=== PATIENT | male | born 1940 | race Caucasian/White ===

== ENCOUNTER 2018-01-01 14:12 | Emergency (ER) | payer OTHER, SELFPAY ==
[2018-01-01 14:29] VITALS: BP 152/86; PULSE 60; RESP 14; TEMP 36.6; O2SAT 99
--- NOTE | 2018-01-01 14:32 | ED.LOWEXIN ---
HPI - Extremity Injury (Lower) <RICH Reese - Last Filed: 01/01/18 23:34> General Chief Complaint: Extremity Injury, Lower Stated Complaint: fell, bilateral pain above knees Time Seen by Provider: 01/01/18 14:56 Source: patient Mode of arrival: wheelchair History of Present Illness HPI Narrative: Patient presents with bilateral knee pain. He states he had his feet and his knees flexed really hard. After that he was unable to bear weight and had to scoot himself to the car. He denies any numbness or tingling or any other injuries. He does state that his pain is strongest above his knee caps. He states he does have a history of osteoarthritis in his knees and has had steroid injections. He denies any recent antibiotic use or diabetes. Related Data Home Medications Medication Instructions Recorded Confirmed albuterol sulfate [Ventolin HFA] 2 puff INH PRN #0 05/09/17 Previous Rx's Medication Instructions Recorded beclomethasone dipropionate [Qvar] 2 puff INH BID #1 inh 08/24/17 montelukast 10 mg PO QDAY #90 tab 09/09/17 omeprazole 20 mg PO BID #90 cap 09/09/17 benzonatate [Tessalon Perles] 100 mg PO TIDP PRN #45 cap 10/11/17 mesalamine [Lialda] 2 tab PO BID #360 tab 10/12/17 sildenafil (antihypertensive) 3 - 5 tab PO SEE INSTRUCTIONS PRN 10/12/17 #30 tab fluticasone 50 mcg/actuation nasal 2 spray INTRANASAL QDAY #15.8 gram 12/15/17 spray,suspension hydrocodone-acetaminophen 1 tab PO Q4-6H PRN #10 tab 01/01/18 Allergies Allergy/AdvReac Type Severity Reaction Status Date / Time Iodinated Contrast- Oral and Allergy Severe HIVES Verified 01/01/18 16:15 IV Dye [IODINATED CONTRAST- ORAL AND IV DYE] Review of Systems <RICH Reese - Last Filed: 01/01/18 23:34> Review of Systems GENERAL: See HPI HEENT: Denies sinus pain, ear pain, sore throat, difficulty swallowing, dizziness. RESPIRATORY: Denies dyspnea, cough, wheezing, hemoptysis, sputum. CARDIOVASCULAR: Denies chest pain, palpitations, orthopnea, edema, GASTROINTESTINAL: Denies nausea, vomiting, abdominal pain, diarrhea, constipation, melena. : Denies dysuria, frequency, incontinence, hematuria, urinary retention. MUSCULOSKELETAL: See HPI SKIN: Denies rash, skin lesions, or other NEUROLOGIC: Denies weakness, headache, numbness, change in speech, confusion, seizures, incoordination. PSYCHIATRIC: No concerning psychosocial issues. 12 point review of systems is negative except for those stated above Exam <ANTONETTE Reese- - Last Filed: 01/01/18 23:34> Narrative Exam Narrative: GENERAL: This is a well-nourished, well-developed patient, in mild distress. HEAD: Atraumatic. Normocephalic. No temporal or scalp tenderness. EYES: Pupils equal round and reactive. Extraocular motions intact. No scleral icterus. No injection or drainage. ENT: Nose without bleeding, purulent drainage or septal hematoma. Throat without erythema, tonsillar hypertrophy or exudate. Uvula midline. Airway patent. NECK: Trachea midline. No JVD or lymphadenopathy. Supple, nontender, no meningeal signs. CARDIOVASCULAR: Regular rate and rhythm without murmurs, gallops, or rubs. RESPIRATORY: Clear to auscultation. Breath sounds equal bilaterally. No wheezes, rales, or rhonchi. GASTROINTESTINAL: Abdomen soft, non-tender, nondistended. No hepato-splenomegaly, or palpable masses. No guarding. EXTREMITIES: Positive p.m.s bilateral feet. Negative posterior drawer, anterior drawer, varus, or valgus negative Rosalva's test bilateral knees. Patient is unable to support lower leg elevated off of bed. Patient is unable to extend leg from knee bilaterally BACK: Nontender without deformity or crepitance. No flank tenderness. NEURO: AOx3. SKIN: Slight swelling noted superior to bilateral patellas. Skin is intact. Initial Vital Signs Initial Vital Signs: Vital Signs Temperature 97.8 F 01/01/18 14:29 Pulse Rate 60 01/01/18 14:29 Respiratory Rate 14 01/01/18 14:29 Blood Pressure 152/86 H 01/01/18 14:29 Pulse Oximetry 99 01/01/18 14:29 <Tremayne Jovel MD - Last Filed: 02/02/18 06:48> Initial Vital Signs Initial Vital Signs: Vital Signs Temperature 97.8 F 01/01/18 14:29 Pulse Rate 60 01/01/18 14:29 Respiratory Rate 14 01/01/18 14:29 Blood Pressure 152/86 H 01/01/18 14:29 Pulse Oximetry 99 01/01/18 14:29 Procedures <ANTONETTE Reese-BC - Last Filed: 01/01/18 23:34> Orthopedic Splinting/Casting Injury #1: Side: right Lower Extremity Injury Location: knee Lower Extremity Immobilizer: knee immobilizer Other Orthopedic Equipment: walker Additional Comments: Pulse motor sensory intact before and after knee immobilizer application in right foot Injury #2: Side: left Lower Extremity Injury Location: knee Lower Extremity Immobilizer: knee immobilizer Other Orthopedic Equipment: walker Additional Comments: Pulse motor and sensory intact before and after knee immobilizer application of left. Course <ANTONETTE Reese-BC - Last Filed: 01/01/18 23:34> Orders Ordered: Discontinued Medications Hydrocodone Bitart/Acetaminophen ([place] 5/325) 2 tab PO NOW ONE Stop: 01/01/18 15:43 Last Admin: 01/01/18 16:15 Dose: 2 tab Hydrocodone Bitart/Acetaminophen (Vicodin Prepack) 1 bottle MISC SEEINSTR ONE Stop: 01/01/18 18:27 Last Admin: 01/01/18 18:31 Dose: 1 bottle Reevaluation(s) Reevaluation #1: Discussed negative x-ray reads. Offered pain medication, which patient accepted. Vicodin ordered p.o. Time: 15:40 Reevaluation #2: Given exam, ultrasounded bilateral knees. Concerning for bilateral tendon rupture. Time: 17:00 Reevaluation #3: Patient placed on bilateral knee immobilizers as per orthopedics. Patient could walker for ambulation. Patient stable on feet. Discussed at length increased risk of falling with patient and . Offered to call [facility] to try to arrange transfer. Patient and declined calling [facility]. Requested patient go home. Patient given small pain medication prescription and will follow up with Orthopedics. Time: 18:00 Consultations Consultation #1: Spoke with Dr Calixto from [facility] who viewed x-rays. Discussed placement in bilateral knee immobilizers. Discussed MRI as further workup, but MRI is no longer available inhouse. Discussed follow-up with [facility]. Time: 17:30 Vital Signs - 8 hr 01/01/18 16:59 01/01/18 18:23 Pulse Rate 74 74 Respiratory Rate 12 12 Blood Pressure [Left Arm] 125/71 H 118/68 Pulse Oximetry 100 97 <Tremayne Jovel MD - Last Filed: 02/02/18 06:48> Orders Ordered: Discontinued Medications Hydrocodone Bitart/Acetaminophen ([place] 5/325) 2 tab PO NOW ONE Stop: 01/01/18 15:43 Last Admin: 01/01/18 16:15 Dose: 2 tab Hydrocodone Bitart/Acetaminophen (Vicodin Prepack) 1 bottle MISC SEEINSTR ONE Stop: 01/01/18 18:27 Last Admin: 01/01/18 18:31 Dose: 1 bottle Vital Signs - 8 hr 01/01/18 16:59 01/01/18 18:23 Pulse Rate 74 74 Respiratory Rate 12 12 Blood Pressure [Left Arm] 125/71 H 118/68 Pulse Oximetry 100 97 MDM - Extremity Injury (Lower) <RICH Reese - Last Filed: 01/01/18 23:34> Imaging Data right knee xray: Radiologist's impression: [place] [address] XRay Report Signed Patient: Renny Rojo MR#: [id number] : 1940 Acct:[id number] Age/Sex: 77 / M Date of Service: 01/01/18 Loc: ED Accession Number: [id number] Procedure: XR knee RT 3V Ordering Provider: Pauline Britotn PROCEDURE: XR KNEE RT 3V INDICATIONS: glf, anterior knee pain/unable to flex TECHNIQUE: 3 views of the knee were acquired. COMPARISON: None. FINDINGS: Bones: No acute fracture or dislocation. There is a patellar enthesophyte present. Soft tissues: No joint effusion. No suspicious soft tissue calcifications. IMPRESSION: No acute radiographic findings. If pain persists, repeat study in 5-7 days is recommended to exclude occult fracture. Dictated by: Cecilia Vega M.D. on 01/01/2018 at 15:17 Approved by: Cecilia Vega M.D. on 01/01/2018 at 15:17 left knee xray: Radiologist's impression: View Report History Print [facility] [address] [place] [address] XRay Report Signed Patient: Renny Rojo MR#: [id number] : 1940 Acct:[id number] Age/Sex: 77 / M Date of Service: 01/01/18 Loc: ED Accession Number: [id number] Procedure: XR knee LT 3V Ordering Provider: Pauline Britton-AME PROCEDURE: XR KNEE LT 3V INDICATIONS: glf, anterior knee pain/unable to flex TECHNIQUE: 3 bilateral views of the knee were acquired. COMPARISON: [facility], CR, XR KNEE RT 3V, 01/01/2018, 14:23. FINDINGS: Bones: No acute fracture or dislocation. There are bilateral patellar enthesophytes. Soft tissues: No joint effusion. No suspicious soft tissue calcifications. IMPRESSION: No acute radiographic findings. If pain persists, repeat study in 5-7 days is recommended to exclude occult fracture. Dictated by: Cecilia Vega M.D. on 01/01/2018 at 14:54 Approved by: Cecilia Vega M.D. on 01/01/2018 at 14:56 MDM Narrative Medical decision making narrative: Exam and history is indicative of a bilateral quadriceps tendon rupture. Discussed at length with orthopedics further management. Discussed at length with patient and follow-up care. Patient and do not want to be transferred to another facility at this time. They would prefer to go home rather than be admitted. Discussed at length with patient return precautions. They will follow up with Orthopedics tomorrow. Small pain medication prescription given to patient. Discharge Plan Departure Patient Disposition: Home, Self-Care Clinical Impression: Rupture of left quadriceps tendon, Rupture of right quadriceps tendon Discharge Date/Time: 01/01/18 18:36 Interventions: ED Discharge Assessment Last Done: 01/01/18 18:35 Instructions: DI for Knee Pain Activity Restrictions/Additional Instructions: We think that you ruptured both of your quadriceps tendons today. I have given you a prescription for pain medication that you can take as needed. Be aware that there is Tylenol in this prescription. I would like you to follow up with [facility] tomorrow. Please be careful at home, keep your knee immobilizers on if you are up. Rest, use ice, elevation. Prescriptions: New hydrocodone-acetaminophen 5-325 mg tablet 1 tab PO Q4-6H PRN (Reason: pain ) Qty: 10 RF: 0 No Action albuterol sulfate [Ventolin HFA] 90 MCG/PUFF HFA aerosol inhaler 2 puff INH PRNQty: 0 RF: 0 beclomethasone dipropionate [Qvar] 80 MCG/PUFF aerosol 2 puff INH BID Qty: 1 RF: 5 omeprazole 20 MG capsule,delayed release(DR/EC) 20 mg PO BID Qty: 90 RF: 3 montelukast 10 MG tablet 10 mg PO QDAY Qty: 90 RF: 3 benzonatate [Tessalon Perles] 100 MG capsule 100 mg PO TIDP PRNQty: 45 RF: 0 sildenafil (antihypertensive) 20 MG tablet 3 - 5 tab PO SEE INSTRUCTIONS PRNQty: 30 RF: 3 mesalamine [Lialda] 1.2 GM tablet,delayed release (DR/EC) 2 tab PO BID Qty: 360 RF: 0 fluticasone [Flonase Allergy Relief] 50 mcg/actuation spray,suspension 2 spray Intranasal QDAY Qty: 15.8 RF: 2 Referrals: [facility] [Provider Group] Darwin Silver MD [Primary Care Provider] - <Tremayne Jovel MD - Last Filed: 02/02/18 06:48> Cosign ED Attending Cosignature Attestation: The PA/PATIENT ADMITTING REPRESENTATIVE functioned independently for the care of this pt, I was available, but not asked to participate in care. I am unable to determine appropriateness of management without personally examining the pt.
--- NOTE | 2018-01-01 14:38 | PC.NURSE ---
bilat knee pain following slip/fall, reports both knees folded underneath him after slipping down wet grass slope and striking both feet on cement block. there is swelling bilat with sup/ant deformity of the lt knee with tenderness, unable to bear weight, distal cms intact, denies loc/neck pain/head pain/back pain
--- NOTE | 2018-01-01 15:48 | ED_ITS ---
HPI - Extremity Injury (Lower) <RICH Reese - Last Filed: 01/01/18 23:34> General Chief Complaint: Extremity Injury, Lower Stated Complaint: fell, bilateral pain above knees Time Seen by Provider: 01/01/18 14:56 Source: patient Mode of arrival: wheelchair History of Present Illness HPI Narrative: Patient presents with bilateral knee pain. He states he had his feet and his knees flexed really hard. After that he was unable to bear weight and had to scoot himself to the car. He denies any numbness or tingling or any other injuries. He does state that his pain is strongest above his knee caps. He states he does have a history of osteoarthritis in his knees and has had steroid injections. He denies any recent antibiotic use or diabetes. Related Data Home Medications Medication Instructions Recorded Confirmed albuterol sulfate [Ventolin HFA] 2 puff INH PRN #0 05/09/17 Previous Rx's Medication Instructions Recorded beclomethasone dipropionate [Qvar] 2 puff INH BID #1 inh 08/24/17 montelukast 10 mg PO QDAY #90 tab 09/09/17 omeprazole 20 mg PO BID #90 cap 09/09/17 benzonatate [Tessalon Perles] 100 mg PO TIDP PRN #45 cap 10/11/17 mesalamine [Lialda] 2 tab PO BID #360 tab 10/12/17 sildenafil (antihypertensive) 3 - 5 tab PO SEE INSTRUCTIONS PRN 10/12/17 #30 tab fluticasone 50 mcg/actuation nasal 2 spray INTRANASAL QDAY #15.8 gram 12/15/17 spray,suspension hydrocodone-acetaminophen 1 tab PO Q4-6H PRN #10 tab 01/01/18 Allergies Allergy/AdvReac Type Severity Reaction Status Date / Time Iodinated Contrast- Oral and Allergy Severe HIVES Verified 01/01/18 16:15 IV Dye [IODINATED CONTRAST- ORAL AND IV DYE] Review of Systems <RICH Reese - Last Filed: 01/01/18 23:34> Review of Systems GENERAL: See HPI HEENT: Denies sinus pain, ear pain, sore throat, difficulty swallowing, dizziness. RESPIRATORY: Denies dyspnea, cough, wheezing, hemoptysis, sputum. CARDIOVASCULAR: Denies chest pain, palpitations, orthopnea, edema, GASTROINTESTINAL: Denies nausea, vomiting, abdominal pain, diarrhea, constipation, melena. : Denies dysuria, frequency, incontinence, hematuria, urinary retention. MUSCULOSKELETAL: See HPI SKIN: Denies rash, skin lesions, or other NEUROLOGIC: Denies weakness, headache, numbness, change in speech, confusion, seizures, incoordination. PSYCHIATRIC: No concerning psychosocial issues. 12 point review of systems is negative except for those stated above Exam <ANTONETTE Reese- - Last Filed: 01/01/18 23:34> Narrative Exam Narrative: GENERAL: This is a well-nourished, well-developed patient, in mild distress. HEAD: Atraumatic. Normocephalic. No temporal or scalp tenderness. EYES: Pupils equal round and reactive. Extraocular motions intact. No scleral icterus. No injection or drainage. ENT: Nose without bleeding, purulent drainage or septal hematoma. Throat without erythema, tonsillar hypertrophy or exudate. Uvula midline. Airway patent. NECK: Trachea midline. No JVD or lymphadenopathy. Supple, nontender, no meningeal signs. CARDIOVASCULAR: Regular rate and rhythm without murmurs, gallops, or rubs. RESPIRATORY: Clear to auscultation. Breath sounds equal bilaterally. No wheezes , rales, or rhonchi. GASTROINTESTINAL: Abdomen soft, non-tender, nondistended. No hepato-splenomegaly , or palpable masses. No guarding. EXTREMITIES: Positive p.m.s bilateral feet. Negative posterior drawer, anterior drawer, varus, or valgus negative Rosalva's test bilateral knees. Patient is unable to support lower leg elevated off of bed. Patient is unable to extend leg from knee bilaterally BACK: Nontender without deformity or crepitance. No flank tenderness. NEURO: AOx3. SKIN: Slight swelling noted superior to bilateral patellas. Skin is intact. Initial Vital Signs Initial Vital Signs: Vital Signs Temperature 97.8 F 01/01/18 14:29 Pulse Rate 60 01/01/18 14:29 Respiratory Rate 14 01/01/18 14:29 Blood Pressure 152/86 H 01/01/18 14:29 Pulse Oximetry 99 01/01/18 14:29 <Tremayne Jovel MD - Last Filed: 02/02/18 06:48> Initial Vital Signs Initial Vital Signs: Vital Signs Temperature 97.8 F 01/01/18 14:29 Pulse Rate 60 01/01/18 14:29 Respiratory Rate 14 01/01/18 14:29 Blood Pressure 152/86 H 01/01/18 14:29 Pulse Oximetry 99 01/01/18 14:29 Procedures <ANTONETTE Reese-BC - Last Filed: 01/01/18 23:34> Orthopedic Splinting/Casting Injury #1: Side: right Lower Extremity Injury Location: knee Lower Extremity Immobilizer: knee immobilizer Other Orthopedic Equipment: walker Additional Comments: Pulse motor sensory intact before and after knee immobilizer application in right foot Injury #2: Side: left Lower Extremity Injury Location: knee Lower Extremity Immobilizer: knee immobilizer Other Orthopedic Equipment: walker Additional Comments: Pulse motor and sensory intact before and after knee immobilizer application of left. Course <ANTONETTE Reese-BC - Last Filed: 01/01/18 23:34> Orders Ordered: Discontinued Medications Hydrocodone Bitart/Acetaminophen ([place] 5/325) 2 tab PO NOW ONE Stop: 01/01/18 15:43 Last Admin: 01/01/18 16:15 Dose: 2 tab Hydrocodone Bitart/Acetaminophen (Vicodin Prepack) 1 bottle MISC SEEINSTR ONE Stop: 01/01/18 18:27 Last Admin: 01/01/18 18:31 Dose: 1 bottle Reevaluation(s) Reevaluation #1: Discussed negative x-ray reads. Offered pain medication, which patient accepted. Vicodin ordered p.o. Time: 15:40 Reevaluation #2: Given exam, ultrasounded bilateral knees. Concerning for bilateral tendon rupture. Time: 17:00 Reevaluation #3: Patient placed on bilateral knee immobilizers as per orthopedics. Patient could walker for ambulation. Patient stable on feet. Discussed at length increased risk of falling with patient and . Offered to call [facility] to try to arrange transfer. Patient and declined calling [facility]. Requested patient go home. Patient given small pain medication prescription and will follow up with Orthopedics. Time: 18:00 Consultations Consultation #1: Spoke with Dr Calixto from [facility] who viewed x-rays. Discussed placement in bilateral knee immobilizers. Discussed MRI as further workup, but MRI is no longer available inhouse. Discussed follow -up with [facility]. Time: 17:30 Vital Signs - 8 hr 01/01/18 16:59 01/01/18 18:23 Pulse Rate 74 74 Respiratory Rate 12 12 Blood Pressure [Left Arm] 125/71 H 118/68 Pulse Oximetry 100 97 <Tremayne Jovel MD - Last Filed: 02/02/18 06:48> Orders Ordered: Discontinued Medications Hydrocodone Bitart/Acetaminophen ([place] 5/325) 2 tab PO NOW ONE Stop: 01/01/18 15:43 Last Admin: 01/01/18 16:15 Dose: 2 tab Hydrocodone Bitart/Acetaminophen (Vicodin Prepack) 1 bottle MISC SEEINSTR ONE Stop: 01/01/18 18:27 Last Admin: 01/01/18 18:31 Dose: 1 bottle Vital Signs - 8 hr 01/01/18 16:59 01/01/18 18:23 Pulse Rate 74 74 Respiratory Rate 12 12 Blood Pressure [Left Arm] 125/71 H 118/68 Pulse Oximetry 100 97 MDM - Extremity Injury (Lower) <RICH Reese - Last Filed: 01/01/18 23:34> Imaging Data right knee xray: Radiologist's impression: [place] [address] XRay Report Signed Patient: Renny Rojo MR#: [id number] : 1940 Acct:[id number] Age/Sex: 77 / M Date of Service: 01/01/18 Loc: ED Accession Number: [id number] Procedure: XR knee RT 3V Ordering Provider: Pauline Britton PROCEDURE: XR KNEE RT 3V INDICATIONS: glf, anterior knee pain/unable to flex TECHNIQUE: 3 views of the knee were acquired. COMPARISON: None. FINDINGS: Bones: No acute fracture or dislocation. There is a patellar enthesophyte present. Soft tissues: No joint effusion. No suspicious soft tissue calcifications. IMPRESSION: No acute radiographic findings. If pain persists, repeat study in 5-7 days is recommended to exclude occult fracture. Dictated by: Cecilia Vega M.D. on 01/01/2018 at 15:17 Approved by: Cecilia Vega M.D. on 01/01/2018 at 15:17 left knee xray: Radiologist's impression: View Report History Print [facility] [address] [place] [address] XRay Report Signed Patient: Renny Rojo MR#: [id number] : 1940 Acct:[id number] Age/Sex: 77 / M Date of Service: 01/01/18 Loc: ED Accession Number: [id number] Procedure: XR knee LT 3V Ordering Provider: Pauline Britton-AME PROCEDURE: XR KNEE LT 3V INDICATIONS: glf, anterior knee pain/unable to flex TECHNIQUE: 3 bilateral views of the knee were acquired. COMPARISON: [facility], CR, XR KNEE RT 3V, 01/01/2018, 14:23. FINDINGS: Bones: No acute fracture or dislocation. There are bilateral patellar enthesophytes. Soft tissues: No joint effusion. No suspicious soft tissue calcifications. IMPRESSION: No acute radiographic findings. If pain persists, repeat study in 5 -7 days is recommended to exclude occult fracture. Dictated by: Cecilia Vega M.D. on 01/01/2018 at 14:54 Approved by: Cecilia Vega M.D. on 01/01/2018 at 14:56 MDM Narrative Medical decision making narrative: Exam and history is indicative of a bilateral quadriceps tendon rupture. Discussed at length with orthopedics further management. Discussed at length with patient and follow-up care. Patient and do not want to be transferred to another facility at this time. They would prefer to go home rather than be admitted. Discussed at length with patient return precautions. They will follow up with Orthopedics tomorrow. Small pain medication prescription given to patient. Discharge Plan Departure Patient Disposition: Home, Self-Care Clinical Impression: Rupture of left quadriceps tendon, Rupture of right quadriceps tendon Discharge Date/Time: 01/01/18 18:36 Interventions: ED Discharge Assessment Last Done: 01/01/18 18:35 Instructions: DI for Knee Pain Activity Restrictions/Additional Instructions: We think that you ruptured both of your quadriceps tendons today. I have given you a prescription for pain medication that you can take as needed. Be aware that there is Tylenol in this prescription. I would like you to follow up with [facility] tomorrow. Please be careful at home, keep your knee immobilizers on if you are up. Rest, use ice, elevation. Prescriptions: New hydrocodone-acetaminophen 5-325 mg tablet 1 tab PO Q4-6H PRN (Reason: pain ) Qty: 10 RF: 0 No Action albuterol sulfate [Ventolin HFA] 90 MCG/PUFF HFA aerosol inhaler 2 puff INH PRNQty: 0 RF: 0 beclomethasone dipropionate [Qvar] 80 MCG/PUFF aerosol 2 puff INH BID Qty: 1 RF: 5 omeprazole 20 MG capsule,delayed release(DR/EC) 20 mg PO BID Qty: 90 RF: 3 montelukast 10 MG tablet 10 mg PO QDAY Qty: 90 RF: 3 benzonatate [Tessalon Perles] 100 MG capsule 100 mg PO TIDP PRNQty: 45 RF: 0 sildenafil (antihypertensive) 20 MG tablet 3 - 5 tab PO SEE INSTRUCTIONS PRNQty: 30 RF: 3 mesalamine [Lialda] 1.2 GM tablet,delayed release (DR/EC) 2 tab PO BID Qty: 360 RF: 0 fluticasone [Flonase Allergy Relief] 50 mcg/actuation spray,suspension 2 spray Intranasal QDAY Qty: 15.8 RF: 2 Referrals: [facility] [Provider Group] Darwin Silver MD [Primary Care Provider] - <Tremayne Jovel MD - Last Filed: 02/02/18 06:48> Cosign ED Attending Cosignature Attestation: The PA/BOX SPRING UPHOLSTERER functioned independently for the care of this pt, I was available, but not asked to participate in care. I am unable to determine appropriateness of management without personally examining the pt.
[2018-01-01] MEDS: HYDROCODONE/ACET 5/325 TABLET 2 TAB PO (16:15)
[2018-01-01 16:59] VITALS: BP 125/71; PULSE 74; RESP 12; O2SAT 100
--- NOTE | 2018-01-01 18:11 | PC.NURSE ---
PT GIVEN WALKER PER PROVIDER ORDERS, PT AMBULATED WITH PROVIDER IN ROOM. PT TOLERATED WALKER.
[2018-01-01 18:23] VITALS: BP 118/68; PULSE 74; RESP 12; O2SAT 97
[2018-01-01] MEDS: HYDROCODONE/ACET 5/325 PREPACK 1 BOTTLE MISC (18:31)
== END 2018-01-01 18:36 | disposition home or self-care (01) ==
PROVIDERS: Emergency Provider Nurse Practitioner Family; PCP Family Medicine
DX: M79.606 Pain in leg, unspecified (principal)
CPT/HCPCS: 73562; 99283

== ENCOUNTER → 2018-01-02 18:50 | Outpatient (CLI) | payer OTHER, SELFPAY ==
--- NOTE | 2018-01-02 | DI.MRI.S_ITS ---
PROCEDURE: MR KNEE LT WO CON INDICATIONS: Knee injury. TECHNIQUE: Noncontrast sagittal PD fast spin echo and T2 fast spin echo with fat saturation, sagittal 3-D FLASH with fat saturation; coronal T1 spin echo and PD fast spin echo with fat saturation, and axial PD fast spin echo with fat saturation through the knee. COMPARISON: [facility], CR, XR KNEE RT 3V, 01/01/2018, 14:23. FINDINGS: Image quality: Excellent. Menisci: There is no evidence of injury to the medial meniscus. Radial tearing of the free edge of the lateral meniscal body is present. Linear high T2 signal intensity horizontally traverses the lateral meniscal body and demonstrates free extension. Cruciate ligaments: The anterior and posterior cruciate ligaments appear intact. Medial structures: There is blood type tearing of the medial collateral ligament. The posterior oblique ligament, semimembranosus tendon insertions, oblique popliteal ligament, and meniscocapsular junction appear intact. Visualized portions of the pes anserinus tendons appear normal. No abnormal bursal fluid. Lateral structures: Small amount of fluid signal intensity within the lateral collateral ligament is present, indicating split type tearing. The long and short heads of the biceps femoris tendon appear intact. The popliteus tendon appears normal; the popliteofibular ligament appears intact. The posterosuperior and anteroinferior popliteomeniscal fascicles appear intact. The arcuate and fabellofibular ligaments appear intact, on either side of the lateral inferior geniculate artery. Iliotibial band appears normal. Anterior structures: Severe diffuse subcutaneous ill-defined T2 signal elevation is present anteriorly, consistent with soft tissue injury, given the history of recent injury. The quadriceps and patellar tendons appear intact. Patellar alignment is normal. No femoral trochlear dysplasia or ventral trochlear prominence. No edema in the infrapatellar fat pad. Bones and cartilage: No bone marrow contusions or fractures. Moderate diffuse articular cartilage loss overlies the weightbearing aspects of the medial femoral condyle. Mild ventricular cartilage loss overlies the weightbearing aspects of the lateral femoral condyle and lateral tibial plateau. Mild articular cartilage loss overlies the lateral patellar facet. Joint space: There is physiologic knee joint fluid. Trace Scales's cyst. Normal appearing synovial plicae are incidentally noted. IMPRESSION: 1. Severe anterior and subcutaneous soft tissue injury. 2. Lateral meniscal tearing. 3. Partial-thickness tears of the medial and lateral collateral ligaments. 4. Trace Scales's cyst. Dictated by: Love Simeon M.D. on 01/03/2018 at 10:01 Approved by: Love Simeon M.D. on 01/03/2018 at 10:06
--- NOTE | 2018-01-02 | DI.MRI.S_ITS ---
PROCEDURE: MR KNEE RT WO CON INDICATIONS: OSTEOPOROSIS BILAT KNEES TECHNIQUE: Noncontrast sagittal PD fast spin echo and T2 fast spin echo with fat saturation, sagittal 3-D FLASH with fat saturation; coronal T1 spin echo and PD fast spin echo with fat saturation, and axial PD fast spin echo with fat saturation through the knee. COMPARISON: [facility], CR, XR KNEE RT 3V, 01/01/2018, 14:23. FINDINGS: Image quality: Excellent. Menisci: There is linear high signal intensity traversing the posterior horn medial meniscus and medial meniscal body, demonstrating inferior articular surface extension, indicating oblique tearing. There is radial tearing of the free edge of the lateral meniscal body, as well as linear high signal intensity obliquely traversing the anterior horn of the lateral meniscus, with inferior articular surface extension, indicating oblique tearing. Cruciate ligaments: The anterior and posterior cruciate ligaments appear intact. Medial structures: The medial collateral ligament appears intact. The posterior oblique ligament, semimembranosus tendon insertions, oblique popliteal ligament, and meniscocapsular junction appear intact. Visualized portions of the pes anserinus tendons appear normal. No abnormal bursal fluid. Lateral structures: The lateral collateral ligament, long and short heads of the biceps femoris tendon appear intact. The popliteus tendon appears normal; the popliteofibular ligament appears intact. The posterosuperior and anteroinferior popliteomeniscal fascicles appear intact. The arcuate and fabellofibular ligaments appear intact, on either side of the lateral inferior geniculate artery. Iliotibial band appears normal. Anterior structures: Severe anterior subcutaneous fat stranding. There is high-grade tearing of the distal quadriceps tendon at the patellar insertion site. Patellar alignment is normal. No femoral trochlear dysplasia or ventral trochlear prominence. No edema in the infrapatellar fat pad. Bones and cartilage: No bone marrow contusions or fractures. There is mild diffuse articular cartilage loss overlying the weightbearing aspects of the medial and lateral compartments. There is a focal 2 mm diameter region of full-thickness reticular cartilage loss overlying the medial patellar facet. Joint space: There is a small knee joint effusion and a small Scales's cyst. Normal appearing synovial plicae are incidentally noted. IMPRESSION: 1. High-grade tearing of the quadriceps tendon. Anterior subcutaneous soft tissue injury. 2. Medial and lateral meniscal tearing. 3. Tricompartmental articular cartilage loss. 4. Small knee joint effusion and Scales's cyst. Dictated by: Love Simeon M.D. on 01/03/2018 at 15:41 Approved by: Love Simeon M.D. on 01/03/2018 at 15:45
== END ==
PROVIDERS: PCP Family Medicine; Visit Provider Orthopaedic Surgery
DX: S83.282A Other tear of lateral meniscus, current injury, left knee, initial encounter (principal); S83.422A Sprain of lateral collateral ligament of left knee, initial encounter; S83.412A Sprain of medial collateral ligament of left knee, initial encounter; M81.0 Age-related osteoporosis without current pathological fracture; S83.281A Other tear of lateral meniscus, current injury, right knee, initial encounter; S83.241A Other tear of medial meniscus, current injury, right knee, initial encounter
CPT/HCPCS: 73721

== ENCOUNTER 2018-04-06 17:24 | Emergency (ER) | payer OTHER, SELFPAY ==
[2018-04-06 17:27] VITALS: BP 157/88; PULSE 83; RESP 14; TEMP 36.4; O2SAT 100; BMI 23.6
--- NOTE | 2018-04-06 17:54 | ED.EXTPRO ---
HPI - Extremity Problem <ELLY Betts - Last Filed: 04/06/18 21:03> General Chief complaint: Extremity Problem,Nontraumatic Stated complaint: PAIN IN CALF OF RIGHT LEG Time Seen by Provider: 04/06/18 17:54 Source: patient Mode of arrival: ambulatory Limitations: no limitations History of Present Illness HPI Narrative: 77-year-old male with history of GERD, BPH and is a nonsmoker. here for complaint of pain into his right calf area that started earlier today. He does state that he has had a 11 day car trip that he returned on a few days ago. He denies any chest pain or shortness of breath. He denies any trauma to the right calf area. No swelling or erythema of the right lower extremity. He is ambulatory into the emergency room. Reports increased pain with palpation to the right calf. He denies any other concerns or complaints at this time MD Complaint: extremity pain Related Data Home Medications Medication Instructions Recorded Confirmed albuterol sulfate [Ventolin HFA] 2 puff INH PRN #0 05/09/17 04/06/18 Previous Rx's Medication Instructions Recorded beclomethasone dipropionate [Qvar] 2 puff INH BID #1 inh 08/24/17 montelukast 10 mg PO QDAY #90 tab 09/09/17 omeprazole 20 mg PO BID #90 cap 09/09/17 benzonatate [Tessalon Perles] 100 mg PO TIDP PRN #45 cap 10/11/17 mesalamine [Lialda] 2 tab PO BID #360 tab 10/12/17 sildenafil (antihypertensive) 3 - 5 tab PO SEE INSTRUCTIONS PRN 10/12/17 #30 tab fluticasone 50 mcg/actuation nasal 2 spray INTRANASAL QDAY #15.8 gram 12/15/17 spray,suspension hydrocodone-acetaminophen 1 tab PO Q4-6H PRN #10 tab 01/01/18 Allergies Allergy/AdvReac Type Severity Reaction Status Date / Time Iodinated Contrast- Oral and Allergy Severe HIVES Verified 04/06/18 17:35 IV Dye [IODINATED CONTRAST- ORAL AND IV DYE] Review of Systems <ELLY Betts - Last Filed: 04/06/18 21:03> Eyes Denies change in vision, Denies eye discharge, Denies irritation and Denies loss of vision ENT Ears, Nose, Mouth, and Throat: Denies change in voice, Denies neck pain and Denies sore throat Cardiovascular Denies chest pain, Denies irregular heart rhythm, Denies lightheadedness, Denies palpitations, Denies dyspnea, Denies dyspnea on exertion and Denies orthopnea Respiratory Denies cough, Denies dyspnea, Denies dyspnea on exertion and Denies wheezing Gastrointestinal Gastrointestinal: Denies abdominal pain, Denies change in bowel habits, Denies diarrhea, Denies nausea and Denies vomiting Genitourinary Denies hematuria, Denies flank pain, Denies urinary incontinence and Denies urinary urgency Musculoskeletal Denies neck pain Comments: Pain to right calf Integumentary/Breasts Denies pruritus, Denies erythema, Denies rash and Denies wounds Neurologic Denies confusion and Denies loss of vision Psychiatric Denies anxiety, Denies confusion, Denies depression, Denies homicidal ideation and Denies suicidal ideation Endocrine Denies palpitations Hematologic/Lymphatic Denies easy bruising Allergic/Immunologic Denies wheezing Exam <ELLY Betts - Last Filed: 04/06/18 21:03> Initial Vital Signs Initial Vital Signs: Vital Signs Temperature 97.5 F L 04/06/18 17:27 Pulse Rate 83 04/06/18 17:27 Respiratory Rate 14 04/06/18 17:27 Blood Pressure 157/88 H 04/06/18 17:27 Pulse Oximetry 100 04/06/18 17:27 Const General: cooperative and well developed Nutritional Appearance: well nourished Orientation: alert, awake, oriented x3 and not confused [facility] Mouth: oral mucosae normal and moist mucous membranes Eyes Conjunctivae: conjunctivae normal Sclera: sclerae normal Pupils: PERRL EOM: EOM intact bilaterally Resp Effort & Inspection: normal respiratory effort, able to speak in complete sentences, no respiratory distress and no use of accessory muscles Auscultation: clear to auscultation bilaterally, no rales, no rhonchi and no wheezes Cardio Rate: regular rate Rhythm: regular rhythm Heart Sounds: no click, no gallops, no murmurs and no rubs Pulses: normal peripheral pulses GI Inspection: non-distended Palpation: soft, no hepatosplenomegaly, No guarding, No pulsatile mass and No tender Auscultation: normal bowel sounds Skin General: no rashes or lesions noted, No jaundice and No petechiae Neuro General: alert, oriented x3, gait normal and no focal motor deficits Speech: speech normal Extrem Other: Right lower extremity with no signs of trauma. No swelling. No ecchymosis. No erythema. Distal sensation is intact. Distal range of motion is intact. Distal pulses are intact. Negative Homans sign. <Mani Isaacs MD - Last Filed: 04/06/18 21:51> Initial Vital Signs Initial Vital Signs: Vital Signs Temperature 97.5 F L 04/06/18 17:27 Pulse Rate 83 04/06/18 17:27 Respiratory Rate 14 04/06/18 17:27 Blood Pressure 157/88 H 04/06/18 17:27 Pulse Oximetry 100 04/06/18 17:27 Course <ELLY Betts - Last Filed: 04/06/18 21:03> Orders Ordered: ED Orders 04/06/18 18:00 US periph venous low extrem rt Stat 04/06/18 18:18 Complete Blood Count AUTO DIFF Stat Comprehensive Metabolic Panel Stat Prothrombin Time INR Stat Vital Signs - 8 hr 04/06/18 17:27 04/06/18 18:56 Temperature 97.5 F L 97.8 F Pulse Rate 83 56 L Respiratory Rate 14 16 Blood Pressure 157/88 H Blood Pressure [Left Arm] 129/73 Pulse Oximetry 100 96 <Mani Isaacs MD - Last Filed: 04/06/18 21:51> Orders Ordered: ED Orders 04/06/18 18:00 US periph venous low extrem rt Stat 04/06/18 18:18 Complete Blood Count AUTO DIFF Stat Comprehensive Metabolic Panel Stat Prothrombin Time INR Stat Vital Signs - 8 hr 04/06/18 17:27 04/06/18 18:56 Temperature 97.5 F L 97.8 F Pulse Rate 83 56 L Respiratory Rate 14 16 Blood Pressure 157/88 H Blood Pressure [Left Arm] 129/73 Pulse Oximetry 100 96 MDM - Extremity (Nontraumatic) <ELLY Betts - Last Filed: 04/06/18 21:03> Lab Data Result diagrams: 04/06/18 18:18 04/06/18 18:18 Lab Results 04/06/18 04/06/18 04/06/18 Range/Units 18:18 18:18 18:18 WBC 7.4 (4.5-11.0) X10^3/uL RBC 4.92 (4.5-5.9) X10^6/uL Hgb 15.2 (13.5-17.5) g/dL Hct 45.1 (41-53) % MCV 91.6 (80-100) fL MCH 30.8 (26-34) PG MCHC 33.6 (30-36) % RDW 13.5 (11.6-14.8) % Plt Count 200 (150-400) X10^3/uL Neut % (Auto) 66.1 (50-75) % Lymph % (Auto) 20.0 L (25-40) % Warren % (Auto) 11.2 (3-14) % Eos % (Auto) 1.7 L (2-4) % Baso % (Auto) 1.0 (0-2) % Neut # (Auto) 4900 (1795-9077) /uL PT 12.9 H (10.1-12.7) SECONDS INR 1.2 (0.9-1.3) Sodium 142 (137-145) mmol/L Potassium 4.2 (3.4-5.1) mmol/L Chloride 102 (98-107) mmol/L Carbon Dioxide 33 H (22-32) mmol/L BUN 23 H (9-20) mg/dL Creatinine 0.90 (0.66-1.25) mg/dL Estimated GFR > 60.0 (>60) mL/min BUN/Creatinine Ratio 25.6 H (6-22) Glucose 95 (80-110) mg/dL Calcium 9.0 (8.4-10.2) mg/dL Total Bilirubin 0.8 (0.2-1.3) mg/dL AST 29 (17-59) IU/L ALT 28 (21-72) IU/L Alkaline Phosphatase 61 (38-126) U/L Total Protein 7.1 (6.3-8.2) g/dL Albumin 4.1 (3.5-5.0) g/dL Globulin 3.0 (1.7-4.1) g/dL Albumin/Globulin Ratio 1.4 (1.0-2.8) Imaging Data Venous US: Radiologist's impression: [address] [address] Ultrasound Report Signed Patient: Renny Rojo MR#: [id number] : 1940 Acct:[id number] Age/Sex: 77 / M Date of Service: 04/06/18 Loc: ED Accession Number: [id number] Procedure: US periph venous low extrem rt Ordering Provider: Beltran Young PROCEDURE: US PERIPH VENOUS LOW EXTREM RT INDICATIONS: Pain into right calf started earlier today with recent trave TECHNIQUE: Real-time imaging, as well as color and pulse Doppler interrogation, were performed of the lower extremity deep veins from the inguinal ligament to the popliteal fossa. COMPARISON: None. FINDINGS: The deep veins are normally compressible, and free of intraluminal thrombus. Color and pulse Doppler demonstrate normal phasic intraluminal flow. There is normal augmentation response to distal compression maneuver. IMPRESSION: 1. No evidence of deep venous thrombosis in the right lower extremity. Dictated by: Juancarlos Leiva M.D. on 04/06/2018 at 18:25 Approved by: Juancarlos Leiva M.D. on 04/06/2018 at 18:26 [facility] Narrative Medical decision making narrative: Venous ultrasound was obtained of the right lower extremity was negative for any blood clots. CBC and Chem panel were obtained were unremarkable. Signs and symptoms presents as muscle strain. [id number] Tylenol as needed for any discomfort. Follow up with primary care provider next week for re-evaluation. For any worsening symptoms return to the emergency room. <Mani Isaacs MD - Last Filed: 04/06/18 21:51> Lab Data Lab Results 04/06/18 04/06/18 04/06/18 Range/Units 18:18 18:18 18:18 WBC 7.4 (4.5-11.0) X10^3/uL RBC 4.92 (4.5-5.9) X10^6/uL Hgb 15.2 (13.5-17.5) g/dL Hct 45.1 (41-53) % MCV 91.6 (80-100) fL MCH 30.8 (26-34) PG MCHC 33.6 (30-36) % RDW 13.5 (11.6-14.8) % Plt Count 200 (150-400) X10^3/uL Neut % (Auto) 66.1 (50-75) % Lymph % (Auto) 20.0 L (25-40) % Warren % (Auto) 11.2 (3-14) % Eos % (Auto) 1.7 L (2-4) % Baso % (Auto) 1.0 (0-2) % Neut # (Auto) 4900 (2271-7594) /uL PT 12.9 H (10.1-12.7) SECONDS INR 1.2 (0.9-1.3) Sodium 142 (137-145) mmol/L Potassium 4.2 (3.4-5.1) mmol/L Chloride 102 (98-107) mmol/L Carbon Dioxide 33 H (22-32) mmol/L BUN 23 H (9-20) mg/dL Creatinine 0.90 (0.66-1.25) mg/dL Estimated GFR > 60.0 (>60) mL/min BUN/Creatinine Ratio 25.6 H (6-22) Glucose 95 (80-110) mg/dL Calcium 9.0 (8.4-10.2) mg/dL Total Bilirubin 0.8 (0.2-1.3) mg/dL AST 29 (17-59) IU/L ALT 28 (21-72) IU/L Alkaline Phosphatase 61 (38-126) U/L Total Protein 7.1 (6.3-8.2) g/dL Albumin 4.1 (3.5-5.0) g/dL Globulin 3.0 (1.7-4.1) g/dL Albumin/Globulin Ratio 1.4 (1.0-2.8) Discharge Plan Departure Patient Disposition: Home Clinical Impression: Muscle strain of right lower extremity Discharge Date/Time: 04/06/18 19:15 Interventions: ED Discharge Assessment Last Done: 04/06/18 19:15 Instructions: DI for Leg Pain Activity Restrictions/Additional Instructions: enous ultrasound was obtained of the right lower extremity was negative for any blood clots. CBC and Chem panel were obtained were unremarkable. Signs and symptoms presents as muscle strain. [id number] Tylenol as needed for any discomfort. Follow up with primary care provider next week for re-evaluation. For any worsening symptoms return to the emergency room. Prescriptions: No Action albuterol sulfate [Ventolin HFA] 90 MCG/PUFF HFA aerosol inhaler 2 puff INH PRNQty: 0 RF: 0 beclomethasone dipropionate [Qvar] 80 MCG/PUFF aerosol 2 puff INH BID Qty: 1 RF: 5 omeprazole 20 MG capsule,delayed release(DR/EC) 20 mg PO BID Qty: 90 RF: 3 montelukast 10 MG tablet 10 mg PO QDAY Qty: 90 RF: 3 benzonatate [Tessalon Perles] 100 MG capsule 100 mg PO TIDP PRNQty: 45 RF: 0 sildenafil (antihypertensive) 20 MG tablet 3 - 5 tab PO SEE INSTRUCTIONS PRNQty: 30 RF: 3 mesalamine [Lialda] 1.2 GM tablet,delayed release (DR/EC) 2 tab PO BID Qty: 360 RF: 0 fluticasone [Flonase Allergy Relief] 50 mcg/actuation spray,suspension 2 spray Intranasal QDAY Qty: 15.8 RF: 2 hydrocodone-acetaminophen 5-325 mg tablet 1 tab PO Q4-6H PRN (Reason: pain ) Qty: 10 RF: 0 Referrals: Darwin Silver MD [Primary Care Provider] - <Mani Isaacs MD - Last Filed: 04/06/18 21:51> Cosign ED Attending Cosignature Attestation: I was present in the ER at the time of this patient's care. I was available for verbal consultation, or to see the patient directly if needed. I agree with the assessment, and care plan.
--- NOTE | 2018-04-06 18:00 | DI.US.S_ITS ---
PROCEDURE: US PERIPH VENOUS LOW EXTREM RT INDICATIONS: Pain into right calf started earlier today with recent trave TECHNIQUE: Real-time imaging, as well as color and pulse Doppler interrogation, were performed of the lower extremity deep veins from the inguinal ligament to the popliteal fossa. COMPARISON: None. FINDINGS: The deep veins are normally compressible, and free of intraluminal thrombus. Color and pulse Doppler demonstrate normal phasic intraluminal flow. There is normal augmentation response to distal compression maneuver. IMPRESSION: 1. No evidence of deep venous thrombosis in the right lower extremity. Dictated by: Juancarlos Leiva M.D. on 04/06/2018 at 18:25 Approved by: Juancarlos Leiva M.D. on 04/06/2018 at 18:26
[2018-04-06 18:25] LABS: Add Manual Diff / Slide Review NO; Eosinophils Percent Auto 1.7 % (2-4); Hematocrit 45.1 % (41-53); Hemoglobin 15.2 g/dL (13.5-17.5); Mean Corpuscular HGB Conc 33.6 % (30-36); Mean Corpuscular Hemoglobin 30.8 PG (26-34); Mean Corpuscular Volume 91.6 fL (80-100); Monocytes Percent Auto 11.2 % (3-14); Neutrophils Absolute Auto 4900 /uL (3000-5900); Neutrophils Percent Auto 66.1 % (50-75); Platelet Count 200 X10^3/uL (150-400); Red Blood Cell Count 4.92 X10^6/uL (4.5-5.9); Red Cell Distribution Width 13.5 % (11.6-14.8); White Blood Cell Count 7.4 X10^3/uL (4.5-11.0)
[2018-04-06 18:32] LABS: INR 1.2 (0.9-1.3); Prothrombin Time 12.9 SECONDS (10.1-12.7)
[2018-04-06 18:35] LABS: Alanine Aminotransferase 28 IU/L (21-72); Albumin 4.1 g/dL (3.5-5.0); Albumin Globulin Ratio 1.4 (1.0-2.8); Alkaline Phosphatase 61 U/L (38-126); Aspartate Aminotransferase 29 IU/L (17-59); BUN Creatinine Ratio 25.6 (6-22); Bilirubin Total 0.8 mg/dL (0.2-1.3); Blood Urea Nitrogen 23 mg/dL (9-20); Carbon Dioxide 33 mmol/L (22-32); Chloride 102 mmol/L (98-107); Estimated Glomerular Filt Rate > 60.0 mL/min (>60); Glucose 95 mg/dL (80-110); HEMOLYSIS < 15 (0-50); Potassium 4.2 mmol/L (3.4-5.1); Sodium 142 mmol/L (137-145); Total Protein 7.1 g/dL (6.3-8.2)
[2018-04-06 18:56] VITALS: BP 129/73; PULSE 56; RESP 16; TEMP 36.6; O2SAT 96
--- NOTE | 2018-04-06 19:02 | ED_ITS ---
HPI - Extremity Problem <ELLY Betts - Last Filed: 04/06/18 21:03> General Chief complaint: Extremity Problem,Nontraumatic Stated complaint: PAIN IN CALF OF RIGHT LEG Time Seen by Provider: 04/06/18 17:54 Source: patient Mode of arrival: ambulatory Limitations: no limitations History of Present Illness HPI Narrative: 77-year-old male with history of GERD, BPH and is a nonsmoker. here for complaint of pain into his right calf area that started earlier today. He does state that he has had a 11 day car trip that he returned on a few days ago. He denies any chest pain or shortness of breath. He denies any trauma to the right calf area. No swelling or erythema of the right lower extremity. He is ambulatory into the emergency room. Reports increased pain with palpation to the right calf. He denies any other concerns or complaints at this time MD Complaint: extremity pain Related Data Home Medications Medication Instructions Recorded Confirmed albuterol sulfate [Ventolin HFA] 2 puff INH PRN #0 05/09/17 04/06/18 Previous Rx's Medication Instructions Recorded beclomethasone dipropionate [Qvar] 2 puff INH BID #1 inh 08/24/17 montelukast 10 mg PO QDAY #90 tab 09/09/17 omeprazole 20 mg PO BID #90 cap 09/09/17 benzonatate [Tessalon Perles] 100 mg PO TIDP PRN #45 cap 10/11/17 mesalamine [Lialda] 2 tab PO BID #360 tab 10/12/17 sildenafil (antihypertensive) 3 - 5 tab PO SEE INSTRUCTIONS PRN 10/12/17 #30 tab fluticasone 50 mcg/actuation nasal 2 spray INTRANASAL QDAY #15.8 gram 12/15/17 spray,suspension hydrocodone-acetaminophen 1 tab PO Q4-6H PRN #10 tab 01/01/18 Allergies Allergy/AdvReac Type Severity Reaction Status Date / Time Iodinated Contrast- Oral and Allergy Severe HIVES Verified 04/06/18 17:35 IV Dye [IODINATED CONTRAST- ORAL AND IV DYE] Review of Systems <ELLY Betts - Last Filed: 04/06/18 21:03> Eyes Denies change in vision, Denies eye discharge, Denies irritation and Denies loss of vision ENT Ears, Nose, Mouth, and Throat: Denies change in voice, Denies neck pain and Denies sore throat Cardiovascular Denies chest pain, Denies irregular heart rhythm, Denies lightheadedness, Denies palpitations, Denies dyspnea, Denies dyspnea on exertion and Denies orthopnea Respiratory Denies cough, Denies dyspnea, Denies dyspnea on exertion and Denies wheezing Gastrointestinal Gastrointestinal: Denies abdominal pain, Denies change in bowel habits, Denies diarrhea, Denies nausea and Denies vomiting Genitourinary Denies hematuria, Denies flank pain, Denies urinary incontinence and Denies urinary urgency Musculoskeletal Denies neck pain Comments: Pain to right calf Integumentary/Breasts Denies pruritus, Denies erythema, Denies rash and Denies wounds Neurologic Denies confusion and Denies loss of vision Psychiatric Denies anxiety, Denies confusion, Denies depression, Denies homicidal ideation and Denies suicidal ideation Endocrine Denies palpitations Hematologic/Lymphatic Denies easy bruising Allergic/Immunologic Denies wheezing Exam <ELLY Betts - Last Filed: 04/06/18 21:03> Initial Vital Signs Initial Vital Signs: Vital Signs Temperature 97.5 F L 04/06/18 17:27 Pulse Rate 83 04/06/18 17:27 Respiratory Rate 14 04/06/18 17:27 Blood Pressure 157/88 H 04/06/18 17:27 Pulse Oximetry 100 04/06/18 17:27 Const General: cooperative and well developed Nutritional Appearance: well nourished Orientation: alert, awake, oriented x3 and not confused [facility] Mouth: oral mucosae normal and moist mucous membranes Eyes Conjunctivae: conjunctivae normal Sclera: sclerae normal Pupils: PERRL EOM: EOM intact bilaterally Resp Effort & Inspection: normal respiratory effort, able to speak in complete sentences, no respiratory distress and no use of accessory muscles Auscultation: clear to auscultation bilaterally, no rales, no rhonchi and no wheezes Cardio Rate: regular rate Rhythm: regular rhythm Heart Sounds: no click, no gallops, no murmurs and no rubs Pulses: normal peripheral pulses GI Inspection: non-distended Palpation: soft, no hepatosplenomegaly, No guarding, No pulsatile mass and No tender Auscultation: normal bowel sounds Skin General: no rashes or lesions noted, No jaundice and No petechiae Neuro General: alert, oriented x3, gait normal and no focal motor deficits Speech: speech normal Extrem Other: Right lower extremity with no signs of trauma. No swelling. No ecchymosis. No erythema. Distal sensation is intact. Distal range of motion is intact. Distal pulses are intact. Negative Homans sign. <Mani Isaacs MD - Last Filed: 04/06/18 21:51> Initial Vital Signs Initial Vital Signs: Vital Signs Temperature 97.5 F L 04/06/18 17:27 Pulse Rate 83 04/06/18 17:27 Respiratory Rate 14 04/06/18 17:27 Blood Pressure 157/88 H 04/06/18 17:27 Pulse Oximetry 100 04/06/18 17:27 Course <ELLY Betts - Last Filed: 04/06/18 21:03> Orders Ordered: ED Orders 04/06/18 18:00 US periph venous low extrem rt Stat 04/06/18 18:18 Complete Blood Count AUTO DIFF Stat Comprehensive Metabolic Panel Stat Prothrombin Time INR Stat Vital Signs - 8 hr 04/06/18 17:27 04/06/18 18:56 Temperature 97.5 F L 97.8 F Pulse Rate 83 56 L Respiratory Rate 14 16 Blood Pressure 157/88 H Blood Pressure [Left Arm] 129/73 Pulse Oximetry 100 96 <Mani Isaacs MD - Last Filed: 04/06/18 21:51> Orders Ordered: ED Orders 04/06/18 18:00 US periph venous low extrem rt Stat 04/06/18 18:18 Complete Blood Count AUTO DIFF Stat Comprehensive Metabolic Panel Stat Prothrombin Time INR Stat Vital Signs - 8 hr 04/06/18 17:27 04/06/18 18:56 Temperature 97.5 F L 97.8 F Pulse Rate 83 56 L Respiratory Rate 14 16 Blood Pressure 157/88 H Blood Pressure [Left Arm] 129/73 Pulse Oximetry 100 96 MDM - Extremity (Nontraumatic) <ELLY Betts - Last Filed: 04/06/18 21:03> Lab Data Result diagrams: 04/06/18 18:18 04/06/18 18:18 Lab Results 04/06/18 04/06/18 04/06/18 Range/Units 18:18 18:18 18:18 WBC 7.4 (4.5-11.0) X10^3/uL RBC 4.92 (4.5-5.9) X10^6/uL Hgb 15.2 (13.5-17.5) g/dL Hct 45.1 (41-53) % MCV 91.6 (80-100) fL MCH 30.8 (26-34) PG MCHC 33.6 (30-36) % RDW 13.5 (11.6-14.8) % Plt Count 200 (150-400) X10^3/uL Neut % (Auto) 66.1 (50-75) % Lymph % (Auto) 20.0 L (25-40) % [place] % (Auto) 11.2 (3-14) % Eos % (Auto) 1.7 L (2-4) % Baso % (Auto) 1.0 (0-2) % Neut # (Auto) 4900 (8293-4486) /uL PT 12.9 H (10.1-12.7) SECONDS INR 1.2 (0.9-1.3) Sodium 142 (137-145) mmol/L Potassium 4.2 (3.4-5.1) mmol/L Chloride 102 (98-107) mmol/L Carbon Dioxide 33 H (22-32) mmol/L BUN 23 H (9-20) mg/dL Creatinine 0.90 (0.66-1.25) mg/dL Estimated GFR > 60.0 (>60) mL/min BUN/Creatinine Ratio 25.6 H (6-22) Glucose 95 (80-110) mg/dL Calcium 9.0 (8.4-10.2) mg/dL Total Bilirubin 0.8 (0.2-1.3) mg/dL AST 29 (17-59) IU/L ALT 28 (21-72) IU/L Alkaline Phosphatase 61 (38-126) U/L Total Protein 7.1 (6.3-8.2) g/dL Albumin 4.1 (3.5-5.0) g/dL Globulin 3.0 (1.7-4.1) g/dL Albumin/Globulin Ratio 1.4 (1.0-2.8) Imaging Data Venous US: Radiologist's impression: [address] [address] Ultrasound Report Signed Patient: Renny Rojo MR#: [id number] : 1940 Acct:[id number] Age/Sex: 77 / M Date of Service: 04/06/18 Loc: ED Accession Number: [id number] Procedure: US periph venous low extrem rt Ordering Provider: Beltran Young PROCEDURE: US PERIPH VENOUS LOW EXTREM RT INDICATIONS: Pain into right calf started earlier today with recent trave TECHNIQUE: Real-time imaging, as well as color and pulse Doppler interrogation, were performed of the lower extremity deep veins from the inguinal ligament to the popliteal fossa. COMPARISON: None. FINDINGS: The deep veins are normally compressible, and free of intraluminal thrombus. Color and pulse Doppler demonstrate normal phasic intraluminal flow. There is normal augmentation response to distal compression maneuver. IMPRESSION: 1. No evidence of deep venous thrombosis in the right lower extremity. Dictated by: Juancarlos Leiva M.D. on 04/06/2018 at 18:25 Approved by: Juancarlos Leiva M.D. on 04/06/2018 at 18:[address] [facility] Narrative Medical decision making narrative: Venous ultrasound was obtained of the right lower extremity was negative for any blood clots. CBC and Chem panel were obtained were unremarkable. Signs and symptoms presents as muscle strain. Over- the-counter Tylenol as needed for any discomfort. Follow up with primary care provider next week for re-evaluation. For any worsening symptoms return to the emergency room. <Mani Isaacs MD - Last Filed: 04/06/18 21:51> Lab Data Lab Results 04/06/18 04/06/18 04/06/18 Range/Units 18:18 18:18 18:18 WBC 7.4 (4.5-11.0) X10^3/uL RBC 4.92 (4.5-5.9) X10^6/uL Hgb 15.2 (13.5-17.5) g/dL Hct 45.1 (41-53) % MCV 91.6 (80-100) fL MCH 30.8 (26-34) PG MCHC 33.6 (30-36) % RDW 13.5 (11.6-14.8) % Plt Count 200 (150-400) X10^3/uL Neut % (Auto) 66.1 (50-75) % Lymph % (Auto) 20.0 L (25-40) % [place] % (Auto) 11.2 (3-14) % Eos % (Auto) 1.7 L (2-4) % Baso % (Auto) 1.0 (0-2) % Neut # (Auto) 4900 (0239-7530) /uL PT 12.9 H (10.1-12.7) SECONDS INR 1.2 (0.9-1.3) Sodium 142 (137-145) mmol/L Potassium 4.2 (3.4-5.1) mmol/L Chloride 102 (98-107) mmol/L Carbon Dioxide 33 H (22-32) mmol/L BUN 23 H (9-20) mg/dL Creatinine 0.90 (0.66-1.25) mg/dL Estimated GFR > 60.0 (>60) mL/min BUN/Creatinine Ratio 25.6 H (6-22) Glucose 95 (80-110) mg/dL Calcium 9.0 (8.4-10.2) mg/dL Total Bilirubin 0.8 (0.2-1.3) mg/dL AST 29 (17-59) IU/L ALT 28 (21-72) IU/L Alkaline Phosphatase 61 (38-126) U/L Total Protein 7.1 (6.3-8.2) g/dL Albumin 4.1 (3.5-5.0) g/dL Globulin 3.0 (1.7-4.1) g/dL Albumin/Globulin Ratio 1.4 (1.0-2.8) Discharge Plan Departure Patient Disposition: Home Clinical Impression: Muscle strain of right lower extremity Discharge Date/Time: 04/06/18 19:15 Interventions: ED Discharge Assessment Last Done: 04/06/18 19:15 Instructions: DI for Leg Pain Activity Restrictions/Additional Instructions: enous ultrasound was obtained of the right lower extremity was negative for any blood clots. CBC and Chem panel were obtained were unremarkable. Signs and symptoms presents as muscle strain. [id number] Tylenol as needed for any discomfort. Follow up with primary care provider next week for re-evaluation. For any worsening symptoms return to the emergency room. Prescriptions: No Action albuterol sulfate [Ventolin HFA] 90 MCG/PUFF HFA aerosol inhaler 2 puff INH PRNQty: 0 RF: 0 beclomethasone dipropionate [Qvar] 80 MCG/PUFF aerosol 2 puff INH BID Qty: 1 RF: 5 omeprazole 20 MG capsule,delayed release(DR/EC) 20 mg PO BID Qty: 90 RF: 3 montelukast 10 MG tablet 10 mg PO QDAY Qty: 90 RF: 3 benzonatate [Tessalon Perles] 100 MG capsule 100 mg PO TIDP PRNQty: 45 RF: 0 sildenafil (antihypertensive) 20 MG tablet 3 - 5 tab PO SEE INSTRUCTIONS PRNQty: 30 RF: 3 mesalamine [Lialda] 1.2 GM tablet,delayed release (DR/EC) 2 tab PO BID Qty: 360 RF: 0 fluticasone [Flonase Allergy Relief] 50 mcg/actuation spray,suspension 2 spray Intranasal QDAY Qty: 15.8 RF: 2 hydrocodone-acetaminophen 5-325 mg tablet 1 tab PO Q4-6H PRN (Reason: pain ) Qty: 10 RF: 0 Referrals: Darwin Silver MD [Primary Care Provider] - <Mani Isaacs MD - Last Filed: 04/06/18 21:51> Cosign ED Attending Cosignature Attestation: I was present in the ER at the time of this patient's care. I was available for verbal consultation, or to see the patient directly if needed. I agree with the assessment, and care plan.
== END 2018-04-06 19:15 | disposition home or self-care (01) ==
PROVIDERS: Emergency Provider Nurse Practitioner Family; PCP Family Medicine
DX: S86.911A Strain of unspecified muscle(s) and tendon(s) at lower leg level, right leg, initial encounter (principal)
CPT/HCPCS: 36415; 80053; 85025; 85610; 93971; 99282; 99284

== ENCOUNTER 2018-10-04 13:37 | Day surgery (SDC) | payer OTHER, SELFPAY ==
--- NOTE | 2018-10-04 | PATH_ITS ---
[facility] Accession Number: [id number] . 01 Material submitted: . PART A: TERMINAL ILEUM PART B: CECUM PART C: 10CM FROM CECUM PART D: 20CM FROM CECUM PART E: 30CM FROM CECUM PART F: 40CM FROM CECUM PART CM FROM CECUM PART H: 60CM FROM CECUM PART I: 70CM FROM CECUM PART J: 80CM FROM CECUM PART K: 90CM FROM CECUM PART L: 100 CM FROM CECUM PART M: 110CM FROM CECUM PART N: RECTUM BIOPSY . 02 Diagnosis: A. Biopsy, Terminal Ileum: Superficial fragment of normal appearing small bowel mucosa. Negative for granulomas. Negative for significant inflammation, dysplasia and malignancy. . B-N: Colon Biopsies From Cecum And Biopsies At 10 cm, 20 cm, 30 cm, 40 cm, 50 cm, 60 cm, 70 cm, 80 cm, 90 cm, 100 cm, 110 cm, From The Cecum And Also Biopsy From The Rectum: Multiple fragments of normal appearing colon mucosa present in all 13 specimens. Negative for significant architectural distortion. Negative for significant inflammation, dysplasia and malignancy. [facility]/10/05/2018 . 02 Electronically signed: . Dominik Mcdermott MD, Pathologist NPI- [id number] . 01 Gross description: . Received 14 formalin-filled containers, each labeled with the patient's name: . A. In a container labeled terminal ileum, the specimen consists of a 0.4 cm portion of tissue, entirely submitted in cassette A. B. In a container labeled cecum, the specimen consists of three 0.2-0.3 cm portions of tissue, entirely submitted in cassette B. C. In a container labeled 10 cm from cecum, the specimen consists of four less than 0.1 cm to 0.4 cm portions of tissue, entirely submitted in cassette C. D. In a container labeled 20 cm from cecum, the specimen consists of three 0.3-0.4 cm portions of tissue, entirely submitted in cassette D. E. In a container labeled 30 cm from cecum, the specimen consists of two 0.2-0.7 cm portions of tissue, entirely submitted in cassette E. F. In a container labeled 40 cm from cecum, the specimen consists of a 0.4 cm portion of tissue, entirely submitted in cassette F. G. In a container labeled 50 cm from cecum, the specimen consists of two 0.3-0.6 cm portions of tissue, entirely submitted in cassette G. H. In a container labeled 60 cm from cecum, the specimen consists of two 0.2-0.3 cm portions of tissue, entirely submitted in cassette H. I. In a container labeled 70 cm from cecum, the specimen consists of three 0.1-0.3 cm portions of tissue, entirely submitted in cassette I. J. In a container labeled 80 cm from cecum, the specimen consists of four 0.1-0.4 cm portions of tissue, entirely submitted in cassette J. K. In a container labeled 90 cm from cecum, the specimen consists of two 0.3-0.5 cm portions of tissue, entirely submitted in cassette K. L. In a container labeled 100 cm from cecum, the specimen consists of three 0.1-0.3 cm portions of tissue, entirely submitted in cassette L. M. In a container labeled 110 cm from cecum, the specimen consists of three 0.2-0.4 cm portions of tissue, entirely submitted in cassette M. N. In a container labeled rectum, the specimen consists of three 0.2- 0.5 cm portions of tissue, entirely submitted in cassette N. ([id number]) /FRR . 02 Pathologist provided ICD-10: Z85.038 . 02 CPT . 628452, 870041, 821116, 487145, 294332, 140341, 625421, 371601, 115295, 363911, 114121, 529880, 433854, 164670 Performed at: [address] [place] [address], [place], [place] [id number] MD Juancarlos Beavers MD Phone: [phone] Performed at: 02 [facility] [address] [place] [id number] MD Kamilla Soto MD Phone: [phone]
[2018-10-04] MEDS: SODIUM CHLORIDE 0.9% 1,000 ML 70 ML IV (14:06)
[2018-10-04 14:27] VITALS: BP 136/71; PULSE 66; RESP 14; TEMP 36.6; O2SAT 97; BMI 21.9
--- NOTE | 2018-10-04 14:38 | PM.HP.1 ---
History of Present Illness Date Patient Seen: 10/04/18 Chief complaint: [id number] COLONOSCOPY Narrative: The patient is a 77-year-old male with a longstanding history of ulcerative colitis currently maintained on mesalamine who was seen in our office in June 2018 at the time with GI symptoms of abdominal discomfort and changes in stool caliber. Patient has since increased his mesalamine dose and has had improved symptoms. He denies any GI bleeding and states he has 1-2 bowel movements every day Patient History Medical History Asthma (Acute) Clavicle fracture (Acute) Dysphagia (Acute) Hearing loss (Acute) History of esophageal reflux (Acute) History of sigmoidoscopy (Acute) Ruptured, tendon, quadriceps (Acute) Skin cancer (Acute) Surgical History History of colonoscopy (Acute) History of esophagogastroduodenoscopy (EGD) (Acute) S/P TURP (status post transurethral resection of prostate) (Acute) Family History Brother Heart disease Brother Age: 90 Stroke Brother Age: 80 Stroke Child Age: 50 Heart disease Social History household members: spouse Smoking Status: Never smoker Family & Social History Family History Brother Heart disease Brother Age: 90 Stroke Brother Age: 80 Stroke Child Age: 50 Heart disease Tobacco & Substance use: Smoking Status Never smoker alcohol intake frequency 0-2 drinks per day Substance Use Type does not use Meds Home Medications Medication Instructions Recorded Confirmed Type Ventolin HFA 2 puff INH PRN PRN #0 05/09/17 10/04/18 History mesalamine 1.2 gram tablet,delayed 2.4 gram PO BID #360 tab 04/13/18 10/04/18 Rx release fluticasone 50 mcg/actuation nasal 2 spray INTRANASAL QDAY #15.8 gram 05/22/18 10/04/18 Rx spray,suspension acetaminophen 500 mg tablet 500 mg PO Q6H PRN 07/07/18 10/04/18 History calcium carbonate-vitamin D3 600 2 tab PO DAILY 07/07/18 10/04/18 History mg (1,500 mg)-800 unit tablet montelukast 10 mg tablet 10 mg PO QDAY #90 tab 09/25/18 10/04/18 Rx omeprazole 20 mg capsule,delayed 20 mg PO BID #90 cap 09/25/18 10/04/18 Rx release beclomethasone dipropionate 80 See Rx Instructions INHALATION BID 09/28/18 10/04/18 Rx mcg/actuation aerosol inhaler #120 inhalation sildenafil (antihypertensive) 3 - 5 tab PO SEE INSTRUCTIONS PRN 10/04/18 10/04/18 History Allergies Allergy/AdvReac Type Severity Reaction Status Date / Time Iodinated Contrast- Oral and Allergy Severe HIVES Verified 10/04/18 14:23 IV Dye [IODINATED CONTRAST- ORAL AND IV DYE] Exam Narrative Exam Narrative: General: Patient is well developed, not in apparent distress Cardiovascular: Regular rate and rhythm, no murmurs, rubs, or gallops; no evidence of edema; no palpable abdominal aortic aneurysm Gastrointestinal: Normoactive bowel sounds, soft, nontender, nondistended, no rebound tenderness, no hepatosplenomegaly, no evidence of hernia Assessment & Plan Assessment & Plan narrative: 77-year-old male with a longstanding history of ulcerative colitis who is here for surveillance colonoscopy. Regarding the procedure(s), the risks and potential complications, benefits, and alternatives (including not doing the procedure) were discussed with the patient. The risks include but are not limited to bleeding, splenic injury, infection, perforation which may require surgical intervention, missed lesions, and adverse reactions to sedative medicines. After a question and answer period, the patient agreed to proceed with the procedure(s) and gives informed consent.
--- NOTE | 2018-10-04 14:46 | PM.OP.ENDO ---
Operative Date/Time/Diagnoses Date of procedure: 10/04/18 Procedure Notes Procedure in detail: Surgeon: Ryan Quinones MD Procedure: Colonoscopy with biopsy Preoperative diagnosis: Surveillance colonoscopy for dysplasia in the setting of longstanding ulcerative colitis Postoperative diagnosis: Grade 2 internal hemorrhoids, otherwise no evidence of active UC Medications: Conscious sedation using 7 mg IV of Midazolam and 150 mcg IV of Fentanyl Preanesthesia Assessment An H and P was performed/updated and the Px?s ASA class is 2. The procedure was discussed in detail with the patient. The potential risks and complications including infection, bleeding, missed lesions, perforation, need for surgery in case of perforation, prolonged hospital stay, and were explained. A brief question and answer period was allotted and once all questions were answered, informed consent was obtained. The patient was brought back to the procedure room and placed on standard monitoring. The patient?s vital signs were monitored continuously throughout the entire procedure. Prior to starting, a timeout was performed to confirm the patient?s identity, allergies, medications, and procedure. Procedure in detail The patient was placed in left lateral decubitus position and once adequate sedation was obtained a VERONICA was performed. The digital rectal examination did not reveal any palpable lesions. The tip of the colonoscope was placed in the anal canal and advanced without difficulty all the way to the cecum which was identified by the appendiceal orifice and the ileocecal valve. The terminal ileum was intubated to a distance of 10 cm from the ileocecal valve with normal appearing mucosa. A biopsy was taken of the terminal ileum with minimal bleeding. The colonoscope was then brought back into the cecum and careful examination of all bermeo of the colon was performed with irrigation of any residual stool. The colonic mucosa throughout the entire colon appeared normal. Surveillance biopsies (3) for dysplasia were taken every 10 cm from the cecum up to the rectum. Retroflexion was performed in the rectum which revealed grade 2 internal hemorrhoids. The patient tolerated the procedure well and will be brought back to the recovery area to be discharged once criteria are met. The prep was judged to be good/excellent and adequate to identify polyps less than 5 mm. The withdrawal time was 12 min. The total physician intraservice time was 22 min. Complications There were no complications and estimated blood loss was minimal. Recommendations: Resume previous diet Continue outPx medications and your present dose of mesalamine for now Follow up pathology results Repeat colonoscopy in 2 years for surveillance Please call our office to schedule a follow up appointment An emergency contact number was given to the patient for any complications related to the procedure
[2018-10-04] MEDS: MIDAZOLAM 5 MG/5 ML VIAL IV (14:49)
[2018-10-04] MEDS: fentaNYL 250 MCG/5 ML INJ IV (14:49)
[2018-10-04 15:13] VITALS: BP 104/57; PULSE 69; RESP 11; TEMP 36.6; O2SAT 96
[2018-10-04 15:17] VITALS: BP 98/55; PULSE 67; RESP 14; O2SAT 96
--- NOTE | 2018-10-04 15:17 | PM.DS.1 ---
History of Present Illness Chief complaint: [id number] COLONOSCOPY Narrative: The patient is a 77-year-old male with a longstanding history of ulcerative colitis currently maintained on mesalamine who was seen in our office in June 2018 at the time with GI symptoms of abdominal discomfort and changes in stool caliber. Patient has since increased his mesalamine dose and has had improved symptoms. He denies any GI bleeding and states he has 1-2 bowel movements every day Discharge Providers Discharge Date: 10/04/18 Primary care physician: Feliep Lange MD Discharge provider: Ryan Quinones MD Exam Vital Signs (past 8 hours): - 10/04/18 14:27 Temperature 97.8 F Pulse Rate 66 Respiratory Rate 14 Blood Pressure 136/71 Pulse Oximetry 97 Oxygen Delivery Method Room Air Narrative Exam Narrative: General: Patient is well developed, not in apparent distress Cardiovascular: Regular rate and rhythm, no murmurs, rubs, or gallops; no evidence of edema; no palpable abdominal aortic aneurysm Gastrointestinal: Normoactive bowel sounds, soft, nontender, nondistended, no rebound tenderness, no hepatosplenomegaly, no evidence of hernia Discharge Plan Discharge Med Rec/Prescriptions Prescriptions: Continued Ventolin HFA 90 MCG/PUFF HFA aerosol inhaler 2 puff INH PRN PRN (Reason: asthma) Qty: 0 RF: 0 mesalamine [Lialda] 1.2 gram tablet,delayed release (DR/EC) 2.4 gram PO BID Qty: 360 RF: 5 fluticasone [Flonase Allergy Relief] 50 mcg/actuation spray,suspension 2 spray Intranasal QDAY Qty: 15.8 RF: 11 acetaminophen [Tylenol Extra Strength] 500 mg tablet 500 mg PO Q6H PRN (Reason: Pain) RF: 0 calcium carbonate-vitamin D3 [Caltrate with Vitamin D3] 600 mg(1,500mg) -800 unit tablet 2 tab PO DAILY RF: 0 omeprazole 20 mg capsule,delayed release(DR/EC) 20 mg PO BID Qty: 90 RF: 3 montelukast 10 mg tablet 10 mg PO QDAY Qty: 90 RF: 3 Qvar 80 mcg/actuation aerosol See Rx Instructions INHALATION BID Qty: 120 RF: 5 sildenafil (antihypertensive) 20 MG tablet 3 - 5 tab PO SEE INSTRUCTIONS PRN (Reason: Sexual Activity) RF: 0 Follow up/Referrals: Felipe Lange MD [Primary Care Provider] - Discharge Orders: Discharge (Order); Ordered 10/04/18 Ordered By: Ryan Quinones Provider Discharge Instructions Diet: Diet as Tolerated Visit Report/Discharge Packet Stand Alone Forms: Colonoscopy Result: [facility] Discharge Data Primary Care Provider: Felipe Lange Attending Provider: Ryan Quinones
[2018-10-04 15:23] VITALS: BP 102/53; PULSE 6; RESP 14; O2SAT 95
--- NOTE | 2018-10-04 15:29 | SUR.PHASEI ---
1525 Dr. Quinones spoke with patient, told him that his colon looked good and to continue using same dose of medication. Patient arouses to voice, resp unlabored, skin warm and dry.
--- NOTE | 2018-10-04 15:30 | SUR.PHASEI ---
report given to Bee Headley RN
[2018-10-04 15:32] VITALS: BP 108/69; PULSE 74; RESP 16; O2SAT 96
--- NOTE | 2018-10-04 15:34 | SUR.PHASEI ---
Assumed care. Pt denied pain. Abd soft.
[2018-10-04 15:50] VITALS: BP 118/70; PULSE 64; RESP 16; TEMP 36.7; O2SAT 97
== END 2018-10-04 16:15 ==
LOC: ENDO 13:40
PROVIDERS: PCP Student in an Organized Health Care Education/Training Program; Visit Provider Internal Medicine Gastroenterology
PROC: 0DJD8ZZ Inspection of Lower Intestinal Tract, Via Natural or Artificial Opening Endoscopic (ICD-10-PCS; CPT 45378; principal; 2018-10-04 14:30)
DX: Z87.19 Personal history of other diseases of the digestive system (principal); K64.1 Second degree hemorrhoids
CPT/HCPCS: 45380; J2250; J3010

== ENCOUNTER → 2018-11-08 12:05 | Outpatient (CLI) | payer OTHER, SELFPAY ==
[2018-11-08 12:31] LABS: Hematocrit 45.3 % (41-53); Hemoglobin 15.4 g/dL (13.5-17.5); Mean Corpuscular HGB Conc 33.9 % (30-36); Mean Corpuscular Hemoglobin 31.2 PG (26-34); Platelet Count 164 X10^3/uL (150-400); Red Blood Cell Count 4.92 X10^6/uL (4.5-5.9); Red Cell Distribution Width 13.8 % (11.6-14.8); White Blood Cell Count 5.9 X10^3/uL (4.5-11.0)
[2018-11-08 13:01] LABS: Cholesterol 201 mg/dL (140-199); HDL Cholesterol 61 mg/dL (40-60); LDL Cholesterol Calculated 126 mg/dL (<100); Triglycerides 69 mg/dL (35-150)
== END ==
PROVIDERS: PCP Student in an Organized Health Care Education/Training Program; Visit Provider Student in an Organized Health Care Education/Training Program
DX: K51.90 Ulcerative colitis, unspecified, without complications (principal); E55.9 Vitamin D deficiency, unspecified; Z13.220 Encounter for screening for lipoid disorders
CPT/HCPCS: 36415; 80061; 82306; 85027

== ENCOUNTER → 2019-05-15 11:56 | Outpatient (CLI) | payer OTHER, SELFPAY ==
[2019-05-15 13:00] LABS: Erythrocyte Sedimentation Rate 5 MM/HR (0-15)
[2019-05-15 13:46] LABS: C-Reactive Protein Quant 0.6 mg/dL (<1.0)
[2019-05-15 13:48] LABS: Rheumatoid Factor < 8.6 IU/mL (<12.0)
[2019-05-21 10:58] LABS: ANA Screen, IFA POSITIVE (NEGATIVE); ANA Titer 1:40 titer
== END ==
PROVIDERS: PCP Student in an Organized Health Care Education/Training Program; Visit Provider Student in an Organized Health Care Education/Training Program
DX: M13.0 Polyarthritis, unspecified (principal)
CPT/HCPCS: 36415; 85651; 86038; 86140; 86430

== ENCOUNTER → 2019-09-03 14:01 | Outpatient (CLI) | payer OTHER, SELFPAY ==
--- NOTE | 2019-09-03 | DI.MRI.S_ITS ---
PROCEDURE: MR LUMBAR SPINE WO CON INDICATIONS: Radiculopathy, lumbar region TECHNIQUE: Noncontrast sagittal T1 spin echo and T2 fast echo, sagittal STIR, axial T1 and T2 fast spin echo through the lumbar spine. In cases with scoliosis, additional coronal T2 fast spin echo may be performed. COMPARISON: [facility], CR, XR LUMBAR SPINE 2 OR 3 VIEWS, 08/27/2019, 10:31. FINDINGS: Image quality: Excellent. Alignment and Curvature: There is minimal retrolisthesis seen at L1-L2, L2-L3, and L3-L4. Mild levoconvex scoliotic curvature is noted. Bone Marrow: Marrow is of normal overall signal. No acute vertebral body compression fractures. Spinal Cord: Conus medullaris terminates at the L1 level. Visualized cord demonstrates normal signal and size. Paraspinous Soft Tissues: No paravertebral masses. T12-L1: Normal appearance. L1-L2: Mild to moderate loss of disc height and disc signal are seen. Bridging endplate osteophytes are seen. Mild to moderate disc bulge is seen. Mild bilateral neural foraminal narrowing is seen. Mild central canal narrowing is seen. L2-L3: Mild loss of disc height is seen. Loss of disc signal is seen. Bridging endplate osteophytes are seen. Mild to moderate disc bulge is seen, which is eccentric to the right. There is moderate left-sided and mild right-sided neural foraminal narrowing seen. [id number]-[id number] central canal narrowing is. There is a focal annular fissure seen posteriorly. L3-L4: The disc height is well-preserved. Loss of disc signal is seen at this level. There is a focal annular fissure seen posteriorly. Moderate generalized disc bulge is seen. There is moderate left-sided and mild right-sided neural foraminal narrowing seen. Mild central canal narrowing is seen. L4-L5: The disc height is well-preserved. Loss of disc signal is seen at this level. Moderate disc bulge is seen, which is eccentric to the right side. Jnae-he-vbhjgjug facet hypertrophy is seen. There is at least moderate bilateral neural foraminal narrowing seen, left worse than right. There is a minimal degree of compression seen upon the exiting nerve roots. Mild to moderate central canal narrowing is seen. L5-S1: The disc height is relatively well-preserved. There is mild loss of disc signal seen. Mild generalized disc bulge is seen. Mild facet joint hypertrophy is seen. No significant neural foraminal or central canal narrowing can be seen. IMPRESSION: Multiple levels of lumbar spine degenerative change are seen, which are overall most prominent at the L2-L3 level and L4-L5 level. Levoconvex curvature can be seen. Dictated by: Brian Alvarado M.D. on 09/03/2019 at 15:05 Approved by: Brian Alvraado M.D. on 09/03/2019 at 15:09
== END ==
PROVIDERS: PCP Student in an Organized Health Care Education/Training Program; Referring Provider Orthopaedic Surgery; Visit Provider Orthopaedic Surgery
DX: M47.26 Other spondylosis with radiculopathy, lumbar region (principal); M41.86 Other forms of scoliosis, lumbar region
CPT/HCPCS: 72148

== ENCOUNTER → 2019-10-09 14:24 | Outpatient (CLI) | payer OTHER, SELFPAY ==
[2019-10-09 15:46] LABS: Alanine Aminotransferase 18 IU/L (<50); Albumin 4.1 g/dL (3.5-5.0); Albumin Globulin Ratio 1.3 (1.0-2.8); Alkaline Phosphatase 53 U/L (38-126); Aspartate Aminotransferase 29 IU/L (17-59); BUN Creatinine Ratio 24.4 (6-22); Bilirubin Total 0.6 mg/dL (0.2-1.3); Blood Urea Nitrogen 20 mg/dL (9-20); Calcium 9.3 mg/dL (8.4-10.2); Carbon Dioxide 26 mmol/L (22-32); Chloride 105 mmol/L (98-107); Cholesterol 186 mg/dL (140-199); Estimated Glomerular Filt Rate > 60.0 mL/min (>60); Globulin 3.1 g/dL (1.7-4.1); Glucose 88 mg/dL (80-110); HDL Cholesterol 50 mg/dL (40-60); HEMOLYSIS < 15 (0-50); LDL Cholesterol Calculated 112 mg/dL (<100); Potassium 4.3 mmol/L (3.4-5.1); Sodium 139 mmol/L (137-145); Total Protein 7.2 g/dL (6.3-8.2); Triglycerides 122 mg/dL (35-150)
[2019-10-09 16:36] LABS: TSH w/ Reflex to FT4 2.04 uIU/mL (0.47-4.68)
[2019-10-15 10:08] LABS: Testosterone Free 9.04 ng/dL (5.00-21.00); Testosterone Total 426.5 ng/dL (264.0-916.0)
== END ==
PROVIDERS: PCP Student in an Organized Health Care Education/Training Program; Referring Provider Student in an Organized Health Care Education/Training Program; Visit Provider Student in an Organized Health Care Education/Training Program
DX: N62 Hypertrophy of breast (principal); E78.2 Mixed hyperlipidemia
CPT/HCPCS: 36415; 80053; 80061; 84402; 84403; 84443

== ENCOUNTER → 2019-10-16 11:29 | Outpatient (CLI) | payer OTHER, SELFPAY ==
[2019-10-16 12:39] LABS: Hemoglobin 15.2 g/dL (13.5-17.5); Mean Corpuscular Hemoglobin 30.9 PG (26-34); Mean Corpuscular Volume 93.4 fL (80-100); Platelet Count 173 X10^3/uL (150-400); Red Blood Cell Count 4.93 X10^6/uL (4.5-5.9); Red Cell Distribution Width 13.7 % (11.6-14.8); White Blood Cell Count 6.2 X10^3/uL (4.5-11.0)
[2019-10-16 13:44] LABS: HCG Quantitative /Beta subunit < 2.4 mIU/mL (-2.40)
[2019-10-16 16:06] LABS: Follicle Stimulating Hormone 3.26 mIU/mL; Luteinizing Hormone 2.28 mIU/mL
[2019-10-16 16:22] LABS: Estradiol, Total 26.7 pg/mL
== END ==
PROVIDERS: PCP Student in an Organized Health Care Education/Training Program; Referring Provider Student in an Organized Health Care Education/Training Program; Visit Provider Student in an Organized Health Care Education/Training Program
DX: N62 Hypertrophy of breast (principal); K51.90 Ulcerative colitis, unspecified, without complications
CPT/HCPCS: 36415; 82670; 83001; 83002; 84702; 85027

== ENCOUNTER → 2019-11-21 11:08 | Outpatient (CLI) | payer OTHER, SELFPAY ==
--- NOTE | 2019-11-21 11:10 | DI.MG.S_ITS ---
MALE BILATERAL DIGITAL DIAGNOSTIC MAMMOGRAM 3D/2D: 11/21/2019 CLINICAL: Baseline exam. Painful breast lump, Unilateral gynecomastia. No prior exams were available for comparison. There is gynecomastia in both breasts that correlates with clinical concern, left breast marker, and palpable abnormality in the left breast. Findings are more pronounced on the left. No significant masses, calcifications, or other findings are seen in either breast. IMPRESSION: There is no mammographic evidence of malignancy. Bilateral left greater than right gynecomastia. Clinical followup is recommended for persistent or worsening symptoms or development of any clinically suspicious findings. Findings and recommendations were discussed with the patient during today's visit. This exam was interpreted at Station ID: [id number]. NOTE: For mammograms, a report in lay terms will be sent to the patient. Approximately 15% of breast malignancies will not be visualized mammographically. In the management of a palpable breast mass, a negative mammogram must not discourage biopsy of a clinically suspicious lesion. Electronically Signed By: David Neal M.D. aty/:11/21/2019 12:18:03 ACR BI-RADS Category 2: Benign Finding(s) 3342F
== END ==
PROVIDERS: PCP Student in an Organized Health Care Education/Training Program; Referring Provider Student in an Organized Health Care Education/Training Program; Visit Provider Student in an Organized Health Care Education/Training Program
DX: N62 Hypertrophy of breast (principal)
CPT/HCPCS: 77066; G0279

== ENCOUNTER → 2020-04-12 14:25 | Outpatient (CLI) | payer OTHER, SELFPAY ==
[2020-04-14 10:16] LABS: COVID19 Sendout Not Detected (Not Detect)
== END ==
PROVIDERS: PCP Student in an Organized Health Care Education/Training Program; Visit Provider Nurse Practitioner
DX: Z11.59 Encounter for screening for other viral diseases (principal)
CPT/HCPCS: 87635

== ENCOUNTER → 2020-07-08 09:11 | Outpatient (CLI) | payer OTHER, SELFPAY ==
--- NOTE | 2020-07-08 | DI.MRI.S_ITS ---
PROCEDURE: MR LUMBAR SPINE WO CON INDICATIONS: RADICULOPATHY, LUMBAR REGION TECHNIQUE: Noncontrast sagittal T1 spin echo and T2 fast echo, coronal T2, sagittal STIR, axial T1 and T2 fast spin echo through the lumbar spine. COMPARISON: [facility], CR, XR LUMBAR SPINE 2 OR 3 VIEWS, 08/27/2019, 10:31. [facility], MR, MR LUMBAR SPINE WO CON, 09/03/2019, 14:15. FINDINGS: Image quality: Excellent. Alignment and Curvature: 5 lumbar type vertebral bodies are present by plain film. Mild diffuse leftward curvature of the upper lumbar spine. Loss of normal lumbar lordosis. Mild grade 1 retrolisthesis L1 on L2, L2 on L3, L3 on L4, and L4 on L5. Bone Marrow: Marrow is of normal overall signal. No acute vertebral body compression fractures. Mild reactive signal within the endplates adjacent to the L1-L2, L2-L3, and L4-L5 intervertebral discs. Spinal Cord: Conus medullaris terminates at the mid L2 level. Visualized cord demonstrates normal signal and size. Paraspinous Soft Tissues: No paravertebral masses. L1-L2: Moderate disc height loss and desiccation. Mild diffuse disc bulge. Mild facet and ligamentum flavum hypertrophy. Mild canal stenosis. Mild bilateral foraminal stenosis. No change. L2-L3: Moderate disc height loss and desiccation. Mild diffuse disc bulge. Mild facet and ligamentum flavum hypertrophy. Mild epidural lipomatosis. Mild canal stenosis. Mild bilateral foraminal stenosis. No change. L3-L4: Moderate disc desiccation. Mild diffuse disc bulge. Mild facet and ligamentum flavum hypertrophy. Mild epidural lipomatosis. Mild canal stenosis. Mild bilateral foraminal stenosis. No change. L4-L5: Moderate disc desiccation. Mild disc height loss. Mild diffuse disc bulge with superimposed broad-based right far lateral protrusion. Mild facet and ligamentum flavum hypertrophy. Mild epidural lipomatosis. Mild canal stenosis. Moderate right and mild left foraminal stenosis. No change. L5-S1: Mild disc desiccation. Mild diffuse disc bulge. Mild bilateral facet hypertrophy. Mild canal stenosis. Mild bilateral foraminal stenosis. No change. IMPRESSION: 1. Multilevel degenerative disc and facet disease, as well as ligamentum flavum hypertrophy and epidural lipomatosis. 2. Mild multilevel canal stenosis. 3. Multilevel foraminal stenoses, worst on the right at L4-L5 where there is moderate foraminal stenosis. Dictated by: Love Simeon M.D. on 07/08/2020 at 10:07 Approved by: Love Simeon M.D. on 07/08/2020 at 10:11
== END ==
PROVIDERS: PCP Student in an Organized Health Care Education/Training Program; Referring Provider Physical Medicine & Rehabilitation; Visit Provider Physical Medicine & Rehabilitation
DX: M51.16 Intervertebral disc disorders with radiculopathy, lumbar region (principal); M51.17 Intervertebral disc disorders with radiculopathy, lumbosacral region; M48.061 Spinal stenosis, lumbar region without neurogenic claudication; M48.07 Spinal stenosis, lumbosacral region; E88.2 Lipomatosis, not elsewhere classified
CPT/HCPCS: 72148

== ENCOUNTER → 2020-08-23 10:21 | Outpatient (CLI) | payer OTHER, SELFPAY ==
[2020-08-23 11:18] LABS: Cholesterol 152 mg/dL (140-199); HDL Cholesterol 58 mg/dL (40-60); LDL Cholesterol Calculated 72 mg/dL (<100); Triglycerides 111 mg/dL (35-150)
== END ==
PROVIDERS: PCP Student in an Organized Health Care Education/Training Program; Referring Provider Student in an Organized Health Care Education/Training Program; Visit Provider Student in an Organized Health Care Education/Training Program
DX: E78.00 Pure hypercholesterolemia, unspecified (principal)
CPT/HCPCS: 36415; 80061

== ENCOUNTER → 2020-09-04 14:37 | Outpatient (CLI) | payer OTHER, SELFPAY ==
[2020-09-04 17:27] LABS: Prostate Specific Antigen 4.06 ng/mL (0.10-4.00)
== END ==
PROVIDERS: PCP Student in an Organized Health Care Education/Training Program; Referring Provider Specialist; Visit Provider Specialist
DX: R97.20 Elevated prostate specific antigen [PSA] (principal); N40.1 Benign prostatic hyperplasia with lower urinary tract symptoms; N13.8 Other obstructive and reflux uropathy; N52.9 Male erectile dysfunction, unspecified; Z80.42 Family history of malignant neoplasm of prostate
CPT/HCPCS: 36415; 81002; 84153; 99215

== ENCOUNTER → 2021-01-05 12:00 | Outpatient (CLI) | payer OTHER, SELFPAY ==
[2021-01-05 13:43] LABS: Prostate Specific Antigen 4.57 ng/mL (0.10-4.00)
== END ==
PROVIDERS: PCP Student in an Organized Health Care Education/Training Program; Referring Provider Specialist; Visit Provider Specialist
DX: N13.8 Other obstructive and reflux uropathy (principal); N40.1 Benign prostatic hyperplasia with lower urinary tract symptoms
CPT/HCPCS: 36415; 84153

== ENCOUNTER → 2021-03-09 09:52 | Outpatient (CLI) | payer OTHER, SELFPAY ==
[2021-03-09 11:46] LABS: COVID19 -Nasal RAPID Negative (Negative)
== END ==
PROVIDERS: PCP Student in an Organized Health Care Education/Training Program; Visit Provider Nurse Practitioner
DX: Z20.822 Contact with and (suspected) exposure to COVID-19 (principal); Z01.812 Encounter for preprocedural laboratory examination
CPT/HCPCS: 87635

== ENCOUNTER 2021-03-10 07:56 | Day surgery (SDC) | payer OTHER, SELFPAY ==
--- NOTE | 2021-03-10 | PATH_ITS ---
[facility] Accession Number: [id number] . 01 Material submitted: . PART A: colon - 60CM COLON PART B: colon - ASCENDING COLON PART C: colon - 50 CM COLON PART D: colon - 40 CM COLON PART E: colon - 30 CM COLON POLYP PART F: colon - 30 CM COLON PART G: colon - 20 CM COLON PART H: colon - 10 CM COLON . 02 Diagnosis: A, C-D, F-H: Colon, 60 cm, 50 cm, 40 cm, 30 cm, 20 cm, 10 cm, Biopsies: Colonic mucosa with no diagnostic abnormality. Negative for active, chronic, and microscopic colitis. Negative for dysplasia and malignancy. . B. Ascending Colon, Biopsy: Tubular adenoma. . E. Colon Polyp, 30 cm, Biopsy: Serrated lesion, favor sessile serrated adenoma. [facility] 03/12/2021 1005 Local . 02 Electronically signed: . Kamilla Soto MD, Pathologist NPI- [id number] . 01 Gross description: . Part A: 60CM COLON: Received in formalin are multiple fragment(s) of cain, soft tissue measuring 1.7 x 0.3 x 0.1 cm in aggregate submitted entirely in 1 cassette(s) Part B: ASCENDING COLON: Received in formalin is 1 fragment(s) of cain, soft tissue measuring 0.3 x 0.2 x 0.1 cm submitted entirely in 1 cassette(s) Part C: 50 CM COLON: Received in formalin are 3 fragment(s) of cain, soft tissue measuring 0.5 x 0.2 x 0.1 cm to 0.2 x 0.1 x 0.1 cm submitted entirely in 1 cassette(s) Part D: 40 CM COLON: Received in formalin are 4 fragment(s) of cain, soft tissue measuring 0.3 x 0.2 x 0.2 cm to 0.1 x 0.1 x 0.1 cm submitted entirely in 1 cassette(s) Part E: 30 CM COLON POLYP: Received in formalin is 1 fragment(s) of cain, soft tissue measuring 0.7 x 0.1 x 0.1 cm submitted entirely in 1 cassette(s) Part F: 30 CM COLON: Received in formalin are 4 fragment(s) of cain, soft tissue measuring 0.3 x 0.1 x 0.1 cm to 0.1 x 0.1 x 0.1 cm submitted entirely in 1 cassette(s) Part CM COLON: Received in formalin are 4 fragment(s) of cain, soft tissue measuring 0.2 x 0.2 x 0.2 cm to 0.2 x 0.1 x 0.1 cm submitted entirely in 1 cassette(s) Part H: 10 CM COLON: Received in formalin are 4 fragment(s) of cain, soft tissue measuring 0.2 x 0.2 x 0.2 cm to 0.2 x 0.1 x 0.1 cm submitted entirely in 1 cassette(s) /ALEJANDRA 03/11/2021 0439 Local . 02 Pathologist provided ICD-10: D12.2, D12.6 . 02 CPT . 862577, 249581, 342896, 840635, 418750, 468741, [id number], [id number] Performed at: 01 [facility] [address] [id number] MD Juancarlos Beavers MD Phone: [phone] Performed at: 02 [facility] [address] [place], [place] [id number] MD Kamilla Soto MD Phone: [phone]
[2021-03-10] MEDS: SODIUM CHLORIDE 0.9% 1,000 ML 84 ML IV (08:11)
[2021-03-10 08:20] VITALS: BP 149/78; PULSE 68; RESP 16; TEMP 36.4; O2SAT 99; BMI 23.6
--- NOTE | 2021-03-10 08:50 | PM.HP.1 ---
History of Present Illness History of Present Illness Date Patient Seen: 03/10/21 Time Patient Seen: 08:50 Chief complaint: DX COLONOSCOPY W/POSS BX Narrative: Longstanding ulcerative colitis in remission. Patient History Medical History Actinic keratosis (~1999) Arthritis Asthma (~2004) Basal cell carcinoma BPH (benign prostatic hyperplasia) (~1989) BPH w urinary obs/LUTS Chicken pox Colon polyps (~2016) Dysphagia Elevated PSA Family history of prostate cancer Fractures GERD (gastroesophageal reflux disease) Hearing loss Hemorrhoid History of esophageal reflux (~1997) History of sigmoidoscopy History of urinary frequency (~2004) Measles Osteoarthritis (~1999) Osteopenia (~2009) Ruptured, tendon, quadriceps Scoliosis (~1961) Seasonal allergies (~1959) Shoulder pain (~2016) Skin cancer (~1994) Tinea pedis (~1957) Ulcerative colitis (~1997) Vision disorder Vocal cord paralysis (~1989) Surgical History Anesthesia Cataracts, bilateral (~1998) Clavicle fracture History of circumcision History of colonoscopy (~2016) History of esophagogastroduodenoscopy (EGD) History of transurethral resection of prostate S/P TURP (status post transurethral resection of prostate) (~2015) Family & Social History Family History Brother Heart disease Hyperlipidemia Cancer Brother Age: 92 Stroke Cancer Brother Age: 82 Stroke Cancer Child Age: 52 Heart disease Father Cancer Mother Parkinson's disease Grandfather Cancer Grandmother Heart disease Social History: household members spouse Tobacco & Substance use: Smoking Status Never smoker alcohol intake current alcohol intake frequency 0-2 drinks per day Substance Use Type does not use Meds Home Medications and Allergies Home Medications Medication Instructions Recorded Confirmed Type albuterol sulfate 90 mcg/actuation 2 puff INH PRN PRN #0 05/09/17 03/10/21 History aerosol inhaler (Ventolin HFA) acetaminophen 500 mg tablet 500 mg PO Q6H PRN 07/07/18 03/10/21 History (Tylenol Extra Strength) calcium carbonate-vitamin D3 600 2 tab PO DAILY 07/07/18 03/10/21 History mg (1,500 mg)-800 unit tablet (Caltrate with Vitamin D3) ciclesonide 160 mcg/actuation 1 puff INHALATION BID #6.1 gram 05/13/20 03/10/21 Rx aerosol inhaler (Alvesco) mesalamine 1.2 gram tablet,delayed 2.4 gram PO BID #360 tab 06/11/20 03/10/21 Rx release (Lialda) valacyclovir 1 gram tablet 2,000 mg PO Q12H #4 tab 10/20/20 03/10/21 Rx fluticasone propionate 50 2 spray INTRANASAL QDAY #15.8 gram 12/22/20 03/10/21 Rx mcg/actuation nasal spray,suspension (Flonase Allergy Relief) omeprazole 20 mg capsule,delayed 20 mg PO BID #90 cap 12/22/20 03/10/21 Rx release lovastatin 20 mg tablet 20 mg PO QPM #90 tab 01/28/21 03/10/21 Rx montelukast 10 mg tablet 10 mg PO QDAY #90 tab 01/28/21 03/10/21 Rx tadalafil 5 mg tablet 5 mg PO DAILY #90 tab 02/16/21 03/10/21 Rx Allergies Allergy/AdvReac Type Severity Reaction Status Date / Time Iodinated Contrast Media Allergy Severe HIVES Verified 03/10/21 08:28 [IODINATED CONTRAST- ORAL AND IV DYE] Review of Systems Review of Systems ROS: Yes All systems reviewed with the patient and are negative except as otherwise documented Musculoskeletal Comments: arthritis at times Exam Vital Signs (past 8 hours): - 03/10/21 08:20 Temperature 97.5 F L Pulse Rate 68 Respiratory Rate 16 Blood Pressure 149/78 H Pulse Oximetry 99 Oxygen Delivery Method Room Air Const General: cooperative and comfortable Orientation: alert [facility] Head: normocephalic Ears: external ears normal Nose: external nose normal Face and sinus: normal facial exam Mouth: oral mucosae normal Eyes General: appearance normal, both eyes and all related structures Neck Neck: normal visual inspection Chest Chest: normal inspection of the chest Resp Effort & Inspection: normal respiratory effort Auscultation: clear to auscultation bilaterally Cardio Rate: regular rate Rhythm: regular rhythm Heart Sounds: no murmurs GI Inspection: normal to inspection Palpation: soft and No tender Auscultation: normal bowel sounds Skin General: no rashes or lesions noted and No jaundice Neuro General: patient alert and moves all extremities Cognition: normal cognition Speech: speech normal Extrem General: no pedal edema Psych Appearance: grossly normal Assessment & Plan Assessment & Plan narrative: Longstanding ulcerative colitis. He is in remission. Last colonoscopy was reviewed from 2019 normal histology. Surveillance colonoscopy is planned for today.
--- NOTE | 2021-03-10 08:52 | PM.PREOP ---
Pre-operative Note COVID-19 COVID-19 status: Negative Result date/Date tested (Pos, Neg/Pending): 03/09/21 Interval Note History & Physical reviewed/Exam performed by Physician: Yes Changes to H&P: No ASA Class (for procedural sedation): II
[2021-03-10] MEDS: MIDAZOLAM 5 MG/5 ML VIAL IV (09:27)
[2021-03-10] MEDS: fentaNYL 250 MCG/5 ML INJ IV (09:27)
--- NOTE | 2021-03-10 09:53 | P.OP.ENDO_ITS ---
Operative Date/Time/Diagnoses Date of procedure: 03/10/21 Time of procedure: 09:53 Pre-op diagnosis: Longstanding ulcerative colitis Post-op diagnosis: same Procedure & Clinicians Study performed: Colonoscopy with random biopsies and hot snare polypectomy Same procedure as scheduled: Yes Indications: Longstanding ulcerative colitis Surgeon: Dominik Barrientos Procedure Notes SCOAP/Timeout: Done Procedure in detail: After the risks and benefits were explained, written and verbal informed consent was obtained. The patient was brought into the procedure room and placed into the left lateral decubitus position. Conscious s edation medication was applied as per nursing documentation. Digital rectal examination was accomplished. The scope was introduced into the patient and advanced under direct visualization to the cecum as identified by the appendiceal orifice and ileocecal valve. The scope was slowly withdrawn to carefully examine the mucosa for any defects or lesions. Comprehensive imaging was accomplished throughout the rectum including the dentate line. The colon was decompressed, the scope was then removed from the patient who tolerated the procedure well. 5 mg Versed 125 mcg fentanyl Bowel prep adequate Adult colonoscope Scope withdrawal time: 22 minutes Sedation minutes: 36 Complications: none Impression: There was no evidence of any active colitis throughout. No evidence of proctitis. Random 4 quadrant colon biopsies were taken every 10 cm starting in the ascending colon at 60, 50, 40, 30, 20, and finally 10 cm from the anal verge. There was a small diminutive polyp in the ascending colon around 60 cm removed with cold forceps. There was an additional sessile polyp perhaps 6 mm in maximum dimension at around 40 cm removed with hot snare. Endoscopic diagnosis Visually normal colonoscopy Post-procedure Recommendations: Will call with biopsy results Plan for aftercare: 1. Await histopathology 2. Consider surveillance colonoscopy in 2 years time. It may be appropriate to consider chromoendoscopy at that time in light of the absence of any active disease on the last 2 procedures. Disposition: PACU
[2021-03-10 09:56] VITALS: BP 119/65; PULSE 50; RESP 16; TEMP 36.2; O2SAT 96
[2021-03-10 10:01] VITALS: BP 105/61; PULSE 50; RESP 14; O2SAT 98
[2021-03-10 10:06] VITALS: BP 110/62; PULSE 57; RESP 16; O2SAT 98
[2021-03-10 10:38] VITALS: BP 125/72; PULSE 51; RESP 16; TEMP 36.7; O2SAT 95
--- NOTE | 2021-03-10 10:40 | SUR.PHASEII ---
pt wanting to go home, ride called, left unit in stable condition.
== END 2021-03-10 10:40 | disposition home or self-care (01) ==
PROVIDERS: PCP Student in an Organized Health Care Education/Training Program; Referring Provider Internal Medicine Gastroenterology; Visit Provider Internal Medicine Gastroenterology
PROC: 0DJD8ZZ Inspection of Lower Intestinal Tract, Via Natural or Artificial Opening Endoscopic (ICD-10-PCS; CPT 45378; principal; 2021-03-10 09:00)
DX: Z09 Encounter for follow-up examination after completed treatment for conditions other than malignant neoplasm (principal); Z87.19 Personal history of other diseases of the digestive system; D12.2 Benign neoplasm of ascending colon; D12.6 Benign neoplasm of colon, unspecified
CPT/HCPCS: 45385; 45380; J2250; J3010

== ENCOUNTER → 2021-06-24 11:20 | Outpatient (CLI) | payer OTHER, SELFPAY ==
[2021-06-24 14:12] LABS: BUN Creatinine Ratio 23.1 (6-22); Blood Urea Nitrogen 21 mg/dL (9-20); Calcium 9.5 mg/dL (8.4-10.2); Carbon Dioxide 30 mmol/L (22-32); Chloride 102 mmol/L (98-107); Estimated Glomerular Filt Rate > 60.0 mL/min (>60); Glucose 87 mg/dL (80-110); HEMOLYSIS < 15 (0-50); Potassium 4.2 mmol/L (3.4-5.1); Sodium 140 mmol/L (137-145)
[2021-06-24 14:49] LABS: Prostate Specific Antigen 4.61 ng/mL (0.10-4.00)
== END ==
PROVIDERS: PCP Student in an Organized Health Care Education/Training Program; Referring Provider Specialist; Visit Provider Specialist
DX: N40.1 Benign prostatic hyperplasia with lower urinary tract symptoms (principal); J45.30 Mild persistent asthma, uncomplicated; M85.80 Other specified disorders of bone density and structure, unspecified site; R35.0 Frequency of micturition; R97.20 Elevated prostate specific antigen [PSA]
CPT/HCPCS: 36415; 80048; 84153

== ENCOUNTER → 2021-10-20 09:58 | Outpatient (CLI) | payer OTHER, SELFPAY ==
[2021-10-20 12:12] LABS: Prostate Specific Antigen 5.03 ng/mL (0.10-4.00)
== END ==
PROVIDERS: PCP Student in an Organized Health Care Education/Training Program; Referring Provider Specialist; Visit Provider Specialist
DX: R97.20 Elevated prostate specific antigen [PSA] (principal)
CPT/HCPCS: 36415; 84153

== ENCOUNTER → 2021-11-27 12:15 | Outpatient (CLI) | payer OTHER, SELFPAY ==
--- NOTE | 2021-11-27 12:18 | DI.RAD.S_ITS ---
PROCEDURE: XR FINGER RT MIN 2V INDICATIONS: R middle finger acute on chronic worsened pain TECHNIQUE: AP hand, 2 views of the right 3rd finger(s) acquired. COMPARISON: None. FINDINGS: Bones: Severe proximal interphalangeal joint space narrowing, osteophytosis, and bony deformity is present from the 2nd through the 5th digit. Severe degenerative changes are also present at the 5th distal interphalangeal joint space. There is a questionable volar plate fracture of the right 3rd middle phalanx visualized on the lateral view. No other acute fractures visualized. Soft tissues: No suspicious soft tissue calcifications. IMPRESSION: Severe osteoarthritis with questionable superimposed fracture of the right 3rd middle phalanx. Dictated by: Cecilia Vega M.D. on 11/27/2021 at 12:32 Approved by: Cecilia Vega M.D. on 11/27/2021 at 12:34
== END ==
PROVIDERS: PCP Student in an Organized Health Care Education/Training Program; Referring Provider Student in an Organized Health Care Education/Training Program; Visit Provider Student in an Organized Health Care Education/Training Program
DX: M79.644 Pain in right finger(s) (principal); M19.041 Primary osteoarthritis, right hand
CPT/HCPCS: 73140

== ENCOUNTER → 2022-02-15 14:34 | Outpatient (CLI) | payer OTHER, SELFPAY ==
[2022-02-15 16:06] LABS: BUN Creatinine Ratio 33.3 (6-22); Blood Urea Nitrogen 27 mg/dL (9-20); Carbon Dioxide 29 mmol/L (22-32); Chloride 106 mmol/L (98-107); Estimated Glomerular Filt Rate > 60 mL/min (>60); Glucose 109 mg/dL (80-110); HEMOLYSIS < 15 (0-50); Potassium 4.1 mmol/L (3.4-5.1); Sodium 138 mmol/L (137-145)
[2022-02-15 16:39] LABS: Prostate Specific Antigen 5.19 ng/mL (0.10-4.00)
== END ==
PROVIDERS: PCP Student in an Organized Health Care Education/Training Program; Referring Provider Specialist; Visit Provider Specialist
DX: R97.20 Elevated prostate specific antigen [PSA] (principal); N40.0 Benign prostatic hyperplasia without lower urinary tract symptoms
CPT/HCPCS: 36415; 80048; 84153

== ENCOUNTER → 2022-03-08 13:17 | Outpatient (CLI) | payer OTHER, SELFPAY ==
--- NOTE | 2022-03-08 13:41 | DI.MRI.S_ITS ---
PROCEDURE: MR PELIS WO/W CON INDICATIONS: elevated psa TECHNIQUE: Coronal HASTE, axial T1 FSE with fat saturation, 3-plane nonbreath-hold T2 FSE. After the administration of contrast, dynamic axial, delayed axial and coronal VIBE or 2-D FLASH with fat saturation through the pelvis. Optional diffusion weighted imaging and ADC may be performed. COMPARISON: None. FINDINGS: Image quality: Diffusion weighted and dynamic contrast enhanced images are diagnostic. Surgical changes of probably TURP. There is a unilocular teardrop shaped cyst in the posterior midline measuring 1.1 cm consistent with a prostatic utricle. Prostate: Gland size is 3.8 x 4.7 by 3.6 cm; ellipsoid gland volume is 33.5 mL. Lesion size(s): Lesion 1: 0.8 cm in maximal diameter Lesion 2: About 2.9 cm in transverse diameter Lesion location(s) (sector): Lesion 1: Left posteromedial peripheral zone mid gland to apex. Lesion 2: Left posterior peripheral zone, midline peripheral zone, and trace amount right posteromedial peripheral zone at the mid gland to base. Lesion description: Lesion 1: Wedge-shaped lesion with indistinct margins Lesion 2: Curvilinear, band like lesion with indistinct and irregular, possibly spiculated margins T2 weighted imaging (T2WI) morphology score: Lesion 1: Four Lesion 2: Three Diffusion weighted imaging (DWI) morphology score: Lesion 1: Three Lesion 2: Three Dynamic contrast enhancement (DCE): Lesion 1: Absent Lesion 2: Present Lesion PI-RADS score: Lesion 1: PI-RADS three Lesion 2: PI-RADS four Genitourinary system: Partially decompressed bladder with a moderately thickened bladder wall, potentially due to chronic over distension. There are changes of TURP. The seminal vesicles appear normal. Bowel and peritoneum: No pathologic free pelvic fluid. Inferior colon and small bowel loops are normal in caliber. Nodes and vessels: No pelvic or inguinal adenopathy by size criteria. Iliac vessels are normal in caliber. Soft tissues: No inguinal hernias. Bones: Marrow demonstrates normal overall signal, without lesions to suggest metastases. IMPRESSION: 1. PI-RADS three and PI-RADS four lesions involving primarily the left peripheral zone as described. 2. No adenopathy. Dictated by: Nely Chavez M.D. on 03/08/2022 at 15:32 Approved by: Nely Chavez M.D. on 03/08/2022 at 16:02
== END ==
PROVIDERS: PCP Student in an Organized Health Care Education/Training Program; Referring Provider Specialist; Visit Provider Specialist
DX: N42.9 Disorder of prostate, unspecified (principal); R97.20 Elevated prostate specific antigen [PSA]
CPT/HCPCS: 72197; A9579

== ENCOUNTER → 2022-09-08 14:53 | Outpatient (CLI) | payer OTHER, SELFPAY ==
[2022-09-08 16:30] LABS: Prostate Specific Antigen 5.91 ng/mL (0.10-4.00)
== END ==
PROVIDERS: PCP Student in an Organized Health Care Education/Training Program; Referring Provider Specialist; Visit Provider Specialist
DX: C61 Malignant neoplasm of prostate (principal)
CPT/HCPCS: 36415; 84153

== ENCOUNTER 2022-11-15 08:22 | Inpatient (IN) | payer OTHER, SELFPAY ==
[2022-11-15] VITALS (12 sets, daily range): BP systolic 91–157; BP diastolic 54–78; PULSE 59–91; RESP 12–18; TEMP 35.8–36.7; O2SAT 86–98; BMI 24.3
--- NOTE | 2022-11-15 | PATH_ITS ---
[facility] Accession Number: [id number] No. of containers..03 Tissue . 01 Material submitted: . PART A: lymph node - RIGHT PELVIC LYMPH NODES PART B: lymph node - LEFT PELVIC LYMPH NODES PART C: prostate - PROSTATE . 01 Diagnosis: A. Right Pelvic Lymph Nodes, Dissection: Four lymph nodes, negative for malignancy (0/4). . B. Left Pelvic Lymph Nodes, Dissection: Two lymph nodes, negative for malignancy (0/2). . C. Prostate, Radical Prostatectomy: Invasive prostatic adenocarcinoma, conventional/acinar type, total Thea score 7 (primary pattern 3, secondary pattern 4), involving 5% prostatic volume, with no extraprostatic extension, with perineural invasion, and negative margins. See case summary and comment below. . CASE SUMMARY: Procedure: Radical Prostatectomy. Prostate Weight: 49 grams. TUMOR Histologic Type: Acinar adenocarcinoma. Histologic Grade: Grade Group: 2 (3+4=7), Percentage of pattern 4: 10% Intraductal Ccarcinoma Of The Prostate: Not identified. Cribriform Gland: Not identified. Tumor Quantitation: 5% of prostate volume is involved by tumor. Greatest Dimension Of Dominant Nodule: 11 x 7 mm. Extraprostatic Extension: Not identified. Urinary Bladder Neck Invasion: Not identified. Seminal Vesicle Invasion: Not identified. Lymphovascular Invasion: Not identified. Perineural Invasion: Present. Margins: Negative/uninvolved. Regional Lymph Nodes (see parts A and B): 6 lymph nodes, negative for malignancy (0/6). Pathologic Stage: pT2 pN0. . COMMENT: The carcinoma is present in at least 4 out of 8 total slices. It involves all 4 quadrants, to various extent. COT 11/23/2022 1549 Local . 01 Electronically signed: . Ann N Toukatly, MD, Pathologist NPI- [id number] . 01 Gross description: . A. Received in formalin labeled with the patient's name, and right pelvic lymph nodes, and consists of a fragment of yellow lobulated adipose tissue measuring 3.4 x 2.4 x 1.0 cm. Palpation reveals four lymph node candidates ranging from 0.3 to 1.6 cm in greatest dimension. The lymph node candidates are submitted as follows: A1: Single bisected lymph node candidate. A2: Single intact lymph node candidate. A3: Single intact lymph node candidate. A4: Single intact lymph node candidate. B. Received in formalin labeled with the patient's name, and left pelvic lymph node, and consists of a fragment of yellow lobulated adipose measuring 4.2 x 3.6 x 1.0 cm. Palpation reveals two cain lymph node candidates ranging from 0.4 to 2.9 cm in greatest dimension. The lymph node candidates are submitted entirely as follows: B1: Single intact lymph node candidate. B2: Single intact lymph node candidate. C. Received in formalin labeled with the patient's name, and prostate, and consists of an intact prostate with attached vasa deferentia and seminal vesicles weighing 49 grams and measuring 5.6 cm SI, 4.2 cm AP, and 4.7 cm ML. The right vas deferens and seminal vesicle measure 2.7 cm in length by 1.5 cm in diameter. The left vas deferens and seminal vesicle measure 2.2 cm in length by 1.3 cm in diameter. The external surface is diffusely roughened and the urethra is probe patent. The specimen is inked as follows: Right anterior blue, left anterior green, posterior black. The specimen is serially sectioned from apex to base into eight slices to reveal a cain, diffusely nodular cut surface with an ill-defined firm area located in the left posterolateral section in slices 3-5 measuring 1.1 x 0.7 x 0.6 cm. No additional lesions are grossly identified. Splunk Consultant sections are submitted as follows: C1: Right apex margin perpendicular. C2: Left apex margin perpendicular. C3: Right base margin perpendicular. C4: Left base margin perpendicular. C5: Right seminal vesicle and vas deferens. C6: Left seminal vesicle and vas deferens. C7: Intact slice 2. C8-C9: Entire composite slice 3. C10-C13: Entire composite slice 4. C14-C17: Entire composite slice 5. C18-C21: Entire composite slice 6. ([id number]) /MRV 11/16/2022 1830 Local . 01 Pathologist provided ICD-10: C61 . 01 CPT . 120991, [id number], [id number] Specimen Comment: A courtesy copy of this report has been sent to [phone] Performed at: 01 [facility] [address] [place] [address], [place], [place] [id number] MD Juancarlos Beavers MD Phone: [phone]
[2022-11-15] MEDS: GENTAMICIN 160 MG in SODIUM CHLORIDE 0.9% 100 ML 104 MG IV (08:57)
[2022-11-15 09:02] LABS: COVID19 -Nasal RAPID Negative (Negative)
[2022-11-15 09:06] LABS: Hematocrit 44.2 % (41-53); Hemoglobin 14.9 g/dL (13.5-17.5)
--- NOTE | 2022-11-15 10:14 | PM.PREOP ---
Pre-operative Note COVID-19 Criteria for continued procedure: Expected advancement of disease process, Possibility delay results in more complex future surgery or treatment, Deterioration of the patient's condition or overall health, Delay expected to result in less-positive ultimate med/surg outcome and Non-surgical alternatives not available or appropriate per current SOC Interval Note History & Physical reviewed/Exam performed by Physician: Yes Changes to H&P: No
[2022-11-15] MEDS: VANCOMYCIN 1,000 MG/200 ML PIGGYBACK 200 MG IV (10:39)
[2022-11-15] MEDS: ACETAMINOPHEN IV 1,000 MG/100 ML VIAL 400 MG IV (10:49)
--- NOTE | 2022-11-15 10:51 | SUR.PREOP ---
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 tylenol 500mg IV prior to surgery. ok'd per anesthesia
--- NOTE | 2022-11-15 11:36 | SUR.OPER ---
Supine on padded OR bed, head on pillow, arms secured on padded arm boards at <90 degrees abduction, legs uncrossed pillow under knees, safety belt at thigh, tape over blanket over lower legs.
[2022-11-15] MEDS: TRANEXAMIC ACID 1,000 MG in SODIUM CHLORIDE 0.9% 100 ML 200 MG IV (11:46)
[2022-11-15] MEDS: LACTATED RINGERS 1,000 ML 21 ML IV ×2 (11:52→12:34)
[2022-11-15] MEDS: BUPIVACAINE LIPOSOME 266 MG/20 ML VIAL INJ (11:54)
--- NOTE | 2022-11-15 13:19 | P.OP_ITS ---
Operative Date/Time/Diagnoses Date of procedure: 11/15/22 Time of procedure: 13:19 Pre-op diagnosis: 1. Adenocarcinoma the prostate. 2. Strong family history of adenocarcinoma the prostate. Post-op diagnosis: same Procedure & Clinicians Procedure: 1. Radical retropubic prostatectomy/bilateral pelvic lymphadenectomy (nerve- sparing). Same procedure as scheduled: Yes Indications: 1. Adenocarcinoma the prostate. 2. Strong family history of adenocarcinoma the prostate. Surgeon: [facility] Case Manager: Olga Cardoso Click Yes if Unassisted: No Anesthesia Type: General, Spinal (Duramorph) and Local (Diluted 1.33% Exparel.) Operative Notes Findings: 1. Normal midline lower abdominal and retro pubic extraperitoneal pelvic tissue planes. Bilateral pelvic lymph nodes were grossly unremarkable. 2. Prostate margins and contour were grossly unremarkable. Closure Type: primary Specimen(s): none sent (1. Bilateral pelvic lymph nodes. 2. Prostate with attached seminal vesicles.) Applied: catheter (20 Zambian silicone catheter gravity drainage.) and drain(s) (Ten Zambian fenestrated Doug drain.) Estimated Blood Loss (mL): 500 Blood products transfused: none Procedure in detail: The patient was positioned in supine following successful placement of Duramorph spinal anesthetic. General anesthesia was provided. The abdomen, genitalia, and groin were then prepped in sterile fashion. A midline infraumbilical incision was then made through the skin and the subcutaneous fat was divided bluntly. Rectus fascia was divided in the midline using sharp technique. The rectus muscle bundles were then divided in their midline and retracted laterally. The anterior lateral pelvic sidewalls were then exposed using blunt technique. A surgical services assistant was required to assist in retraction, visual ization, hemostasis, and suturing for this case. Next, using the same steps and maneuvers, bilateral pelvic lymph node dissection was conducted: The thin adventitia overlying the external iliac vein was then carefully divided along its length. Using blunt technique the suzan packet was then swept away from the lateral pelvic sidewall. The obturator nerve and vasculature was identified and preserved in both cases. The LigaSure impact device was used to divide the suzan chain proximally and distally in usual fashion. The specimen was then handed off to be submitted to pathology for routine gross and microscopic examination and site of procurement. The endopelvic fascia was then divided on either side of the prostate. The puboprostatic ligaments were then divided using sharp technique bilaterally. The dorsal venous complex was then divided using the impact LigaSure device. There was 1, 3 mm brisk bleeder located to the right of the urethra and beneath the pubic arch. Hemostasis was eventually attain using the ligature cautery rather than suture ligature. The urethra was then carefully identified isolated and elevated off the rectal wall. It was then divided just beyond the prostatic apex using sharp technique. The bifurcation of the Escobar catheter was then divided after applying a clamp internally and then the catheter was transferred into the wound to facilitate manipulation and visualization of the prostate during dissection. The prostatic fascia was divided from the apex to base at the end tear serial lateral aspect and this fascia was rolled posteriorly toward s the anterior rectal wall. Posterior lateral vascular pedicles were then isolated and divided with application of large locking Hemaloc clips successively on each side. Now with the prostate reflected anteriorly superior the Denonvilliers fascia was divided horizontally to allow access to the seminal vesicle fossa bilaterally as well as the ampulla the vas. Medium plastic heme lock clips were applied where indicated for hemostasis in lymphostasis to mobilize each seminal vesicle. The ampulla of the vas was then isolated using blunt technique. Large locking plastic clips were applied proximally distally in ampulla vas were divided sharply. Now the bladder neck was from the prostate base using meticulous blunt, and cautery technique. A neck of mucosa was eventually isolated and was then divided circumferentially near the prostate base. 4-0 Monocryl was then used to create a neobladder neck with an imbricating method circumferentially. Next, the Hung sound was passed into the penile urethra and advanced proximally to the region of the membranous urethra. Flanges were then engaged optimizing visualization of the membranous urethral. The vesicourethral anastomosis was then created by placing 2-0 Monocryl from outside in, and inside out circumferentially at the 2, 4, 6, 8, and 10 positions. A 20 Zambian silicone catheter was then advanced the urethra and adv anced proximally into the operative wound it was then guided into the bladder via the neobladder neck under direct visualization. The balloon was then inflated to 15 cc. The anastomotic sutures were then tied down successively thus completing the vesicourethral anastomosis. The catheter was hand irrigated and was clear without blood or clot. Next, a 10 [place]ambian fenestrated Doug drain was positioned in the space of Retzius and passed through a separate stab incision to the right of midline incision. It was secured in place using a 2-0 silk with Ramu sandal technique in usual fashion. The midline fascia was closed with running 0 PDS starting at each the superior, and the inferior apex and then running each to a point near the mid point of the incision and then time the 2-1 another. The subcutaneous layer/Doroteo's fascia was reapproximated using running 2-0 Vicryl. The skin was reapproximated using a running subcuticular method of 4-0 Monocryl. The skin surfaces were cleaned and dried. Telfa dressing was tailored appropriately to cover the incision in the drain site. Over this a transparent Telfa dressing was applied. The patient was then awakened, transferred to [facility], transported to recovery awake and in stable condition. Complications: none Post-operative Condition: stable Disposition: PACU Plan for aftercare: Admit to acute care.
[2022-11-15] MEDS: LACTATED RINGERS 1,000 ML 125 ML IV ×2 (14:45→20:42)
[2022-11-15] MEDS: ONDANSETRON 4 MG/2 ML INJ IV (21:12)
[2022-11-15] MEDS: MONTELUKAST 10 MG TABLET PO (21:12)
[2022-11-15] MEDS: ATORVASTATIN 20 MG TABLET 10 MG PO (21:12)
[2022-11-15] MEDS: MESALAMINE 400 MG CAP.DRTAB. 1200 MG PO (21:13)
[2022-11-16] VITALS: BP 114/58; PULSE 67; RESP 16; TEMP 36.7; O2SAT 93
[2022-11-16 04:00] VITALS: BP 124/59; PULSE 81; RESP 16; TEMP 37.2; O2SAT 93
[2022-11-16] MEDS: LACTATED RINGERS 1,000 ML 125 ML IV (04:00)
--- NOTE | 2022-11-16 07:44 | PM.PN.1 ---
Subjective Subjective Date Patient Seen: 11/16/22 Time Patient Seen: 07:05 Interval history: The patient is an 82 year male personal history adenocarcinoma prostate and a strong family history cancer admitted yesterday for schedule radical retropubic prostatectomy and pelvic lymphadenectomy. He reports an uneventful night with the exception having had a wave of nausea with subsequent vomiting following his dinner. Since then he is tolerated p.o. without nausea. Exam Vital Signs (past 8 hours): - 11/16/22 00:00 11/16/22 04:00 Temperature 98.0 F 98.9 F Pulse Rate 67 81 Respiratory Rate 16 16 Blood Pressure 114/58 L 124/59 L Pulse Oximetry 93 93 Oxygen Delivery Method Room Air Oxygen Flow Rate 0 Narrative Exam Narrative: Sitting upright in in no distress. Awake and alert. Chest-equal and unlabored expansion bilaterally. Heart-normal dressing and DIAMOND drain intact. Escobar-very light tiffany output without clot. Objective Labs 11/15/22 08:52 Labs: Laboratory Results - last 24 hr 11/15/22 11/15/22 11/15/22 08:30 08:52 08:52 Hgb 14.9 Hct 44.2 SARS-CoV-2 (PCR) Negative Blood Type A Positive Antibody Screen Negative [facility] Medical History Actinic keratosis (~1999) Arthritis Asthma (~2004) Basal cell carcinoma BPH (benign prostatic hyperplasia) (~1989) BPH w urinary obs/LUTS Chicken pox Colon polyps (~2016) Dysphagia Elevated PSA Family history of prostate cancer Fractures GERD (gastroesophageal reflux disease) Hearing loss Hemorrhoid History of basal cell carcinoma (BCC) (05/09/17) History of esophageal reflux (~1997) History of sigmoidoscopy History of urinary frequency (~2004) Measles Osteoarthritis (~1999) Osteopenia (~2009) Prostate cancer Ruptured, tendon, quadriceps Scoliosis (~1961) Seasonal allergies (~1959) Shoulder pain (~2016) Skin cancer (~1994) Tinea pedis (~1957) Ulcerative colitis (~1997) Vision disorder Vocal cord paralysis (~1989) Surgical History Anesthesia Cataracts, bilateral (~1998) Clavicle fracture History of circumcision History of colonoscopy (~2016) History of esophagogastroduodenoscopy (EGD) History of transurethral resection of prostate S/P TURP (status post transurethral resection of prostate) (~2016) Family History Brother Heart disease Hyperlipidemia Cancer Brother Age: 94 Stroke Cancer Brother Age: 84 Stroke Cancer Child Age: 54 Heart disease Father Cancer Mother Parkinson's disease Grandfather Cancer Grandmother Heart disease Social History marital status: number of children: 3 household members: spouse occupational status: previously employed Smoking Status: Never smoker alcohol intake: current caffeine: No Assessment & Plan Assessment & Plan narrative: Assessment: 1. Stable postop day 1 status post radical retropubic prostatectomy. 2. Indwelling Escobar catheter. 3. Pathology pending. Plan: 1. Increase diet and activity today. 2. Instruct him catheter care and use and preparation for discharge. 3. Follow-up surgical pathology final as outpatient. Quality VTE Deep Vein Thrombosis/Pulmonary Embolism Present on Admission: No
[2022-11-16 07:48] VITALS: TEMP 37.4
[2022-11-16] MEDS: ACETAMINOPHEN 325 MG TABLET PO ×2 (07:48→14:57)
[2022-11-16] MEDS: ONDANSETRON 4 MG/2 ML INJ IV (07:49)
[2022-11-16] MEDS: SODIUM CHLORIDE 0.9% FLUSH 10 ML IV (07:50)
[2022-11-16 08:00] VITALS: BP 138/66; PULSE 70; RESP 17; TEMP 37.4; O2SAT 95
--- NOTE | 2022-11-16 08:43 | PC.NURSE ---
Addendum entered by Mandy Aguila R.N. 11/16/22 10:59: 1030: tolerated ambulating hallway >400 ft w/ steady gait. denies dizziness/nausea. instructions on home care of leg bag. anticipate d/c this afternoon at 1600. Original Note: 0800: tolerated OOB to chair for breakfast. no further hypotension or c/o nausea. boland patent, draining clear yellow urine to gravity. drops of pink sero-sang drainage noted on the floor when patient stood up; coming from catheter insertion site, area cleansed w/ wipes. incision is clean, scant drainage noted on gauze, no new drainage noted. DIAMOND is patent, draining light marshall colored fluid. PRN apap given w/ breakfast. VS are stable, patient is motivated to perform self care & learn about boland and lovenox gtt for anticipated d/c home later today. frequent safety/room checks. call light w/in reach.
[2022-11-16] MEDS: CALCIUM CARBONATE 500 MG TAB 1000 MG PO (09:01)
[2022-11-16] MEDS: BISACODYL 10 MG SUPP PR (09:02)
[2022-11-16] MEDS: CHOLECALCIFEROL (VITAMIN D3) 1,000 UNIT TABLET 2000 UNIT PO (09:02)
[2022-11-16] MEDS: ENOXAPARIN 40 MG/0.4 ML SYRINGE SUBCUT (09:02)
[2022-11-16] MEDS: PANTOPRAZOLE DR 20 MG TABLET PO (09:02)
[2022-11-16 11:25] VITALS: BP 124/57; PULSE 71; RESP 18; TEMP 37.6; O2SAT 95
--- NOTE | 2022-11-16 14:00 | CM.DANOTE ---
Discharge Planning/Care Management CM Discharge Assessment Start: 11/16/22 13:57 Freq: Status: Active Protocol: Document 11/16/22 13:57 STEPHANIE (Rec: 11/16/22 14:00 STEPHANIE [id number]) Discharge Planning Assessment Assigned Freight Rate Analyst ANNELIESE Anderson DPOA/Assigned Designee Name Martha Rjoo, spouse Contact Information [phone] Advance Directives? Yes Advance Directives on File No History Provided By Patient,Significant Other, Medical Record Prior Living Arrangements House Household Members spouse Type of transporation used prior to Drives own vehicle admit Independent with ADL's Yes Is patient alert and oriented? Yes Barriers to Discharge No Comment Patient is an 82 yo male, resident of [facility] from radical retropubic prostatectomy and pelvic lymphadenectomy by Dr [facility] Patient indp at base and ambulating hallway w/his boland bag this morning. Patient eager to return home w/spouse, no barriers identified at this time to this plan, DC likely this afternoon Plan: Home w/spouse and close outpatient follow up STEPHANIE Discharge Plan Home Transportation Arrangement Spouse Referrals Initiated None needed
[2022-11-16 15:00] VITALS: TEMP 37.1
--- NOTE | 2022-11-16 16:48 | PM.DS.1 ---
History of Present Illness History of Present Illness Date Patient Seen: 11/16/22 Time Patient Seen: 16:48 Chief complaint: Radical Prostatectomy Narrative: Patient is an 82-year-old gentleman with a underlying diagnosis of presumed localized carcinoma the prostate and a strong family history of prostate cancer. The patient was admitted on the morning of 11/15/2022 and underwent uncomplicated radical retropubic prostatectomy and bilateral pelvic lymphadenectomy under general and Duramorph spinal anesthesia. Discharge Providers Provider Date of admission: 11/15/22 08:22 Discharge Date: 11/16/22 Primary care physician: Felipe Lange MD Discharge provider: Zoë [facility] MD Summary Hospital Course Discharge Diagnosis: 1. Adenocarcinoma the prostate. 2. Strong family history of prostate cancer. Hospital Course: Patient was admitted to the holding of 11/15/2022 and underwent uncomplicated radical retropubic prostatectomy and bilateral pelvic lymphadenectomy under general and Duramorph spinal anesthesia. He did have emesis on 1 occasion in the evening following surgery after consuming evening meal. Otherwise in unremarkable postop course he tolerated general diet, was able to transfer and ambulate without assistance, and postoperative discomfort nearly is easily managed with oral analgesics. In the afternoon of 11/16/2022 he was stable for discharge. Pathology was pending at discharge and will be discussed when available and final in outpatient setting. The patient was provided routine catheter care and use instruction. Arrangements will be made for supervised voiding trial in the Urology Clinic in approximately 2 weeks. Prescriptions were provided for ciprofloxacin, Lovenox, oxycodone with explanation of common side effects, precautions, and intake or administration instructions. Exam Vital Signs (past 8 hours): - 11/16/22 11:25 11/16/22 15:00 Temperature 99.6 F 98.8 F Pulse Rate 71 Respiratory Rate 18 Blood Pressure 124/57 L Pulse Oximetry 95 Oxygen Flow Rate 0 Oxygen Delivery Method Room Air Oxygen Flow Rate 0 Narrative Exam Narrative: The patient is sitting upright in bedside chair and in no distress. He is actively reading and working with electronic devices. Chest-equal and unlabored expansion bilaterally. Heart-normal sinus rhythm. Abdomen-scaphoid soft. Dressing Uro drains intact. Objective Labs 11/15/22 08:52 [facility] Medical History Actinic keratosis (~1999) Arthritis Asthma (~2004) Basal cell carcinoma BPH (benign prostatic hyperplasia) (~1989) BPH w urinary obs/LUTS Chicken pox Colon polyps (~2016) Dysphagia Elevated PSA Family history of prostate cancer Fractures GERD (gastroesophageal reflux disease) Hearing loss Hemorrhoid History of basal cell carcinoma (BCC) (05/09/17) History of esophageal reflux (~1997) History of sigmoidoscopy History of urinary frequency (~2004) Measles Osteoarthritis (~1999) Osteopenia (~2009) Prostate cancer Ruptured, tendon, quadriceps Scoliosis (~1961) Seasonal allergies (~1959) Shoulder pain (~2016) Skin cancer (~1994) Tinea pedis (~1957) Ulcerative colitis (~1997) Vision disorder Vocal cord paralysis (~1989) Surgical History Anesthesia Cataracts, bilateral (~1998) Clavicle fracture History of circumcision History of colonoscopy (~2016) History of esophagogastroduodenoscopy (EGD) History of transurethral resection of prostate S/P TURP (status post transurethral resection of prostate) (~2015) Family History Brother Heart disease Hyperlipidemia Cancer Brother Age: 94 Stroke Cancer Brother Age: 84 Stroke Cancer Child Age: 54 Heart disease Father Cancer Mother Parkinson's disease Grandfather Cancer Grandmother Heart disease Social History marital status: number of children: 3 household members: spouse occupational status: previously employed Smoking Status: Never smoker alcohol intake: current caffeine: No Discharge Assessment & Plan Assessment and Plan Assessment: 1. Stable postop day 1 status post radical retropubic prostatectomy bilateral pelvic lymphadenectomy. 2. Indwelling Escobar. 3. Pathology pending at discharge. Plan of Treatment: 1. Discharge home today. 2. Catheter care and use instruction provided. Outpatient supervised voiding trial will be scheduled in the Urology Clinic. 3. Surgical pathology report be reviewed when available and fine. Discharge Plan Discharge Plan Patient Disposition: Home Provider Discharge Comment: Please contact the urology clinic to schedule follow-up appointments. Discharge orders & Medications Prescriptions: New oxycodone 5 mg Tablet 5 mg PO Q4H PRN (Reason: Pain, Moderate (4-6)) Qty: 20 0RF enoxaparin [Lovenox] 40 mg/0.4 mL Syringe 40 mg SUBCUT DAILY Qty: 12 0RF ciprofloxacin HCl 250 mg tablet 250 mg PO Q12H Qty: 6 0RF Rx Instructions: Take 1st tablet in the morning, the day before scheduled catheter removal. Continued albuterol sulfate [Ventolin HFA] 90 MCG/PUFF HFA aerosol inhaler 2 puff INH PRN PRN (Reason: asthma) Qty: 0 Patient Comments: Uses 'very rarely' for 'exercise induced asthma' acetaminophen [Tylenol Extra Strength] 500 mg tablet 500 mg PO Q6H PRN (Reason: Pain) calcium carbonate-vitamin D3 [Caltrate with Vitamin D3] 600 mg(1,500mg) -800 unit tablet 2 tab PO DAILY tadalafil 5 mg tablet 5 mg PO DAILY Qty: 90 3RF Alvesco 160 mcg/actuation HFA aerosol inhaler 1 puff INHALATION BID Qty: 6.1 2RF Rx Instructions: Inhale one puff by mouth twice a day. fluticasone propionate [Flonase Allergy Relief] 50 mcg/actuation spray,suspension 2 spray Intranasal QDAY Qty: 48 0RF valacyclovir 1 gram tablet 2,000 mg PO Q12H Qty: 12 0RF Rx Instructions: 2 tabs twice daily for one day lovastatin 20 mg tablet 20 mg PO BEDTIME Qty: 90 0RF montelukast 10 mg tablet 10 mg PO QDAY Qty: 90 0RF mesalamine [Lialda] 1.2 gram tablet,delayed release (DR/EC) 1.2 g PO BID Qty: 180 3RF omeprazole 20 mg capsule,delayed release(DR/EC) 20 mg PO DAILY Qty: 90 3RF Follow up/Referrals: Felipe Lange MD [Primary Care Provider] - Diet/Activity/Treatments Diet: Diet as Tolerated Activity: Do not lift objects heavier than 15 lb x 4 weeks. No bicycle, saddle, or rowing machine times 8 weeks. No driving x2 weeks. Catheter: 2-way Escobar Catheter comment: Large bag-while in-home and during night. Leg bag-use when out of home. Other treatments: May apply antibiotic ointment of choice at interface of catheter and urethral meatus as needed as directed. Skin/Wound/Dressing Care Skin care: May shower daily. Leave incision open to air. Report to your healthcare provider any signs of infection, such as:: chills, fever, night sweats, increased pain, unusual drainage and unusual redness Visit Report/Discharge Packet Instructions: DI for Radical Prostatectomy, DI for Prescription Opioid Use Stand Alone Forms: Surgery Discharge Discharge Data Primary Care Provider: Felipe Lange VTE Deep Vein Thrombosis/Pulmonary Embolism Present on Admission: No
--- NOTE | 2022-11-16 18:43 | PC.NURSE ---
d/c instructions reviewed w/ patient and . lovenox given w/ instructions on how to inject at home. DIAMOND drain removed, 2x2 gauze placed over site, covered w/ tegaderm. mod amount of drainage noted on the gauze. 2nd tegaderm applied to keep edges of larger abd dressing flat. leg bag given to patient and instructions on use. patient states MD said he could keep the long bag on for recovering at home, and switch to leg bag when going out and about. patient and state they understand instructions and left floor walking by their choice.
== END 2022-11-16 18:30 | disposition home or self-care (01) | DRG 708 ==
PROVIDERS: Admitting Provider Specialist; Family Provider Student in an Organized Health Care Education/Training Program; PCP Student in an Organized Health Care Education/Training Program; Referring Provider Specialist; Visit Provider Specialist
PROC: 0VT00ZZ Resection of Prostate, Open Approach (ICD-10-PCS; principal; 2022-11-15 10:15)
DX: C61 Malignant neoplasm of prostate (principal); K21.9 Gastro-esophageal reflux disease without esophagitis; N40.0 Benign prostatic hyperplasia without lower urinary tract symptoms; Z20.822 Contact with and (suspected) exposure to COVID-19; Z80.42 Family history of malignant neoplasm of prostate
CPT/HCPCS: 36415; 55845; 85014; 85018; 86850; 86900; 86901; 87635; C9803; C9290; J0131; J0330; J1100; J1650; J2274; J2405; J2704; J3010; J7613

== ENCOUNTER 2022-12-01 01:40 | Inpatient (IN) | payer OTHER, SELFPAY ==
[2022-11-15 14:37] VITALS: BMI 24.3
[2022-12-01] VITALS (15 sets, daily range): BP systolic 138–176; BP diastolic 67–86; PULSE 62–94; RESP 16–29; TEMP 36.3–37.1; O2SAT 92–98; BMI 17.2
--- NOTE | 2022-12-01 | DI.CT.S_ITS ---
PROCEDURE: CT CYSTOGRAM INDICATIONS: Evaluate bladder. TECHNIQUE: Both before and after gravity instillation of 10% Isovue contrast solution into the bladder through a Escobar catheter, 5 mm axial images acquired from the bladder dome to the symphysis. 5 mm thick coronal and sagittal reformats were acquired. For radiation dose reduction, the following was used: automated exposure control, adjustment of mA and/or kV according to patient size. COMPARISON: [facility], CT, CT ABDOMEN PELVIS W CON, 12/01/2022, 3:46. FINDINGS: Image quality: Diagnostic. Genitourinary: Gallbladder is decompressed by a Escobar catheter. Contrast has been instilled via Escobar catheter into the urinary bladder. No evidence for contrast extravasation outside of the urinary bladder. There is not significant distension of the urinary bladder as only a small volume of contrast is seen. Distal portions of both ureters are normal in caliber. Postsurgical changes of prior prostatectomy. Redemonstration of previously described deep pelvic fluid collections. 1 is noted along the anterior aspect of the right pelvis measuring approximately 2.9 x 5.0 cm. The 2nd, larger fluid collection is again noted along the a anterior left pelvic wall measuring approximately 11.6 x 7.5 cm. These are not significantly changed compared to the prior study. Peritoneum and bowel: Unenhanced bowel loops are normal in caliber and wall thickness. No pathologic free pelvic fluid. Nodes and vessels: No iliac, pelvic, or inguinal adenopathy by size criteria. Iliac vessels are normal in size. Atherosclerosis. Bones: No suspicious bony lesions. Miscellaneous: Small fat containing umbilical hernia. No inguinal hernias. IMPRESSION: 1. Limited evaluation of the urinary bladder with minimal distension of the urinary bladder by instilled contrast. No evidence for extravasation outside of the urinary bladder. 2. Status post prostatectomy. 3. Stable size and appearance of 2 pelvic fluid collections described on recent imaging. Larger collection is again noted on the left side of the anterior left pelvic side wall. Dictated by: David Neal M.D. on 12/01/2022 at 11:31 Approved by: David Neal M.D. on 12/01/2022 at 11:46
[2022-12-01 02:32] LABS: Appearance Urine UA CLOUDY; Bilirubin Urine UA NEGATIVE (NEGATIVE); Color Urine UA YELLOW; Glucose Urine UA NEGATIVE (Negative); Ketones Urine UA NEGATIVE (NEGATIVE); Leukocyte Esterase Urine UA TRACE (NEGATIVE); Nitrite Urine UA POSITIVE (Negative); Occult Blood Urine UA 3+ (Negative); Protein Urine UA 2+ (Negative); Specific Gravity Urine UA >=1.030 (1.000-1.035)
[2022-12-01 02:32] LABS: Add Manual Diff / Slide Review NO; Basophils Absolute Auto 100 /uL (0-100); Basophils Percent Auto 0.6 % (0-2); Eosinophils Absolute Auto 100 /uL (0-450); Eosinophils Percent Auto 0.5 % (2-4); Hematocrit 32.5 % (41-53); Hemoglobin 10.8 g/dL (13.5-17.5); Lymphocytes Absolute Auto 1200 /uL (1100-4500); Lymphocytes Percent Auto 9.7 % (25-40); Mean Corpuscular HGB Conc 33.3 % (30-36); Mean Corpuscular Hemoglobin 30.4 PG (26-34); Mean Corpuscular Volume 91.2 fL (80-100); Monocytes Absolute Auto 1200 /uL (0-900); Monocytes Percent Auto 9.9 % (3-14); Neutrophils Absolute Auto 9500 /uL (1500-7000); Neutrophils Percent Auto 79.3 % (50-75); Platelet Count 256 X10^3/uL (150-400); Red Blood Cell Count 3.56 X10^6/uL (4.5-5.9); Red Cell Distribution Width 13.3 % (11.6-14.8)
--- NOTE | 2022-12-01 02:32 | ED_ITS ---
HPI - Fever General Chief Complaint: Fever Stated Complaint: Prostate surg 11/15 fever 101.0 Time Seen by Provider: 12/01/22 01:50 Source: patient Mode of arrival: Ambulatory History of Present Illness HPI Narrative: 82-year-old male nonsmoker with history of GERD and asthma with presumed prostate cancer and relatively recent radical prostatectomy presents with fever and chills over the past few days. He was scheduled to have his catheter removed yesterday however due to his fever he states it was left in. He was started on Cipro yesterday. He claims to have had fever, shaking chills over the past few days and also states that he has had pain, swelling and redness in his right testicle. Related Data Home Medications Medication Instructions Recorded Confirmed albuterol sulfate 90 mcg/actuation 2 puff INH PRN PRN asthma ##0 05/09/17 11/15/22 aerosol inhaler (Ventolin HFA) acetaminophen 500 mg tablet 500 mg PO Q6H PRN Pain 07/07/18 11/15/22 (Tylenol Extra Strength) calcium carbonate 600 mg-vitamin 2 tab PO DAILY 07/07/18 11/15/22 D3 20 mcg (800 unit) tablet (Caltrate with Vitamin D3) Previous Rx's Medication Instructions Recorded tadalafil 5 mg tablet 5 mg PO DAILY #90 tabs 06/08/22 fluticasone propionate 50 2 spray intranasal QDAY #48 grams 09/07/22 mcg/actuation nasal spray,suspension (Flonase Allergy Relief) valacyclovir 1 gram tablet 2,000 mg PO Q12H #12 tabs 09/07/22 mesalamine 1.2 gram tablet,delayed 1.2 g PO BID #180 tabs 09/21/22 release (Lialda) omeprazole 20 mg capsule,delayed 20 mg PO DAILY #90 caps 09/21/22 release ciprofloxacin HCl 250 mg tablet 250 mg PO Q12H #6 tabs 11/16/22 enoxaparin 40 mg/0.4 mL 40 mg (0.4 mL) SUBCUT DAILY #12 mL 11/16/22 subcutaneous syringe (Lovenox) oxycodone 5 mg tablet 5 mg PO Q4H PRN Pain, Moderate 11/16/22 (4-6) #20 tabs ciclesonide 160 mcg/actuation 1 puff inhalation BID #6.1 grams 11/22/22 aerosol inhaler (Alvesco) lovastatin 20 mg tablet 20 mg PO BEDTIME #90 tabs 11/22/22 montelukast 10 mg tablet 10 mg PO QDAY #90 tabs 11/22/22 tramadol 50 mg tablet 50 mg PO Q6H PRN pain #30 tabs 11/29/22 Allergies Allergy/AdvReac Type Severity Reaction Status Date / Time Iodinated Contrast Media Allergy Severe HIVES Verified 11/15/22 08:43 [IODINATED CONTRAST- ORAL AND IV DYE] Review of Systems Review of Systems Narrative: GENERAL: See HPI HEENT: Denies sinus pain, ear pain, sore throat, difficulty swallowing, dizziness. RESPIRATORY: Denies dyspnea, cough, wheezing, hemoptysis, sputum. CARDIOVASCULAR: Denies chest pain, palpitations, orthopnea, edema, GASTROINTESTINAL: See HPI : See HPI MUSCULOSKELETAL: denies weakness, joint pain, or bony pain SKIN: Denies rash, skin lesions, or other NEUROLOGIC: Denies weakness, headache, numbness, change in speech, confusion, seizures, incoordination. PSYCHIATRIC: No concerning psychosocial issues. 12 point review of systems is negative except for those stated above Patient History Medical History Actinic keratosis (~1999) Arthritis Asthma (~2004) Basal cell carcinoma BPH (benign prostatic hyperplasia) (~1989) BPH w urinary obs/LUTS Chicken pox Colon polyps (~2016) Dysphagia Elevated PSA Family history of prostate cancer Fractures GERD (gastroesophageal reflux disease) Hearing loss Hemorrhoid History of basal cell carcinoma (BCC) (05/09/17) History of esophageal reflux (~1997) History of sigmoidoscopy History of urinary frequency (~2004) Measles Osteoarthritis (~1999) Osteopenia (~2009) Prostate cancer Ruptured, tendon, quadriceps Scoliosis (~1961) Seasonal allergies (~1959) Shoulder pain (~2016) Skin cancer (~1994) Tinea pedis (~1957) Ulcerative colitis (~1997) Vision disorder Vocal cord paralysis (~1989) Surgical History Anesthesia Cataracts, bilateral (~1998) Clavicle fracture History of circumcision History of colonoscopy (~2016) History of esophagogastroduodenoscopy (EGD) History of transurethral resection of prostate S/P TURP (status post transurethral resection of prostate) (~2016) Family History Brother Heart disease Hyperlipidemia Cancer Brother Age: 94 Stroke Cancer Brother Age: 84 Stroke Cancer Child Age: 54 Heart disease Father Cancer Mother Parkinson's disease Grandfather Cancer Grandmother Heart disease Social History marital status: number of children: 3 household members: spouse occupational status: previously employed Smoking Status: Never smoker alcohol intake: current caffeine: No Smoking Status: Never smoker alcohol intake frequency: 0-2 drinks per day Substance Use Type: does not use Exam Narrative Exam Narrative: GENERAL: [82] year old patient appears stated age. Well-developed patient, in m ild distress. HEAD: Atraumatic. Normocephalic. EYES: Pupils equal round and reactive. Extraocular motions intact. No scleral icterus. No injection or drainage. ENT: Nose without bleeding, purulent drainage. Throat without erythema, tonsillar hypertrophy or exudate. Airway patent. NECK: Trachea midline. Non tender CARDIOVASCULAR: Regular rate and rhythm without murmurs, gallops, or rubs. RESPIRATORY: Clear to auscultation. Breath sounds equal bilaterally. No wheezes, rales, or rhonchi. GASTROINTESTINAL: Abdomen soft, non-tender, nondistended. : scrotal swelling, erythema, tenderness to palp EXTREMITIES: No edema or joint tenderness. BACK: Nontender without deformity or crepitance. No flank tenderness. NEURO: AOx3. SKIN: No rash or erythema of visible areas Initial Vital Signs Initial Vital Signs: Vital Signs Temperature 98.8 F 12/01/22 01:54 Pulse Rate 94 H 12/01/22 01:54 Respiratory Rate 17 12/01/22 01:54 Blood Pressure 158/80 H 12/01/22 01:54 Pulse Oximetry 96 12/01/22 01:54 Oxygen Delivery Method Room Air 12/01/22 01:54 Course Orders Ordered: ED Orders 12/01/22 02:10 Urinalysis and Microscopic Stat Urine Culture Stat 12/01/22 02:20 Complete Blood Count AUTO DIFF Stat Comprehensive Metabolic Panel Stat Lactate (Lactic Acid) Stat Procalcitonin Stat Troponin & CK Cardiac Panel Stat 12/01/22 02:40 Blood Culture Stat 12/01/22 02:51 CT abdomen pelvis w con Stat Acetaminophen (Acetaminophen 325 Mg Tablet) 650 mg PO Q6H PRN PRN Reason: Fever/Mild Pain (1-3) Enoxaparin Sodium (Enoxaparin 40 Mg/0.4 Ml Syringe) 40 mg SUBCUT DAILY [facility] Meropenem 1 gm/ Sodium (Chloride) 100 mls @ 200 mls/hr IV Q8H [facility] Naloxone HCl (Naloxone 0.4 Mg/Ml Vial) 0.2 mg IV Q2MIN PRN PRN Reason: Opiate Reversal Ondansetron HCl (Ondansetron 4 Mg/2 Ml Inj) 4 mg IV Q8HR PRN PRN Reason: Nausea And Vomiting Discontinued Medications Diphenhydramine HCl (Diphenhydramine 50 Mg/Ml Vial) 25 mg IV NOW ONE Stop: 12/01/22 02:53 Last Admin: 12/01/22 03:22 Dose: 25 mg Documented By: TIMMY Famotidine (Famotidine 20 Mg/2 Ml Vial) 20 mg IV NOW [facility] Last Admin: 12/01/22 03:22 Dose: 20 mg Documented By: TIMMY Ceftriaxone Sodium 2,000 mg/ (Sodium Chloride) 100 mls @ 200 mls/hr IV NOW ONE Stop: 12/01/22 03:08 Last Infusion: 12/01/22 04:19 Dose: 0 mls/hr Documented By: Admin: 12/01/22 03:23 Dose: 200 mls/hr Documented By: TIMMY Sodium Chloride (Normal Saline 0.9%) 1,000 mls @ 1,000 mls/hr IV BOLUS ONE Stop: 12/01/22 04:06 Last Infusion: 12/01/22 04:24 Dose: 0 mls/hr Documented By: Admin: 12/01/22 03:23 Dose: 1,000 mls/hr Documented By: TIMMY Methylprednisolone (Methylprednisolone 125 Mg/2 Ml Vial) 125 mg IV NOW ONE Stop: 12/01/22 02:53 Last Admin: 12/01/22 03:22 Dose: 125 mg Documented By: TIMMY Consultations Consultation #1: discussed with Dr. Taylor. He recommends fluids, cultures, Rocephin and CT Abd/Pelv w/IV contrast Consultation #2: discussed with hospitalist (Frederic) will be involved in consultation Vital Signs Vital signs: Vital Signs - 8 hr 12/01/22 01:54 12/01/22 02:28 12/01/22 02:30 Temperature 98.8 F Pulse Rate 94 H 68 Respiratory Rate 17 16 Blood Pressure 158/80 H 160/74 H Pulse Oximetry 96 95 Oxygen Delivery Method Room Air 12/01/22 02:30 12/01/22 03:00 12/01/22 03:00 Temperature Pulse Rate 72 77 Respiratory Rate 21 29 H Blood Pressure 176/86 H Pulse Oximetry 95 96 Oxygen Delivery Method Room Air Room Air 12/01/22 03:30 12/01/22 03:30 12/01/22 04:00 Temperature Pulse Rate 62 68 Respiratory Rate 23 28 H Blood Pressure 150/81 H Pulse Oximetry 95 95 Oxygen Delivery Method Room Air Room Air 12/01/22 04:30 Temperature Pulse Rate 74 Respiratory Rate 21 Blood Pressure Pulse Oximetry 92 Oxygen Delivery Method MDM - Fever Lab Data 12/01/22 02:20 12/01/22 02:20 Labs: Lab Results 12/01/22 12/01/22 12/01/22 Range/Units 02:10 02:20 02:20 WBC 12.0 H (4.5-11.0) X10^3/uL RBC 3.56 L (4.5-5.9) X10^6/uL Hgb 10.8 L (13.5-17.5) g/dL Hct 32.5 L (41-53) % MCV 91.2 (80-100) fL MCH 30.4 (26-34) PG MCHC 33.3 (30-36) % RDW 13.3 (11.6-14.8) % Plt Count 256 (150-400) X10^3/uL Neut % (Auto) 79.3 H (50-75) % Lymph % (Auto) 9.7 L (25-40) % [place] % (Auto) 9.9 (3-14) % Eos % (Auto) 0.5 L (2-4) % Baso % (Auto) 0.6 (0-2) % Neut # (Auto) 9500 H (9417-7917) /uL Lymph # (Auto) 1200 (9843-3564) /uL [place] # (Auto) 1200 H (0-900) /uL Eos # (Auto) 100 (0-450) /uL Baso # (Auto) 100 (0-100) /uL Sodium 134 L (137-145) mmol/L Potassium 3.4 (3.4-5.1) mmol/L Chloride 99 (98-107) mmol/L Carbon Dioxide 28 (22-32) mmol/L BUN 19 (9-20) mg/dL Creatinine 0.77 (0.66-1.25) mg/dL Estimated GFR > 60 (>60) mL/min BUN/Creatinine Ratio 24.7 H (6-22) Glucose 121 H (80-110) mg/dL Lactate (0.7-2.1) mmol/L Calcium 8.4 (8.4-10.2) mg/dL Total Bilirubin 0.9 (0.2-1.3) mg/dL AST 21 (17-59) IU/L ALT 17 (<50) IU/L Alkaline Phosphatase 69 (38-126) U/L Total Creatine Kinase 32 L (55-170) U/L CK-MB (CK-2) TNP CK-MB (CK-2) Rel Index TNP Troponin I < 0.012 (0.01-0.034) ng/mL Total Protein 6.5 (6.3-8.2) g/dL Albumin 3.5 (3.5-5.0) g/dL Globulin 3.0 (1.7-4.1) g/dL Albumin/Globulin Ratio 1.2 (1.0-2.8) Procalcitonin 0.80 H (<0.5) ng/mL Urine Color Yellow Urine Appearance Cloudy Urine pH 5.0 (4.5-8.0) Ur Specific [place] >=1.030 H (1.000-1.035) Urine Protein 2+ H (Negative) Urine Glucose (UA) Negative (Negative) g/dL Urine Ketones Negative (NEGATIVE) Urine Occult Blood 3+ H (Negative) Urine Nitrate Positive H (Negative) Urine Bilirubin Negative (NEGATIVE) Urine Urobilinogen 1.0 (0.2) E.U./dL Ur Leukocyte Esterase Trace H (NEGATIVE) Urine RBC 5-10/hpf H (0-5/HPF) Urine WBC 30-100/hpf H (0-5/HPF) Ur Squamous Epith Cells 0-1 /hpf (0-5/HPF) Urine Bacteria Many (>30) H (None) Urine Mucus 2+ H (Negative) Ur Culture Indicated? Specimen cultured 12/01/22 Range/Units 02:20 WBC (4.5-11.0) X10^3/uL RBC (4.5-5.9) X10^6/uL Hgb (13.5-17.5) g/dL Hct (41-53) % MCV (80-100) fL MCH (26-34) PG MCHC (30-36) % RDW (11.6-14.8) % Plt Count (150-400) X10^3/uL Neut % (Auto) (50-75) % Lymph % (Auto) (25-40) % [place] % (Auto) (3-14) % Eos % (Auto) (2-4) % Baso % (Auto) (0-2) % Neut # (Auto) (8830-5710) /uL Lymph # (Auto) (7497-8632) /uL [place] # (Auto) (0-900) /uL Eos # (Auto) (0-450) /uL Baso # (Auto) (0-100) /uL Sodium (137-145) mmol/L Potassium (3.4-5.1) mmol/L Chloride (98-107) mmol/L Carbon Dioxide (22-32) mmol/L BUN (9-20) mg/dL Creatinine (0.66-1.25) mg/dL Estimated GFR (>60) mL/min BUN/Creatinine Ratio (6-22) Glucose (80-110) mg/dL Lactate 0.9 (0.7-2.1) mmol/L Calcium (8.4-10.2) mg/dL Total Bilirubin (0.2-1.3) mg/dL AST (17-59) IU/L ALT (<50) IU/L Alkaline Phosphatase (38-126) U/L Total Creatine Kinase (55-170) U/L CK-MB (CK-2) CK-MB (CK-2) Rel Index Troponin I (0.01-0.034) ng/mL Total Protein (6.3-8.2) g/dL Albumin (3.5-5.0) g/dL Globulin (1.7-4.1) g/dL Albumin/Globulin Ratio (1.0-2.8) Procalcitonin (<0.5) ng/mL Urine Color Urine Appearance Urine pH (4.5-8.0) Ur Specific [place] (1.000-1.035) Urine Protein (Negative) Urine Glucose (UA) (Negative) g/dL Urine Ketones (NEGATIVE) Urine Occult Blood (Negative) Urine Nitrate (Negative) Urine Bilirubin (NEGATIVE) Urine Urobilinogen (0.2) E.U./dL Ur Leukocyte Esterase (NEGATIVE) Urine RBC (0-5/HPF) Urine WBC (0-5/HPF) Ur Squamous Epith Cells (0-5/HPF) Urine Bacteria (None) Urine Mucus (Negative) Ur Culture Indicated? MDM Narrative Medical decision making narrative: 82-year-old male with recent radical prostatectomy presents with fever, shaking chills and initially meets sepsis criteria though does not qualify for severe sepsis. His urine certainly shows signs of infection and per my discussion with Dr. Taylor we elect to switch from the quinolones to Rocephin. Advanced imaging notes a 12 cm fluid collection in the left lower pelvis that is likely seroma versus abscess. I discussed this with on-call Urology who recommends admission to the hospital with Medicine consult to further manage Discharge Plan Departure Patient Disposition: Admitted As Inpatient Clinical Impression: Acute UTI, Sepsis, Abdominal fluid collection Admit Date/Time: 12/01/22 05:23 Admit Provider: Zoë Taylor
[2022-12-01 02:38] LABS: Bacteria Urine Many (>30); RBC Urine 5-10/HPF (0-5/HPF); Squamous Epithelial Cell Urine 0-1 /HPF (0-5/HPF); WBC Urine 30-100/HPF (0-5/HPF)
[2022-12-01 02:39] LABS: Culture Indicated Urine Specimen Cultured; Mucus Urine 2+ (Negative)
[2022-12-01 02:39] LABS: Alanine Aminotransferase 17 IU/L (<50); Albumin 3.5 g/dL (3.5-5.0); Albumin Globulin Ratio 1.2 (1.0-2.8); Alkaline Phosphatase 69 U/L (38-126); Aspartate Aminotransferase 21 IU/L (17-59); BUN Creatinine Ratio 24.7 (6-22); Bilirubin Total 0.9 mg/dL (0.2-1.3); Blood Urea Nitrogen 19 mg/dL (9-20); Calcium 8.4 mg/dL (8.4-10.2); Carbon Dioxide 28 mmol/L (22-32); Chloride 99 mmol/L (98-107); Creatine Kinase 32 U/L (55-170); Estimated Glomerular Filt Rate > 60 mL/min (>60); Glucose 121 mg/dL (80-110); HEMOLYSIS < 15 (0-50); Potassium 3.4 mmol/L (3.4-5.1); Sodium 134 mmol/L (137-145); Total Protein 6.5 g/dL (6.3-8.2)
[2022-12-01 02:40] LABS: Lactate (Lactic Acid) 0.9 mmol/L (0.7-2.1)
[2022-12-01 02:51] LABS: Troponin I < 0.012 ng/mL (0.01-0.034)
--- NOTE | 2022-12-01 02:51 | DI.CT.S_ITS ---
PROCEDURE: CT ABDOMEN PELVIS W CON INDICATIONS: pelvic pain, septic, recent radical prostatectomy TECHNIQUE: After the administration of intravenous contrast, axial sections acquired from the lung bases to the pubic symphysis. Coronal and sagittal reformats were performed. For radiation dose reduction, the following was used: automated exposure control, adjustment of mA and/or kV according to patient size. COMPARISON: None. FINDINGS: Image quality: Excellent. Lung bases: Unremarkable. Heart: No significant findings. ABDOMEN: Liver: Unremarkable. Gallbladder: Unremarkable. Biliary ducts: Unremarkable. Pancreas: Unremarkable. Spleen: Unremarkable. Adrenal Glands: Unremarkable. Kidneys and Ureters: Unremarkable. Stomach and Bowel: Tiny hiatal hernia. Normal colonic caliber. Peritoneum: No abnormal intraperitoneal fluid. No free air. Ventral Wall: No hernias. Abdominal Nodes: No retroperitoneal or mesenteric adenopathy by size criteria. Vessels: Aorta and inferior vena cava are normal in size. PELVIS: Pelvic Organs: Interval prostatectomy. A 2 fluid collections within the deep pelvis, measuring 11.9 x 7.6 centimeters on the left and 5.1 x 2.7 centimeters along the anterior margin Bladder: Decompressed around a Escobar catheter. Pelvic Nodes: No enlarged lymph nodes. Miscellaneous: No hernias are seen. Bones: Unremarkable. IMPRESSION: Prostatectomy, with fluid collections along the left pelvic and anterior pelvic wall, measuring 11.9 x 7.6 centimeters and 5.1 x 2.7 centimeters, respectively. Differential includes postoperative seromas versus abscesses. Agree with preliminary report. Dictated by: Beltran Adams M.D. on 12/01/2022 at 8:07 Approved by: Beltran Adams M.D. on 12/01/2022 at 8:14
[2022-12-01] MEDS: methylPREDNISolone 125 MG/2 ML VIAL IV (03:22)
[2022-12-01] MEDS: diphenhydrAMINE 50 MG/ML VIAL 25 MG IV (03:22)
[2022-12-01] MEDS: FAMOTIDINE 20 MG/2 ML VIAL IV (03:22)
[2022-12-01] MEDS: SODIUM CHLORIDE 0.9% 1,000 ML 1000 ML IV (03:23)
[2022-12-01] MEDS: cefTRIAXone 2,000 MG in SODIUM CHLORIDE 0.9% 100 ML 200 MG IV (03:23)
[2022-12-01 05:50] LABS: COVID19 -Nasal RAPID Negative (Negative)
--- NOTE | 2022-12-01 05:56 | P.CONS_ITS ---
History of Present Illness Consult details Date Patient Seen: 12/01/22 Time Patient Seen: 05:30 Chief complaint: Prostate surg 11/15 fever 101.0 Narrative: Mr. Rojo is an 82M with PMH GERD, asthma, prostate cancer s/p prostatectomy on 11/15 who presents to the hospital with fevers, nausea, scrotal, and abdominal pain. He has had a boland in place since his surgery. He felt that his boland was potentially causing urethral and rectal pain since the surgery. He has been having some lower abdominal deep pain, he says the pain is sometimes on the right and other times the left side of the abdomen. Four days ago he began to feel nausea, he had an episode of vomiting, he had chills. His symptoms progressed to feeling worse. He noticed some swelling in his lower legs. He started taking ciprofloxacin two days ago in preparation for having his boland removed. He noticed over the last couple days pain and swelling of his right testicle and he developed fevers to at least 101 which prompted him to come in to the hospital. In the ED workup was done, vitals notable for afebrile, heart rate in the 90s, blood pressure 150s/80s, sats 96% on room air. Labs reviewed by me and notable for WBC 12.0, hgb 10.8, plts 256. Na 134, k 3.4, creatinine 0.77. LFTs normal. Lactate 0.9. Procal 0.80. UA was cloudy, positive for nitrates, 30-100 WBCs, occult blood, and many bacteria. CT abdomen/pelvis reviewed by me and notable for one large fluid collection over 12cm, and second fluid collection of approximately 4cm, that may be continguous. Bladder was decompressed by the boland. He was ordered antibiotics and admitted for further treatment. Medicine is consulted to provide assistance in antibiotic management. Meds Home Medications and Allergies Home Medications Medication Instructions Recorded Confirmed Type albuterol sulfate 90 mcg/actuation 2 puff INH PRN PRN asthma ##0 05/09/17 11/15/22 History aerosol inhaler (Ventolin HFA) acetaminophen 500 mg tablet 500 mg PO Q6H PRN Pain 07/07/18 11/15/22 History (Tylenol Extra Strength) calcium carbonate 600 mg-vitamin 2 tab PO DAILY 07/07/18 11/15/22 History D3 20 mcg (800 unit) tablet (Caltrate with Vitamin D3) tadalafil 5 mg tablet 5 mg PO DAILY #90 tabs 06/08/22 11/15/22 Rx fluticasone propionate 50 2 spray intranasal QDAY #48 grams 09/07/22 11/15/22 Rx mcg/actuation nasal spray,suspension (Flonase Allergy Relief) valacyclovir 1 gram tablet 2,000 mg PO Q12H #12 tabs 09/07/22 11/16/22 Rx mesalamine 1.2 gram tablet,delayed 1.2 g PO BID #180 tabs 09/21/22 11/15/22 Rx release (Lialda) omeprazole 20 mg capsule,delayed 20 mg PO DAILY #90 caps 09/21/22 11/15/22 Rx release ciprofloxacin HCl 250 mg tablet 250 mg PO Q12H #6 tabs 11/16/22 Rx enoxaparin 40 mg/0.4 mL 40 mg (0.4 mL) SUBCUT DAILY #12 mL 11/16/22 Rx subcutaneous syringe (Lovenox) oxycodone 5 mg tablet 5 mg PO Q4H PRN Pain, Moderate 11/16/22 Rx (4-6) #20 tabs ciclesonide 160 mcg/actuation 1 puff inhalation BID #6.1 grams 11/22/22 Rx aerosol inhaler (Alvesco) lovastatin 20 mg tablet 20 mg PO BEDTIME #90 tabs 11/22/22 Rx montelukast 10 mg tablet 10 mg PO QDAY #90 tabs 11/22/22 Rx tramadol 50 mg tablet 50 mg PO Q6H PRN pain #30 tabs 11/29/22 Rx Allergies Allergy/AdvReac Type Severity Reaction Status Date / Time Iodinated Contrast Media Allergy Severe HIVES Verified 11/15/22 08:43 [IODINATED CONTRAST- ORAL AND IV DYE] Review of Systems Review of Systems Narrative: 14 systems reviewed and negative aside from what is noted in HPI Exam Vital Signs (past 8 hours): - 12/01/22 01:54 12/01/22 02:28 12/01/22 02:30 Temperature 98.8 F Pulse Rate 94 H 68 Respiratory Rate 17 16 Blood Pressure 158/80 H 160/74 H Pulse Oximetry 96 95 Oxygen Delivery Method Room Air 12/01/22 02:30 12/01/22 03:00 12/01/22 03:00 Temperature Pulse Rate 72 77 Respiratory Rate 21 29 H Blood Pressure 176/86 H Pulse Oximetry 95 96 Oxygen Delivery Method Room Air Room Air 12/01/22 03:30 12/01/22 03:30 12/01/22 04:00 Temperature Pulse Rate 62 68 Respiratory Rate 23 28 H Blood Pressure 150/81 H Pulse Oximetry 95 95 Oxygen Delivery Method Room Air Room Air 12/01/22 04:30 Temperature Pulse Rate 74 Respiratory Rate 21 Blood Pressure Pulse Oximetry 92 Oxygen Delivery Method Oxygen Delivery Method Room Air Narrative Exam Narrative: GEN: no acute distress HEENT: moist mucous membranes, PERRL NECK: trachea midline, no jvd PULM: clear bilaterally, no wheezes, rhonchi, rales CV: regular rate and rhythm, no murmurs ABD: soft, slightly distended, firm mass felt in lower abdomen, no rebound/guarding : R testicle tender and swollen, no crepitus EXT: warm and well perfused with trace edema NEURO: awake, alert, oriented, no focal deficits Objective Labs 12/01/22 02:20 12/01/22 02:20 Labs: Laboratory Results - last 24 hr 12/01/22 12/01/22 12/01/22 02:10 02:20 02:20 WBC 12.0 H RBC 3.56 L Hgb 10.8 L Hct 32.5 L MCV 91.2 MCH 30.4 MCHC 33.3 RDW 13.3 Plt Count 256 Neut % (Auto) 79.3 H Lymph % (Auto) 9.7 L [place] % (Auto) 9.9 Eos % (Auto) 0.5 L Baso % (Auto) 0.6 Neut # (Auto) 9500 H Lymph # (Auto) 1200 [place] # (Auto) 1200 H Eos # (Auto) 100 Baso # (Auto) 100 Sodium 134 L Potassium 3.4 Chloride 99 Carbon Dioxide 28 BUN 19 Creatinine 0.77 Estimated GFR > 60 BUN/Creatinine Ratio 24.7 H Glucose 121 H Lactate Calcium 8.4 Total Bilirubin 0.9 AST 21 ALT 17 Alkaline Phosphatase 69 Total Creatine Kinase 32 L CK-MB (CK-2) TNP CK-MB (CK-2) Rel Index TNP Troponin I < 0.012 Total Protein 6.5 Albumin 3.5 Globulin 3.0 Albumin/Globulin Ratio 1.2 Procalcitonin 0.80 H Urine Color Yellow Urine Appearance Cloudy Urine pH 5.0 Ur Specific [place] >=1.030 H Urine Protein 2+ H Urine Glucose (UA) Negative Urine Ketones Negative Urine Occult Blood 3+ H Urine Nitrate Positive H Urine Bilirubin Negative Urine Urobilinogen 1.0 Ur Leukocyte Esterase Trace H Urine RBC 5-10/hpf H Urine WBC 30-100/hpf H Ur Squamous Epith Cells 0-1 /hpf Urine Bacteria Many (>30) H Urine Mucus 2+ H Ur Culture Indicated? Specimen cultured SARS-CoV-2 (PCR) 12/01/22 12/01/22 02:20 05:30 WBC RBC Hgb Hct MCV MCH MCHC RDW Plt Count Neut % (Auto) Lymph % (Auto) [place] % (Auto) Eos % (Auto) Baso % (Auto) Neut # (Auto) Lymph # (Auto) [place] # (Auto) Eos # (Auto) Baso # (Auto) Sodium Potassium Chloride Carbon Dioxide BUN Creatinine Estimated GFR BUN/Creatinine Ratio Glucose Lactate 0.9 Calcium Total Bilirubin AST ALT Alkaline Phosphatase Total Creatine Kinase CK-MB (CK-2) CK-MB (CK-2) Rel Index Troponin I Total Protein Albumin Globulin Albumin/Globulin Ratio Procalcitonin Urine Color Urine Appearance Urine pH Ur Specific [place] Urine Protein Urine Glucose (UA) Urine Ketones Urine Occult Blood Urine Nitrate Urine Bilirubin Urine Urobilinogen Ur Leukocyte Esterase Urine RBC Urine WBC Ur Squamous Epith Cells Urine Bacteria Urine Mucus Ur Culture Indicated? SARS-CoV-2 (PCR) Negative [facility] Medical History Actinic keratosis (~1999) Arthritis Asthma (~2004) Basal cell carcinoma BPH (benign prostatic hyperplasia) (~1989) BPH w urinary obs/LUTS Chicken pox Colon polyps (~2016) Dysphagia Elevated PSA Family history of prostate cancer Fractures GERD (gastroesophageal reflux disease) Hearing loss Hemorrhoid History of basal cell carcinoma (BCC) (05/09/17) History of esophageal reflux (~1997) History of sigmoidoscopy History of urinary frequency (~2004) Measles Osteoarthritis (~1999) Osteopenia (~2009) Prostate cancer Ruptured, tendon, quadriceps Scoliosis (~1961) Seasonal allergies (~1959) Shoulder pain (~2016) Skin cancer (~1994) Tinea pedis (~1958) Ulcerative colitis (~1997) Vision disorder Vocal cord paralysis (~1989) Surgical History Anesthesia Cataracts, bilateral (~1998) Clavicle fracture History of circumcision History of colonoscopy (~2016) History of esophagogastroduodenoscopy (EGD) History of transurethral resection of prostate S/P TURP (status post transurethral resection of prostate) (~2015) Family History Brother Heart disease Hyperlipidemia Cancer Brother Age: 94 Stroke Cancer Brother Age: 84 Stroke Cancer Child Age: 54 Heart disease Father Cancer Mother Parkinson's disease Grandfather Cancer Grandmother Heart disease Social History marital status: number of children: 3 household members: spouse occupational status: previously employed Tobacco & Substance Use Smoking Status: Never smoker alcohol intake: current Diet and Exercise caffeine: No Assessment & Plan Assessment & Plan narrative: 1. UTI with SIRS in setting of boland catheter -patient with recent surgical procedure/hospitalization and remains with boland catheter -due to this would treat broadly with antibiotics with meropenem -can narrow with culture results -urology to manage boland catheter and timing of removal 2. s/p prostatectomy with abdominal fluid collection -noted to have fluid collection on CT -discussed with urology who think that this is likely seroma after prostatectomy -for now plan to have close observation -consider drainage if patient worsening despite appropriate antibiotics management 3. Asthma -continue home medications 4. GERD -continue protonix I have discussed plan and obtained history from patient and . I have discussed plan of care with ED physician, and urologist. I have reviewed labs, CT imaging, and previous operative and medical notes CODE: Full Proxy: Martha Rojo,
--- NOTE | 2022-12-01 06:34 | PC.ADMIT ---
Addendum entered by Harper Palm R.N. 12/01/22 06:34: Pt a/ox3, denies pain when standing or laying, sitting does cause pain in groin area. Lungs clear, RA. No edema, PPP. Escobar in place, patent, urine cloudy, hematauria. Right testicle is red, swollen. Abdomen soft, bsx4. Skin intact. Original Note: [email or web address] Admission Note: The patient,Renny Rojo,82 y/o, was given written information regarding hospital policies, unit procedures and contact persons. Patient's smoking status: Never smoker. Vital Signs - 8 hr 12/01/22 01:54 12/01/22 02:28 12/01/22 02:30 Temperature 98.8 F Pulse Rate 94 H 68 Respiratory Rate 17 16 Blood Pressure 158/80 H 160/74 H Pulse Oximetry 96 95 Oxygen Delivery Method Room Air Oxygen Flow Rate 12/01/22 02:30 12/01/22 03:00 12/01/22 03:00 Temperature Pulse Rate 72 77 Respiratory Rate 21 29 H Blood Pressure 176/86 H Pulse Oximetry 95 96 Oxygen Delivery Method Room Air Room Air Oxygen Flow Rate 12/01/22 03:30 12/01/22 03:30 12/01/22 04:00 Temperature Pulse Rate 62 68 Respiratory Rate 23 28 H Blood Pressure 150/81 H Pulse Oximetry 95 95 Oxygen Delivery Method Room Air Room Air Oxygen Flow Rate 12/01/22 04:30 12/01/22 05:55 Temperature 98.6 F Pulse Rate 74 89 Respiratory Rate 21 18 Blood Pressure 162/76 H Pulse Oximetry 92 94 Oxygen Delivery Method Oxygen Flow Rate 0
[2022-12-01] MEDS: MEROPENEM 1 GM in SODIUM CHLORIDE 0.9% 100 ML IV ×3 (06:54→23:42)
[2022-12-01] MEDS: ENOXAPARIN 40 MG/0.4 ML SYRINGE SUBCUT (08:33)
[2022-12-01] MEDS: ACETAMINOPHEN 325 MG TABLET 650 MG PO (08:33)
[2022-12-01] MEDS: MESALAMINE 400 MG CAP.DRTAB. PO (09:34)
[2022-12-01] MEDS: MONTELUKAST 10 MG TABLET PO (09:34)
[2022-12-01] MEDS: DOCUSATE 100 MG CAPSULE PO ×2 (09:34→20:30)
[2022-12-01] MEDS: PANTOPRAZOLE DR 20 MG TABLET PO (10:08)
[2022-12-01] MEDS: LACTATED RINGERS 1,000 ML 75 ML IV (10:26)
--- NOTE | 2022-12-01 11:38 | CM.DANOTE ---
Patient is an 82 yo male HEATHER who was admitted on 12/01/22 today for Fevers. Pt has [facility] for insurance and his PCP is Dr. Felipe Lange. EMR was reviewed. Per MD, pt with recent prostatectomy on 11/15/22 and was able to d/c home and now admitted with complex UTI and getting IV-Abx and some fluid collection in his abdomen. SW met bedside with pt and explained role and he confirms he lives in [place] with his and is independent with ADLs at baseline and does not use DME for ambulation and still drives. Pt denies any hx of HH or SNF and states his is his DPOA. Pt is hopeful for d/c home with spouse when medically stable and does not anticipate any needs. Plan: SW to follow closely for progress to confirm safe plan of d/c home with spouse and any further identified discharge planning needs. ANNELIESE Khalil Discharge Planning/Care Management CM Discharge Assessment Start: 12/01/22 11:35 Freq: Status: Active Protocol: Document 12/01/22 11:35 BF (Rec: 12/01/22 11:37 BF [email or web address]) Discharge Planning Assessment Assigned Exposure Machine Operator ANNELIESE Franks DPOA/Assigned Designee Name spouse Martha Contact Information [phone] Advance Directives? Yes Advance Directives on File No History Provided By Patient,Significant Other, Medical Record Has Patient been admitted in last 30 Yes days? Comment Prostatectomy 11/15/22 Prior Living Arrangements House Household Members spouse Type of transporation used prior to Drives own vehicle admit Independent with ADL's Yes Is patient alert and oriented? Yes Caregiver for Another No Discharge Plan Home Transportation Arrangement Spouse Referrals Initiated None needed Whiteboard Updated in Patient Room with Yes name and ext. # of Exposure Machine Operator Review Status In Process Please Provide Date Initial DC 12/01/22 Assessment Was Performed Next Review Type Continued Stay Review
[2022-12-01 11:49] LABS: Add Manual Diff / Slide Review NO; Basophils Absolute Auto 0 /uL (0-100); Basophils Percent Auto 0.4 % (0-2); Eosinophils Absolute Auto 0 /uL (0-450); Hematocrit 37.3 % (41-53); Hemoglobin 12.8 g/dL (13.5-17.5); Lymphocytes Absolute Auto 600 /uL (1100-4500); Lymphocytes Percent Auto 6.1 % (25-40); Mean Corpuscular HGB Conc 34.2 % (30-36); Mean Corpuscular Volume 90.6 fL (80-100); Monocytes Absolute Auto 300 /uL (0-900); Monocytes Percent Auto 3.1 % (3-14); Neutrophils Absolute Auto 8700 /uL (1500-7000); Neutrophils Percent Auto 90.4 % (50-75); Platelet Count 295 X10^3/uL (150-400); Red Blood Cell Count 4.12 X10^6/uL (4.5-5.9); Red Cell Distribution Width 13.1 % (11.6-14.8); White Blood Cell Count 9.7 X10^3/uL (4.5-11.0)
--- NOTE | 2022-12-01 13:18 | DI.US.S_ITS ---
PROCEDURE: US DRAIN RETRO OR PERITONEAL COMPARISON: Same day CT. INDICATIONS: ABDOMINAL FLUID COLLECTION DRAIN FINDINGS: Targeted ultrasound of the left lower quadrant demonstrates a anechoic fluid collection with thin internal septations. An 18 gauge needle was inserted into the collection under ultrasound guidance to avoid adjacent vasculature. Approximately 110 mL of bloody fluid was removed from the collection. IMPRESSION: Successful partial drainage of the left lower quadrant seroma. Dictated by: Beltran Adams M.D. on 12/02/2022 at 9:49 Approved by: Beltran Adams M.D. on 12/02/2022 at 9:50
[2022-12-01] MEDS: TRAMADOL 50 MG TABLET PO (13:19)
[2022-12-01 14:24] LABS: INR 1.4 (0.9-1.3); Prothrombin Time 15.7 SECONDS (10.1-12.7)
--- NOTE | 2022-12-01 18:16 | P.HP_ITS ---
History of Present Illness History of Present Illness Date Patient Seen: 12/01/22 Time Patient Seen: 06:55 Date of Onset of Symptoms: 11/29/22 Chief complaint: Prostate surg 11/15 fever 101.0 Narrative: Renny is an 82-year-old gentleman known well to me status post radical prostatectomy on 11/15/2022. 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 He was discharged feeling well on the afternoon of postoperative day 1. Thereafter he had a smooth an excellent recovery until on or about the last day of October or perhaps 11/29/2022 when he began feeling more increased pelvic, genital, and perineal pain. He then experienced nausea and vomiting later in the night on 11/29/2022. He contacted the urology clinic and informed staff. He was directed to the [facility] ED yesterday morning for evaluation and purposes of obtaining CT imaging. He reports that he thought he could just ?hang in there? but well into the middle the night he was feeling poorly enough and at the urging of his , Martha, he presented to the [facility] ED with a fever of 101 ?. Procalcitonin was elevated at 0.80. Urine was nitrate positive and many bacteria were seen. Of note, the specimen was obtained from the indwelling postsurgical Escobar catheter. Initial WBC was 12.0 and 79.3% neutrophils lactate was normal at 0.9. I was contacted by Dr. Walton, who informed me of the presentation and scenario. We formulated a evaluation plan including CT of abdomen and pelvis with contrast. The study demonstrated bilateral simple pelvic fluid collections without evidence of internal debris. Margins were smooth. The collection on the left measured 12.5 cm in greatest dimension with some deviation of the catheterized bladder toward the right. The patient was then admitted to my service for further evaluation and management. Hospitalist consultation requested, obtained, and appreciated for guidance regarding intravenous broad- spectrum antibiotic coverage. The patient received ceftriaxone in the ED. At this early hour in the morning, the patient already reports feeling much improved. [facility] Medical History Actinic keratosis (~1999) Arthritis Asthma (~2004) Basal cell carcinoma BPH (benign prostatic hyperplasia) (~1989) BPH w urinary obs/LUTS Chicken pox Colon polyps (~2016) Dysphagia Elevated PSA Family history of prostate cancer Fractures GERD (gastroesophageal reflux disease) Hearing loss Hemorrhoid History of basal cell carcinoma (BCC) (05/09/17) History of esophageal reflux (~1997) History of sigmoidoscopy History of urinary frequency (~2004) Measles Osteoarthritis (~1999) Osteopenia (~2009) Prostate cancer Ruptured, tendon, quadriceps Scoliosis (~1961) Seasonal allergies (~1959) Shoulder pain (~2016) Skin cancer (~1994) Tinea pedis (~1957) Ulcerative colitis (~1997) Vision disorder Vocal cord paralysis (~1989) Surgical History Anesthesia Cataracts, bilateral (~1998) Clavicle fracture History of circumcision History of colonoscopy (~2016) History of esophagogastroduodenoscopy (EGD) History of transurethral resection of prostate S/P TURP (status post transurethral resection of prostate) (~2015) Family History Brother Heart disease Hyperlipidemia Cancer Brother Age: 94 Stroke Cancer Brother Age: 84 Stroke Cancer Child Age: 54 Heart disease Father Cancer Mother Parkinson's disease Grandfather Cancer Grandmother Heart disease Social History marital status: number of children: 3 household members: spouse occupational status: previously employed Smoking Status: Never smoker alcohol intake: current caffeine: No Meds Home Medications and Allergies Home Medications Medication Instructions Recorded Confirmed Type albuterol sulfate 90 mcg/actuation 2 puff INH PRN PRN asthma ##0 05/09/17 History aerosol inhaler (Ventolin HFA) acetaminophen 500 mg tablet 500 mg PO Q6H PRN Pain 07/07/18 12/01/22 History (Tylenol Extra Strength) calcium carbonate 600 mg-vitamin 2 tab PO DAILY 07/07/18 12/01/22 History D3 20 mcg (800 unit) tablet (Caltrate with Vitamin D3) tadalafil 5 mg tablet 5 mg PO DAILY #90 tabs 06/08/22 12/01/22 Rx fluticasone propionate 50 2 spray intranasal QDAY #48 grams 09/07/22 12/01/22 Rx mcg/actuation nasal spray,suspension (Flonase Allergy Relief) valacyclovir 1 gram tablet 2,000 mg PO Q12H #12 tabs 09/07/22 12/01/22 Rx mesalamine 1.2 gram tablet,delayed 1.2 g PO BID #180 tabs 09/21/22 12/01/22 Rx release (Lialda) omeprazole 20 mg capsule,delayed 20 mg PO DAILY #90 caps 09/21/22 12/01/22 Rx release ciprofloxacin HCl 250 mg tablet 250 mg PO Q12H #6 tabs 11/16/22 12/01/22 Rx enoxaparin 40 mg/0.4 mL 40 mg (0.4 mL) SUBCUT DAILY #12 mL 11/16/22 12/01/22 Rx subcutaneous syringe (Lovenox) oxycodone 5 mg tablet 5 mg PO Q4H PRN Pain, Moderate 11/16/22 12/01/22 Rx (4-6) #20 tabs ciclesonide 160 mcg/actuation 1 puff inhalation BID #6.1 grams 11/22/22 12/01/22 Rx aerosol inhaler (Alvesco) lovastatin 20 mg tablet 20 mg PO BEDTIME #90 tabs 11/22/22 12/01/22 Rx montelukast 10 mg tablet 10 mg PO QDAY #90 tabs 11/22/22 12/01/22 Rx tramadol 50 mg tablet 50 mg PO Q6H PRN pain #30 tabs 11/29/22 12/01/22 Rx diphenhydramine HCl 25 mg capsule 50 mg PO .COMPLEX #2 caps 12/01/22 Rx (Benadryl) prednisone 50 mg tablet 50 mg PO DAILY #3 tabs 12/01/22 Rx Allergies Allergy/AdvReac Type Severity Reaction Status Date / Time Iodinated Contrast Media Allergy Severe HIVES Verified 11/15/22 08:43 [IODINATED CONTRAST- ORAL AND IV DYE] Review of Systems Review of Systems ROS: Yes All systems reviewed with the patient and are negative except as otherwise documented Exam Vital Signs (past 8 hours): - 12/01/22 13:14 Temperature 97.3 F L Pulse Rate 93 H Respiratory Rate 16 Blood Pressure 148/73 H Pulse Oximetry 98 Oxygen Delivery Method Room Air Oxygen Flow Rate 0 Narrative Exam Narrative: The patient is resting in bed comfortably and in no distress. Head/neck-sclera clear pupils are equal and round. No diaphoresis. Chest-equal and unlabored expansion bilaterally. Heart-normal sinus rhythm no tachycardia palpated. Abdomen-midline infraumbilical incision is healing nicely without erythema, separation, hernia, tenderness or exudate. Genitalia-indwelling silicone Escobar catheter in otherwise normal circumcised phallus. The scrotum is erythematous particularly on the right in the right testicle is [id number] enlarged and exquisitely tender. No fluctuance. No significant appearance of scrotal wall edema. Urine color appears to be light straw without debris or clot. Objective Labs 12/01/22 11:23 12/01/22 02:20 Labs: Laboratory Results - last 24 hr 12/01/22 12/01/22 12/01/22 02:10 02:20 02:20 WBC 12.0 H RBC 3.56 L Hgb 10.8 L Hct 32.5 L MCV 91.2 MCH 30.4 MCHC 33.3 RDW 13.3 Plt Count 256 Neut % (Auto) 79.3 H Lymph % (Auto) 9.7 L [place] % (Auto) 9.9 Eos % (Auto) 0.5 L Baso % (Auto) 0.6 Neut # (Auto) 9500 H Lymph # (Auto) 1200 [place] # (Auto) 1200 H Eos # (Auto) 100 Baso # (Auto) 100 PT INR Sodium 134 L Potassium 3.4 Chloride 99 Carbon Dioxide 28 BUN 19 Creatinine 0.77 Estimated GFR > 60 BUN/Creatinine Ratio 24.7 H Glucose 121 H Lactate Calcium 8.4 Total Bilirubin 0.9 AST 21 ALT 17 Alkaline Phosphatase 69 Total Creatine Kinase 32 L CK-MB (CK-2) TNP CK-MB (CK-2) Rel Index TNP Troponin I < 0.012 Total Protein 6.5 Albumin 3.5 Globulin 3.0 Albumin/Globulin Ratio 1.2 Procalcitonin 0.80 H Urine Color Yellow Urine Appearance Cloudy Urine pH 5.0 Ur Specific [place] >=1.030 H Urine Protein 2+ H Urine Glucose (UA) Negative Urine Ketones Negative Urine Occult Blood 3+ H Urine Nitrate Positive H Urine Bilirubin Negative Urine Urobilinogen 1.0 Ur Leukocyte Esterase Trace H Urine RBC 5-10/hpf H Urine WBC 30-100/hpf H Ur Squamous Epith Cells 0-1 /hpf Urine Bacteria Many (>30) H Urine Mucus 2+ H Ur Culture Indicated? Specimen cultured SARS-CoV-2 (PCR) 12/01/22 12/01/22 12/01/22 02:20 05:30 11:23 WBC 9.7 RBC 4.12 L Hgb 12.8 L Hct 37.3 L MCV 90.6 MCH 31.0 MCHC 34.2 RDW 13.1 Plt Count 295 Neut % (Auto) 90.4 H Lymph % (Auto) 6.1 L [place] % (Auto) 3.1 Eos % (Auto) 0.0 L Baso % (Auto) 0.4 Neut # (Auto) 8700 H Lymph # (Auto) 600 L [place] # (Auto) 300 Eos # (Auto) 0 Baso # (Auto) 0 PT INR Sodium Potassium Chloride Carbon Dioxide BUN Creatinine Estimated GFR BUN/Creatinine Ratio Glucose Lactate 0.9 Calcium Total Bilirubin AST ALT Alkaline Phosphatase Total Creatine Kinase CK-MB (CK-2) CK-MB (CK-2) Rel Index Troponin I Total Protein Albumin Globulin Albumin/Globulin Ratio Procalcitonin Urine Color Urine Appearance Urine pH Ur Specific [place] Urine Protein Urine Glucose (UA) Urine Ketones Urine Occult Blood Urine Nitrate Urine Bilirubin Urine Urobilinogen Ur Leukocyte Esterase Urine RBC Urine WBC Ur Squamous Epith Cells Urine Bacteria Urine Mucus Ur Culture Indicated? SARS-CoV-2 (PCR) Negative 12/01/22 14:08 WBC RBC Hgb Hct MCV MCH MCHC RDW Plt Count Neut % (Auto) Lymph % (Auto) [place] % (Auto) Eos % (Auto) Baso % (Auto) Neut # (Auto) Lymph # (Auto) [place] # (Auto) Eos # (Auto) Baso # (Auto) PT 15.7 H INR 1.4 H Sodium Potassium Chloride Carbon Dioxide BUN Creatinine Estimated GFR BUN/Creatinine Ratio Glucose Lactate Calcium Total Bilirubin AST ALT Alkaline Phosphatase Total Creatine Kinase CK-MB (CK-2) CK-MB (CK-2) Rel Index Troponin I Total Protein Albumin Globulin Albumin/Globulin Ratio Procalcitonin Urine Color Urine Appearance Urine pH Ur Specific [place] Urine Protein Urine Glucose (UA) Urine Ketones Urine Occult Blood Urine Nitrate Urine Bilirubin Urine Urobilinogen Ur Leukocyte Esterase Urine RBC Urine WBC Ur Squamous Epith Cells Urine Bacteria Urine Mucus Ur Culture Indicated? SARS-CoV-2 (PCR) Assessment & Plan Assessment & Plan narrative: Assessment: 1. Urosepsis in an 82-year-old gentleman with indwelling Escobar catheter status post otherwise uncomplicated radical prostatectomy 11/15/2022. 2. Bilateral pelvic fluid collections. Most likely explained by seroma. Pelvic seromas or not uncommon following radical prostatectomy and are unusually clinically significant or symptomatic. The concern in this scenario is whether they may be connected to the urinary tract through an incompletely healed anastomosis or represent pelvic abscess independently. Plan: 1. Await urine and blood culture final sensitivity. In meantime continue Meropenem and clinical advice from hospitalist service. 2. Discussed with radiology staff ultrasound-guided drainage of left pelvic seroma versus abscess and drain placement. Appropriate chemistries and culture requested from fluid collection. 3. CT cystogram. Quality VTE Deep Vein Thrombosis/Pulmonary Embolism Present on Admission: No
[2022-12-01] MEDS: BUDESONIDE 0.5 MG/2 ML NEB INH (19:22)
[2022-12-01] MEDS: ATORVASTATIN 20 MG TABLET PO (20:28)
[2022-12-01] MEDS: MESALAMINE 400 MG CAP.DRTAB. 1200 MG PO (20:30)
[2022-12-02] VITALS (9 sets, daily range): BP systolic 106–148; BP diastolic 64–85; PULSE 64–88; RESP 14–19; TEMP 36–37.1; O2SAT 93–98
[2022-12-02] MEDS: MEROPENEM 1 GM in SODIUM CHLORIDE 0.9% 100 ML IV (06:17)
[2022-12-02 06:56] LABS: BUN Creatinine Ratio 30.6 (6-22); Blood Urea Nitrogen 22 mg/dL (9-20); Calcium 8.7 mg/dL (8.4-10.2); Carbon Dioxide 31 mmol/L (22-32); Chloride 103 mmol/L (98-107); Estimated Glomerular Filt Rate > 60 mL/min (>60); Glucose 91 mg/dL (80-110); HEMOLYSIS < 15 (0-50); Potassium 3.5 mmol/L (3.4-5.1); Sodium 138 mmol/L (137-145)
--- NOTE | 2022-12-02 07:34 | PM.PN.1 ---
Subjective Subjective Interval history: Patient feeling much better today. Urine culture growing GNB. Megan switched to rocephin. Exam Vital Signs (past 8 hours): - 12/01/22 23:59 12/02/22 06:00 Temperature 98 F 98.2 F Pulse Rate 67 67 Respiratory Rate 18 14 Blood Pressure 146/67 H 148/74 H Pulse Oximetry 97 98 Oxygen Delivery Method Room Air Oxygen Flow Rate 0 Narrative Exam Narrative: GEN: no acute distress HEENT: moist mucous membranes, PERRL NECK: trachea midline, no jvd PULM: clear bilaterally, no wheezes, rhonchi, rales CV: regular rate and rhythm, no murmurs ABD: soft, slightly distended, no rebound/guarding : R testicle tender and swollen, no crepitus EXT: warm and well perfused with trace edema NEURO: awake, alert, oriented, no focal deficits Objective Labs 12/02/22 07:30 12/02/22 06:15 Labs: Laboratory Results - last 24 hr 12/01/22 12/01/22 12/02/22 11:23 14:08 06:15 WBC 9.7 RBC 4.12 L Hgb 12.8 L Hct 37.3 L MCV 90.6 MCH 31.0 MCHC 34.2 RDW 13.1 Plt Count 295 Neut % (Auto) 90.4 H Lymph % (Auto) 6.1 L [place] % (Auto) 3.1 Eos % (Auto) 0.0 L Baso % (Auto) 0.4 Neut # (Auto) 8700 H Lymph # (Auto) 600 L [place] # (Auto) 300 Eos # (Auto) 0 Baso # (Auto) 0 PT 15.7 H INR 1.4 H Sodium 138 Potassium 3.5 Chloride 103 Carbon Dioxide 31 BUN 22 H Creatinine 0.72 Estimated GFR > 60 BUN/Creatinine Ratio 30.6 H Glucose 91 Calcium 8.7 PFSH Medical History Actinic keratosis (~1999) Arthritis Asthma (~2004) Basal cell carcinoma BPH (benign prostatic hyperplasia) (~1989) BPH w urinary obs/LUTS Chicken pox Colon polyps (~2016) Dysphagia Elevated PSA Family history of prostate cancer Fractures GERD (gastroesophageal reflux disease) Hearing loss Hemorrhoid History of basal cell carcinoma (BCC) (05/09/17) History of esophageal reflux (~1997) History of sigmoidoscopy History of urinary frequency (~2004) Measles Osteoarthritis (~1999) Osteopenia (~2009) Prostate cancer Ruptured, tendon, quadriceps Scoliosis (~1961) Seasonal allergies (~1959) Shoulder pain (~2016) Skin cancer (~1994) Tinea pedis (~1957) Ulcerative colitis (~1997) Vision disorder Vocal cord paralysis (~1989) Surgical History Anesthesia Cataracts, bilateral (~1998) Clavicle fracture History of circumcision History of colonoscopy (~2016) History of esophagogastroduodenoscopy (EGD) History of transurethral resection of prostate S/P TURP (status post transurethral resection of prostate) (~2015) Family History Brother Heart disease Hyperlipidemia Cancer Brother Age: 94 Stroke Cancer Brother Age: 84 Stroke Cancer Child Age: 54 Heart disease Father Cancer Mother Parkinson's disease Grandfather Cancer Grandmother Heart disease Social History marital status: number of children: 3 household members: spouse occupational status: previously employed Smoking Status: Never smoker alcohol intake: current caffeine: No Assessment & Plan Assessment & Plan narrative: 1. Sepsis 2/2 UTI related to recent prostatectomy and chronic boland -patient with recent surgical procedure/hospitalization and remains with boland catheter -UA with significant pyuria, culture growing GNB -blood cultures with NG at 24 hours -change meropenem to rocephin -urology to manage boland catheter and he will discharge with it 2. s/p prostatectomy with abdominal fluid collection -noted to have fluid collection on CT -discussed with urology who think that this is likely seroma after prostatectomy -s/p IR drainage of 110cc of bloody fluid -fluid culture pending -pt abd pain improved following fluid drainage 3. Asthma -continue home medications 4. GERD -continue protonix CODE: Full Proxy: Martha Rojo, Dispo: Home likely on 12/03 once urine culture results finalize. Medicine will continue to follow. Thank you for allowing us to participate in the care of this patient. Should you have any questions, do not hesitate to speak with us directly or call us. Quality VTE Deep Vein Thrombosis/Pulmonary Embolism Present on Admission: No
[2022-12-02 07:40] LABS: Add Manual Diff / Slide Review NO; Basophils Absolute Auto 100 /uL (0-100); Basophils Percent Auto 1.1 % (0-2); Eosinophils Absolute Auto 0 /uL (0-450); Eosinophils Percent Auto 0.4 % (2-4); Hemoglobin 10.5 g/dL (13.5-17.5); Lymphocytes Absolute Auto 1800 /uL (1100-4500); Lymphocytes Percent Auto 19.3 % (25-40); Mean Corpuscular HGB Conc 34.1 % (30-36); Mean Corpuscular Hemoglobin 30.7 PG (26-34); Mean Corpuscular Volume 90.1 fL (80-100); Monocytes Absolute Auto 1100 /uL (0-900); Monocytes Percent Auto 11.3 % (3-14); Neutrophils Absolute Auto 6300 /uL (1500-7000); Neutrophils Percent Auto 67.9 % (50-75); Platelet Count 236 X10^3/uL (150-400); Red Blood Cell Count 3.44 X10^6/uL (4.5-5.9); Red Cell Distribution Width 13.1 % (11.6-14.8); White Blood Cell Count 9.3 X10^3/uL (4.5-11.0)
[2022-12-02] MEDS: BUDESONIDE 0.5 MG/2 ML NEB INH ×2 (07:55→19:41)
[2022-12-02 08:06] LABS: Magnesium 2.1 mg/dL (1.6-2.3)
[2022-12-02] MEDS: MONTELUKAST 10 MG TABLET PO (08:26)
[2022-12-02] MEDS: ENOXAPARIN 40 MG/0.4 ML SYRINGE SUBCUT (08:27)
[2022-12-02] MEDS: DOCUSATE 100 MG CAPSULE PO ×2 (08:27→20:44)
[2022-12-02] MEDS: MESALAMINE 400 MG CAP.DRTAB. 1200 MG PO ×2 (08:27→20:44)
[2022-12-02] MEDS: POTASSIUM CHLORIDE 20 MEQ TAB 40 MEQ PO (11:00)
[2022-12-02] MEDS: OMEPRAZOLE 20 MG 1 EACH PO (11:00)
--- NOTE | 2022-12-02 11:44 | PM.PN.1 ---
Subjective Subjective Date Patient Seen: 12/02/22 Time Patient Seen: 07:20 Interval history: Hospital day 2 for evaluation and management catheter associated UTI/early possible sepsis. He reports interval significant overall improvement and sense of well-being. He has no new concerns or complaints. We had discussed update by telephone yesterday. This morning, and person, reviewed imaging findings and progress thus far. Informed him of preliminary urine culture result and pending fluid chemistry and culture. He inquires regarding when he can go home. Exam Vital Signs (past 8 hours): - 12/02/22 06:00 12/02/22 07:41 12/02/22 07:55 Temperature 98.2 F Pulse Rate 67 88 Respiratory Rate 14 18 Blood Pressure 148/74 H Pulse Oximetry 98 97 93 Oxygen Delivery Method Room Air Room Air Oxygen Flow Rate 0 0 Fraction of Inspired Oxygen 21 12/02/22 10:34 Temperature 98.0 F Pulse Rate 71 Respiratory Rate 16 Blood Pressure 106/64 Pulse Oximetry 95 Oxygen Delivery Method Oxygen Flow Rate Fraction of Inspired Oxygen Fraction of Inspired Oxygen 21 SaO2/FiO2 Ratio 442 Oxygen Delivery Method Room Air Oxygen Flow Rate 0 Narrative Exam Narrative: The patient is resting comfortably in bed and in no distress. Abdomen is soft and scaphoid incision remains intact and healing well. Minimal if any tenderness. Genitalia-indwelling Escobar with clear, straw-colored outflow. Scrotal erythema and tenderness significantly improved in the interval. Objective Labs 12/02/22 07:30 12/02/22 06:15 Labs: Laboratory Results - last 24 hr 12/01/22 12/01/22 12/02/22 11:23 14:08 06:15 WBC 9.7 RBC 4.12 L Hgb 12.8 L Hct 37.3 L MCV 90.6 MCH 31.0 MCHC 34.2 RDW 13.1 Plt Count 295 Neut % (Auto) 90.4 H Lymph % (Auto) 6.1 L [place] % (Auto) 3.1 Eos % (Auto) 0.0 L Baso % (Auto) 0.4 Neut # (Auto) 8700 H Lymph # (Auto) 600 L [place] # (Auto) 300 Eos # (Auto) 0 Baso # (Auto) 0 PT 15.7 H INR 1.4 H Sodium 138 Potassium 3.5 Chloride 103 Carbon Dioxide 31 BUN 22 H Creatinine 0.72 Estimated GFR > 60 BUN/Creatinine Ratio 30.6 H Glucose 91 Calcium 8.7 Magnesium 12/02/22 12/02/22 06:15 07:30 WBC 9.3 RBC 3.44 L Hgb 10.5 L Hct 31.0 L MCV 90.1 MCH 30.7 MCHC 34.1 RDW 13.1 Plt Count 236 Neut % (Auto) 67.9 D Lymph % (Auto) 19.3 L [place] % (Auto) 11.3 Eos % (Auto) 0.4 L Baso % (Auto) 1.1 Neut # (Auto) 6300 Lymph # (Auto) 1800 [place] # (Auto) 1100 H Eos # (Auto) 0 Baso # (Auto) 100 PT INR Sodium Potassium Chloride Carbon Dioxide BUN Creatinine Estimated GFR BUN/Creatinine Ratio Glucose Calcium Magnesium 2.1 PFSH Medical History Actinic keratosis (~1999) Arthritis Asthma (~2004) Basal cell carcinoma BPH (benign prostatic hyperplasia) (~1989) BPH w urinary obs/LUTS Chicken pox Colon polyps (~2016) Dysphagia Elevated PSA Family history of prostate cancer Fractures GERD (gastroesophageal reflux disease) Hearing loss Hemorrhoid History of basal cell carcinoma (BCC) (05/09/17) History of esophageal reflux (~1997) History of sigmoidoscopy History of urinary frequency (~2004) Measles Osteoarthritis (~1999) Osteopenia (~2009) Prostate cancer Ruptured, tendon, quadriceps Scoliosis (~1961) Seasonal allergies (~1959) Shoulder pain (~2016) Skin cancer (~1994) Tinea pedis (~1957) Ulcerative colitis (~1997) Vision disorder Vocal cord paralysis (~1989) Surgical History Anesthesia Cataracts, bilateral (~1998) Clavicle fracture History of circumcision History of colonoscopy (~2016) History of esophagogastroduodenoscopy (EGD) History of transurethral resection of prostate S/P TURP (status post transurethral resection of prostate) (~2015) Family History Brother Heart disease Hyperlipidemia Cancer Brother Age: 94 Stroke Cancer Brother Age: 84 Stroke Cancer Child Age: 54 Heart disease Father Cancer Mother Parkinson's disease Grandfather Cancer Grandmother Heart disease Social History marital status: number of children: 3 household members: spouse occupational status: previously employed Smoking Status: Never smoker alcohol intake: current caffeine: No Assessment & Plan Assessment & Plan narrative: Assessment: 1. Markedly improved hospital day 2 for management of catheter associated UTI/early sepsis. 2. Postoperative pelvic seroma. Chemistries and culture are pending, but initial indicators are negative. Plan: 1. Continue IV antibiotics until final urine culture and sensitivity complete. 2. Follow-up on seroma fluid result. 3. Escobar catheter were remain indwelling and patient will be discharged with same with plan for repeat CT cystogram and a proximally 1 week prior to catheter removal. Quality VTE Deep Vein Thrombosis/Pulmonary Embolism Present on Admission: No
[2022-12-02] MEDS: TRAMADOL 50 MG TABLET PO ×2 (11:46→20:44)
[2022-12-02] MEDS: cefTRIAXone 1,000 MG in SODIUM CHLORIDE 0.9% 100 ML 200 MG IV (13:04)
[2022-12-02] MEDS: ACETAMINOPHEN 325 MG TABLET 650 MG PO ×2 (15:03→20:44)
[2022-12-03] MEDS: ACETAMINOPHEN 325 MG TABLET 650 MG PO ×2 (05:19→17:36)
[2022-12-03] MEDS: TRAMADOL 50 MG TABLET PO ×2 (05:21→17:32)
[2022-12-03 06:00] VITALS: BP 144/77; PULSE 77; RESP 18; TEMP 36.6; O2SAT 94
--- NOTE | 2022-12-03 07:14 | P.PN_ITS ---
Subjective Subjective Interval history: Urine culture growing ESBL. Patient put back on ertapenem and [employer] arranging outpatient IV abx. Patient has no complaints today. Exam Vital Signs (past 8 hours): - 12/02/22 23:19 12/03/22 06:00 Temperature 96.8 F L 97.8 F Pulse Rate 66 77 Respiratory Rate 19 18 Blood Pressure 143/77 H 144/77 H Pulse Oximetry 95 94 Fraction of Inspired Oxygen 21 SaO2/FiO2 Ratio 442 Oxygen Delivery Method Room Air Oxygen Flow Rate 0 Narrative Exam Narrative: GEN: no acute distress HEENT: moist mucous membranes, PERRL NECK: trachea midline, no jvd PULM: clear bilaterally, no wheezes, rhonchi, rales CV: regular rate and rhythm, no murmurs ABD: soft, slightly distended, no rebound/guarding : R testicle tender and swollen, no crepitus EXT: warm and well perfused with trace edema NEURO: awake, alert, oriented, no focal deficits Objective Labs 12/02/22 07:30 12/02/22 06:15 Labs: Laboratory Results - last 24 hr 12/02/22 12/02/22 06:15 07:30 WBC 9.3 RBC 3.44 L Hgb 10.5 L Hct 31.0 L MCV 90.1 MCH 30.7 MCHC 34.1 RDW 13.1 Plt Count 236 Neut % (Auto) 67.9 D Lymph % (Auto) 19.3 L Tripp % (Auto) 11.3 Eos % (Auto) 0.4 L Baso % (Auto) 1.1 Neut # (Auto) 6300 Lymph # (Auto) 1800 Tripp # (Auto) 1100 H Eos # (Auto) 0 Baso # (Auto) 100 Magnesium 2.1 PFSH Medical History Actinic keratosis (~1999) Arthritis Asthma (~2004) Basal cell carcinoma BPH (benign prostatic hyperplasia) (~1989) BPH w urinary obs/LUTS Chicken pox Colon polyps (~2016) Dysphagia Elevated PSA Family history of prostate cancer Fractures GERD (gastroesophageal reflux disease) Hearing loss Hemorrhoid History of basal cell carcinoma (BCC) (05/09/17) History of esophageal reflux (~1997) History of sigmoidoscopy History of urinary frequency (~2004) Measles Osteoarthritis (~1999) Osteopenia (~2009) Prostate cancer Ruptured, tendon, quadriceps Scoliosis (~1961) Seasonal allergies (~1959) Shoulder pain (~2016) Skin cancer (~1994) Tinea pedis (~1957) Ulcerative colitis (~1997) Vision disorder Vocal cord paralysis (~1989) Surgical History Anesthesia Cataracts, bilateral (~1998) Clavicle fracture History of circumcision History of colonoscopy (~2016) History of esophagogastroduodenoscopy (EGD) History of transurethral resection of prostate S/P TURP (status post transurethral resection of prostate) (~2015) Family History Brother Heart disease Hyperlipidemia Cancer Brother Age: 94 Stroke Cancer Brother Age: 84 Stroke Cancer Child Age: 54 Heart disease Father Cancer Mother Parkinson's disease Grandfather Cancer Grandmother Heart disease Social History marital status: number of children: 3 household members: spouse occupational status: previously employed Smoking Status: Never smoker alcohol intake: current caffeine: No Assessment & Plan Assessment & Plan narrative: 1. Sepsis 2/2 ESBL UTI related to recent prostatectomy and chronic boland -patient with recent surgical procedure/hospitalization and remains with boland catheter -UA with significant pyuria, culture growing ESBL E. coli resistant to cephalosporins and quinolones -blood cultures with NG at 48 hours -change rocephin back to ertapenem 1g daily for 10 days -urology to manage boland catheter and he will discharge with it -midline ordered -[employer] arranging outpatient IV abx 2. s/p prostatectomy with abdominal fluid collection -noted to have fluid collection on CT -discussed with urology who think that this is likely seroma after prostatectomy -s/p IR drainage of 110cc of bloody fluid -fluid culture with no growth -pt abd pain improved following fluid drainage 3. Asthma -continue home medications 4. GERD -continue protonix CODE: Full Proxy: Martha Rojo, Dispo: Home likely on 12/04 if outpatient IV abx arranged for ESBL UTI. Quality VTE Deep Vein Thrombosis/Pulmonary Embolism Present on Admission: No
[2022-12-03 07:47] VITALS: O2SAT 97
[2022-12-03] MEDS: ENOXAPARIN 40 MG/0.4 ML SYRINGE SUBCUT (08:59)
[2022-12-03] MEDS: ERTAPENEM 1 GM in SODIUM CHLORIDE 0.9% 100 ML IV (08:59)
[2022-12-03] MEDS: MESALAMINE 400 MG CAP.DRTAB. 1200 MG PO ×2 (09:00→20:53)
[2022-12-03] MEDS: MONTELUKAST 10 MG TABLET PO (09:00)
[2022-12-03 10:14] LABS: Clostridium Difficile Tox PCR Negative for C. diff (Negative)
--- NOTE | 2022-12-03 11:25 | CM.DPNOTE ---
DCP Note According to Dr Morales, patient will need 10 days of IV ertapenem 1g Q24 upon discharge. Goal is to discharge patient home w/spouse tomorrow w/home infusion managing the IV abx starting Tuesday AM Spoke w/patient about this plan; patient is the most concerned about communication w/[employer]. Reassured patient that once a referral to a home infusion agency is made, [employer] is notified and an auth is requested. Patient appeared relieved. 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 [facility], has kindly agreed to fax this referral w/the Rx. Following provider will be Dr Erickson. PICC scheduled to be placed today at bedside Plan: Discharge likely tomorrow after morning dose of IV ertapenem, home w/spouse, HH (?) for PICC maintenance, [facility] reviewing now and will need to secure an auth from [employer] Following closely for coordination of DCP JW
--- NOTE | 2022-12-03 12:23 | P.PN_ITS ---
Subjective Subjective Date Patient Seen: 12/03/22 Time Patient Seen: 07:10 Interval history: Hospital day 2 for evaluation and management of UTI/early urosepsis. 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 He states that his lower abdomen and pelvis feel much improved since admission. He is tolerating general diet and is ambulating difficulty. Final urine culture and sensitivity remains pending. Preliminary indicates Gram-negative bacillus. Exam Vital Signs (past 8 hours): - 12/03/22 06:00 12/03/22 07:47 Temperature 97.8 F Pulse Rate 77 Respiratory Rate 18 Blood Pressure 144/77 H Pulse Oximetry 94 97 Oxygen Delivery Method Room Air Oxygen Flow Rate 0 Fraction of Inspired Oxygen 21 SaO2/FiO2 Ratio 442 Oxygen Delivery Method Room Air Oxygen Flow Rate 0 Narrative Exam Narrative: Resting comfortably and in distress. Escobar intact clear light straw-colored Objective Labs 12/02/22 07:30 12/02/22 06:15 Labs: Laboratory Results - last 24 hr 12/03/22 09:15 C. difficile Tox (PCR) Negative for c. diff [facility] Medical History Actinic keratosis (~1999) Arthritis Asthma (~2004) Basal cell carcinoma BPH (benign prostatic hyperplasia) (~1989) BPH w urinary obs/LUTS Chicken pox Colon polyps (~2016) Dysphagia Elevated PSA Family history of prostate cancer Fractures GERD (gastroesophageal reflux disease) Hearing loss Hemorrhoid History of basal cell carcinoma (BCC) (05/09/17) History of esophageal reflux (~1997) History of sigmoidoscopy History of urinary frequency (~2004) Measles Osteoarthritis (~1999) Osteopenia (~2009) Prostate cancer Ruptured, tendon, quadriceps Scoliosis (~1961) Seasonal allergies (~1959) Shoulder pain (~2016) Skin cancer (~1994) Tinea pedis (~1957) Ulcerative colitis (~1997) Vision disorder Vocal cord paralysis (~1989) Surgical History Anesthesia Cataracts, bilateral (~1998) Clavicle fracture History of circumcision History of colonoscopy (~2016) History of esophagogastroduodenoscopy (EGD) History of transurethral resection of prostate S/P TURP (status post transurethral resection of prostate) (~2015) Family History Brother Heart disease Hyperlipidemia Cancer Brother Age: 94 Stroke Cancer Brother Age: 84 Stroke Cancer Child Age: 54 Heart disease Father Cancer Mother Parkinson's disease Grandfather Cancer Grandmother Heart disease Social History marital status: number of children: 3 household members: spouse occupational status: previously employed Smoking Status: Never smoker alcohol intake: current caffeine: No Assessment & Plan Assessment & Plan narrative: Assessment: 1. Catheter associated UTI/early urosepsis-improved. 2. Status post radical prostatectomy 11/15/2022. Condition is stable with no direct postoperative complications. Plan: 1. Plan discharge today following completion of urine culture and sensitivity on appropriate oral antibiotic for 10 day duration. 2. Schedule repeat CT cystogram and follow-up in the Urology Clinic in 5-7 days. Quality VTE Deep Vein Thrombosis/Pulmonary Embolism Present on Admission: No
[2022-12-03 13:00] VITALS: BP 142/59; PULSE 69; RESP 20; TEMP 36.4; O2SAT 94
--- NOTE | 2022-12-03 14:30 | CM.DPNOTE ---
DCP Note Midline placed today. Bernardo at [facility] has confirmed good coverage for home infusion through patient's [email or web address] insurance. Patient expected to have a weekly co pay of approx $45. Patient made aware Plan: Discharge anticipated tomorrow, home after AM dose of IV ertapenem, [facility] to follow up Tuesday or Tuesday once patient is home. Close outpatient follow up w/Dr Erickson for removal of the catheter Patient agreeable to plan and eager to discharge home w/outpatient follow up. Patient walking the hallway indp this afternoon. Patient denies the need for services JW
[2022-12-03 17:41] VITALS: BP 138/76; PULSE 77; RESP 18; TEMP 36.8; O2SAT 98
[2022-12-03] MEDS: BUDESONIDE 0.5 MG/2 ML NEB INH (20:52)
[2022-12-03 20:55] VITALS: O2SAT 95
[2022-12-03 23:07] VITALS: BP 137/77; PULSE 67; RESP 17; TEMP 36.1; O2SAT 95
[2022-12-04 05:45] VITALS: BP 134/72; PULSE 67; RESP 17; TEMP 36.3; O2SAT 96
[2022-12-04] MEDS: ACETAMINOPHEN 325 MG TABLET 650 MG PO (06:32)
[2022-12-04 07:00] VITALS: O2SAT 99
[2022-12-04] MEDS: ERTAPENEM 1 GM in SODIUM CHLORIDE 0.9% 100 ML IV (07:28)
[2022-12-04 08:25] VITALS: PULSE 66; RESP 14; O2SAT 99
[2022-12-04] MEDS: BUDESONIDE 0.5 MG/2 ML NEB INH (08:25)
[2022-12-04 09:00] VITALS: BP 149/75; PULSE 67; RESP 17; TEMP 36.4; O2SAT 98
[2022-12-04] MEDS: MONTELUKAST 10 MG TABLET PO (09:32)
[2022-12-04] MEDS: ENOXAPARIN 40 MG/0.4 ML SYRINGE SUBCUT (09:33)
[2022-12-04] MEDS: MESALAMINE 400 MG CAP.DRTAB. 1200 MG PO (09:36)
--- NOTE | 2022-12-04 11:05 | PC.NURSE ---
Addendum entered by Orville Pearson R.N. 12/04/22 12:35: Pt finishing in the bathroom then will be escorted via w/c to car and care of his . Original Note: Pt A&O offers no overt c/o though would like to go home. Spoke with care management about home infusion. Pt has midline and home infusion has been set up to start in the morning. Discharge instructions given to Pt and .
--- NOTE | 2022-12-04 11:26 | PM.DS.1 ---
History of Present Illness History of Present Illness Chief complaint: Prostate surg 11/15 fever 101.0 Narrative: Patient eager to go home. No new complaints. Does have a question about his loose stools. Wanting treatment of this on discharge. Discharge Providers Provider Date of admission: 12/01/22 05:23 Discharge Date: 12/04/22 Primary care physician: Felipe Lange MD Consults: 12/02/22 07:29 Consult to Hospitalist Service Routine Comment: Consulting Provider: Emil De La Garza Reason for consultation: urosepsis Has provider been notified: Yes Discharge provider: Alexa Deras MD Summary Hospital Course Discharge Diagnosis: Sepsis concern ESBL UTI Post prostatectomy Chronic boland catheter Seroma in abdomen after prostatectomy Interventional radiology drainage of seroma Asthma GERD Diarrhea Other chronic medical problems/past medical history: Actinic keratosis (~1999) Arthritis Asthma (~2004) Basal cell carcinoma BPH (benign prostatic hyperplasia) (~1989) BPH w urinary obs/LUTS Chicken pox Colon polyps (~2016) Dysphagia Elevated PSA Family history of prostate cancer Fractures GERD (gastroesophageal reflux disease) Hearing loss Hemorrhoid History of basal cell carcinoma (BCC) (05/09/17) History of esophageal reflux (~1997) History of sigmoidoscopy History of urinary frequency (~2004) Measles Osteoarthritis (~1999) Osteopenia (~2009) Prostate cancer Ruptured, tendon, quadriceps Scoliosis (~1961) Seasonal allergies (~1959) Shoulder pain (~2016) Skin cancer (~1994) Tinea pedis (~1957) Ulcerative colitis (~1997) Vision disorder Vocal cord paralysis (~1989) Cataracts, bilateral (~1998) Clavicle fracture History of circumcision History of colonoscopy (~2016) History of esophagogastroduodenoscopy (EGD) History of transurethral resection of prostate S/P TURP (status post transurethral resection of prostate) (~2015) Hospital Course: Mr. Rojo is an 82M with PMH GERD, asthma, prostate cancer s/p prostatectomy on 11/15 who presented to the hospital with fevers, nausea, scrotal, and abdominal pain. He had a boland in place since his surgery. He felt that his boland was potentially causing urethral and rectal pain since the surgery. He had been having some lower abdominal deep pain, he stated the pain was sometimes on the right and other times the left side of the abdomen. Four days prior to presentation, he began to feel nausea, he had an episode of vomiting, he had chills. His symptoms progressed to feeling worse. He noticed some swelling in his lower legs. He started taking ciprofloxacin two days prior to presentation in preparation for having his boland removed. He noticed over the last couple days prior to presentation, pain and swelling of his right testicle and he developed fevers to at least 101 which prompted him to come in to the hospital. Urology saw the patient and has concern for urosepsis as well as seroma in the abdomen post prostatectomy. Interventional Radiology drained the seroma during the hospital stay and fluid had negative culture. The hospitalist service was consulted for medical management. Blood cultures were negative. Urine culture was positive for Klebsiella pneumoniae that was confirmed to be ESBL. Patient was initially on meropenem intravenously and this was switched to ertapenem once culture results were known and the patient was transitioning to be treated as an outpatient. It was arranged with [facility] prior to discharge to continue his ertapenem course treatment for the ESBL at home. A midline was placed prior to discharge in order to continue IV antibiotics at home. Prescription for loperamide 2 mg as needed for diarrhea was provided at discharge. Status at Discharge Cognitive/behavioral status at discharge: at baseline, oriented Functional status at discharge: independent ambulation Overall status at discharge: patient is progressing back to baseline Time Spent with Patient Time spent: Greater than 30 minutes Exam Vital Signs (past 8 hours): - 12/04/22 05:45 12/04/22 08:25 12/04/22 07:00 Temperature 97.3 F L Pulse Rate 67 66 Respiratory Rate 17 14 Blood Pressure 134/72 Pulse Oximetry 96 99 99 Oxygen Delivery Method Room Air Room Air Oxygen Flow Rate 12/04/22 09:00 Temperature 97.5 F L Pulse Rate 67 Respiratory Rate 17 Blood Pressure 149/75 H Pulse Oximetry 98 Oxygen Delivery Method Oxygen Flow Rate 0 Fraction of Inspired Oxygen 21 SaO2/FiO2 Ratio 442 Oxygen Delivery Method Room Air Oxygen Flow Rate 0 Narrative Exam Narrative: GEN: no acute distress HEENT: moist mucous membranes, PERRL NECK: trachea midline, no jvd PULM: clear bilaterally, no wheezes, rhonchi, rales CV: regular rate and rhythm, no murmurs ABD: soft, slightly distended, no rebound/guarding : Boland in place, draining well. EXT: warm and well perfused with trace edema NEURO: awake, alert, oriented, no focal deficits Objective Labs 12/02/22 07:30 12/02/22 06:15 Labs: Laboratory Results - last 24 hr 12/01/22 15:20 Ref Test (Refrig) Comment PFSH Medical History Actinic keratosis (~1999) Arthritis Asthma (~2004) Basal cell carcinoma BPH (benign prostatic hyperplasia) (~1989) BPH w urinary obs/LUTS Chicken pox Colon polyps (~2016) Dysphagia Elevated PSA Family history of prostate cancer Fractures GERD (gastroesophageal reflux disease) Hearing loss Hemorrhoid History of basal cell carcinoma (BCC) (05/09/17) History of esophageal reflux (~1997) History of sigmoidoscopy History of urinary frequency (~2004) Measles Osteoarthritis (~1999) Osteopenia (~2009) Prostate cancer Ruptured, tendon, quadriceps Scoliosis (~1961) Seasonal allergies (~1959) Shoulder pain (~2016) Skin cancer (~1994) Tinea pedis (~1957) Ulcerative colitis (~1997) Vision disorder Vocal cord paralysis (~1989) Surgical History Anesthesia Cataracts, bilateral (~1998) Clavicle fracture History of circumcision History of colonoscopy (~2016) History of esophagogastroduodenoscopy (EGD) History of transurethral resection of prostate S/P TURP (status post transurethral resection of prostate) (~2015) Family History Brother Heart disease Hyperlipidemia Cancer Brother Age: 94 Stroke Cancer Brother Age: 84 Stroke Cancer Child Age: 54 Heart disease Father Cancer Mother Parkinson's disease Grandfather Cancer Grandmother Heart disease Social History marital status: number of children: 3 household members: spouse occupational status: previously employed Smoking Status: Never smoker alcohol intake: current caffeine: No Discharge Plan Discharge Plan Patient Disposition: Home Discharge orders & Medications Prescriptions: New loperamide 2 mg tablet 2 mg PO Q6H PRN (Reason: loose stool) Qty: 20 0RF Continued albuterol sulfate [Ventolin HFA] 90 MCG/PUFF HFA aerosol inhaler 2 puff INH PRN PRN (Reason: asthma) Qty: 0 Patient Comments: Uses 'very rarely' for 'exercise induced asthma' acetaminophen [Tylenol Extra Strength] 500 mg tablet 500 mg PO Q6H PRN (Reason: Pain) calcium carbonate-vitamin D3 [Caltrate with Vitamin D3] 600 mg(1,500mg) -800 unit tablet 2 tab PO DAILY tadalafil 5 mg tablet 5 mg PO DAILY Qty: 90 3RF fluticasone propionate [Flonase Allergy Relief] 50 mcg/actuation spray,suspension 2 spray Intranasal QDAY Qty: 48 0RF lovastatin 20 mg tablet 20 mg PO BEDTIME Qty: 90 2RF montelukast 10 mg tablet 10 mg PO QDAY Qty: 90 2RF Alvesco 160 mcg/actuation HFA aerosol inhaler 1 puff INHALATION BID Qty: 6.1 11RF Rx Instructions: Inhale one puff by mouth twice a day. tramadol 50 mg tablet 50 mg PO Q6H PRN (Reason: pain) Qty: 30 0RF Rx Instructions: Take 1 tablet every 6 hours as needed with 650 mg to 1000 mg acetaminophen. mesalamine [Lialda] 1.2 gram tablet,delayed release (DR/EC) 1.2 g PO BID Qty: 180 3RF omeprazole 20 mg capsule,delayed release(DR/EC) 20 mg PO DAILY Qty: 90 3RF oxycodone 5 mg Tablet 5 mg PO Q4H PRN (Reason: Pain, Moderate (4-6)) Qty: 20 0RF enoxaparin [Lovenox] 40 mg/0.4 mL Syringe 40 mg SUBCUT DAILY Qty: 12 0RF Discontinued valacyclovir 1 gram tablet 2,000 mg PO Q12H Qty: 12 0RF Rx Instructions: 2 tabs twice daily for one day prednisone 50 mg tablet 50 mg PO DAILY Qty: 3 0RF Rx Instructions: Tablet #1 take by mouth 13 hours prior to exam. Tablet #2 take by mouth 7 hours prior to exam. Tablet #3 take by mouth 1 hour prior to exam. diphenhydramine HCl [Benadryl] 25 mg capsule 50 mg PO .COMPLEX Qty: 2 0RF Rx Instructions: 50 mg orally take 1 hour prior to exam ciprofloxacin HCl 250 mg tablet 250 mg PO Q12H Qty: 6 0RF Rx Instructions: Take 1st tablet in the morning, the day before scheduled catheter removal. Follow up/Referrals: Felipe Lange MD [Primary Care Provider] - Visit Report/Discharge Packet Instructions: DI for Heart Failure, DI for Prescription Opioid Use Stand Alone Forms: Congestive Heart Failure, Patient Portal/API, Stroke Signs & Symptoms Discharge Data Primary Care Provider: Felipe Lange Quality VTE Deep Vein Thrombosis/Pulmonary Embolism Present on Admission: No
--- NOTE | 2022-12-04 15:04 | CM.DPNOTE ---
DC Note Discharge home w/spouse and [facility] to manage home infusion Faxed DC summary to [facility] Patient remains agreeable to plan and eager to return home JW
== END 2022-12-04 12:40 | disposition home or self-care (01) | DRG 862 ==
LOC: ED 01:50 → AC 05:24
PROVIDERS: Internal Medicine; Admitting Provider Specialist; Emergency Provider Emergency Medicine; Family Provider Student in an Organized Health Care Education/Training Program; PCP Student in an Organized Health Care Education/Training Program; Referring Provider Emergency Medicine; Visit Provider Student in an Organized Health Care Education/Training Program
DX: T81.44XA Sepsis following a procedure, initial encounter (principal); A41.9 Sepsis, unspecified organism; T83.511A Infection and inflammatory reaction due to indwelling urethral catheter, initial encounter; N99.842 Postprocedural seroma of a genitourinary system organ or structure following a genitourinary system procedure; N39.0 Urinary tract infection, site not specified; K21.9 Gastro-esophageal reflux disease without esophagitis; J45.909 Unspecified asthma, uncomplicated; B96.89 Other specified bacterial agents as the cause of diseases classified elsewhere; Z85.46 Personal history of malignant neoplasm of prostate; Z20.822 Contact with and (suspected) exposure to COVID-19
CPT/HCPCS: 10005; 36415; 72194; 74177; 80048; 80053; 81001; 82550; 83605; 83735; 84145; 84484; 85025; 85610; 87040; 87070; 87075; 87077; 87086; 87186; 87205; 87493; 87635; 94640; 94760; 96365; 96375; 99231; 99232; 99284; 99285; C9803; J0696; J1200; J1335; J1650; J2185; J2930; Q9967

== ENCOUNTER → 2022-12-09 09:16 | Outpatient (CLI) | payer OTHER, SELFPAY ==
[2022-12-01 05:34] VITALS: BMI 17.2
--- NOTE | 2022-12-09 09:17 | DI.CT.S_ITS ---
PROCEDURE: CT CYSTOGRAM INDICATIONS: associated UTI/early possible sepsis TECHNIQUE: Both before and after gravity instillation of 10% Isovue contrast solution into the bladder through a Escobar catheter, 5 mm axial images acquired from the bladder dome to the symphysis. 5 mm thick coronal and sagittal reformats were acquired. For radiation dose reduction, the following was used: automated exposure control, adjustment of mA and/or kV according to patient size. COMPARISON: [facility], CT, CT CYSTOGRAM, 12/01/2022, 10:58. FINDINGS: Image quality: Excellent. Genitourinary: Prior prostatomegaly. Similar streaky contrast extravasation at the anastomosis (series 4, image 32). Trace air within the urinary bladder, presumably iatrogenic. Escobar catheter terminates within the urinary bladder. Urinary bladder is diffusely thickened. Peritoneum and bowel: Unenhanced bowel loops are normal in caliber and wall thickness. No pathologic free pelvic fluid. Nodes and vessels: No iliac, pelvic, or inguinal adenopathy by size criteria. Iliac vessels are normal in size. Bones: No suspicious bony lesions. Miscellaneous: Interval decrease in size of the extraperitoneal seromas. These measure 11.2 x 5.2 centimeters on the left, previously 12.0 x 7.8 centimeters (series 3, image 26). The right side measures 1.4 x 4.4 centimeters, previously 5.1 x 2.6 centimeters (series 3, image 27). IMPRESSION: Persistent contrast extravasation at the ureteral anastomosis, presumably persistent contained leak. Slight interval decrease in size of the extraperitoneal postoperative seromas. Slight bladder wall thickening, which may indicate cystitis. Dictated by: Beltran Adams M.D. on 12/09/2022 at 9:43 Approved by: Beltran Adams M.D. on 12/09/2022 at 9:56
== END ==
PROVIDERS: Family Provider Student in an Organized Health Care Education/Training Program; PCP Student in an Organized Health Care Education/Training Program; Referring Provider Specialist; Visit Provider Specialist
DX: C61 Malignant neoplasm of prostate (principal); R39.0 Extravasation of urine; N39.0 Urinary tract infection, site not specified; N13.8 Other obstructive and reflux uropathy; Z93.6 Other artificial openings of urinary tract status
CPT/HCPCS: 72194

== ENCOUNTER 2022-12-14 07:21 | Outpatient (CLI) | payer OTHER, SELFPAY ==
[2022-12-01 05:34] VITALS: BMI 17.2
[2022-12-14] VITALS (8 sets, daily range): BP systolic 113–155; BP diastolic 63–78; PULSE 59–73; RESP 16–18; TEMP 36.4–37.2; O2SAT 94–96; BMI 24.3
--- NOTE | 2022-12-14 09:33 | DI.CT.S_ITS ---
PROCEDURE: CT GUIDED FNA Sedation analgesia for 15 minutes. INDICATIONS: bilateral pelvic seromas STATUS POST RADICAL PROSTATECTOMY TECHNIQUE: The indications, alternatives, benefits, risks, and possible complications of the procedure were communicated to the patient. Informed written consent from the patient was obtained and placed in the chart. Continuous EKG and hemodynamic monitoring was started by trained personnel. The patient was brought to the CT suite and exercise instructor spiral CT imaging was performed with localization grid. The appropriate site for percutaneous access to the biopsy target was marked, was prepped and draped sterilely, and was infused with local anaesthesia. Under CT guidance, a core biopsy trocar and needle set was advanced to the left pelvic sidewall fluid collection. The collection was aspirated. Postprocedural imaging was obtained. The patient was sent for post-procedure monitoring. COMPARISON: [facility], CT, CT CYSTOGRAM, 12/09/2022, 9:25. [facility], US, US ASPIRATION CYST, 12/01/2022, 14:46. [facility], CT, CT CYSTOGRAM, 12/01/2022, 10:58. [facility], CT, CT ABDOMEN PELVIS W CON, 12/01/2022, 3:46. FINDINGS: Biopsy site: Left pelvic sidewall fluid collection measuring 7.2 x 4.7 cm, () (previously 10.8 x 6.2 cm remeasured on 12/09/2022 preprocedural). Needle: 12 gauge trocar needle Medications: 1% lidocaine for local anaesthesia. IV Fentanyl and Versed for conscious sedation for approximately 15 minutes (see nursing record). Complications: None. Multiple attempt to aspirate the entire collection was performed. This saline was flushed into the collection and reaspirated x2. Mild amount of remaining fluid measuring at 3.3 x 2.8 cm, (01/24). Specimen: 62 cc blood tinged serous liquid fluid with a few small clots. IMPRESSION: Successful CT-guided left pelvic sidewall fluid collection aspiration. Small residual collection. Of note the collection was spontaneously decreased in size compared to the preprocedural CT 12/09/2022. Exam findings were discussed with Dr. Zoë Taylor. Dictated by: Harshad Adler M.D. on 12/14/2022 at 10:34 Approved by: Harshad Adler M.D. on 12/14/2022 at 11:09
[2022-12-14] MEDS: MIDAZOLAM 2 MG/2 ML VIAL 1 MG IV (09:59)
[2022-12-14] MEDS: fentaNYL 100 MCG/2 ML INJ 50 MCG IV (09:59)
--- NOTE | 2022-12-14 11:05 | DI.CT.S_ITS ---
PROCEDURE: CT CYSTOGRAM INDICATIONS: bilateral pelvic seromas STATUS POST RADICAL PROSTATECTOMY TECHNIQUE: Axial images acquired from the bladder dome to the symphysis without contrast. [place] instillation of approximately 300 cc 10% Isovue contrast solution into the bladder through a Escobar catheter. Axial images acquired from the bladder dome to the symphysis. The Escobar catheter was then removed. Axial images acquired from the bladder dome to the symphysis while voiding and postvoid. Coronal and sagittal reformats were acquired. For radiation dose reduction, the following was used: automated exposure control, adjustment of mA and/or kV according to patient size. COMPARISON: [facility], CT, CT ABDOMEN PELVIS W CON, 12/01/2022, 3:46. [facility], CT, CT CYSTOGRAM, 12/01/2022, 10:58. [facility], CT, CT CYSTOGRAM, 12/09/2022, 9:25. FINDINGS: Image quality: Excellent. Genitourinary: Bladder is adequately distended with cystogram contrast. The bladder wall has a somewhat trabeculated appearance. No stone. No bladder leak. Distal portions of both ureters are normal in caliber. Contrast leaks along the Escobar catheter prior to its removal. In the region of the prosthetic urethra anastomosis there is irregularity at the anterior 12 o'clock position, (8/103) and right lateral 8 o'clock position, (9/48). This is similar compared to the prior CT cystograms. Peritoneum and bowel: Unenhanced bowel loops are normal in caliber and wall thickness. Normal appendix. Residual left pelvic sidewall collection measures 4.7 x 4.2 x 2.2 cm, estimated volume of 22 cc. This was aspirated prior to this exam. Trace right anterior are fluid collection measuring 1.7 cm, (3/17), decreased. Nodes and vessels: No iliac, pelvic, or inguinal adenopathy by size criteria. Iliac vessels are normal in size. Bones: No suspicious bony lesions. Miscellaneous: No inguinal hernias. IMPRESSION: 1. Similar irregularity in the region of the proximal urethra anastomosis at the 12:00 o'clock and 8:00 o'clock positions concerning for prior ureteral injury or contained anastomotic leak. 2. No bladder leak. Patient was able to void the cystogram contrast. 3. Small residual left pelvic sidewall collection post aspiration. Exam findings were conveyed to Dr. Taylor. Dictated by: Harshad Adler M.D. on 12/14/2022 at 12:19 Approved by: Harshad Adler M.D. on 12/14/2022 at 12:44
== END 2022-12-14 12:22 | disposition home or self-care (01) ==
PROVIDERS: Family Provider Student in an Organized Health Care Education/Training Program; PCP Student in an Organized Health Care Education/Training Program; Referring Provider Specialist; Visit Provider Specialist
DX: C61 Malignant neoplasm of prostate (principal); R18.8 Other ascites; N13.8 Other obstructive and reflux uropathy; N40.1 Benign prostatic hyperplasia with lower urinary tract symptoms; N99.842 Postprocedural seroma of a genitourinary system organ or structure following a genitourinary system procedure
CPT/HCPCS: 10009; 49405; 72194; J2250; J3010

== ENCOUNTER → 2022-12-21 10:48 | Outpatient (CLI) | payer OTHER, SELFPAY ==
[2022-12-01 05:34] VITALS: BMI 17.2
[2022-12-21 14:00] LABS: Prostate Specific Antigen < 0.064 ng/mL (0.10-4.00)
== END ==
PROVIDERS: Family Provider Student in an Organized Health Care Education/Training Program; PCP Student in an Organized Health Care Education/Training Program; Referring Provider Specialist; Visit Provider Specialist
DX: R97.20 Elevated prostate specific antigen [PSA] (principal)
CPT/HCPCS: 36415; 84153

== ENCOUNTER → 2022-12-30 11:42 | Outpatient (CLI) | payer OTHER, SELFPAY ==
[2022-12-01 05:34] VITALS: BMI 17.2
== END ==
PROVIDERS: Family Provider Student in an Organized Health Care Education/Training Program; PCP Student in an Organized Health Care Education/Training Program; Visit Provider Specialist
DX: Z09 Encounter for follow-up examination after completed treatment for conditions other than malignant neoplasm (principal); N39.0 Urinary tract infection, site not specified; Z85.46 Personal history of malignant neoplasm of prostate; Z80.42 Family history of malignant neoplasm of prostate
CPT/HCPCS: 87086

== ENCOUNTER → 2023-01-08 10:13 | Outpatient (CLI) | payer OTHER, SELFPAY ==
[2022-12-01 05:34] VITALS: BMI 17.2
[2023-01-08 12:42] LABS: Add Manual Diff / Slide Review NO; Basophils Absolute Auto 100 /uL (0-100); Basophils Percent Auto 0.8 % (0-2); Eosinophils Absolute Auto 100 /uL (0-450); Hematocrit 37.4 % (41-53); Hemoglobin 12.3 g/dL (13.5-17.5); Lymphocytes Absolute Auto 1200 /uL (1100-4500); Lymphocytes Percent Auto 17.8 % (25-40); Mean Corpuscular Volume 87.8 fL (80-100); Monocytes Absolute Auto 600 /uL (0-900); Monocytes Percent Auto 9.3 % (3-14); Neutrophils Absolute Auto 4900 /uL (1500-7000); Neutrophils Percent Auto 70.1 % (50-75); Platelet Count 188 X10^3/uL (150-400); Red Blood Cell Count 4.26 X10^6/uL (4.5-5.9); White Blood Cell Count 6.9 X10^3/uL (4.5-11.0)
== END ==
PROVIDERS: Family Provider Student in an Organized Health Care Education/Training Program; PCP Student in an Organized Health Care Education/Training Program; Referring Provider Family Medicine; Visit Provider Family Medicine
DX: D64.9 Anemia, unspecified (principal)
CPT/HCPCS: 36415; 85025

== ENCOUNTER → 2023-02-08 11:33 | Outpatient (CLI) | payer OTHER, SELFPAY ==
[2022-12-01 05:34] VITALS: BMI 17.2
[2023-02-08 12:21] LABS: BUN Creatinine Ratio 22.5 (6-22); Blood Urea Nitrogen 18 mg/dL (9-20); Calcium 9.3 mg/dL (8.4-10.2); Carbon Dioxide 30 mmol/L (22-32); Chloride 101 mmol/L (98-107); Cholesterol 164 mg/dL (140-199); Estimated Glomerular Filt Rate > 60 mL/min (>60); Glucose 94 mg/dL (80-110); HDL Cholesterol 60 mg/dL (40-60); HEMOLYSIS < 15 (0-50); LDL Cholesterol Calculated 82 mg/dL (<100); Potassium 4.1 mmol/L (3.4-5.1); Sodium 137 mmol/L (137-145); Triglycerides 112 mg/dL (35-150)
[2023-02-08 13:14] LABS: Hep C Virus Ab w/Reflex Quant NEGATIVE s/c (NEGATIVE)
== END ==
PROVIDERS: Family Provider Student in an Organized Health Care Education/Training Program; PCP Student in an Organized Health Care Education/Training Program; Referring Provider Family Medicine; Visit Provider Family Medicine
DX: E78.00 Pure hypercholesterolemia, unspecified (principal); K51.90 Ulcerative colitis, unspecified, without complications; Z79.899 Other long term (current) drug therapy; Z11.59 Encounter for screening for other viral diseases
CPT/HCPCS: 36415; 80048; 80061; 86803

== ENCOUNTER → 2023-04-16 12:36 | Outpatient (CLI) | payer OTHER, SELFPAY ==
[2022-12-01 05:34] VITALS: BMI 17.2
[2023-04-16 13:47] LABS: BUN Creatinine Ratio 32.9 (6-22); Blood Urea Nitrogen 28 mg/dL (9-20); Calcium 9.6 mg/dL (8.4-10.2); Carbon Dioxide 26 mmol/L (22-32); Chloride 105 mmol/L (98-107); Estimated Glomerular Filt Rate > 60 mL/min (>60); Glucose 108 mg/dL (80-110); HEMOLYSIS < 15 (0-50); Potassium 4.2 mmol/L (3.4-5.1); Sodium 139 mmol/L (137-145)
[2023-04-16 14:40] LABS: Prostate Specific Antigen < 0.064 ng/mL (0.10-4.00)
== END ==
PROVIDERS: Family Provider Student in an Organized Health Care Education/Training Program; PCP Family Medicine; Referring Provider Specialist; Visit Provider Specialist
DX: R97.20 Elevated prostate specific antigen [PSA] (principal); Z01.812 Encounter for preprocedural laboratory examination
CPT/HCPCS: 36415; 80048; 84153

== ENCOUNTER 2023-04-20 11:28 | Day surgery (SDC) | payer OTHER, SELFPAY ==
[2022-12-01 05:34] VITALS: BMI 17.2
--- NOTE | 2023-04-20 | PATH_ITS ---
[facility] Accession Number: [id number] No. of containers..04 Tissue . 01 Material submitted: . PART A: colon - RIGHT COLON PART B: colon - TRANSVERSE PART C: colon - LEFT COLON PART D: colon - RIGHT COLON POLYP . 01 Diagnosis: A-C. Right, Transverse, Left Colon, Biopsies: Colonic mucosa with no significant diagnostic abnormality. Negative for active inflammation, granulomas, dysplasia, and malignancy. . D. Right Colon Polyp: Tubular adenoma. MRV 04/26/2023 1739 Local . 01 Electronically signed: . Corey Carrera MD, PhD, Pathologist NPI- [id number] . 01 Gross description: . The specimen is received in formalin in four parts, all labeled with the patient's name and . . Part A, designated right colon surveillance biopsy, consists of three cain soft tissue fragments ranging from 0.4 to 0.5 cm in greatest dimension. Submitted entirely in cassette A1. . Part B, designated transverse, consists of three cain soft tissue fragments ranging from 0.3 to 0.4 cm in greatest dimension. Submitted entirely in cassette B1. . Part C, designated left colon, consists of multiple cain soft tissue fragments aggregating to 0.9 x 0.3 x 0.1 cm. Filtered and submitted entirely in cassette C1. . Part D, designated right colon polyp, consists of two cain soft tissue fragments ranging from 0.4 to 0.5 cm in greatest dimension. Submitted entirely in cassette D1. ([id number]) /MRV 04/22/2023 1525 Local . 01 Pathologist provided ICD-10: K51.90, D12.6 . 01 CPT . 643106, [id number], 822696, 129943 Specimen Comment: A courtesy copy of this report has been sent to [phone] Performed at: 01 [facility] [address] [place] [address], [place], [place] [id number] MD Juancarlos Beavers MD Phone: [phone]
[2023-04-20 11:56] VITALS: BMI 23.8
[2023-04-20 12:11] VITALS: BP 129/61; PULSE 57; RESP 14; TEMP 36.6; O2SAT 97
[2023-04-20] MEDS: LACTATED RINGERS 1,000 ML 42 ML IV (12:14)
--- NOTE | 2023-04-20 12:57 | P.HP_ITS ---
History of Present Illness History of Present Illness Date Patient Seen: 04/20/23 Chief complaint: Dx Colonoscopy w/poss bx Narrative: History of ulcerative colitis on a follow-up program every 2 years. Ulcerative colitis under good control. Also personal history of adenomatous colon polyps [facility] Medical History (Updated 03/22/23 @ 15:59 by Amrit Loyd DO) Actinic keratosis (~1999) Arthritis Asthma (~2004) Basal cell carcinoma BPH (benign prostatic hyperplasia) (~1989) BPH w urinary obs/LUTS Chicken pox Colon polyps (~2016) Dysphagia Elevated PSA Family history of prostate cancer Fractures GERD (gastroesophageal reflux disease) Hearing loss Hemorrhoid History of basal cell carcinoma (BCC) (05/09/17) History of esophageal reflux (~1997) History of malignant neoplasm of prostate History of sigmoidoscopy History of urinary frequency (~2004) Measles Osteoarthritis (~1999) Osteopenia (~2009) Prostate cancer Ruptured, tendon, quadriceps Scoliosis (~1961) Seasonal allergies (~1959) Shoulder pain (~2016) Skin cancer (~1994) Tinea pedis (~1957) Ulcerative colitis (~1997) Urinary incontinence Vision disorder Vocal cord paralysis (~1989) Surgical History (Updated 03/23/23 @ 16:28 by Blaire Hemphill LPN) Anesthesia Cataracts, bilateral (~1998) Clavicle fracture History of colonoscopy (~2016) History of esophagogastroduodenoscopy (EGD) History of transurethral resection of prostate S/P TURP (status post transurethral resection of prostate) (~2015) Family History Brother Heart disease Hyperlipidemia Cancer Brother Age: 94 Stroke Cancer Brother Age: 84 Stroke Cancer Child Age: 54 Heart disease Father Cancer Mother Parkinson's disease Grandfather Cancer Grandmother Heart disease Social History marital status: number of children: 3 household members: spouse occupational status: previously employed Smoking Status: Never smoker alcohol intake: current caffeine: No Meds Home Medications and Allergies Home Medications Medication Instructions Recorded Confirmed Type acetaminophen 500 mg tablet 500 mg PO Q6H PRN Pain 07/07/18 04/20/23 History (Tylenol Extra Strength) calcium carbonate 600 mg-vitamin 2 tab PO DAILY 07/07/18 04/20/23 History D3 20 mcg (800 unit) tablet (Caltrate with Vitamin D3) mesalamine 1.2 gram tablet,delayed 1.2 g PO BID #180 tabs 09/21/22 04/20/23 Rx release (Lialda) omeprazole 20 mg capsule,delayed 20 mg PO DAILY #90 caps 09/21/22 04/20/23 Rx release lovastatin 20 mg tablet 20 mg PO BEDTIME #90 tabs 11/22/22 04/20/23 Rx montelukast 10 mg tablet 10 mg PO QDAY #90 tabs 11/22/22 04/20/23 Rx Pathway STM-10 Stimulator #1 ea 02/08/23 04/20/23 Rx valacyclovir 1 gram tablet 2,000 mg PO Q12H PRN Cold Sores 5 02/08/23 04/20/23 Rx days #20 tabs budesonide-formoterol HFA 80 1 - 2 inh inhalation BID asthma 03/22/23 04/20/23 Rx mcg-4.5 mcg/actuation aerosol #30.6 grams inhaler (Symbicort) fluticasone propionate 50 2 spray intranasal DAILY #16 grams 04/11/23 04/20/23 Rx mcg/actuation nasal spray,suspension (Allergy Relief (fluticasone)) Allergies Allergy/AdvReac Type Severity Reaction Status Date / Time Iodinated Contrast Media Allergy Severe HIVES Verified 03/22/23 14:55 [IODINATED CONTRAST- ORAL AND IV DYE] Exam Vital Signs (past 8 hours): - 04/20/23 12:11 Temperature 97.9 F Pulse Rate 57 L Respiratory Rate 14 Blood Pressure 129/61 Pulse Oximetry 97 Oxygen Delivery Method Room Air Oxygen Delivery Method Room Air Narrative Exam Narrative: Oropharynx free of lesions Chest clear to auscultation percussion Cardiac exam reveals no S3 or murmur Assessment & Plan Assessment & Plan narrative: Personal history of ulcerative colitis with additional history of adenomatous colon polyps need for follow-up colonoscopy at a 2 year interval. Risks, benefits, alternatives have been explained.
--- NOTE | 2023-04-20 12:59 | PM.OP.COLON ---
Operative Date/Time/Diagnoses Date of procedure: 04/20/23 Pre-op diagnosis: See indication and findings Procedure & Clinicians Study performed: Colonoscopy Indications: History of ulcerative colitis and personal history of adenomatous colon polyps need for follow-up but a 2 year interval Surgeon: Anju Guo Procedure Notes Procedure in detail: After informed consent was obtained the patient was placed in left lateral decubitus position. A video colonoscope was introduced the rectum slowly advanced to the cecum. Preparation was good. On slow withdrawal mucosa was carefully examined. The scope was removed. The patient tolerated the procedure well. Blood loss none Complications none Sedation mac Findings 1. Generally normal colon though with somewhat abnormal vascular pattern/increased. Two biopsies taken every 10 cm in placed in 3 bottles, right, transverse, and left colon. 2. 5 mm polyp in the mid right colon biopsies and removed completely Otherwise negative colonoscopy to cecum Will be in touch regarding biopsies but he will need to stay on a 2 year surveillance interval.
[2023-04-20 13:45] VITALS: BP 96/59; PULSE 54; RESP 18; TEMP 36.3; O2SAT 95
[2023-04-20 13:50] VITALS: BP 109/52; PULSE 55; RESP 17; O2SAT 96
[2023-04-20 13:57] VITALS: BP 96/65; PULSE 56; RESP 15; O2SAT 96
[2023-04-20 14:02] VITALS: BP 115/60; PULSE 55; RESP 19; O2SAT 96
== END 2023-04-20 14:30 | disposition home or self-care (01) ==
PROVIDERS: Family Provider Student in an Organized Health Care Education/Training Program; PCP Family Medicine; Referring Provider Internal Medicine Gastroenterology; Visit Provider Internal Medicine Gastroenterology
PROC: 0DJD8ZZ Inspection of Lower Intestinal Tract, Via Natural or Artificial Opening Endoscopic (ICD-10-PCS; CPT 45378; principal; 2023-04-20 12:30)
DX: Z12.11 Encounter for screening for malignant neoplasm of colon (principal); K51.90 Ulcerative colitis, unspecified, without complications; Z86.010 Personal history of colon polyps; D12.2 Benign neoplasm of ascending colon
CPT/HCPCS: 45380; J2704

== ENCOUNTER → 2023-04-28 10:33 | Outpatient (CLI) | payer OTHER, SELFPAY ==
[2022-12-01 05:34] VITALS: BMI 17.2
== END ==
PROVIDERS: Family Provider Student in an Organized Health Care Education/Training Program; PCP Family Medicine; Visit Provider Specialist
DX: N39.0 Urinary tract infection, site not specified (principal); N39.3 Stress incontinence (female) (male); Z85.46 Personal history of malignant neoplasm of prostate; Z80.42 Family history of malignant neoplasm of prostate
CPT/HCPCS: 51798; 81002; 87077; 87086; 87186; 99215

== ENCOUNTER → 2023-08-30 13:10 | Outpatient (CLI) | payer OTHER, SELFPAY ==
[2022-12-01 05:34] VITALS: BMI 17.2
[2023-08-30 15:21] LABS: Prostate Specific Antigen < 0.064 ng/mL (0.10-4.00)
== END ==
PROVIDERS: Family Provider Student in an Organized Health Care Education/Training Program; PCP Family Medicine; Referring Provider Specialist; Visit Provider Specialist
DX: N40.1 Benign prostatic hyperplasia with lower urinary tract symptoms (principal); N13.8 Other obstructive and reflux uropathy
CPT/HCPCS: 36415; 84153

== ENCOUNTER → 2023-09-06 09:32 | Outpatient (CLI) | payer OTHER, SELFPAY ==
[2022-12-01 05:34] VITALS: BMI 17.2
== END ==
PROVIDERS: Family Provider Student in an Organized Health Care Education/Training Program; PCP Family Medicine; Visit Provider Specialist
DX: N39.3 Stress incontinence (female) (male) (principal); N40.1 Benign prostatic hyperplasia with lower urinary tract symptoms; N13.8 Other obstructive and reflux uropathy; N39.0 Urinary tract infection, site not specified; Z85.46 Personal history of malignant neoplasm of prostate; Z80.42 Family history of malignant neoplasm of prostate
CPT/HCPCS: 51798; 81002; 87077; 87086; 87186; 99215

== ENCOUNTER → 2023-09-29 10:54 | Outpatient (CLI) | payer OTHER, SELFPAY ==
[2022-12-01 05:34] VITALS: BMI 17.2
--- NOTE | 2023-09-29 10:56 | DI.RAD.S_ITS ---
PROCEDURE: XR CHEST 2V INDICATIONS: cough TECHNIQUE: 2 views of the chest were acquired. COMPARISON: None. FINDINGS: Surgical changes and devices: None. Lungs and pleura: Lungs are clear. No pleural effusions or pneumothorax. Mediastinum: Aortic tortuosity is noted. Cardiac silhouette is normal in size. Bones and chest wall: No suspicious bony abnormalities. Soft tissues appear unremarkable. Old healed right posterior rib fractures. IMPRESSION: No acute cardiopulmonary abnormality is seen. Approved by: Irvin Kern M.D. on 09/29/2023 at 13:23
[2023-09-29 11:35] LABS: Add Manual Diff / Slide Review NO; Basophils Absolute Auto 100 /uL (0-100); Basophils Percent Auto 0.7 % (0-2); Eosinophils Absolute Auto 200 /uL (0-450); Eosinophils Percent Auto 1.7 % (2-4); Hematocrit 41.6 % (41-53); Hemoglobin 13.7 g/dL (13.5-17.5); Lymphocytes Absolute Auto 1600 /uL (1100-4500); Lymphocytes Percent Auto 16.4 % (25-40); Mean Corpuscular Hemoglobin 28.1 PG (26-34); Mean Corpuscular Volume 85.1 fL (80-100); Monocytes Absolute Auto 1000 /uL (0-900); Monocytes Percent Auto 9.7 % (3-14); Neutrophils Absolute Auto 7200 /uL (1500-7000); Neutrophils Percent Auto 71.5 % (50-75); Platelet Count 176 X10^3/uL (150-400); Red Blood Cell Count 4.89 X10^6/uL (4.5-5.9); Red Cell Distribution Width 15.2 % (11.6-14.8)
[2023-10-03 19:07] LABS: Alder IgE <0.10 kU/L (Class 0); Alternaria alternata IgE <0.10 kU/L (Class 0); Aspergillus fumigatus IgE 0.14 kU/L (Class 0/I); Box Elder IgE <0.10 kU/L (Class 0); Cat Dander IgE <0.10 kU/L (Class 0); Cladosporium herbarum IgE <0.10 kU/L (Class 0); Cockroach IgE <0.10 kU/L (Class 0); Cottonwood IgE <0.10 kU/L (Class 0); D farinae IgE <0.10 kU/L (Class 0); D pteronyssinus IgE <0.10 kU/L (Class 0); Dog Dander IgE <0.10 kU/L (Class 0); Elm Tree IgE <0.10 kU/L (Class 0); IgE Mugwort 0.17 kU/L (Class 0/I); IgE Thistle,Russian <0.10 kU/L (Class 0); Immunoglobulin E 39 IU/mL (6-495); Mountain Cedar IgE 1.61 kU/L (Class III); Mouse Urine Proteins IgE <0.10 kU/L (Class 0); Oak Tree IgE <0.10 kU/L (Class 0); Penicillium chrysogen IgE 0.22 kU/L (Class 0/I); Pigweed, Common IgE <0.10 kU/L (Class 0); Sheep Sorrel IgE <0.10 kU/L (Class 0); Silver Birch IgE <0.10 kU/L (Class 0); Timothy Grass IgE <0.10 kU/L (Class 0)
== END ==
PROVIDERS: Family Provider Student in an Organized Health Care Education/Training Program; PCP Family Medicine; Referring Provider Internal Medicine Critical Care Medicine; Visit Provider Internal Medicine Critical Care Medicine
DX: J45.40 Moderate persistent asthma, uncomplicated (principal); R05.3 Chronic cough; Z85.46 Personal history of malignant neoplasm of prostate
CPT/HCPCS: 36415; 71046; 82785; 85025; 86003; 99215

== ENCOUNTER → 2023-10-03 09:55 | Outpatient (CLI) | payer OTHER, SELFPAY ==
[2022-12-01 05:34] VITALS: BMI 17.2
== END ==
LOC: RESP 09:57
PROVIDERS: Family Provider Student in an Organized Health Care Education/Training Program; PCP Family Medicine; Referring Provider Internal Medicine Critical Care Medicine; Visit Provider Internal Medicine Critical Care Medicine
DX: J45.909 Unspecified asthma, uncomplicated (principal); R05.3 Chronic cough
CPT/HCPCS: 94060; 94726; 94729

== ENCOUNTER → 2023-10-25 08:08 | Outpatient (CLI) | payer OTHER, SELFPAY ==
[2022-12-01 05:34] VITALS: BMI 17.2
--- NOTE | 2023-10-25 08:30 | DI.US.S_ITS ---
PROCEDURE: US ABDOMEN LIMITED INDICATIONS: Right Inguinal Mass TECHNIQUE: Real-time focused scanning was performed of the right inguinal region using a high megahertz linear transducer with and without Valsalva, with image documentation. COMPARISON: None. FINDINGS: There is a right inguinal hernia with an abdominal wall defect measuring 1.1 cm supine and 3.1 cm standing. The hernia contains fully reducible bowel. The hernia sac descends 8.2 cm. IMPRESSION: Right inguinal hernia containing fully reducible bowel. Dictated by: Ky Vences M.D. on 10/25/2023 at 9:56 Approved by: Ky Vences M.D. on 10/25/2023 at 9:58
== END ==
LOC: US 08:08
PROVIDERS: Family Provider Student in an Organized Health Care Education/Training Program; PCP Family Medicine; Referring Provider Specialist; Visit Provider Specialist
DX: K40.90 Unilateral inguinal hernia, without obstruction or gangrene, not specified as recurrent (principal); R19.09 Other intra-abdominal and pelvic swelling, mass and lump
CPT/HCPCS: 76705

== ENCOUNTER 2023-10-25 11:15 | Outpatient (RCR) | payer OTHER, SELFPAY ==
--- NOTE | 2022-10-06 09:33 | PT.OIE ---
Current Diagnoses Malignant neoplasm of prostate (10/05/22) Nocturia (10/05/22) Urgency of urination (10/05/22) Past Medical History (Last Reviewed 09/15/22 @ 13:16 by Zoë Taylor MD) Actinic keratosis (~1999) Arthritis Asthma (~2004) Basal cell carcinoma BPH (benign prostatic hyperplasia) (~1989) BPH w urinary obs/LUTS Chicken pox Colon polyps (~2016) Dysphagia Elevated PSA Family history of prostate cancer Fractures GERD (gastroesophageal reflux disease) Hearing loss Hemorrhoid History of basal cell carcinoma (BCC) (05/09/17) History of esophageal reflux (~1997) History of sigmoidoscopy History of urinary frequency (~2004) Measles Osteoarthritis (~1999) Osteopenia (~2009) Prostate cancer Ruptured, tendon, quadriceps Scoliosis (~1961) Seasonal allergies (~1959) Shoulder pain (~2016) Skin cancer (~1994) Tinea pedis (~1957) Ulcerative colitis (~1997) Vision disorder Vocal cord paralysis (~1989) Past Surgical History (Last Reviewed 09/15/22 @ 13:16 by Zoë Taylor MD) Anesthesia Cataracts, bilateral (~1998) Clavicle fracture History of circumcision History of colonoscopy (~2016) History of esophagogastroduodenoscopy (EGD) History of transurethral resection of prostate S/P TURP (status post transurethral resection of prostate) (~2015) Visit Care Team Role Provider Type Felipe Lange MD Attending Provider Physician Family Provider Primary Care Provider Referring Provider Specialty: Internal Medicine Address: [address] [place] [address], [address], [facility] Email: [email or web address] Physical Therapy Initial Evaluation PT-OP-A Visit Information Start: 10/05/22 15:28 Freq: Status: Active Protocol: Document 10/05/22 17:32 [facility] (Rec: 10/05/22 17:37 [facility] [id number]) Out-Patient Physical Therapy Visit Information Visit Information Visit Type Initial Evaluation Visit Start Time 16:00 Visit Stop Time 16:45 Total Visit Minutes 45 Visit Number 1 Evaluation Information Evaluation Date 10/05/22 PT-OP-B Current Condition Start: 10/05/22 15:28 Freq: Status: Active Protocol: Document 10/05/22 16:00 [facility] (Rec: 10/05/22 16:39 [facility] [id number]) Current Condition History of Current Condition Onset Date for years Current Complaints urgency and frequency History of Current Condition surgery scheduled November 15, pt c/o urgency and frequency to void. If he gets chilled at all he will void 3 xms a hour. He will often wake 2 times per night. Pt reports some leakage with urgency Pt had a TURP procedure 8 years ago and it did not help. He started experiencing frequent urinary symptoms in his 40's and it has gradually gotten worse with time. He has a disc bulge L4-5 and he gets sciatica and numbness in his right leg. PT-OP-C Subjective Start: 10/05/22 15:28 Freq: Status: Active Protocol: Document 10/05/22 17:32 [facility] (Rec: 10/05/22 17:37 [facility] [id number]) Patient Questionnaires Other Questionnaire Name and Score Cozean pelvic dysfunctional screening protocol: pt reports getting up to urinate 2 or more times per night Pt has history of pain in his low back him and experiences sciatic symptoms OP-PT Pain Assessment Location low back pain Pain Location Details pt reports bulging disc at R L4-5 Intensity 3 PT-OP-F Manual Assessment Start: 10/05/22 15:29 Freq: Status: Active Protocol: Document 10/05/22 16:00 [facility] (Rec: 10/06/22 09:18 [facility] [id number]) Manual Assessments Soft Tissue Assessment Soft Tissue Mobility Assessment myofascial tightness in the suprapubic fascia and in the iliopsoas musculature PT-OP-I Pelvic Floor Start: 10/05/22 15:28 Freq: Status: Active Protocol: Document 10/05/22 17:38 [facility] (Rec: 10/05/22 17:41 [facility] [id number]) Pelvic Floor Assessment Urine Urinary Symptoms Urge Sensation Other Urinary Symptoms frequent urgency and pt notes minor leakage if he cant make it to the bathroom right away. Leakage Size Small Leakage Cause Urge Nocturia 2 Contraction Ability Voluntary Contraction Moderate Voluntary Relaxation Moderate Comments Pelvic Floor Comments pt describes drinking 16 oz orange juice in AM, lemonade in afternoon and alcohol in evening. He is not getting in any other water during the day. Renny was educated on bladder irritants for urgency and frequency today With external pelvic floor assessment today pt is able to contract his pelvic floor and sustain a contraction x 10 seconds today . He needed cues to not push with his abdominal wall and to isolate with his pelvic floor PT-OP-Q Treatments Start: 10/05/22 15:29 Freq: Status: Active Protocol: Document 10/05/22 17:41 [facility] (Rec: 10/05/22 17:44 [facility] [id number]) Therapeutic Exercises Supine Exercises quick pelvic floor contractions Reps/Minutes 2 second hold time with 2 second relaxation pelvic floor long holds Reps/Minutes 10 reps holding 10 seconds Self-Care/Home Management Treatment Education Other Education education on bladder irritants , urge deference technique/ bladder retraining technique given. Pt educated on a HEP. PT-OP-T Assessment and Plan Start: 10/05/22 15:29 Freq: Status: Active Protocol: Document 10/05/22 16:00 [facility] (Rec: 10/05/22 17:37 [facility] [id number]) Physical Therapy Assessment Rehab Potential Rehabilitation Potential Excellent Evaluation Complexity Number of Personal Factors/Comorbidities 0 Number of Body Systems Impaired 1-2 Clinical Presentation at Evaluation Stable Impairments Impairments Soft Tissue Mobility,Strength Other Impairments urinary frequency and urgency and leakage with urgency Goals 3 Impairment Pt is undergoing a radical prostatectomy and will require pelvic floor endurance training and strengthening post operatively Insemination Worker Goal (LTG) Renny is able to sustain a pelvic floor contraction x 10 seconds in supine and standing positions for good endurance support of his bladder LTG Duration 12 weeks + 2 Impairment urinary urgency and frequency with pt having many bladder irritants in his current diet Short Term Goal (STG) Renny is educated on bladder irritants and how they can contribute to urinary urgency and frequency STG Duration 1 day 1 Impairment pt lacks a home exercise program for s/p radical prostatectomy Short Term Goal (STG) Pt is educated on a home exercise program he can begin now and continue with post up surgery STG Duration 1 day Assessment Summary Assessment Renny is a 81 year old male referred to PT for pelvic floor education and strengthening exercises prior to his radical prostatectomy surgery 11/15/2022. He describes a long standing history of urinary urgency and frequency as well as some minor symptoms of urge incontinence. Renny also experiences nocturia. Renny has a past medical history of a TURP procedure 8 years ago, disc bulge at L4-5 and intermittent symptoms of right sided radicular symptoms. Time was spent today education Renny on bladder irritants. He reports he currently drinks 16 oz of orange juice in the am followed by lemonade in the afternoon and either wine or a mixed drink in the evening. He was educated on the importance of flushing out his bladder with water and to look into modifying his dietary intake of bladder irritants. Renny was able to actively contract his pelvic floor. He required verbal cues to avoid valsalva and for pelvic floor isolation. He was educated in pelvic floor endurance holds as well as pelvic floor quick contractions. Renny was taught the urge deference technique to begin staring now to help with some of his urgency symptoms. With palpation he is guarded and tight in the suprapubic fascia and iliopsoas region B. He was educated in stretches to begin opening up this region which may also help with some of his urgency. Renny has a follow up visit post op radical prostatectomy and a reassessment will be done at that time. Renny is a good candidate for pelvic PT following surgery. Physical Therapy Plan Frequency and Duration Frequency of Treatment pt to be seen postop Duration of treatment (weeks) 12 Plan of Care Start Date 10/05/22 Plan of Care End Date 12/28/22 Therapeutic Interventions Therapeutic Interventions Home Exercise Program, Neuromuscular Re-education, Self-Care/Home Management, Therapeutic Exercises Modalities Biofeedback Next Visit Focus/Plan Next Note Type Re-Evaluation Next Visit Plan pt will be seen 10 days post op radical prostatectomy. Re- evaluate symptoms and strength at that time
--- NOTE | 2022-10-06 09:35 | PT.OPPOC ---
Physical, Occupational & Speech Therapy At [facility] Current Diagnoses Malignant neoplasm of prostate (10/05/22) Nocturia (10/05/22) Urgency of urination (10/05/22) Visit Care Team Role Provider Type Felipe Lange MD Attending Provider Physician Family Provider Primary Care Provider Referring Provider Specialty: Internal Medicine Address: [address] [place] [address], [address], [facility] Email: [email or web address] Plan Of Care PT-OP-T Assessment and Plan Start: 10/05/22 15:29 Freq: Status: Active Protocol: Document 10/05/22 16:00 [facility] (Rec: 10/05/22 17:37 [facility] [id number]) Physical Therapy Assessment Rehab Potential Rehabilitation Potential Excellent Evaluation Complexity Number of Personal Factors/Comorbidities 0 Number of Body Systems Impaired 1-2 Clinical Presentation at Evaluation Stable Impairments Impairments Soft Tissue Mobility,Strength Other Impairments urinary frequency and urgency and leakage with urgency Goals 3 Impairment Pt is undergoing a radical prostatectomy and will require pelvic floor endurance training and strengthening post operatively Assisted Goal (LTG) Renny is able to sustain a pelvic floor contraction x 10 seconds in supine and standing positions for good endurance support of his bladder LTG Duration 12 weeks + 2 Impairment urinary urgency and frequency with pt having many bladder irritants in his current diet Short Term Goal (STG) Renny is educated on bladder irritants and how they can contribute to urinary urgency and frequency STG Duration 1 day 1 Impairment pt lacks a home exercise program for s/p radical prostatectomy Short Term Goal (STG) Pt is educated on a home exercise program he can begin now and continue with post up surgery STG Duration 1 day Assessment Summary Assessment Renny is a 81 year old male referred to PT for pelvic floor education and strengthening exercises prior to his radical prostatectomy surgery 11/15/2022. He describes a long standing history of urinary urgency and frequency as well as some minor symptoms of urge incontinence. Renny also experiences nocturia. Renny has a past medical history of a TURP procedure 8 years ago, disc bulge at L4-5 and intermittent symptoms of right sided radicular symptoms. Time was spent today education Renny on bladder irritants. He reports he currently drinks 16 oz of orange juice in the am followed by lemonade in the afternoon and either wine or a mixed drink in the evening. He was educated on the importance of flushing out his bladder with water and to look into modifying his dietary intake of bladder irritants. Renny was able to actively contract his pelvic floor. He required verbal cues to avoid valsalva and for pelvic floor isolation. He was educated in pelvic floor endurance holds as well as pelvic floor quick contractions. Renny was taught the urge deference technique to begin staring now to help with some of his urgency symptoms. With palpation he is guarded and tight in the suprapubic fascia and iliopsoas region B. He was educated in stretches to begin opening up this region which may also help with some of his urgency. Renny has a follow up visit post op radical prostatectomy and a reassessment will be done at that time. Renny is a good candidate for pelvic PT following surgery. Physical Therapy Plan Frequency and Duration Frequency of Treatment pt to be seen postop Duration of treatment (weeks) 12 Plan of Care Start Date 10/05/22 Plan of Care End Date 12/28/22 Therapeutic Interventions Therapeutic Interventions Home Exercise Program, Neuromuscular Re-education, Self-Care/Home Management, Therapeutic Exercises Modalities Biofeedback Next Visit Focus/Plan Next Note Type Re-Evaluation Next Visit Plan pt will be seen 10 days post op radical prostatectomy. Re- evaluate symptoms and strength at that time Plan of Care Dates Plan of Care Start Date 10/05/22 Plan of Care End Date 12/28/22 Electronically Signed by: Harper Rudd, PT 10/06/22 0935 If you are in agreement with this Plan of Care, please return a signed and dated copy. I have reviewed this Plan of Care and certify that the skilled therapy services above are required to meet the patient?s needs. Physician Signature Date Printed Name and Credentials Clinical Instructor Signature Printed Name and Credentials
--- NOTE | 2022-12-16 16:45 | PT.OTRE ---
Current Diagnoses Malignant neoplasm of prostate (12/21/22) Nocturia (12/21/22) Urgency of urination (12/21/22) Past Medical History (Last Reviewed 12/01/22 @ 18:25 by Zoë Taylor MD) Actinic keratosis (~1999) Arthritis Asthma (~2004) Basal cell carcinoma BPH (benign prostatic hyperplasia) (~1989) BPH w urinary obs/LUTS Chicken pox Colon polyps (~2016) Dysphagia Elevated PSA Family history of prostate cancer Fractures GERD (gastroesophageal reflux disease) Hearing loss Hemorrhoid History of basal cell carcinoma (BCC) (05/09/17) History of esophageal reflux (~1997) History of sigmoidoscopy History of urinary frequency (~2004) Measles Osteoarthritis (~1999) Osteopenia (~2009) Prostate cancer Ruptured, tendon, quadriceps Scoliosis (~1961) Seasonal allergies (~1959) Shoulder pain (~2016) Skin cancer (~1994) Tinea pedis (~1957) Ulcerative colitis (~1997) Vision disorder Vocal cord paralysis (~1989) Surgical History (Last Reviewed 12/01/22 @ 06:05 by Emil De La Garza MD) Anesthesia Cataracts, bilateral (~1998) Clavicle fracture History of circumcision History of colonoscopy (~2016) History of esophagogastroduodenoscopy (EGD) History of transurethral resection of prostate S/P TURP (status post transurethral resection of prostate) (~2015) Visit Care Team Role Provider Type Felipe Lange MD Attending Provider Physician Family Provider Primary Care Provider Referring Provider Specialty: Internal Medicine Address: [address] [place] [address], [address], [facility] Email: [email or web address] Physical Therapy Re-Evaluation PT-OP-A Visit Information Start: 10/05/22 15:28 Freq: Status: Active Protocol: Document 12/16/22 13:32 [facility] (Rec: 12/16/22 14:12 [facility] [id number]) Out-Patient Physical Therapy Visit Information Visit Information Visit Type Treatment Note Visit Start Time 13:30 Visit Stop Time 14:15 Total Visit Minutes 45 Visit Number 2 Evaluation Information Evaluation Date 12/16/22 PT-OP-B Current Condition Start: 10/05/22 15:28 Freq: Status: Active Protocol: Document 10/05/22 16:00 [facility] (Rec: 10/05/22 16:39 [facility] [id number]) Current Condition History of Current Condition Onset Date for years Current Complaints urgency and frequency History of Current Condition surgery scheduled November 15, your urgency and frequency to void. If he gets chilled at all he will note 3 xms a hour. He will often wake 2 times per night. Pt reports some leakage with urgency Pt had a TURP procedure 8 years ago and it did not help. He started experiencing frequent urinary symptoms in his 40's and it has gradually gotten worse with time. He has a disc bulge L4-5 and he gets sciatica and numbness in his right leg. PT-OP-C Subjective Start: 10/05/22 15:28 Freq: Status: Active Protocol: Document 12/16/22 13:30 [facility] (Rec: 12/16/22 14:12 [facility] [id number]) OP-PT Subjective Patient Comments Patient Comments Surgery November 15 and two days after discharge came back in with a fever and had a infection and was hospitalized again, he was treated for ecoli and fluid buid up in his abdomen. The catheter was in for 30 days and was leaking from the beginning. He notes it was very uncomfortable and irritating. He was then sent home for intervenous antibiotics. HE was going to put a drain in but instead they aspirated his abdoment with a siringe. His catheter was removed. He is noting constant leakage at this point . The first night he soaked through his diaper and then last night was better. He has to wrap a maxi pad around his penis with a pull up brief. When he sits on the toilet he can sometimes see a few drops of urine. Now that the catherter was removed he has started his pelvic floor exercises. He notes when he passes stool he notes sensitivity with his bowels. Yesterday was the last day with antibiotic infusion. PT-OP-F Manual Assessment Start: 10/05/22 15:29 Freq: Status: Active Protocol: Document 10/05/22 16:00 [facility] (Rec: 10/06/22 09:18 [facility] [id number]) Manual Assessments Soft Tissue Assessment Soft Tissue Mobility Assessment myofascial tightness in the suprapubic fascia and throught the iliopsoas musculature PT-OP-I Pelvic Floor Start: 10/05/22 15:28 Freq: Status: Active Protocol: Document 12/16/22 13:00 [facility] (Rec: 12/21/22 13:49 [facility] [id number]) Pelvic Floor Assessment SEMG (uV) Baseline 3 10 Second Contraction 19.8 Relaxation Fair Holding Fair Stability of Hold Fair SEMG Stability of Rest Fair Comments Pelvic Floor Comments pt presents with elevated resting tone, he lacks ability to sustain a pelvic floor contraction more than 5 seconds PT-OP-Q Treatments Start: 10/05/22 15:29 Freq: Status: Active Protocol: Document 12/16/22 13:32 [facility] (Rec: 12/16/22 14:12 [facility] [id number]) Therapeutic Exercises Supine Exercises quick pelvic floor contractions Reps/Minutes x 10 reps Comments 54.7 uv max pelvic floor long holds Supine Exercise Name with EMG BIOFEEDBACK Comments average 19.8 and max 52 PT-OP-T Assessment and Plan Start: 10/05/22 15:29 Freq: Status: Active Protocol: Document 12/16/22 13:30 [facility] (Rec: 12/21/22 13:37 [facility] [id number]) Physical Therapy Assessment Goals 4 Impairment Constant Urinary leakage both day and night Short Term Goal (STG) Renny is waking up dry in the am STG Duration 6 weeks Usp Goal (LTG) Renny is down to 1 brief per day from 4-5 briefs currently LTG Duration 12 weeks 3 Impairment Pt is undergoing a radical prostatectomy and will require pelvic floor endurance training and strengtheing post operatively Usp Goal (LTG) Renny is able to sustain a pelvic floor contraction x 10 seconds in supine and standing positions for good endurance support of his bladder LTG Duration 12 weeks + 2 Impairment urinary urgency and frequency with pt having many bladder irritants in his current diet Short Term Goal (STG) Renny is educated on bladder irritants and how they can contribute to urinary urgency and frequency GOAL MET STG Duration 1 day 1 Impairment pt lacks a home exercise program for s/p radical prostatectomy Short Term Goal (STG) Pt is educated on a home exercise program he can begin now and continue with post up surgery GOAL MET STG Duration 1 day Usp Goal (LTG) pt is able to work on a progressive exercise program for pelvic floor and core strengthening LTG Duration 12 weeks Assessment Summary Assessment Renny returns to PT today s/p radical retropubic prostatectomy/bilateral pelvic lymphadenectomy (nerve sparing). Surgery was 11/15/22. Renny reports when he was discharged his catheter was leaking. He ended up being seen in the ER with fever and chills and a infection. He was then hospitalized again. Due to the infection he stayed on the catheter xm 1 month. He is seen for PT 2 days s/p catheter removal and he notes he is leaking all throughout the day. He wears a maxi pad wrapped around the end of his penis as well as a brief. He is also soaking through the brief at night. He is finished with his IV antibiotic now and has started working on his pelvic floor exercises. With examination today Renny is able to isolate his pelvic floor. He lacks endurance to sustain his pelvic floor contraction. We worked with EMG biofeedback today for education on pelvic floor endurance training. Bladder irritants were reviewed and pt was educated on timed voiding. He is a good candidate for pelvic floor strengthening Physical Therapy Plan Frequency and Duration Frequency of Treatment 1x/Week Duration of treatment (weeks) 12 Plan of Care Start Date 12/16/22 Plan of Care End Date 03/10/23 Therapeutic Interventions Therapeutic Interventions Home Exercise Program, Neuromuscular Re-education, Self-Care/Home Management, Therapeutic Exercises Modalities Biofeedback Next Visit Focus/Plan Next Note Type Treatment Note Next Visit Plan progressive pelvic floor strengthening exercises working on endurance
--- NOTE | 2022-12-16 16:45 | PT.OPPOC ---
Physical, Occupational & Speech Therapy At [facility] Current Diagnoses Malignant neoplasm of prostate (12/21/22) Nocturia (12/21/22) Urgency of urination (12/21/22) Visit Care Team Role Provider Type Felipe Lange MD Attending Provider Physician Family Provider Primary Care Provider Referring Provider Specialty: Internal Medicine Address: [address] [place] [address], [address], [facility] Email: [email or web address] Plan Of Care PT-OP-T Assessment and Plan Start: 10/05/22 15:29 Freq: Status: Active Protocol: Document 12/16/22 13:30 [facility] (Rec: 12/21/22 13:37 [facility] [id number]) Physical Therapy Assessment Goals 4 Impairment Constant Urinary leakage both day and night Short Term Goal (STG) Renny is waking up dry in the am STG Duration 6 weeks Long-Term Goal (LTG) Renny is down to 1 brief per day from 4-5 briefs currently LTG Duration 12 weeks 3 Impairment Pt is undergoing a radical prostatectomy and will require pelvic floor endurance training and strengthening post operatively Wheat Cleaner Goal (LTG) Renny is able to sustain a pelvic floor contraction x 10 seconds in supine and standing positions for good endurance support of his bladder LTG Duration 12 weeks + 2 Impairment urinary urgency and frequency with pt having many bladder irritants in his current diet Short Term Goal (STG) Renny is educated on bladder irritants and how they can contribute to urinary urgency and frequency GOAL MET STG Duration 1 day 1 Impairment pt lacks a home exercise program for s/p radical prostatectomy Short Term Goal (STG) Pt is educated on a home exercise program he can begin now and continue with post up surgery GOAL MET STG Duration 1 day Long-Term Goal (LTG) pt is able to work on a progressive exercise program for pelvic floor and core strengthening LTG Duration 12 weeks Assessment Summary Assessment Renny returns to PT today s/p radical retropubic prostatectomy/bilateral pelvic lymphadenectomy (nerve sparing). Surgery was 11/15/22. Renny reports when he was discharged his catheter was leaking. He ended up being seen in the ER with fever and chills and a infection. He was then hospitalized again. Due to the infection he stayed on the catheter xm 1 month. He is seen for PT 2 days s/p catheter removal and he notes he is leaking all throughout the day. He wears a maxi pad wrapped around the end of his penis as well as a brief. He is also soaking through the brief at night. He is finished with his IV antibiotic now and has started working on his pelvic floor exercises. With examination today Renny is able to isolate his pelvic floor. He lacks endurance to sustain his pelvic floor contraction. We worked with EMG biofeedback today for education on pelvic floor endurance training. Bladder irritants were reviewed and pt was educated on timed voiding. He is a good candidate for pelvic floor strengthening Physical Therapy Plan Frequency and Duration Frequency of Treatment 1x/Week Duration of treatment (weeks) 12 Plan of Care Start Date 12/16/22 Plan of Care End Date 03/10/23 Therapeutic Interventions Therapeutic Interventions Home Exercise Program, Neuromuscular Re-education, Self-Care/Home Management, Therapeutic Exercises Modalities Biofeedback Next Visit Focus/Plan Next Note Type Treatment Note Next Visit Plan progressive pelvic floor strengthening exercises working on endurance Plan of Care Dates Plan of Care Start Date 12/16/22 Plan of Care End Date 03/10/23 Electronically Signed by: Harper Rudd, PT 12/21/22 [id number] If you are in agreement with this Plan of Care, please return a signed and dated copy. I have reviewed this Plan of Care and certify that the skilled therapy services above are required to meet the patient?s needs. Physician Signature Date Printed Name and Credentials Clinical Instructor Signature Printed Name and Credentials
--- NOTE | 2022-12-21 14:01 | PT.OTN ---
Current Diagnoses Malignant neoplasm of prostate (12/21/22) Nocturia (12/21/22) Urgency of urination (12/21/22) Physical Therapy Treatment Note PT-OP-A Visit Information Start: 10/05/22 15:28 Freq: Status: Active Protocol: Document 12/21/22 09:45 [facility] (Rec: 12/21/22 14:01 [facility] [id number]) Out-Patient Physical Therapy Visit Information Visit Information Visit Type Treatment Note Visit Start Time 09:45 Visit Stop Time 10:30 Total Visit Minutes 45 Visit Number 3 PT-OP-B Current Condition Start: 10/05/22 15:28 Freq: Status: Active Protocol: Document 10/05/22 16:00 [facility] (Rec: 10/05/22 16:39 [facility] [id number]) Current Condition History of Current Condition Onset Date for years Current Complaints urgency and frequency History of Current Condition surgery scheduled November 15, your urgency and frequency to void. If he gets chilled at all he will note 3 xms a hour. He will often wake 2 times per night. Pt reports some leakage with urgency Pt had a TURP procedure 8 years ago and it did not help. He started experiencing frequent urinary symptoms in his 40's and it has gradually gotten worse with time. He has a disc bulge L4-5 and he gets sciatica and numbness in his right leg. PT-OP-C Subjective Start: 10/05/22 15:28 Freq: Status: Active Protocol: Document 12/21/22 09:45 [facility] (Rec: 12/21/22 14:01 [facility] [id number]) OP-PT Subjective Patient Comments Patient Comments Pt reports he is still noting constant leakage. He has questions regarding using a clamp and has been using a temporary clam when getting in and out of the shower. He has a appt with next week PT-OP-F Manual Assessment Start: 10/05/22 15:29 Freq: Status: Active Protocol: Document 10/05/22 16:00 [facility] (Rec: 10/06/22 09:18 [facility] [id number]) Manual Assessments Soft Tissue Assessment Soft Tissue Mobility Assessment myofascial tightness in the suprapubic fascia and throught the iliopsoas musculature PT-OP-I Pelvic Floor Start: 10/05/22 15:28 Freq: Status: Active Protocol: Document 12/16/22 13:00 [facility] (Rec: 12/21/22 13:49 [facility] [id number]) Pelvic Floor Assessment SEMG (uV) Baseline 3 10 Second Contraction 19.8 Relaxation Fair Holding Fair Stability of Hold Fair SEMG Stability of Rest Fair Comments Pelvic Floor Comments pt presents with elevated resting tone, he lacks ability to sustain a pelvic floor contraction more than 5 seconds PT-OP-Q Treatments Start: 10/05/22 15:29 Freq: Status: Active Protocol: Document 12/21/22 09:45 [facility] (Rec: 12/21/22 14:01 [facility] [id number]) Therapeutic Exercises Supine Exercises templates Reps/Minutes worked on eccentric lengthening of the pelvic floor and coordination quick pelvic floor contractions Reps/Minutes x 10 reps Comments 54.7 uv max pelvic floor long holds Supine Exercise Name with EMG BIOFEEDBACK Comments average 31.5 uv and max of 59 uv Self-Care/Home Management Treatment Education Patient Education Home Exercise Program Other Education bladder irritants were reviewed Activities Self-Care/Home Management Activities pt was educated on pelvic floor bracing prior to sit to stand and with bed mobility PT-OP-T Assessment and Plan Start: 10/05/22 15:29 Freq: Status: Active Protocol: Document 12/21/22 09:45 [facility] (Rec: 12/21/22 14:01 [facility] [id number]) Physical Therapy Assessment Assessment Summary Assessment Renny did increase his endurance this past week as EMG readings went up to 31.5 for his endurance today. He has not experienced any change with his urinary leakage Physical Therapy Plan Frequency and Duration Frequency of Treatment 1x/Week Duration of treatment (weeks) 12 Plan of Care Start Date 12/16/22 Plan of Care End Date 03/10/23 Therapeutic Interventions Therapeutic Interventions Home Exercise Program, Neuromuscular Re-education, Self-Care/Home Management, Therapeutic Exercises Modalities Biofeedback
--- NOTE | 2022-12-28 16:59 | PT.OTN ---
Current Diagnoses Malignant neoplasm of prostate (12/28/22) Nocturia (12/28/22) Urgency of urination (12/28/22) Physical Therapy Treatment Note PT-OP-A Visit Information Start: 10/05/22 15:28 Freq: Status: Active Protocol: Document 12/28/22 16:05 [facility] (Rec: 12/28/22 16:58 [facility] [id number]) Out-Patient Physical Therapy Visit Information Visit Information Visit Type Treatment Note Visit Start Time 16:00 Visit Stop Time 16:45 Total Visit Minutes 45 Visit Number 4 PT-OP-B Current Condition Start: 10/05/22 15:28 Freq: Status: Active Protocol: Document 10/05/22 16:00 [facility] (Rec: 10/05/22 16:39 [facility] [id number]) Current Condition History of Current Condition Onset Date for years Current Complaints urgency and frequency History of Current Condition surgery scheduled November 15, your urgency and frequency to void. If he gets chilled at all he will note 3 xms a hour. He will often wake 2 times per night. Pt reports some leakage with urgency Pt had a TURP procedure 8 years ago and it did not help. He started experiencing frequent urinary symptoms in his 40's and it has gradually gotten worse with time. He has a disc bulge L4-5 and he gets sciatica and numbness in his right leg. PT-OP-C Subjective Start: 10/05/22 15:28 Freq: Status: Active Protocol: Document 12/28/22 16:05 [facility] (Rec: 12/28/22 16:58 [facility] [id number]) OP-PT Subjective Patient Comments Patient Comments a couple of days ago her got a incontinence ring and he is able to get into and out of the shower with it. IF he has a urge it will leak through the clamp. He has a appointment with dr rivero. HE is able to get a 3-4 sec stream after he takes off the clamp. HE wakes up at 4 and 7 and the maxi pad is soaked He is still feeling the pressure from where the surgery was when he sits, he still has sensitivity with bowel movements as well. He is experiencing several bowel movements per day. PT-OP-F Manual Assessment Start: 10/05/22 15:29 Freq: Status: Active Protocol: Document 10/05/22 16:00 [facility] (Rec: 10/06/22 09:18 [facility] [id number]) Manual Assessments Soft Tissue Assessment Soft Tissue Mobility Assessment myofascial tightness in the suprapubic fascia and throught the iliopsoas musculature PT-OP-I Pelvic Floor Start: 10/05/22 15:28 Freq: Status: Active Protocol: Document 12/16/22 13:00 [facility] (Rec: 12/21/22 13:49 [facility] [id number]) Pelvic Floor Assessment SEMG (uV) Baseline 3 10 Second Contraction 19.8 Relaxation Fair Holding Fair Stability of Hold Fair SEMG Stability of Rest Fair Comments Pelvic Floor Comments pt presents with elevated resting tone, he lacks ability to sustain a pelvic floor contraction more than 5 seconds PT-OP-Q Treatments Start: 10/05/22 15:29 Freq: Status: Active Protocol: Document 12/28/22 16:05 [facility] (Rec: 12/28/22 16:58 [facility] [id number]) Therapeutic Exercises Supine Exercises templates Reps/Minutes worked on eccentric lengthening of the pelvic floor and coordination quick pelvic floor contractions Reps/Minutes x 12 Comments 59.8 uv max pelvic floor long holds Supine Exercise Name with EMG BIOFEEDBACK Comments 36.8 average and max of 66 uv Sidelying Exercises clam shells Reps/Minutes 3 x 10 reps Self-Care/Home Management Treatment Education Patient Education Home Exercise Program Other Education review of penis clamp, and HEP review PT-OP-T Assessment and Plan Start: 10/05/22 15:29 Freq: Status: Active Protocol: Document 12/28/22 16:05 [facility] (Rec: 12/28/22 16:58 [facility] [id number]) Physical Therapy Assessment Goals 3 Impairment Pt is undergoing a radical prostatectomy and will require pelvic floor endurance training and strengtheing post operatively Cabinet Professional Goal (LTG) Renny is able to sustain a pelvic floor contraction x 10 seconds in supine and standing positions for good endurance support of his bladder LTG Duration 12 weeks + 2 Impairment urinary urgency and frequency with pt having many bladder irritants in his current diet Short Term Goal (STG) Renny is educated on bladder irritants and how they can contribute to urinary urgency and frequency GOAL MET STG Duration 1 day 1 Impairment pt lacks a home exercise program for s/p radical prostatectomy Short Term Goal (STG) Pt is educated on a home exercise program he can begin now and continue with post up surgery GOAL MET STG Duration 1 day Cabinet Professional Goal (LTG) pt is able to work on a progressive exercise program for pelvic floor and core strengthening LTG Duration 12 weeks Assessment Summary Assessment Renny's pelvic floor strength continues to improve and endurance is improving. He has not noticed a change in his leakage Physical Therapy Plan Frequency and Duration Frequency of Treatment 1x/Week Duration of treatment (weeks) 12 Plan of Care Start Date 12/16/22 Plan of Care End Date 03/10/23 Therapeutic Interventions Therapeutic Interventions Home Exercise Program, Neuromuscular Re-education, Self-Care/Home Management, Therapeutic Exercises Modalities Biofeedback Next Visit Focus/Plan Next Note Type Treatment Note Next Visit Plan begin working on upright pelvic floor exercises next visit and quadruped TA
--- NOTE | 2023-01-25 17:02 | PT.OTN ---
Current Diagnoses Malignant neoplasm of prostate (01/25/23) Nocturia (01/25/23) Urgency of urination (01/25/23) Physical Therapy Treatment Note PT-OP-A Visit Information Start: 10/05/22 15:28 Freq: Status: Active Protocol: Document 12/28/22 16:05 [facility] (Rec: 12/28/22 16:58 [facility] [id number]) Out-Patient Physical Therapy Visit Information Visit Information Visit Type Treatment Note Visit Start Time 16:00 Visit Stop Time 16:45 Total Visit Minutes 45 Visit Number 4 PT-OP-B Current Condition Start: 10/05/22 15:28 Freq: Status: Active Protocol: Document 10/05/22 16:00 [facility] (Rec: 10/05/22 16:39 [facility] [id number]) Current Condition History of Current Condition Onset Date for years Current Complaints urgency and frequency History of Current Condition surgery scheduled November 15, your urgency and frequency to void. If he gets chilled at all he will note 3 xms a hour. He will often wake 2 times per night. Pt reports some leakage with urgency Pt had a TURP procedure 8 years ago and it did not help. He started experiencing frequent urinary symptoms in his 40's and it has gradually gotten worse with time. He has a disc bulge L4-5 and he gets sciatica and numbness in his right leg. PT-OP-C Subjective Start: 10/05/22 15:28 Freq: Status: Active Protocol: Document 01/25/23 16:05 [facility] (Rec: 01/25/23 17:01 [facility] [id number]) OP-PT Subjective Patient Comments Patient Comments pt notes he is still leaking a whole lot. He is seeing modest improvement with the clamp. After he takes the clamp off he can get 5-6 seconds of urine stream. HE has been wearing the clamp most of the day and releasing it every hour. He is waking up at night 2-3 times. He will soak through the maxi pad but not through the depends. The morning after his last appointment he had a lot of blood in his still. The electrode irritated his hehrhoids and he had a amount of bleeding. His gastro doc saw a anal fissure that was starting to heal. PT-OP-F Manual Assessment Start: 10/05/22 15:29 Freq: Status: Active Protocol: Document 10/05/22 16:00 [facility] (Rec: 10/06/22 09:18 [facility] [id number]) Manual Assessments Soft Tissue Assessment Soft Tissue Mobility Assessment myofascial tightness in the suprapubic fascia and throught the iliopsoas musculature PT-OP-I Pelvic Floor Start: 10/05/22 15:28 Freq: Status: Active Protocol: Document 12/16/22 13:00 [facility] (Rec: 12/21/22 13:49 [facility] [id number]) Pelvic Floor Assessment SEMG (uV) Baseline 3 10 Second Contraction 19.8 Relaxation Fair Holding Fair Stability of Hold Fair SEMG Stability of Rest Fair Comments Pelvic Floor Comments pt presents with elevated resting tone, he lacks ability to sustain a pelvic floor contraction more than 5 seconds PT-OP-Q Treatments Start: 10/05/22 15:29 Freq: Status: Active Protocol: Document 01/25/23 16:05 [facility] (Rec: 01/25/23 17:01 [facility] [id number]) Therapeutic Exercises Supine Exercises templates Reps/Minutes worked on eccentric lengthening of the pelvic floor and coordination quick pelvic floor contractions Reps/Minutes x 12 Comments 78 uv max pelvic floor long holds Comments 45.4 and max 74.9 Neuro Re-Education Treatment Other Activities NMES Details NMES for the pelvic floor Reps/Duration 8 min Comments NMES of the pelvic floor with rectal sensor. Pt was able to increase intensity to 9 uv. He felt sensation at the rectal sphincter only Self-Care/Home Management Treatment Education Patient Education Home Exercise Program Other Education pt was educated on pelvic floor contraction of the pelvic floor prior to standing PT-OP-T Assessment and Plan Start: 10/05/22 15:29 Freq: Status: Active Protocol: Document 01/25/23 16:05 [facility] (Rec: 01/25/23 17:01 [facility] [id number]) Physical Therapy Assessment Assessment Summary Assessment Renny continues to demonstrate improvement with his pelvic floor strength. He notes he is still leaking just as much during the day. His maxi pad is still soaked at night but he doesn't soak through the outer briefs any more. Pt is wearing the clamp during the day but taking it off with long walks and strenous activity Physical Therapy Plan Frequency and Duration Frequency of Treatment 1x/Week Duration of treatment (weeks) 12 Plan of Care Start Date 12/16/22 Plan of Care End Date 03/10/23 Therapeutic Interventions Therapeutic Interventions Home Exercise Program, Neuromuscular Re-education, Self-Care/Home Management, Therapeutic Exercises Modalities Biofeedback Next Visit Focus/Plan Next Note Type Treatment Note Next Visit Plan begin working on upright pelvic floor exercises next visit and quadruped TA
--- NOTE | 2023-02-17 11:39 | PT.OTN ---
Current Diagnoses Malignant neoplasm of prostate (02/17/23) Nocturia (02/17/23) Urgency of urination (02/17/23) Physical Therapy Treatment Note PT-OP-A Visit Information Start: 10/05/22 15:28 Freq: Status: Active Protocol: Document 02/17/23 10:41 [facility] (Rec: 02/17/23 11:39 [facility] [id number]) Out-Patient Physical Therapy Visit Information Visit Information Visit Type Treatment Note Visit Start Time 10:40 Visit Stop Time 11:15 Total Visit Minutes 35 Visit Number 6 PT-OP-B Current Condition Start: 10/05/22 15:28 Freq: Status: Active Protocol: Document 10/05/22 16:00 [facility] (Rec: 10/05/22 16:39 [facility] [id number]) Current Condition History of Current Condition Onset Date for years Current Complaints urgency and frequency History of Current Condition surgery scheduled November 15, your urgency and frequency to void. If he gets chilled at all he will note 3 xms a hour. He will often wake 2 times per night. Pt reports some leakage with urgency Pt had a TURP procedure 8 years ago and it did not help. He started experiencing frequent urinary symptoms in his 40's and it has gradually gotten worse with time. He has a disc bulge L4-5 and he gets sciatica and numbness in his right leg. PT-OP-C Subjective Start: 10/05/22 15:28 Freq: Status: Active Protocol: Document 02/17/23 10:41 [facility] (Rec: 02/17/23 11:39 [facility] [id number]) OP-PT Subjective Patient Comments Patient Comments [place] He did have a pre authorization submitted for a home NMES unit. He notes only very slight change at night he has the pull up briefs and a maxi pad wrapped around his penis and he gets up 2-3 times at night the maxi pad is soaked. When he takes it off he is able to pass 2-3 sec of urine. During the day after he has had the clamp on he can force more urine out than he could before. Renny reports he forgot to bring his electrode with him PT-OP-F Manual Assessment Start: 10/05/22 15:29 Freq: Status: Active Protocol: Document 10/05/22 16:00 [facility] (Rec: 10/06/22 09:18 [facility] [id number]) Manual Assessments Soft Tissue Assessment Soft Tissue Mobility Assessment myofascial tightness in the suprapubic fascia and throught the iliopsoas musculature PT-OP-I Pelvic Floor Start: 10/05/22 15:28 Freq: Status: Active Protocol: Document 12/16/22 13:00 [facility] (Rec: 12/21/22 13:49 [facility] [id number]) Pelvic Floor Assessment SEMG (uV) Baseline 3 10 Second Contraction 19.8 Relaxation Fair Holding Fair Stability of Hold Fair SEMG Stability of Rest Fair Comments Pelvic Floor Comments pt presents with elevated resting tone, he lacks ability to sustain a pelvic floor contraction more than 5 seconds PT-OP-Q Treatments Start: 10/05/22 15:29 Freq: Status: Active Protocol: Document 02/17/23 10:41 [facility] (Rec: 02/17/23 11:39 [facility] [id number]) Therapeutic Exercises Supine Exercises TA with heel slide and opp knee bent Reps/Minutes x 10 reps TA with march Reps/Minutes x 10 reps Comments worked on marching up up down down as just the september was easy for him supine ball squeeze with bridge Reps/Minutes 3 x 10 reps Other Exercises quadruped TA Reps/Minutes x 10 reps PT-OP-T Assessment and Plan Start: 10/05/22 15:29 Freq: Status: Active Protocol: Document 02/17/23 10:41 [facility] (Rec: 02/17/23 11:39 [facility] [id number]) Physical Therapy Assessment Goals 4 Impairment Constant Urinary leakage both day and night Short Term Goal (STG) Renny is waking up dry in the am Renny is still waking up 2-3 times per night and has soaked through the maxi pad he has on. STG Duration 6 weeks Prison Goal (LTG) Renny is down to 1 brief per day from 4-5 briefs currently Renny is still going through multiple briefs per day LTG Duration 12 weeks 3 Impairment Pt is undergoing a radical prostatectomy and will require pelvic floor endurance training and strengtheing post operatively Perl Software Engineer Goal (LTG) Renny is able to sustain a pelvic floor contraction x 10 seconds in supine and standing positions for good endurance support of his bladder goal met in supine LTG Duration 12 weeks + 2 Impairment urinary urgency and frequency with pt having many bladder irritants in his current diet Short Term Goal (STG) Renny is educated on bladder irritants and how they can contribute to urinary urgency and frequency GOAL MET STG Duration 1 day 1 Impairment pt lacks a home exercise program for s/p radical prostatectomy Short Term Goal (STG) Pt is educated on a home exercise program he can begin now and continue with post up surgery GOAL MET STG Duration 1 day Perl Software Engineer Goal (LTG) pt is able to work on a progressive exercise program for pelvic floor and core strengthening Goal met LTG Duration 12 weeks Assessment Summary Assessment Renny returns to PT for his 6th visit s/p prostatectomy. He is still using the clamp and going through several pads per day. he does not a small change with the amount he is now able to void at night and after using the clamp during the day. We were not able to do the biofeedback or NMES today as he forgot his sensor today. He will be going out of town x 1 month and will then resume PT. He is a good candidate for a home NMES unit for pelvic floor neurostimulation. Physical Therapy Plan Frequency and Duration Frequency of Treatment 1x/Week Duration of treatment (weeks) 12 Plan of Care Start Date 02/17/23 Plan of Care End Date 05/12/23 Therapeutic Interventions Therapeutic Interventions Home Exercise Program, Neuromuscular Re-education, Self-Care/Home Management, Therapeutic Exercises Modalities Biofeedback Next Visit Focus/Plan Next Note Type Treatment Note Next Visit Plan continue working on pelvic floor recruitment, NMES, strengthening in upright positioning, core stabilization exercises
--- NOTE | 2023-02-17 11:41 | PT.OPPOC ---
Physical, Occupational & Speech Therapy At [facility] Current Diagnoses Malignant neoplasm of prostate (02/17/23) Nocturia (02/17/23) Urgency of urination (02/17/23) Visit Care Team Role Provider Type Felipe Lange MD Attending Provider Physician Family Provider Primary Care Provider Referring Provider Specialty: Internal Medicine Address: [address] [place] [address], [address], [facility] Email: [email or web address] Plan Of Care PT-OP-T Assessment and Plan Start: 10/05/22 15:29 Freq: Status: Active Protocol: Document 02/17/23 10:41 [facility] (Rec: 02/17/23 11:39 [facility] [id number]) Physical Therapy Assessment Goals 4 Impairment Constant Urinary leakage both day and night Short Term Goal (STG) Renny is waking up dry in the am Renny is still waking up 2-3 times per night and has soaked through the maxi pad he has on. STG Duration 6 weeks Senior Analyst Goal (LTG) Renny is down to 1 brief per day from 4-5 briefs currently Renny is still going through multiple briefs per day LTG Duration 12 weeks 3 Impairment Pt is undergoing a radical prostatectomy and will require pelvic floor endurance training and strengthening post operatively Senior Analyst Goal (LTG) Renny is able to sustain a pelvic floor contraction x 10 seconds in supine and standing positions for good endurance support of his bladder goal met in supine LTG Duration 12 weeks + 2 Impairment urinary urgency and frequency with pt having many bladder irritants in his current diet Short Term Goal (STG) Renny is educated on bladder irritants and how they can contribute to urinary urgency and frequency GOAL MET STG Duration 1 day 1 Impairment pt lacks a home exercise program for s/p radical prostatectomy Short Term Goal (STG) Pt is educated on a home exercise program he can begin now and continue with post up surgery GOAL MET STG Duration 1 day Senior Analyst Goal (LTG) pt is able to work on a progressive exercise program for pelvic floor and core strengthening Goal met LTG Duration 12 weeks Assessment Summary Assessment Renny returns to PT for his 6th visit s/p prostatectomy. He is still using the clamp and going through several pads per day. he does not a small change with the amount he is now able to void at night and after using the clamp during the day. We were not able to do the biofeedback or NMES today as he forgot his sensor today. He will be going out of town x 1 month and will then resume PT. He is a good candidate for a home NMES unit for pelvic floor neuro stimulation. Physical Therapy Plan Frequency and Duration Frequency of Treatment 1x/Week Duration of treatment (weeks) 12 Plan of Care Start Date 02/17/23 Plan of Care End Date 05/12/23 Therapeutic Interventions Therapeutic Interventions Home Exercise Program, Neuromuscular Re-education, Self-Care/Home Management, Therapeutic Exercises Modalities Biofeedback Next Visit Focus/Plan Next Note Type Treatment Note Next Visit Plan continue working on pelvic floor recruitment, NMES, strengthening in upright positioning, core stabilization exercises Plan of Care Dates Plan of Care Start Date 02/17/23 Plan of Care End Date 05/12/23 Electronically Signed by: Harper Rudd, PT 02/17/23 2738 If you are in agreement with this Plan of Care, please return a signed and dated copy. I have reviewed this Plan of Care and certify that the skilled therapy services above are required to meet the patient?s needs. Physician Signature Date Printed Name and Credentials Clinical Instructor Signature Printed Name and Credentials
--- NOTE | 2023-03-29 10:56 | PT.OTN ---
Current Diagnoses Malignant neoplasm of prostate (03/29/23) Nocturia (03/29/23) Urgency of urination (03/29/23) Physical Therapy Treatment Note PT-OP-A Visit Information Start: 10/05/22 15:28 Freq: Status: Active Protocol: Document 03/29/23 08:50 [facility] (Rec: 03/29/23 09:35 [facility] [id number]) Out-Patient Physical Therapy Visit Information Visit Information Visit Type Treatment Note Visit Start Time 08:50 Visit Stop Time 09:30 Total Visit Minutes 40 Visit Number 02/12 Evaluation Information Evaluation Date 12/16/22 PT-OP-B Current Condition Start: 10/05/22 15:28 Freq: Status: Active Protocol: Document 10/05/22 16:00 [facility] (Rec: 10/05/22 16:39 [facility] [id number]) Current Condition History of Current Condition Onset Date for years Current Complaints urgency and frequency History of Current Condition surgery scheduled November 15, your urgency and frequency to void. If he gets chilled at all he will note 3 xms a hour. He will often wake 2 times per night. Pt reports some leakage with urgency Pt had a TURP procedure 8 years ago and it did not help. He started experiencing frequent urinary symptoms in his 40's and it has gradually gotten worse with time. He has a disc bulge L4-5 and he gets sciatica and numbness in his right leg. PT-OP-C Subjective Start: 10/05/22 15:28 Freq: Status: Active Protocol: Document 03/29/23 08:50 [facility] (Rec: 03/29/23 09:35 [facility] [id number]) OP-PT Subjective Patient Comments Patient Comments pt notes not much changes, he was traveling and did do his kegels, he did end up purchasing NMES unit and it arrives today. He still needs to remove the clamp every 1/2 hour. He is still wearing a diaper and maxi pad wrapped around his penis, the maxi pad will be totally soaked. Patient Reported Progress Same PT-OP-F Manual Assessment Start: 10/05/22 15:29 Freq: Status: Active Protocol: Document 10/05/22 16:00 [facility] (Rec: 10/06/22 09:18 [facility] [id number]) Manual Assessments Soft Tissue Assessment Soft Tissue Mobility Assessment myofascial tightness in the suprapubic fascia and throught the iliopsoas musculature PT-OP-I Pelvic Floor Start: 10/05/22 15:28 Freq: Status: Active Protocol: Document 12/16/22 13:00 [facility] (Rec: 12/21/22 13:49 [facility] [id number]) Pelvic Floor Assessment SEMG (uV) Baseline 3 10 Second Contraction 19.8 Relaxation Fair Holding Fair Stability of Hold Fair SEMG Stability of Rest Fair Comments Pelvic Floor Comments pt presents with elevated resting tone, he lacks ability to sustain a pelvic floor contraction more than 5 seconds PT-OP-Q Treatments Start: 10/05/22 15:29 Freq: Status: Active Protocol: Document 03/29/23 08:50 [facility] (Rec: 03/29/23 09:35 [facility] [id number]) Therapeutic Exercises Supine Exercises templates Reps/Minutes worked on eccentric lengthening of the pelvic floor and coordination quick pelvic floor contractions Reps/Minutes x 12 Comments 78 uv max pelvic floor long holds Supine Exercise Name with EMG BIOFEEDBACK Comments 33.5 average and 62.3 Neuro Re-Education Treatment Other Activities NMES Details NMES for the pelvic floor Reps/Duration 10 min Comments NMES of the pelvic floor with rectal sensor. Pt was able to increase intensity to 12 uv He felt sensation at the rectal sphincter only. Pt was educated in self set up of the NMES Self-Care/Home Management Treatment Education Patient Education Home Exercise Program Other Education pt was educated in NMES set up for home onhow to program his home unit PT-OP-T Assessment and Plan Start: 10/05/22 15:29 Freq: Status: Active Protocol: Document 03/29/23 08:50 [facility] (Rec: 03/29/23 09:35 [facility] [id number]) Physical Therapy Assessment Goals 4 Impairment Constant Urinary leakage both day and night Short Term Goal (STG) Renny is waking up dry in the am Renny is still waking up 2-3 times per night and has soaked through the maxi pad he has on. STG Duration 6 weeks Custodial Goal (LTG) Renny is down to 1 brief per day from 4-5 briefs currently Renny is still going through multiple briefs per day LTG Duration 12 weeks 3 Impairment Pt is undergoing a radical prostatectomy and will require pelvic floor endurance training and strengtheing post operatively Food Service Helper Goal (LTG) Renny is able to sustain a pelvic floor contraction x 10 seconds in supine and standing positions for good endurance support of his bladder goal met in supine LTG Duration 12 weeks + 2 Impairment urinary urgency and frequency with pt having many bladder irritants in his current diet Short Term Goal (STG) Renny is educated on bladder irritants and how they can contribute to urinary urgency and frequency GOAL MET STG Duration 1 day 1 Impairment pt lacks a home exercise program for s/p radical prostatectomy Short Term Goal (STG) Pt is educated on a home exercise program he can begin now and continue with post up surgery GOAL MET STG Duration 1 day Food Service Helper Goal (LTG) pt is able to work on a progressive exercise program for pelvic floor and core strengthening Goal met LTG Duration 12 weeks Assessment Summary Assessment Renny returns to PT today after not being seen since February 17 as he was out of town traveling. He has lost a small amount of pelvic floor strength on EMG biofeedback as compared to last visit. Time was spent today helping him set up his NMES unit for home and he was able to increase intensity to 12. He was given education to increase intensity only to tolerance and to not overdo. He continues to need the clamp and has not noticed any change with his bladder leakage. Physical Therapy Plan Frequency and Duration Frequency of Treatment 1x/Week Duration of treatment (weeks) 12 Plan of Care Start Date 02/17/23 Plan of Care End Date 05/12/23 Therapeutic Interventions Therapeutic Interventions Home Exercise Program, Neuromuscular Re-education, Self-Care/Home Management, Therapeutic Exercises Modalities Biofeedback Next Visit Focus/Plan Next Note Type Treatment Note Next Visit Plan continue working on pelvic floor recruitment, NMES, strengthening in upright positioning, core stabilization exercises
--- NOTE | 2023-04-27 12:14 | PT.OTN ---
Current Diagnoses Malignant neoplasm of prostate (04/27/23) Nocturia (04/27/23) Urgency of urination (04/27/23) Physical Therapy Treatment Note PT-OP-A Visit Information Start: 10/05/22 15:28 Freq: Status: Active Protocol: Document 04/27/23 11:22 [facility] (Rec: 04/27/23 12:14 [facility] [id number]) Out-Patient Physical Therapy Visit Information Visit Information Visit Type Progress Note Visit Start Time 11:20 Visit Stop Time 12:00 Total Visit Minutes 40 Visit Number 8 PT-OP-B Current Condition Start: 10/05/22 15:28 Freq: Status: Active Protocol: Document 10/05/22 16:00 [facility] (Rec: 10/05/22 16:39 [facility] [id number]) Current Condition History of Current Condition Onset Date for years Current Complaints urgency and frequency History of Current Condition surgery scheduled November 15, your urgency and frequency to void. If he gets chilled at all he will note 3 xms a hour. He will often wake 2 times per night. Pt reports some leakage with urgency Pt had a TURP procedure 8 years ago and it did not help. He started experiencing frequent urinary symptoms in his 40's and it has gradually gotten worse with time. He has a disc bulge L4-5 and he gets sciatica and numbness in his right leg. PT-OP-C Subjective Start: 10/05/22 15:28 Freq: Status: Active Protocol: Document 04/27/23 11:22 [facility] (Rec: 04/27/23 12:14 [facility] [id number]) OP-PT Subjective Patient Comments Patient Comments pt notes not much change, every 30 min to a our he releases the clamp to void. HE wakes up 2-3 times per night to void his maxipad will still be soaked but he can start the flow for 5-6 sec Pt did get a neuro stim unit for his pelvic floor and has been using it every other day. He is releasing the clamp every hour during the day PT-OP-F Manual Assessment Start: 10/05/22 15:29 Freq: Status: Active Protocol: Document 10/05/22 16:00 [facility] (Rec: 10/06/22 09:18 [facility] [id number]) Manual Assessments Soft Tissue Assessment Soft Tissue Mobility Assessment myofascial tightness in the suprapubic fascia and throught the iliopsoas musculature PT-OP-I Pelvic Floor Start: 10/05/22 15:28 Freq: Status: Active Protocol: Document 12/16/22 13:00 [facility] (Rec: 12/21/22 13:49 [facility] [id number]) Pelvic Floor Assessment SEMG (uV) Baseline 3 10 Second Contraction 19.8 Relaxation Fair Holding Fair Stability of Hold Fair SEMG Stability of Rest Fair Comments Pelvic Floor Comments pt presents with elevated resting tone, he lacks ability to sustain a pelvic floor contraction more than 5 seconds PT-OP-Q Treatments Start: 10/05/22 15:29 Freq: Status: Active Protocol: Document 04/27/23 11:22 [facility] (Rec: 04/27/23 12:14 [facility] [id number]) Therapeutic Exercises Supine Exercises TA with heel slide and opp knee bent Reps/Minutes x 10 reps Comments with opp knee at 90deg now TA with march Reps/Minutes x 10 reps Comments worked on marching up up down down as just the september was easy for him quick pelvic floor contractions Reps/Minutes x 12 Comments 78 uv max pelvic floor long holds Supine Exercise Name with emg biofeedback Comments 35.7 uv average and 57.9 Other Exercises bird dog Reps/Minutes x 10 reps quadruped OL and OA lifts Reps/Minutes x 10 each quadruped TA Reps/Minutes x 10 reps Comments cues to hold the TA x 10 seconds PT-OP-T Assessment and Plan Start: 10/05/22 15:29 Freq: Status: Active Protocol: Document 04/27/23 11:22 [facility] (Rec: 04/27/23 12:14 [facility] [id number]) Physical Therapy Assessment Goals 4 Impairment Constant Urinary leakage both day and night Short Term Goal (STG) Renny is waking up dry in the am Renny is still waking up 2-3 times per night and has soaked through the maxi pad he has on. He is able to start the stream for 5-6 seconds when getting up to change the pad STG Duration 6 weeks [facility] Goal (LTG) Renny is down to 1 brief per day from 4-5 briefs currently Renny is still going through multiple briefs per day LTG Duration 12 weeks 3 Impairment Pt is undergoing a radical prostatectomy and will require pelvic floor endurance training and strengtheing post operatively [facility] Goal (LTG) Renny is able to sustain a pelvic floor contraction x 10 seconds in supine and standing positions for good endurance support of his bladder goal met in supine and Renny is working on upright positions LTG Duration 12 weeks + 2 Impairment urinary urgency and frequency with pt having many bladder irritants in his current diet Short Term Goal (STG) Renny is educated on bladder irritants and how they can contribute to urinary urgency and frequency GOAL MET STG Duration 1 day 1 Impairment pt lacks a home exercise program for s/p radical prostatectomy Short Term Goal (STG) Pt is educated on a home exercise program he can begin now and continue with post up surgery GOAL MET STG Duration 1 day [employer] Goal (LTG) pt is able to work on a progressive exercise program for pelvic floor and core strengthening Goal met LTG Duration 12 weeks Assessment Summary Assessment Renny returns to PT today after working on his own with pelvic floor strengthening the past month. He is now using a home NMES unit for muscular stimulation of the pelvic floor. He notes that he is not seeing much change with regards to his leaking. He is releasing the clamp approx every hour so that he doesn't leak through. At night he wakes 2-3 times to void and can start the stream for 5-6 seconds now which is a little improvement from before. We have added in dynamic stabilization exercises for his core in and Renny is working hard on his HEP. He would like to continue PT Physical Therapy Plan Frequency and Duration Frequency of Treatment 1x/Week Duration of treatment (weeks) 12 Plan of Care Start Date 04/27/23 Plan of Care End Date 07/27/23 Therapeutic Interventions Therapeutic Interventions Home Exercise Program, Neuromuscular Re-education, Self-Care/Home Management, Therapeutic Exercises Modalities Biofeedback Next Visit Focus/Plan Next Note Type Treatment Note Next Visit Plan Trial of NMES first prior to EMG biofeedback next visit and work on standing pelvic floor contractions
--- NOTE | 2023-04-27 12:15 | PT.OPPOC ---
Physical, Occupational & Speech Therapy At [facility] Current Diagnoses Malignant neoplasm of prostate (04/27/23) Nocturia (04/27/23) Urgency of urination (04/27/23) Visit Care Team Role Provider Type Felipe Lange MD Attending Provider Physician Family Provider Primary Care Provider Referring Provider Specialty: Internal Medicine Address: [address] [place] [address], [address], [facility] Email: [email or web address] Plan Of Care PT-OP-T Assessment and Plan Start: 10/05/22 15:29 Freq: Status: Active Protocol: Document 04/27/23 11:22 [facility] (Rec: 04/27/23 12:14 [facility] [id number]) Physical Therapy Assessment Goals 4 Impairment Constant Urinary leakage both day and night Short Term Goal (STG) Renny is waking up dry in the am Renny is still waking up 2-3 times per night and has soaked through the maxi pad he has on. He is able to start the stream for 5-6 seconds when getting up to change the pad STG Duration 6 weeks [facility] Goal (LTG) Renny is down to 1 brief per day from 4-5 briefs currently Renny is still going through multiple briefs per day LTG Duration 12 weeks 3 Impairment Pt is undergoing a radical prostatectomy and will require pelvic floor endurance training and strengtheing post operatively [facility] Goal (LTG) Renny is able to sustain a pelvic floor contraction x 10 seconds in supine and standing positions for good endurance support of his bladder goal met in supine and Renny is working on upright positions LTG Duration 12 weeks + 2 Impairment urinary urgency and frequency with pt having many bladder irritants in his current diet Short Term Goal (STG) Renny is educated on bladder irritants and how they can contribute to urinary urgency and frequency GOAL MET STG Duration 1 day 1 Impairment pt lacks a home exercise program for s/p radical prostatectomy Short Term Goal (STG) Pt is educated on a home exercise program he can begin now and continue with post up surgery GOAL MET STG Duration 1 day [facility] Goal (LTG) pt is able to work on a progressive exercise program for pelvic floor and core strengthening Goal met LTG Duration 12 weeks Assessment Summary Assessment Renny returns to PT today after working on his own with pelvic floor strengthening the past month. He is now using a home NMES unit for muscular stimulation of the pelvic floor. He notes that he is not seeing much change with regards to his leaking. He is releasing the clamp approx every hour so that he doesn't leak through. At night he wakes 2-3 times to void and can start the stream for 5-6 seconds now which is a little improvement from before. We have added in dynamic stabilization exercises for his core in and Renny is working hard on his HEP. He would like to continue PT Physical Therapy Plan Frequency and Duration Frequency of Treatment 1x/Week Duration of treatment (weeks) 12 Plan of Care Start Date 04/27/23 Plan of Care End Date 07/27/23 Therapeutic Interventions Therapeutic Interventions Home Exercise Program, Neuromuscular Re-education, Self-Care/Home Management, Therapeutic Exercises Modalities Biofeedback Next Visit Focus/Plan Next Note Type Treatment Note Next Visit Plan Trial of NMES first prior to EMG biofeedback next visit and work on standing pelvic floor contractions Plan of Care Dates Plan of Care Start Date 04/27/23 Plan of Care End Date 07/27/23 Electronically Signed by: Harper Rudd, PT 04/27/23 2637 If you are in agreement with this Plan of Care, please return a signed and dated copy. I have reviewed this Plan of Care and certify that the skilled therapy services above are required to meet the patient?s needs. Physician Signature Date Printed Name and Credentials Clinical Instructor Signature Printed Name and Credentials
--- NOTE | 2023-05-19 09:30 | PT.OTN ---
Current Diagnoses Malignant neoplasm of prostate (05/19/23) Nocturia (05/19/23) Urgency of urination (05/19/23) Physical Therapy Treatment Note PT-OP-A Visit Information Start: 10/05/22 15:28 Freq: Status: Active Protocol: Document 05/19/23 08:47 [facility] (Rec: 05/19/23 09:30 [facility] [id number]) Out-Patient Physical Therapy Visit Information Visit Information Visit Type Treatment Note Visit Start Time 08:45 Visit Stop Time 09:30 Total Visit Minutes 45 Visit Number 04/15 PT-OP-B Current Condition Start: 10/05/22 15:28 Freq: Status: Active Protocol: Document 10/05/22 16:00 [facility] (Rec: 10/05/22 16:39 [facility] [id number]) Current Condition History of Current Condition Onset Date for years Current Complaints urgency and frequency History of Current Condition surgery scheduled November 15, your urgency and frequency to void. If he gets chilled at all he will note 3 xms a hour. He will often wake 2 times per night. Pt reports some leakage with urgency Pt had a TURP procedure 8 years ago and it did not help. He started experiencing frequent urinary symptoms in his 40's and it has gradually gotten worse with time. He has a disc bulge L4-5 and he gets sciatica and numbness in his right leg. PT-OP-C Subjective Start: 10/05/22 15:28 Freq: Status: Active Protocol: Document 05/19/23 08:47 [facility] (Rec: 05/19/23 09:30 [facility] [id number]) OP-PT Subjective Patient Comments Patient Comments pt notes the only change he sees is that when he removes the clam there is a burst and he can stop and start the burst and has a little longer flow. He will wake up at night with a sensation he needs to void. When he walks to the toilet her can start a stream for a few seconds. PT-OP-F Manual Assessment Start: 10/05/22 15:29 Freq: Status: Active Protocol: Document 10/05/22 16:00 [facility] (Rec: 10/06/22 09:18 [facility] [id number]) Manual Assessments Soft Tissue Assessment Soft Tissue Mobility Assessment myofascial tightness in the suprapubic fascia and throught the iliopsoas musculature PT-OP-I Pelvic Floor Start: 10/05/22 15:28 Freq: Status: Active Protocol: Document 12/16/22 13:00 [facility] (Rec: 12/21/22 13:49 [facility] [id number]) Pelvic Floor Assessment SEMG (uV) Baseline 3 10 Second Contraction 19.8 Relaxation Fair Holding Fair Stability of Hold Fair SEMG Stability of Rest Fair Comments Pelvic Floor Comments pt presents with elevated resting tone, he lacks ability to sustain a pelvic floor contraction more than 5 seconds PT-OP-Q Treatments Start: 10/05/22 15:29 Freq: Status: Active Protocol: Document 05/19/23 08:47 [facility] (Rec: 05/19/23 09:30 [facility] [id number]) Therapeutic Exercises Supine Exercises templates Supine Exercise Name Templates with EMG biofeedback for the pelvic floor Reps/Minutes worked on eccentric lengthening of the pelvic floor and coordination Comments x 8 min quick pelvic floor contractions Reps/Minutes x 12 Comments 70 uv max pelvic floor long holds Supine Exercise Name with emg biofeedback, resting tone 3.o Reps/Minutes x 10 reps x 10 seconds Comments 39 average and 72 uv max Neuro Re-Education Treatment Other Activities NMES Details NMES Reps/Duration 10 Comments pt has been working on starting the intensity at 25 and works up to 30 worked with Renny's NMES maching and switched the stim mode from 12 which he had it set at to 50 Self-Care/Home Management Treatment Education Patient Education Home Exercise Program Other Education review of NMES set up for home and added in standing pelvic floor contractions for home PT-OP-T Assessment and Plan Start: 10/05/22 15:29 Freq: Status: Active Protocol: Document 05/19/23 08:47 [facility] (Rec: 05/19/23 09:30 [facility] [id number]) Physical Therapy Assessment Assessment Summary Assessment small changes only since last visit but strength does show improvment with both average and max of contraction Physical Therapy Plan Frequency and Duration Frequency of Treatment 1x/Week Duration of treatment (weeks) 12 Plan of Care Start Date 04/27/23 Plan of Care End Date 07/27/23 Therapeutic Interventions Therapeutic Interventions Home Exercise Program, Neuromuscular Re-education, Self-Care/Home Management, Therapeutic Exercises Modalities Biofeedback Next Visit Focus/Plan Next Note Type Treatment Note Next Visit Plan continue with NMES first and then work on standing pelvic floor contractions
--- NOTE | 2023-05-24 16:06 | PT.OTN ---
Current Diagnoses Malignant neoplasm of prostate (05/24/23) Nocturia (05/24/23) Urgency of urination (05/24/23) Physical Therapy Treatment Note PT-OP-A Visit Information Start: 10/05/22 15:28 Freq: Status: Active Protocol: Document 05/24/23 11:15 [facility] (Rec: 05/24/23 16:03 [facility] [id number]) Out-Patient Physical Therapy Visit Information Visit Information Visit Type Initial Evaluation Visit Start Time 11:15 Visit Stop Time 12:00 Total Visit Minutes 45 Visit Number 05/15 PT-OP-B Current Condition Start: 10/05/22 15:28 Freq: Status: Active Protocol: Document 10/05/22 16:00 [facility] (Rec: 10/05/22 16:39 [facility] [id number]) Current Condition History of Current Condition Onset Date for years Current Complaints urgency and frequency History of Current Condition surgery scheduled November 15, your urgency and frequency to void. If he gets chilled at all he will note 3 xms a hour. He will often wake 2 times per night. Pt reports some leakage with urgency Pt had a TURP procedure 8 years ago and it did not help. He started experiencing frequent urinary symptoms in his 40's and it has gradually gotten worse with time. He has a disc bulge L4-5 and he gets sciatica and numbness in his right leg. PT-OP-C Subjective Start: 10/05/22 15:28 Freq: Status: Active Protocol: Document 05/24/23 11:27 [facility] (Rec: 05/24/23 12:06 [facility] [id number]) OP-PT Subjective Patient Comments Patient Comments pt ntoes he tried the continues on the PT-OP-F Manual Assessment Start: 10/05/22 15:29 Freq: Status: Active Protocol: Document 10/05/22 16:00 [facility] (Rec: 10/06/22 09:18 [facility] [id number]) Manual Assessments Soft Tissue Assessment Soft Tissue Mobility Assessment myofascial tightness in the suprapubic fascia and throught the iliopsoas musculature PT-OP-I Pelvic Floor Start: 10/05/22 15:28 Freq: Status: Active Protocol: Document 12/16/22 13:00 [facility] (Rec: 12/21/22 13:49 [facility] [id number]) Pelvic Floor Assessment SEMG (uV) Baseline 3 10 Second Contraction 19.8 Relaxation Fair Holding Fair Stability of Hold Fair SEMG Stability of Rest Fair Comments Pelvic Floor Comments pt presents with elevated resting tone, he lacks ability to sustain a pelvic floor contraction more than 5 seconds PT-OP-Q Treatments Start: 10/05/22 15:29 Freq: Status: Active Protocol: Document 05/24/23 11:27 [facility] (Rec: 05/24/23 12:06 [facility] [id number]) Therapeutic Exercises Supine Exercises templates Supine Exercise Name Templates with EMG biofeedback for the pelvic floor Reps/Minutes worked on eccentric lengthening of the pelvic floor and coordination Comments x 8 min quick pelvic floor contractions Reps/Minutes x 12 Comments 74.4 uv max pelvic floor long holds Supine Exercise Name with emg biofeedback, resting tone 3.o Reps/Minutes x 10 reps x 10 seconds Comments 42 average 78.4 Standing Exercises quick flicks Reps/Minutes 2 sec on 2 sec off Comments 26 avera and 66 max standing pelvic floor Reps/Minutes 5 sec contraction with 10 second rest Comments 37.5 average and 68 max PT-OP-T Assessment and Plan Start: 10/05/22 15:29 Freq: Status: Active Protocol: Document 05/24/23 11:27 [facility] (Rec: 05/24/23 12:06 [facility] [id number]) Physical Therapy Assessment Goals 4 Impairment Constant Urinary leakage both day and night Short Term Goal (STG) Renny is waking up dry in the am Renny is still waking up 2-3 times per night and has soaked through the maxi pad he has on. He is able to start the stream for 5-6 seconds when getting up to change the pad STG Duration 6 weeks Jail Goal (LTG) Renny is down to 1 brief per day from 4-5 briefs currently Renny is still going through multiple briefs per day LTG Duration 12 weeks 3 Impairment Pt is undergoing a radical prostatectomy and will require pelvic floor endurance training and strengtheing post operatively Jail Goal (LTG) Renny is able to sustain a pelvic floor contraction x 10 seconds in supine and standing positions for good endurance support of his bladder goal met in supine and Renny is working on upright positions LTG Duration 12 weeks + 2 Impairment urinary urgency and frequency with pt having many bladder irritants in his current diet Short Term Goal (STG) Renny is educated on bladder irritants and how they can contribute to urinary urgency and frequency GOAL MET STG Duration 1 day 1 Impairment pt lacks a home exercise program for s/p radical prostatectomy Short Term Goal (STG) Pt is educated on a home exercise program he can begin now and continue with post up surgery GOAL MET STG Duration 1 day Jail Goal (LTG) pt is able to work on a progressive exercise program for pelvic floor and core strengthening Goal met LTG Duration 12 weeks Assessment Summary Assessment Renny has switched to regular briefs at night with a mens guard inside and he wakes 2 times to change the mens guard which is wet but it doesn't seems to soaking through to the brief. Thens guard is still wet when he wakes up. There is improvements with strength on EMG biofeedback today and Renny was able to work on 5 second hold time in standing Physical Therapy Plan Frequency and Duration Frequency of Treatment 1x/Week Duration of treatment (weeks) 12 Plan of Care Start Date 04/27/23 Plan of Care End Date 07/27/23 Therapeutic Interventions Therapeutic Interventions Home Exercise Program, Neuromuscular Re-education, Self-Care/Home Management, Therapeutic Exercises Modalities Biofeedback
--- NOTE | 2023-06-02 08:33 | PT.OTN ---
Current Diagnoses Malignant neoplasm of prostate (06/01/23) Nocturia (06/01/23) Urgency of urination (06/01/23) Physical Therapy Treatment Note PT-OP-A Visit Information Start: 10/05/22 15:28 Freq: Status: Active Protocol: Document 06/01/23 10:32 [facility] (Rec: 06/01/23 11:17 [facility] [id number]) Out-Patient Physical Therapy Visit Information Visit Information Visit Type Treatment Note Visit Start Time 10:32 Visit Stop Time 11:15 Total Visit Minutes 43 Visit Number 06/15 PT-OP-B Current Condition Start: 10/05/22 15:28 Freq: Status: Active Protocol: Document 10/05/22 16:00 [facility] (Rec: 10/05/22 16:39 [facility] [id number]) Current Condition History of Current Condition Onset Date for years Current Complaints urgency and frequency History of Current Condition surgery scheduled November 15, your urgency and frequency to void. If he gets chilled at all he will note 3 xms a hour. He will often wake 2 times per night. Pt reports some leakage with urgency Pt had a TURP procedure 8 years ago and it did not help. He started experiencing frequent urinary symptoms in his 40's and it has gradually gotten worse with time. He has a disc bulge L4-5 and he gets sciatica and numbness in his right leg. PT-OP-C Subjective Start: 10/05/22 15:28 Freq: Status: Active Protocol: Document 06/01/23 10:32 [facility] (Rec: 06/01/23 11:17 [facility] [id number]) OP-PT Subjective Patient Comments Patient Comments pt has been doing the continuous stim he notes he is in a pattern of waking up 2 times at night to void, he notes the second time he wakes up there has been times with no leakage in the pad. He is using regular briefs now instead of the pull up depends. Renny also notes that he is now able to sit on a hard chair without the pain on his perineum. He has been sitting in his hot tub with the jets on his perineum to help reduce tightness and scar tissue in this area. Patient Reported Progress Improving PT-OP-F Manual Assessment Start: 10/05/22 15:29 Freq: Status: Active Protocol: Document 10/05/22 16:00 [facility] (Rec: 10/06/22 09:18 [facility] [id number]) Manual Assessments Soft Tissue Assessment Soft Tissue Mobility Assessment myofascial tightness in the suprapubic fascia and throught the iliopsoas musculature PT-OP-I Pelvic Floor Start: 10/05/22 15:28 Freq: Status: Active Protocol: Document 12/16/22 13:00 [facility] (Rec: 12/21/22 13:49 [facility] [id number]) Pelvic Floor Assessment SEMG (uV) Baseline 3 10 Second Contraction 19.8 Relaxation Fair Holding Fair Stability of Hold Fair SEMG Stability of Rest Fair Comments Pelvic Floor Comments pt presents with elevated resting tone, he lacks ability to sustain a pelvic floor contraction more than 5 seconds PT-OP-Q Treatments Start: 10/05/22 15:29 Freq: Status: Active Protocol: Document 06/01/23 10:32 [facility] (Rec: 06/01/23 11:17 [facility] [id number]) Therapeutic Exercises Supine Exercises modified squat stretch in supine Reps/Minutes hold 1-2 minutes templates Supine Exercise Name Templates with EMG biofeedback for the pelvic floor Reps/Minutes worked on eccentric lengthening of the pelvic floor and coordination Comments x 8 min quick pelvic floor contractions Reps/Minutes x 15 pelvic floor long holds Supine Exercise Name with emg biofeedback, resting tone 2.0 Comments 45.average and max of 87.5 Neuro Re-Education Treatment Other Activities NMES Details NMES for the pelvic floor Reps/Duration 5 Comments worked 10 sec on 10 sec off at level 21 to warm up prior to EMG biofeedback Self-Care/Home Management Treatment Activities Self-Care/Home Management Activities Renny was shown self scar tissue work for the perineum and was also shown a pelvic floor stretch to work on pelvic floor mobility PT-OP-T Assessment and Plan Start: 10/05/22 15:29 Freq: Status: Active Protocol: Document 06/01/23 10:32 [facility] (Rec: 06/01/23 13:31 [facility] [id number]) Physical Therapy Assessment Assessment Summary Assessment Renny notes that he is now able to sit on a hard chair without the discomfort as well as he is not noting the leakage anymore with pressure up on his perineum. I did show him the modified squat stretch today to help with tension as well as self scar tissue mobilization techniques . He continues to show progress with pelvic floor strength Physical Therapy Plan Frequency and Duration Frequency of Treatment 1x/Week Duration of treatment (weeks) 12 Plan of Care Start Date 04/27/23 Plan of Care End Date 07/27/23 Therapeutic Interventions Therapeutic Interventions Home Exercise Program, Neuromuscular Re-education, Self-Care/Home Management, Therapeutic Exercises Modalities Biofeedback Next Visit Focus/Plan Next Note Type Treatment Note Next Visit Plan review pelvic floor stretch and self scar tissue release continue with EMG biofeedback for pelvic floor strengthening
--- NOTE | 2023-06-07 11:12 | PT.OTN ---
Current Diagnoses Malignant neoplasm of prostate (06/07/23) Nocturia (06/07/23) Urgency of urination (06/07/23) Physical Therapy Treatment Note PT-OP-A Visit Information Start: 10/05/22 15:28 Freq: Status: Active Protocol: Document 06/07/23 10:33 [facility] (Rec: 06/07/23 11:10 [facility] [id number]) Out-Patient Physical Therapy Visit Information Visit Information Visit Type Treatment Note Visit Start Time 10:33 Visit Stop Time 11:15 Total Visit Minutes 42 Visit Number 07/15 PT-OP-B Current Condition Start: 10/05/22 15:28 Freq: Status: Active Protocol: Document 10/05/22 16:00 [facility] (Rec: 10/05/22 16:39 [facility] [id number]) Current Condition History of Current Condition Onset Date for years Current Complaints urgency and frequency History of Current Condition surgery scheduled November 15, your urgency and frequency to void. If he gets chilled at all he will note 3 xms a hour. He will often wake 2 times per night. Pt reports some leakage with urgency Pt had a TURP procedure 8 years ago and it did not help. He started experiencing frequent urinary symptoms in his 40's and it has gradually gotten worse with time. He has a disc bulge L4-5 and he gets sciatica and numbness in his right leg. PT-OP-C Subjective Start: 10/05/22 15:28 Freq: Status: Active Protocol: Document 06/07/23 10:33 [facility] (Rec: 06/07/23 11:10 [facility] [id number]) OP-PT Subjective Patient Comments Patient Comments pt notes yesterday he had a day more of leaking and and he isn't sure what was the culprit PT-OP-F Manual Assessment Start: 10/05/22 15:29 Freq: Status: Active Protocol: Document 10/05/22 16:00 [facility] (Rec: 10/06/22 09:18 [facility] [id number]) Manual Assessments Soft Tissue Assessment Soft Tissue Mobility Assessment myofascial tightness in the suprapubic fascia and throught the iliopsoas musculature PT-OP-I Pelvic Floor Start: 10/05/22 15:28 Freq: Status: Active Protocol: Document 12/16/22 13:00 [facility] (Rec: 12/21/22 13:49 [facility] [id number]) Pelvic Floor Assessment SEMG (uV) Baseline 3 10 Second Contraction 19.8 Relaxation Fair Holding Fair Stability of Hold Fair SEMG Stability of Rest Fair Comments Pelvic Floor Comments pt presents with elevated resting tone, he lacks ability to sustain a pelvic floor contraction more than 5 seconds PT-OP-Q Treatments Start: 10/05/22 15:29 Freq: Status: Active Protocol: Document 06/07/23 10:33 [facility] (Rec: 06/07/23 11:10 [facility] [id number]) Therapeutic Exercises Supine Exercises pelvic floor long holds Supine Exercise Name with emg biofeedback, resting tone 2.0 Comments 40.8 uv average and max 73.5 Sidelying Exercises clam shells Reps/Minutes 3 x 10 reps Standing Exercises quick flicks Reps/Minutes 2 sec on 2 sec off Comments 26 avera and 72 max PT-OP-T Assessment and Plan Start: 10/05/22 15:29 Freq: Status: Active Protocol: Document 06/07/23 10:33 [facility] (Rec: 06/07/23 11:10 [facility] [id number]) Physical Therapy Assessment Assessment Summary Assessment Renny's stomach was off some today and he had been up at 1 am [address] to [employer] to drop off his . His numbers were not as good today on EMG biofeedback Physical Therapy Plan Frequency and Duration Frequency of Treatment 1x/Week Duration of treatment (weeks) 12 Plan of Care Start Date 04/27/23 Plan of Care End Date 07/27/23 Next Visit Focus/Plan Next Note Type Treatment Note Next Visit Plan continue with pelvic floor strengthening and NMES
--- NOTE | 2023-06-07 16:45 | PT.OTN ---
Current Diagnoses Malignant neoplasm of prostate (06/07/23) Nocturia (06/07/23) Urgency of urination (06/07/23) Physical Therapy Treatment Note PT-OP-A Visit Information Start: 10/05/22 15:28 Freq: Status: Active Protocol: Document 06/07/23 10:33 [facility] (Rec: 06/07/23 11:10 [facility] [id number]) Out-Patient Physical Therapy Visit Information Visit Information Visit Type Treatment Note Visit Start Time 10:33 Visit Stop Time 11:15 Total Visit Minutes 42 Visit Number 07/15 PT-OP-B Current Condition Start: 10/05/22 15:28 Freq: Status: Active Protocol: Document 10/05/22 16:00 [facility] (Rec: 10/05/22 16:39 [facility] [id number]) Current Condition History of Current Condition Onset Date for years Current Complaints urgency and frequency History of Current Condition surgery scheduled November 15, your urgency and frequency to void. If he gets chilled at all he will note 3 xms a hour. He will often wake 2 times per night. Pt reports some leakage with urgency Pt had a TURP procedure 8 years ago and it did not help. He started experiencing frequent urinary symptoms in his 40's and it has gradually gotten worse with time. He has a disc bulge L4-5 and he gets sciatica and numbness in his right leg. PT-OP-C Subjective Start: 10/05/22 15:28 Freq: Status: Active Protocol: Document 06/07/23 10:33 [facility] (Rec: 06/07/23 11:10 [facility] [id number]) OP-PT Subjective Patient Comments Patient Comments pt notes yesterday he had a day more of leaking and and he isn't sure what was the culprit PT-OP-F Manual Assessment Start: 10/05/22 15:29 Freq: Status: Active Protocol: Document 10/05/22 16:00 [facility] (Rec: 10/06/22 09:18 [facility] [id number]) Manual Assessments Soft Tissue Assessment Soft Tissue Mobility Assessment myofascial tightness in the suprapubic fascia and throught the iliopsoas musculature PT-OP-I Pelvic Floor Start: 10/05/22 15:28 Freq: Status: Active Protocol: Document 12/16/22 13:00 [facility] (Rec: 12/21/22 13:49 [facility] [id number]) Pelvic Floor Assessment SEMG (uV) Baseline 3 10 Second Contraction 19.8 Relaxation Fair Holding Fair Stability of Hold Fair SEMG Stability of Rest Fair Comments Pelvic Floor Comments pt presents with elevated resting tone, he lacks ability to sustain a pelvic floor contraction more than 5 seconds PT-OP-Q Treatments Start: 10/05/22 15:29 Freq: Status: Active Protocol: Document 06/07/23 10:33 [facility] (Rec: 06/07/23 11:10 [facility] [id number]) Therapeutic Exercises Supine Exercises modified squat stretch in supine Reps/Minutes hold 1-2 minutes templates Supine Exercise Name Templates with EMG biofeedback for the pelvic floor Reps/Minutes worked on eccentric lengthening of the pelvic floor and coordination Comments x 8 min pelvic floor long holds Supine Exercise Name with emg biofeedback, resting tone 2.0 Comments 40.8 uv average and max 73.5 Sidelying Exercises clam shells Reps/Minutes 3 x 10 reps Standing Exercises quick flicks Reps/Minutes 2 sec on 2 sec off Comments 26 avera and 72 max PT-OP-T Assessment and Plan Start: 10/05/22 15:29 Freq: Status: Active Protocol: Document 06/07/23 10:33 [facility] (Rec: 06/07/23 11:10 [facility] [id number]) Physical Therapy Assessment Assessment Summary Assessment Renny's stomach was off some today and he had been up at 1 [place] to [place] to drop off his . His numbers were not as good today on EMG biofeedback Physical Therapy Plan Frequency and Duration Frequency of Treatment 1x/Week Duration of treatment (weeks) 12 Plan of Care Start Date 04/27/23 Plan of Care End Date 07/27/23 Next Visit Focus/Plan Next Note Type Treatment Note Next Visit Plan continue with pelvic floor strengthening and NMES
--- NOTE | 2023-06-14 11:28 | PT.OTN ---
Current Diagnoses Malignant neoplasm of prostate (06/14/23) Nocturia (06/14/23) Urgency of urination (06/14/23) Physical Therapy Treatment Note PT-OP-A Visit Information Start: 10/05/22 15:28 Freq: Status: Active Protocol: Document 06/14/23 10:36 [facility] (Rec: 06/14/23 11:28 [facility] [id number]) Out-Patient Physical Therapy Visit Information Visit Information Visit Type Treatment Note Visit Note 15 more visits were approved until Visit Start Time 10:36 Visit Stop Time 11:21 Total Visit Minutes 45 Visit Number 13 PT-OP-B Current Condition Start: 10/05/22 15:28 Freq: Status: Active Protocol: Document 10/05/22 16:00 [facility] (Rec: 10/05/22 16:39 [facility] [id number]) Current Condition History of Current Condition Onset Date for years Current Complaints urgency and frequency History of Current Condition surgery scheduled November 15, your urgency and frequency to void. If he gets chilled at all he will note 3 xms a hour. He will often wake 2 times per night. Pt reports some leakage with urgency Pt had a TURP procedure 8 years ago and it did not help. He started experiencing frequent urinary symptoms in his 40's and it has gradually gotten worse with time. He has a disc bulge L4-5 and he gets sciatica and numbness in his right leg. PT-OP-C Subjective Start: 10/05/22 15:28 Freq: Status: Active Protocol: Document 06/14/23 10:36 [facility] (Rec: 06/14/23 11:28 [facility] [id number]) OP-PT Subjective Patient Comments Patient Comments Renny notes his daughter was visiting this past week so he hasn't done a lot with pelvic floor strengthening PT-OP-F Manual Assessment Start: 10/05/22 15:29 Freq: Status: Active Protocol: Document 10/05/22 16:00 [facility] (Rec: 10/06/22 09:18 [facility] [id number]) Manual Assessments Soft Tissue Assessment Soft Tissue Mobility Assessment myofascial tightness in the suprapubic fascia and throught the iliopsoas musculature PT-OP-I Pelvic Floor Start: 10/05/22 15:28 Freq: Status: Active Protocol: Document 12/16/22 13:00 [facility] (Rec: 12/21/22 13:49 [facility] [id number]) Pelvic Floor Assessment SEMG (uV) Baseline 3 10 Second Contraction 19.8 Relaxation Fair Holding Fair Stability of Hold Fair SEMG Stability of Rest Fair Comments Pelvic Floor Comments pt presents with elevated resting tone, he lacks ability to sustain a pelvic floor contraction more than 5 seconds PT-OP-Q Treatments Start: 10/05/22 15:29 Freq: Status: Active Protocol: Document 06/14/23 10:36 [facility] (Rec: 06/14/23 11:28 [facility] [id number]) Therapeutic Exercises Supine Exercises supine ball squeeze with bridge Reps/Minutes 3 x 10 reps templates Supine Exercise Name Templates with EMG biofeedback for the pelvic floor Reps/Minutes worked on eccentric lengthening of the pelvic floor and coordination Comments x 10 min quick pelvic floor contractions Supine Exercise Name sidelying today Reps/Minutes x 15 Comments 79 uv max pelvic floor long holds Supine Exercise Name with emg biofeedback, resting tone 2.0 back laying today Reps/Minutes 10 sec on 10 sec off Comments 41.4 uv average and max 67.1 max Other Exercises worked on pelvic floor stabilization with pts HEP for his knees Other Exercise Name TKE, SLR clam shells Reps/Minutes 5 min spent reviewing pelvic floor stabilization with these exercises PT-OP-T Assessment and Plan Start: 10/05/22 15:29 Freq: Status: Active Protocol: Document 06/14/23 10:36 [facility] (Rec: 06/14/23 11:28 [facility] [id number]) Physical Therapy Assessment Assessment Summary Assessment Renny was feeling better today as compared to last week. He has not had any change in his symptoms of leakage in the past two weeks. We reviewed pelvic floor recruitment with LE exercises he is doing for his hx of quad tendon tear and he is stabilizing well. Physical Therapy Plan Frequency and Duration Frequency of Treatment 1x/Week Duration of treatment (weeks) 12 Plan of Care Start Date 04/27/23 Plan of Care End Date 07/27/23 Therapeutic Interventions Therapeutic Interventions Home Exercise Program, Neuromuscular Re-education, Self-Care/Home Management, Therapeutic Exercises Modalities Biofeedback Next Visit Focus/Plan Next Note Type Treatment Note Next Visit Plan continue with pelvic floor strengthening, review quadruped TA and pelvic floor stabilization with opp arm/leg lifts
--- NOTE | 2023-06-21 17:00 | PT.OTN ---
Current Diagnoses Malignant neoplasm of prostate (06/21/23) Nocturia (06/21/23) Urgency of urination (06/21/23) Physical Therapy Treatment Note PT-OP-A Visit Information Start: 10/05/22 15:28 Freq: Status: Active Protocol: Document 06/21/23 10:37 [facility] (Rec: 06/21/23 11:16 [facility] [id number]) Out-Patient Physical Therapy Visit Information Visit Information Visit Type Treatment Note Visit Start Time 10:35 Visit Stop Time 11:15 Total Visit Minutes 40 Visit Number 14/15 PT-OP-B Current Condition Start: 10/05/22 15:28 Freq: Status: Active Protocol: Document 10/05/22 16:00 [facility] (Rec: 10/05/22 16:39 [facility] [id number]) Current Condition History of Current Condition Onset Date for years Current Complaints urgency and frequency History of Current Condition surgery scheduled November 15, your urgency and frequency to void. If he gets chilled at all he will note 3 xms a hour. He will often wake 2 times per night. Pt reports some leakage with urgency Pt had a TURP procedure 8 years ago and it did not help. He started experiencing frequent urinary symptoms in his 40's and it has gradually gotten worse with time. He has a disc bulge L4-5 and he gets sciatica and numbness in his right leg. PT-OP-C Subjective Start: 10/05/22 15:28 Freq: Status: Active Protocol: Document 06/21/23 10:35 [facility] (Rec: 06/30/23 08:04 [facility] [id number]) OP-PT Subjective Patient Comments Patient Comments Renny notes no change since last visit PT-OP-F Manual Assessment Start: 10/05/22 15:29 Freq: Status: Active Protocol: Document 10/05/22 16:00 [facility] (Rec: 10/06/22 09:18 [facility] [id number]) Manual Assessments Soft Tissue Assessment Soft Tissue Mobility Assessment myofascial tightness in the suprapubic fascia and throught the iliopsoas musculature PT-OP-I Pelvic Floor Start: 10/05/22 15:28 Freq: Status: Active Protocol: Document 12/16/22 13:00 [facility] (Rec: 12/21/22 13:49 [facility] [id number]) Pelvic Floor Assessment SEMG (uV) Baseline 3 10 Second Contraction 19.8 Relaxation Fair Holding Fair Stability of Hold Fair SEMG Stability of Rest Fair Comments Pelvic Floor Comments pt presents with elevated resting tone, he lacks ability to sustain a pelvic floor contraction more than 5 seconds PT-OP-Q Treatments Start: 10/05/22 15:29 Freq: Status: Active Protocol: Document 06/21/23 10:37 [facility] (Rec: 06/21/23 11:16 [facility] [id number]) Therapeutic Exercises Supine Exercises pelvic floor long holds Supine Exercise Name with emg biofeedback, resting tone 2.0 back laying today Reps/Minutes 10 sec on 10 sec off Comments 41.4 uv 71 uv max PT-OP-T Assessment and Plan Start: 10/05/22 15:29 Freq: Status: Active Protocol: Document 06/21/23 10:35 [facility] (Rec: 06/30/23 08:04 [facility] [id number]) Physical Therapy Assessment Assessment Summary Assessment Renny's strength was the same today as last visit. I will start working on upright strengthening with him next visit Physical Therapy Plan Frequency and Duration Frequency of Treatment 1x/Week Duration of treatment (weeks) 12 Plan of Care Start Date 04/27/23 Plan of Care End Date 07/27/23 Next Visit Focus/Plan Next Note Type Treatment Note Next Visit Plan work on upright strengthening and transverse abdominal work in quadruped
--- NOTE | 2023-08-30 15:54 | PT.OTN ---
Current Diagnoses Malignant neoplasm of prostate (08/30/23) Nocturia (08/30/23) Urgency of urination (08/30/23) Physical Therapy Treatment Note PT-OP-A Visit Information Start: 10/05/22 15:28 Freq: Status: Active Protocol: Document 08/30/23 11:22 [facility] (Rec: 08/30/23 12:03 [facility] [id number]) Out-Patient Physical Therapy Visit Information Visit Information Visit Type Progress Note Visit Start Time 11:20 Visit Stop Time 12:00 Visit Number [id number] PT-OP-B Current Condition Start: 10/05/22 15:28 Freq: Status: Active Protocol: Document 10/05/22 16:00 [facility] (Rec: 10/05/22 16:39 [facility] [id number]) Current Condition History of Current Condition Onset Date for years Current Complaints urgency and frequency History of Current Condition surgery scheduled November 15, your urgency and frequency to void. If he gets chilled at all he will note 3 xms a hour. He will often wake 2 times per night. Pt reports some leakage with urgency Pt had a TURP procedure 8 years ago and it did not help. He started experiencing frequent urinary symptoms in his 40's and it has gradually gotten worse with time. He has a disc bulge L4-5 and he gets sciatica and numbness in his right leg. PT-OP-C Subjective Start: 10/05/22 15:28 Freq: Status: Active Protocol: Document 08/30/23 11:22 [facility] (Rec: 08/30/23 12:03 [facility] [id number]) OP-PT Subjective Patient Comments Patient Comments pt has been out of town in [place] working on getting a house painted for his daughter . He is still getting up at night and noting the maxi pad is soaked, sometimes there is urine to void. The urge to void wakes him up but when he gets to the bathroom there isn 't much there Patient Reported Progress Same PT-OP-F Manual Assessment Start: 10/05/22 15:29 Freq: Status: Active Protocol: Document 10/05/22 16:00 [facility] (Rec: 10/06/22 09:18 [facility] [id number]) Manual Assessments Soft Tissue Assessment Soft Tissue Mobility Assessment myofascial tightness in the suprapubic fascia and throught the iliopsoas musculature PT-OP-I Pelvic Floor Start: 10/05/22 15:28 Freq: Status: Active Protocol: Document 12/16/22 13:00 [facility] (Rec: 12/21/22 13:49 [facility] [id number]) Pelvic Floor Assessment SEMG (uV) Baseline 3 10 Second Contraction 19.8 Relaxation Fair Holding Fair Stability of Hold Fair SEMG Stability of Rest Fair Comments Pelvic Floor Comments pt presents with elevated resting tone, he lacks ability to sustain a pelvic floor contraction more than 5 seconds PT-OP-Q Treatments Start: 10/05/22 15:29 Freq: Status: Active Protocol: Document 08/30/23 11:22 [facility] (Rec: 08/30/23 12:03 [facility] [id number]) Therapeutic Exercises Supine Exercises TA with heel slide and opp knee bent Reps/Minutes x 10 reps Comments with opp knee at 90deg now TA with march Reps/Minutes x 10 reps Comments worked on marching up up down down as just the september was easy for him supine ball squeeze with bridge Reps/Minutes 3 x 10 reps quick pelvic floor contractions Reps/Minutes x 15 reps Comments 74.2 uv max pelvic floor long holds Supine Exercise Name with emg biofeedback, resting tone 2.0 back laying today Reps/Minutes 10 sec on 10 sec off Comments 49.8 uv and max of 89.4 PT-OP-T Assessment and Plan Start: 10/05/22 15:29 Freq: Status: Active Protocol: Document 08/30/23 11:20 [facility] (Rec: 09/06/23 15:51 [facility] [id number]) Physical Therapy Assessment Goals 4 Impairment Constant Urinary leakage both day and night Short Term Goal (STG) Renny is waking up dry in the am Renny is still waking up 2-3 times per night and has soaked through the maxi pad he has on. He is able to start the stream for 5-6 seconds when getting up to change the pad STG Duration 6 weeks Longterm Goal (LTG) Renny is down to 1 brief per day from 4-5 briefs currently Renny is still going through multiple briefs per day LTG Duration 12 weeks 3 Impairment Pt is undergoing a radical prostatectomy and will require pelvic floor endurance training and strengtheing post operatively Parking Cashier Goal (LTG) Renny is able to sustain a pelvic floor contraction x 10 seconds in supine and standing positions for good endurance support of his bladder goal met in supine and Renny is working on upright positions LTG Duration 12 weeks + 2 Impairment urinary urgency and frequency with pt having many bladder irritants in his current diet Short Term Goal (STG) Renny is educated on bladder irritants and how they can contribute to urinary urgency and frequency GOAL MET STG Duration 1 day 1 Impairment pt lacks a home exercise program for s/p radical prostatectomy Short Term Goal (STG) Pt is educated on a home exercise program he can begin now and continue with post up surgery GOAL MET STG Duration 1 day Parking Cashier Goal (LTG) pt is able to work on a progressive exercise program for pelvic floor and core strengthening Goal met LTG Duration 12 weeks Assessment Summary Assessment Renny returns to PT today after not being seen x 2 months as he was out of town. Renny's strength was the same today as last visit. He is still experiencing the leakage both during the night as well as day time and continues to use the clamp. I will start working on upright strengthening with him next visit. He would like to continue PT at this time. Physical Therapy Plan Frequency and Duration Frequency of Treatment 1x/Week Duration of treatment (weeks) 12 Plan of Care Start Date 08/31/23 Plan of Care End Date 11/22/23 Therapeutic Interventions Therapeutic Interventions Home Exercise Program, Neuromuscular Re-education, Self-Care/Home Management, Therapeutic Exercises Modalities Biofeedback Next Visit Focus/Plan Next Note Type Treatment Note Next Visit Plan work on upright strengthening and transverse abdominal work in quadruped
--- NOTE | 2023-08-30 15:54 | PT.OPPOC ---
Physical, Occupational & Speech Therapy At [facility] Current Diagnoses Malignant neoplasm of prostate (08/30/23) Nocturia (08/30/23) Urgency of urination (08/30/23) Visit Care Team Role Provider Type Felipe Lange MD Family Provider Non-Staff Primary Care Provider Referring Provider Specialty: Internal Medicine Address: [address] [place] [address], [address], [place], [address] Email: Zoë Taylor MD Attending Provider Physician Specialty: Urology Address: [address] [place] [address], [address] Email: Plan Of Care PT-OP-T Assessment and Plan Start: 10/05/22 15:29 Freq: Status: Active Protocol: Document 08/30/23 11:20 [facility] (Rec: 09/06/23 15:51 [facility] [id number]) Physical Therapy Assessment Goals 4 Impairment Constant Urinary leakage both day and night Short Term Goal (STG) Renny is waking up dry in the am Renny is still waking up 2-3 times per night and has soaked through the maxi pad he has on. He is able to start the stream for 5-6 seconds when getting up to change the pad STG Duration 6 weeks Plumbing Instructor Goal (LTG) Renny is down to 1 brief per day from 4-5 briefs currently Renny is still going through multiple briefs per day LTG Duration 12 weeks 3 Impairment Pt is undergoing a radical prostatectomy and will require pelvic floor endurance training and strengthening post operatively Half-Way Goal (LTG) Renny is able to sustain a pelvic floor contraction x 10 seconds in supine and standing positions for good endurance support of his bladder goal met in supine and Renny is working on upright positions LTG Duration 12 weeks + 2 Impairment urinary urgency and frequency with pt having many bladder irritants in his current diet Short Term Goal (STG) Renny is educated on bladder irritants and how they can contribute to urinary urgency and frequency GOAL MET STG Duration 1 day 1 Impairment pt lacks a home exercise program for s/p radical prostatectomy Short Term Goal (STG) Pt is educated on a home exercise program he can begin now and continue with post up surgery GOAL MET STG Duration 1 day Half-Way Goal (LTG) pt is able to work on a progressive exercise program for pelvic floor and core strengthening Goal met LTG Duration 12 weeks Assessment Summary Assessment Renny returns to PT today after not being seen x 2 months as he was out of town. Renny's strength was the same today as last visit. He is still experiencing the leakage both during the night as well as day time and continues to use the clamp. I will start working on upright strengthening with him next visit. He would like to continue PT at this time. Physical Therapy Plan Frequency and Duration Frequency of Treatment 1x/Week Duration of treatment (weeks) 12 Plan of Care Start Date 08/31/23 Plan of Care End Date 11/22/23 Therapeutic Interventions Therapeutic Interventions Home Exercise Program, Neuromuscular Re-education, Self-Care/Home Management, Therapeutic Exercises Modalities Biofeedback Next Visit Focus/Plan Next Note Type Treatment Note Next Visit Plan work on upright strengthening and transverse abdominal work in quadruped Plan of Care Dates Plan of Care Start Date 08/31/23 Plan of Care End Date 11/22/23 Electronically Signed by: Harper Rudd, PT 09/06/23 3403 If you are in agreement with this Plan of Care, please return a signed and dated copy. I have reviewed this Plan of Care and certify that the skilled therapy services above are required to meet the patient?s needs. Physician Signature Date Printed Name and Credentials Clinical Instructor Signature Printed Name and Credentials
--- NOTE | 2023-09-13 17:04 | PT.OTN ---
Current Diagnoses Malignant neoplasm of prostate (09/13/23) Nocturia (09/13/23) Urgency of urination (09/13/23) Physical Therapy Treatment Note PT-OP-A Visit Information Start: 10/05/22 15:28 Freq: Status: Active Protocol: Document 09/13/23 11:17 [facility] (Rec: 09/13/23 12:03 [facility] [id number]) Out-Patient Physical Therapy Visit Information Visit Information Visit Type Treatment Note Visit Start Time 11:16 Visit Stop Time 12:00 Visit Number 08/15 PT-OP-B Current Condition Start: 10/05/22 15:28 Freq: Status: Active Protocol: Document 10/05/22 16:00 [facility] (Rec: 10/05/22 16:39 [facility] [id number]) Current Condition History of Current Condition Onset Date for years Current Complaints urgency and frequency History of Current Condition surgery scheduled November 15, your urgency and frequency to void. If he gets chilled at all he will note 3 xms a hour. He will often wake 2 times per night. Pt reports some leakage with urgency Pt had a TURP procedure 8 years ago and it did not help. He started experiencing frequent urinary symptoms in his 40's and it has gradually gotten worse with time. He has a disc bulge L4-5 and he gets sciatica and numbness in his right leg. PT-OP-C Subjective Start: 10/05/22 15:28 Freq: Status: Active Protocol: Document 09/13/23 11:17 [facility] (Rec: 09/13/23 12:03 [facility] [id number]) OP-PT Subjective Patient Comments Patient Comments Renny met with Dr drake on Tuesday and will meet with him again in November to discussing the internal catheter PT-OP-F Manual Assessment Start: 10/05/22 15:29 Freq: Status: Active Protocol: Document 10/05/22 16:00 [facility] (Rec: 10/06/22 09:18 [facility] [id number]) Manual Assessments Soft Tissue Assessment Soft Tissue Mobility Assessment myofascial tightness in the suprapubic fascia and throught the iliopsoas musculature PT-OP-I Pelvic Floor Start: 10/05/22 15:28 Freq: Status: Active Protocol: Document 12/16/22 13:00 [facility] (Rec: 12/21/22 13:49 [facility] [id number]) Pelvic Floor Assessment SEMG (uV) Baseline 3 10 Second Contraction 19.8 Relaxation Fair Holding Fair Stability of Hold Fair SEMG Stability of Rest Fair Comments Pelvic Floor Comments pt presents with elevated resting tone, he lacks ability to sustain a pelvic floor contraction more than 5 seconds PT-OP-Q Treatments Start: 10/05/22 15:29 Freq: Status: Active Protocol: Document 09/13/23 11:17 [facility] (Rec: 09/13/23 12:03 [facility] [id number]) Therapeutic Exercises Supine Exercises quick pelvic floor contractions Supine Exercise Name sidelying today Reps/Minutes x 15 reps Comments 74.2 uv max pelvic floor long holds Supine Exercise Name with emg biofeedback, resting tone 2.0 back laying today Reps/Minutes 10 sec on 10 sec off Comments 44.7 average and max of 80 Standing Exercises quick flicks Reps/Minutes 73.0 uv max standing pelvic floor Reps/Minutes 40.1 and 72.3 max Other Exercises bird dog Reps/Minutes x 10 reps quadruped OL and OA lifts Reps/Minutes x 10 each quadruped TA Reps/Minutes x 10 reps Comments cues to hold the TA x 10 seconds PT-OP-T Assessment and Plan Start: 10/05/22 15:29 Freq: Status: Active Protocol: Document 09/13/23 11:17 [facility] (Rec: 09/13/23 12:03 [facility] [id number]) Physical Therapy Assessment Goals 4 Impairment Constant Urinary leakage both day and night Short Term Goal (STG) Renny is waking up dry in the am Renny is still waking up 2-3 times per night and has soaked through the maxi pad he has on. He is able to start the stream for 5-6 seconds when getting up to change the pad STG Duration 6 weeks Halfway Goal (LTG) Renny is down to 1 brief per day from 4-5 briefs currently Renny is still going through multiple briefs per day LTG Duration 12 weeks 3 Impairment Pt is undergoing a radical prostatectomy and will require pelvic floor endurance training and strengtheing post operatively Halfway Goal (LTG) Renny is able to sustain a pelvic floor contraction x 10 seconds in supine and standing positions for good endurance support of his bladder goal met in supine and Renny is working on upright positions LTG Duration 12 weeks + 2 Impairment urinary urgency and frequency with pt having many bladder irritants in his current diet Short Term Goal (STG) Renny is educated on bladder irritants and how they can contribute to urinary urgency and frequency GOAL MET STG Duration 1 day 1 Impairment pt lacks a home exercise program for s/p radical prostatectomy Short Term Goal (STG) Pt is educated on a home exercise program he can begin now and continue with post up surgery GOAL MET STG Duration 1 day Halfway Goal (LTG) pt is able to work on a progressive exercise program for pelvic floor and core strengthening Goal met LTG Duration 12 weeks Assessment Summary Assessment Renny will recheck with Dr Keenan in November HE would like to finish out his physical therapy as the Biofeedback is helpful for him to be able to see what he is doing with his exercises Physical Therapy Plan Frequency and Duration Frequency of Treatment 1x/Week Duration of treatment (weeks) 12 Plan of Care Start Date 08/31/23 Plan of Care End Date 11/22/23 Therapeutic Interventions Therapeutic Interventions Home Exercise Program, Neuromuscular Re-education, Self-Care/Home Management, Therapeutic Exercises Modalities Biofeedback Next Visit Focus/Plan Next Note Type Treatment Note Next Visit Plan continue working upright strength and mobility of the pelvic floor and core stabilization
--- NOTE | 2023-09-27 17:24 | PT.OTN ---
Current Diagnoses Malignant neoplasm of prostate (09/27/23) Nocturia (09/27/23) Urgency of urination (09/27/23) Physical Therapy Treatment Note PT-OP-A Visit Information Start: 10/05/22 15:28 Freq: Status: Active Protocol: Document 09/27/23 11:19 [facility] (Rec: 09/27/23 12:07 [facility] [id number]) Out-Patient Physical Therapy Visit Information Visit Information Visit Type Treatment Note PT-OP-B Current Condition Start: 10/05/22 15:28 Freq: Status: Active Protocol: Document 10/05/22 16:00 [facility] (Rec: 10/05/22 16:39 [facility] [id number]) Current Condition History of Current Condition Onset Date for years Current Complaints urgency and frequency History of Current Condition surgery scheduled November 15, your urgency and frequency to void. If he gets chilled at all he will note 3 xms a hour. He will often wake 2 times per night. Pt reports some leakage with urgency Pt had a TURP procedure 8 years ago and it did not help. He started experiencing frequent urinary symptoms in his 40's and it has gradually gotten worse with time. He has a disc bulge L4-5 and he gets sciatica and numbness in his right leg. PT-OP-C Subjective Start: 10/05/22 15:28 Freq: Status: Active Protocol: Document 09/27/23 11:19 [facility] (Rec: 09/27/23 12:07 [facility] [id number]) OP-PT Subjective Patient Comments Patient Comments pt notes he is still soaking through the maxi pad and leaked into the mens guard. For the most part he is getting up 2 times per night. The urge to void wakes him up. PT-OP-F Manual Assessment Start: 10/05/22 15:29 Freq: Status: Active Protocol: Document 10/05/22 16:00 [facility] (Rec: 10/06/22 09:18 [facility] [id number]) Manual Assessments Soft Tissue Assessment Soft Tissue Mobility Assessment myofascial tightness in the suprapubic fascia and throught the iliopsoas musculature PT-OP-I Pelvic Floor Start: 10/05/22 15:28 Freq: Status: Active Protocol: Document 12/16/22 13:00 [facility] (Rec: 12/21/22 13:49 [facility] [id number]) Pelvic Floor Assessment SEMG (uV) Baseline 3 10 Second Contraction 19.8 Relaxation Fair Holding Fair Stability of Hold Fair SEMG Stability of Rest Fair Comments Pelvic Floor Comments pt presents with elevated resting tone, he lacks ability to sustain a pelvic floor contraction more than 5 seconds PT-OP-Q Treatments Start: 10/05/22 15:29 Freq: Status: Active Protocol: Document 09/27/23 11:19 [facility] (Rec: 09/27/23 12:07 [facility] [id number]) Therapeutic Exercises Supine Exercises supine ball squeeze with bridge Reps/Minutes 3x 10 reps Comments 53 average and 97 max quick pelvic floor contractions Supine Exercise Name backlying Reps/Minutes x 15 reps Comments 102 uv max pelvic floor long holds Supine Exercise Name with emg biofeedback, resting tone 2.0 back laying today Reps/Minutes 10 sec on 10 sec off Comments 54 average and max 94 Standing Exercises quick flicks Reps/Minutes 95.4 uv max PT-OP-T Assessment and Plan Start: 10/05/22 15:29 Freq: Status: Active Protocol: Document 09/27/23 17:23 [facility] (Rec: 09/27/23 17:24 [facility] [id number]) Physical Therapy Assessment Assessment Summary Assessment Renny showed improvements in pelvic floor strength again today on EMG biofeedback. No change with his urinary leakage symptoms Physical Therapy Plan Frequency and Duration Frequency of Treatment 1x/Week Duration of treatment (weeks) 12 Plan of Care Start Date 08/31/23 Plan of Care End Date 11/22/23 Therapeutic Interventions Therapeutic Interventions Home Exercise Program, Neuromuscular Re-education, Self-Care/Home Management, Therapeutic Exercises Modalities Biofeedback Next Visit Focus/Plan Next Note Type Treatment Note Next Visit Plan continue working upright strength and mobility of the pelvic floor and core stabilization
--- NOTE | 2023-10-11 16:47 | PT.OTN ---
Current Diagnoses Malignant neoplasm of prostate (10/11/23) Nocturia (10/11/23) Urgency of urination (10/11/23) Physical Therapy Treatment Note PT-OP-A Visit Information Start: 10/05/22 15:28 Freq: Status: Active Protocol: Document 10/11/23 11:20 [facility] (Rec: 10/11/23 11:59 [facility] [id number]) Out-Patient Physical Therapy Visit Information Visit Information Visit Type Treatment Note Visit Start Time 11:20 Visit Stop Time 12:00 Visit Number 3/15 PT-OP-B Current Condition Start: 10/05/22 15:28 Freq: Status: Active Protocol: Document 10/05/22 16:00 [facility] (Rec: 10/05/22 16:39 [facility] [id number]) Current Condition History of Current Condition Onset Date for years Current Complaints urgency and frequency History of Current Condition surgery scheduled November 15, your urgency and frequency to void. If he gets chilled at all he will note 3 xms a hour. He will often wake 2 times per night. Pt reports some leakage with urgency Pt had a TURP procedure 8 years ago and it did not help. He started experiencing frequent urinary symptoms in his 40's and it has gradually gotten worse with time. He has a disc bulge L4-5 and he gets sciatica and numbness in his right leg. PT-OP-C Subjective Start: 10/05/22 15:28 Freq: Status: Active Protocol: Document 10/11/23 11:20 [facility] (Rec: 10/11/23 11:59 [facility] [id number]) OP-PT Subjective Patient Comments Patient Comments pt notes a right sided small amount of swelling on the right side of the groin just above the base of the penis. He noticed it a couple fo weeks ago standing in the shower PT-OP-F Manual Assessment Start: 10/05/22 15:29 Freq: Status: Active Protocol: Document 10/05/22 16:00 [facility] (Rec: 10/06/22 09:18 [facility] [id number]) Manual Assessments Soft Tissue Assessment Soft Tissue Mobility Assessment myofascial tightness in the suprapubic fascia and throught the iliopsoas musculature PT-OP-I Pelvic Floor Start: 10/05/22 15:28 Freq: Status: Active Protocol: Document 12/16/22 13:00 [facility] (Rec: 12/21/22 13:49 [facility] [id number]) Pelvic Floor Assessment SEMG (uV) Baseline 3 10 Second Contraction 19.8 Relaxation Fair Holding Fair Stability of Hold Fair SEMG Stability of Rest Fair Comments Pelvic Floor Comments pt presents with elevated resting tone, he lacks ability to sustain a pelvic floor contraction more than 5 seconds PT-OP-Q Treatments Start: 10/05/22 15:29 Freq: Status: Active Protocol: Document 10/11/23 11:20 [facility] (Rec: 10/11/23 11:59 [facility] [id number]) Therapeutic Exercises Supine Exercises TA with heel slide and opp knee bent Reps/Minutes x 10 reps Comments with opp knee at 90deg now TA with march Reps/Minutes x 10 reps Comments worked on marching up up down down as just the september was easy for him supine ball squeeze with bridge Reps/Minutes 3x 10 reps Comments 53 average and 97 max templates Supine Exercise Name Templates with EMG biofeedback for the pelvic floor Reps/Minutes worked on eccentric lengthening of the pelvic floor and coordination Comments x 10 min quick pelvic floor contractions Supine Exercise Name backlying Reps/Minutes x 15 reps Comments 102 uv max pelvic floor long holds Supine Exercise Name pt is able to rest to baseline today Reps/Minutes 10 sec on 10 sec off Comments 48 uv average max 87 Sidelying Exercises clam shells Reps/Minutes 3 x 10 reps Standing Exercises quick flicks Reps/Minutes 71.5 standing pelvic floor Equipment Used 5 second hold 10 sec rest Reps/Minutes 40.1 and 72.3 max PT-OP-T Assessment and Plan Start: 10/05/22 15:29 Freq: Status: Active Protocol: Document 10/11/23 11:20 [facility] (Rec: 10/11/23 11:59 [facility] [id number]) Physical Therapy Assessment Assessment Summary Assessment I did advise Renny to make a appt with his MD regarding the swelling at the base of his penis, he contines to experience constant leakage despite good effort at strengthening Physical Therapy Plan Frequency and Duration Frequency of Treatment 1x/Week Duration of treatment (weeks) 12 Plan of Care Start Date 08/31/23 Plan of Care End Date 11/22/23 Therapeutic Interventions Therapeutic Interventions Home Exercise Program, Neuromuscular Re-education, Self-Care/Home Management, Therapeutic Exercises Modalities Biofeedback Next Visit Focus/Plan Next Note Type Treatment Note Next Visit Plan check in with how Renny is doing with the swelling and continue strengthening in upright positions
--- NOTE | 2023-10-25 15:00 | PT.OTN ---
Current Diagnoses Malignant neoplasm of prostate (10/25/23) Nocturia (10/25/23) Urgency of urination (10/25/23) Physical Therapy Treatment Note PT-OP-A Visit Information Start: 10/05/22 15:28 Freq: Status: Active Protocol: Document 10/25/23 13:06 [facility] (Rec: 10/25/23 13:06 [facility] [id number]) Out-Patient Physical Therapy Visit Information Visit Information Visit Type Treatment Note Visit Start Time 11:20 Visit Stop Time 12:00 Visit Number [id number] PT-OP-B Current Condition Start: 10/05/22 15:28 Freq: Status: Active Protocol: Document 10/05/22 16:00 [facility] (Rec: 10/05/22 16:39 [facility] [id number]) Current Condition History of Current Condition Onset Date for years Current Complaints urgency and frequency History of Current Condition surgery scheduled November 15, your urgency and frequency to void. If he gets chilled at all he will note 3 xms a hour. He will often wake 2 times per night. Pt reports some leakage with urgency Pt had a TURP procedure 8 years ago and it did not help. He started experiencing frequent urinary symptoms in his 40's and it has gradually gotten worse with time. He has a disc bulge L4-5 and he gets sciatica and numbness in his right leg. PT-OP-C Subjective Start: 10/05/22 15:28 Freq: Status: Active Protocol: Document 10/25/23 11:21 [facility] (Rec: 10/25/23 11:55 [facility] [id number]) OP-PT Subjective Patient Comments Patient Comments notes the swelling on the right side of the inguinal area has increased so he had a ultrasound this am, he has never had pain their when doing his exercises, he hasn't done his exercises in the last two weeks do to the swelling until his ultrasound results are in. He meets with his doctor december 19 to discuss implanting the artificial sphincter. Renny also reports he had a consult with pulmonary due to a chronic cough he obtained when he was in [place] Patient Reported Progress Same PT-OP-F Manual Assessment Start: 10/05/22 15:29 Freq: Status: Active Protocol: Document 10/05/22 16:00 [facility] (Rec: 10/06/22 09:18 [facility] [id number]) Manual Assessments Soft Tissue Assessment Soft Tissue Mobility Assessment myofascial tightness in the suprapubic fascia and throught the iliopsoas musculature PT-OP-I Pelvic Floor Start: 10/05/22 15:28 Freq: Status: Active Protocol: Document 12/16/22 13:00 [facility] (Rec: 12/21/22 13:49 [facility] [id number]) Pelvic Floor Assessment SEMG (uV) Baseline 3 10 Second Contraction 19.8 Relaxation Fair Holding Fair Stability of Hold Fair SEMG Stability of Rest Fair Comments Pelvic Floor Comments pt presents with elevated resting tone, he lacks ability to sustain a pelvic floor contraction more than 5 seconds PT-OP-Q Treatments Start: 10/05/22 15:29 Freq: Status: Active Protocol: Document 10/25/23 11:21 [facility] (Rec: 10/25/23 11:55 [facility] [id number]) Therapeutic Exercises Supine Exercises TA with march Reps/Minutes x 10 reps Comments cues to avoid straining supine ball squeeze with bridge Reps/Minutes 3x 10 reps Comments 53 average and 97 max templates Supine Exercise Name Templates with EMG biofeedback for the pelvic floor Reps/Minutes worked on eccentric lengthening of the pelvic floor and coordination Comments x 10 min quick pelvic floor contractions Supine Exercise Name backlying Reps/Minutes x 15 reps Comments 102 uv max pelvic floor long holds Reps/Minutes x 10 reps holding 10 seconds and relaxing 10 seconds Comments average 17.2 average and max 75.2 uv max PT-OP-T Assessment and Plan Start: 10/05/22 15:29 Freq: Status: Active Protocol: Document 10/25/23 11:21 [facility] (Rec: 10/25/23 11:55 [facility] [id number]) Physical Therapy Assessment Goals 4 Impairment Constant Urinary leakage both day and night Short Term Goal (STG) Renny is waking up dry in the am Renny is still waking up 2-3 times per night and has soaked through the maxi pad he has on. He is able to start the stream for 5-6 seconds when getting up to change the pad STG Duration 6 weeks [employer] Engineer [employer]ice Goal (LTG) Renny is down to 1 brief per day from 4-5 briefs currently Renny is still going through multiple briefs per day LTG Duration 12 weeks 3 Impairment Pt is undergoing a radical prostatectomy and will require pelvic floor endurance training and strengtheing post operatively Operating Engineer Apprentice Goal (LTG) Renny is able to sustain a pelvic floor contraction x 10 seconds in supine and standing positions for good endurance support of his bladder goal met in supine and Renny is working on upright positions LTG Duration 12 weeks + 2 Impairment urinary urgency and frequency with pt having many bladder irritants in his current diet Short Term Goal (STG) Renny is educated on bladder irritants and how they can contribute to urinary urgency and frequency GOAL MET STG Duration 1 day 1 Impairment pt lacks a home exercise program for s/p radical prostatectomy Short Term Goal (STG) Pt is educated on a home exercise program he can begin now and continue with post up surgery GOAL MET STG Duration 1 day Operating Engineer Apprentice Goal (LTG) pt is able to work on a progressive exercise program for pelvic floor and core strengthening Goal met LTG Duration 12 weeks Assessment Summary Assessment I talked to Renny today about avoiding any straining and he was doing double leg extension for his knee control as his own exercises that I advised him to stop doing as it can cause pressure on the abdomen. He does report the chronic cough he had for over a month that also may be putting pressure on the right inguinal region. He notes he is not coughing now but had been for the past month and a half. At this point Renny is at a plateau with his symptoms and is independent with his HEP. Unfortunatly he continues to experience leakage. He would like to go ahead and talk to Dr. Taylor regarding implanting a artifical sphincter. He will be discharged from PT at this time Physical Therapy Plan Discharge Physical Therapy Discharge Reasons No Longer Attending PT Discharge Comments pt is at a plateau with progress and is Ind with his HEP
== END 2023-10-26 09:59 | disposition home or self-care (01) ==
LOC: PHYS 11:15
PROVIDERS: Family Provider Student in an Organized Health Care Education/Training Program; PCP Student in an Organized Health Care Education/Training Program; Referring Provider Student in an Organized Health Care Education/Training Program; Visit Provider Specialist
DX: C61 Malignant neoplasm of prostate (principal); R39.15 Urgency of urination; R35.1 Nocturia
CPT/HCPCS: 97110; 97112; 97161; 97164; 97535

== ENCOUNTER → 2023-11-02 15:44 | Outpatient (CLI) | payer OTHER, SELFPAY ==
[2022-12-01 05:34] VITALS: BMI 17.2
== END ==
LOC: LAB 15:45
PROVIDERS: Family Provider Student in an Organized Health Care Education/Training Program; PCP Family Medicine; Visit Provider Specialist
DX: N40.1 Benign prostatic hyperplasia with lower urinary tract symptoms (principal); N13.8 Other obstructive and reflux uropathy; K40.90 Unilateral inguinal hernia, without obstruction or gangrene, not specified as recurrent; N39.3 Stress incontinence (female) (male); Z85.46 Personal history of malignant neoplasm of prostate; Z80.42 Family history of malignant neoplasm of prostate
CPT/HCPCS: 81002; 87077; 87086; 87186; 99215

== ENCOUNTER → 2023-12-12 16:30 | Outpatient (CLI) | payer OTHER, SELFPAY ==
[2022-12-01 05:34] VITALS: BMI 17.2
[2023-12-12 17:47] LABS: Prostate Specific Antigen < 0.064 ng/mL (0.10-4.00)
== END ==
PROVIDERS: Family Provider Student in an Organized Health Care Education/Training Program; PCP Family Medicine; Referring Provider Specialist; Visit Provider Specialist
DX: N40.1 Benign prostatic hyperplasia with lower urinary tract symptoms (principal); R97.20 Elevated prostate specific antigen [PSA]; N13.8 Other obstructive and reflux uropathy; Z80.42 Family history of malignant neoplasm of prostate
CPT/HCPCS: 36415; 84153

== ENCOUNTER 2023-12-23 09:12 | Day surgery (SDC) | payer OTHER, SELFPAY ==
[2022-12-01 05:34] VITALS: BMI 17.2
[2023-12-19 14:16] VITALS: BMI 24.3
[2023-12-23 10:58] VITALS: BP 178/83; PULSE 62; RESP 16; TEMP 36.6; O2SAT 99; BMI 24.3
--- NOTE | 2023-12-23 11:23 | SUR.PREOP ---
Pt had an irregular rhtyhm and obtained an EKG. EKG showed a mobitz [address] Sinclair and Anesthesia provider.
[2023-12-23] MEDS: LACTATED RINGERS 1,000 ML 21 ML IV (11:26)
--- NOTE | 2023-12-23 11:27 | PM.PREOP ---
Pre-operative Note Interval Note History & Physical reviewed/Exam performed by Physician: Yes Changes to H&P: No
--- NOTE | 2023-12-23 12:22 | SUR.PREOP ---
Dr. Mayer and Dr. Erickson came into to assess pt. Pt's EKG sent to Dr. Short and case was cancelled. pt and informed by both MD's and RN . Pt was very understanding and pt is being referred to cardiology. Pt states he understands everything and a copy of his EKG was given to pt to give to his primary care physcian.
--- NOTE | 2023-12-23 12:24 | SUR.PREOP ---
Pt denies any dizziness or SOB. Pt steady on his feet upon and discharge and discharged with his .
== END 2023-12-23 09:15 | disposition home or self-care (01) ==
PROVIDERS: Family Provider Student in an Organized Health Care Education/Training Program; PCP Family Medicine; Referring Provider Specialist; Visit Provider Specialist
DX: K40.90 Unilateral inguinal hernia, without obstruction or gangrene, not specified as recurrent (principal); Z53.8 Procedure and treatment not carried out for other reasons
CPT/HCPCS: 49650; 93005; J2704

== ENCOUNTER 2023-12-25 16:11 | Emergency (ER) | payer OTHER, SELFPAY ==
[2022-12-01 05:34] VITALS: BMI 17.2
[2023-12-25 16:14] VITALS: BP 149/87; PULSE 70; RESP 18; TEMP 36.8; O2SAT 97; BMI 24.3
--- NOTE | 2023-12-25 16:22 | DI.RAD.S_ITS ---
PROCEDURE: XR CHEST 1V INDICATIONS: chest pain TECHNIQUE: One view of the chest was acquired. COMPARISON: [facility], CR, XR CHEST 2V, 09/29/2023, 11:00. FINDINGS: Surgical changes and devices: None. Lungs and pleura: Lungs are clear. No pleural effusions or pneumothorax. Mediastinum: Mediastinal contours appear normal. Heart size is normal. Bones and chest wall: No suspicious bony lesions. Overlying soft tissues appear unremarkable. IMPRESSION: No acute cardiopulmonary abnormality is seen. Approved by: Aisha Mullen M.D.,Ph.D. on 12/25/2023 at 16:24
[2023-12-25 16:48] LABS: Add Manual Diff / Slide Review NO; Basophils Absolute Auto 100 /uL (0-100); Basophils Percent Auto 0.9 % (0-2); Eosinophils Absolute Auto 200 /uL (0-450); Hematocrit 40.5 % (41-53); Hemoglobin 13.3 g/dL (13.5-17.5); Lymphocytes Absolute Auto 2200 /uL (1100-4500); Lymphocytes Percent Auto 24.1 % (25-40); Mean Corpuscular HGB Conc 32.8 % (30-36); Mean Corpuscular Hemoglobin 28.7 PG (26-34); Mean Corpuscular Volume 87.5 fL (80-100); Monocytes Absolute Auto 900 /uL (0-900); Monocytes Percent Auto 9.5 % (3-14); Neutrophils Absolute Auto 5800 /uL (1500-7000); Neutrophils Percent Auto 63.5 % (50-75); Platelet Count 172 X10^3/uL (150-400); Red Blood Cell Count 4.63 X10^6/uL (4.5-5.9); Red Cell Distribution Width 15.1 % (11.6-14.8); White Blood Cell Count 9.1 X10^3/uL (4.5-11.0)
[2023-12-25 16:54] LABS: INR 1.1 (0.9-1.3); Prothrombin Time 12.4 SECONDS (9.4-12.5)
[2023-12-25 16:56] LABS: PTT Partial Thromboplastin Tim 37 SECONDS (25.1-36.5)
[2023-12-25 16:58] LABS: Alanine Aminotransferase 17 IU/L (<50); Albumin 4.2 g/dL (3.5-5.0); Albumin Globulin Ratio 1.3 (1.0-2.8); Alkaline Phosphatase 63 U/L (38-126); Aspartate Aminotransferase 27 IU/L (17-59); BUN Creatinine Ratio 31.6 (6-22); Bilirubin Total 0.7 mg/dL (0.2-1.3); Blood Urea Nitrogen 30 mg/dL (9-20); Calcium 8.8 mg/dL (8.4-10.2); Carbon Dioxide 27 mmol/L (22-32); Chloride 106 mmol/L (98-107); Creatine Kinase 97 U/L (55-170); Estimated Glomerular Filt Rate > 60 mL/min (>60); Globulin 3.2 g/dL (1.7-4.1); Glucose 104 mg/dL (80-110); HEMOLYSIS < 15 (0-50); Lipase 103 U/L (23-300); Potassium 4.3 mmol/L (3.4-5.1); Sodium 139 mmol/L (137-145); Total Protein 7.4 g/dL (6.3-8.2)
[2023-12-25 17:09] LABS: Troponin I < 0.012 ng/mL (0.01-0.034)
[2023-12-25 18:55] VITALS: BP 138/76; PULSE 60; RESP 20
[2023-12-25 19:58] LABS: Troponin I < 0.012 ng/mL (0.01-0.034)
--- NOTE | 2023-12-25 21:18 | ED_ITS ---
HPI - Arrhythmia/Palpitations General Chief Complaint: Arrhythmia/Palpitations Stated Complaint: Poss afib Time Seen by Provider: 12/25/23 21:02 Source: patient Mode of arrival: Ambulatory History of Present Illness HPI narrative: 83-year-old male with history of ulcerative colitis, exercise-induced asthma, GERD, dyslipidemia who presents with concern for atrial fibrillation. Patient states he had an episode of dizziness last Tuesday while he was working checked his heart rate was 150 blood pressure was 140 resolved he had no additional symptoms. This Tuesday he went to have an inguinal hernia repair and was found to have irregular beat and was told that he had a regular in his EKG and to follow up with Cardiology for clearance before proceeding. This he went for a hike and was found to have AFib on his watch. He states he felt a little short of breath but normal when he exerts himself. He did not have any other changes no palpitations, no dizziness no chest pain no swelling no nausea or vomiting no other GI or urinary symptoms. No syncope or lightheadedness. Patient states they are attempting to set up follow up with Cardiology. He has not old EKG from 01/18/2018 with him. Is not on any anticoagulants. He has had a prior ORIF for his clavicle, TURP prostatectomy. No tobacco does drink 1-2 glasses alcohol daily no recreational drugs. Dr. Loyd Related Data Home Medications Medication Instructions Recorded Confirmed acetaminophen 500 mg tablet 500 mg PO Q6H PRN Pain 07/07/18 12/23/23 (Tylenol Extra Strength) calcium carbonate 600 mg-vitamin 2 tab PO DAILY 07/07/18 12/23/23 D3 20 mcg (800 unit) tablet (Caltrate with Vitamin D3) loratadine 10 mg tablet (Allergy 10 mg PO DAILY 09/29/23 12/23/23 Relief (loratadine)) fluticasone propionate 50 2 spray intranasal DAILY 12/23/23 12/23/23 mcg/actuation nasal spray,suspension Previous Rx's Medication Instructions Recorded Pathway STM-10 Stimulator #1 ea 02/08/23 valacyclovir 1 gram tablet 2,000 mg (2 x 1 gram) PO Q12H PRN 02/08/23 Cold Sores 5 days #20 tabs budesonide-formoterol HFA 80 1 - 2 inh inhalation BID asthma 03/22/23 mcg-4.5 mcg/actuation aerosol #30.6 grams inhaler (Symbicort) lovastatin 20 mg tablet 20 mg PO BEDTIME #90 tabs 09/09/23 montelukast 10 mg tablet 10 mg PO QDAY #90 tabs 09/09/23 mesalamine 1.2 gram tablet,delayed 1.2 g PO BID #180 tabs 11/08/23 release (Lialda) omeprazole 20 mg capsule,delayed 20 mg PO DAILY #90 caps 11/11/23 release Allergies Allergy/AdvReac Type Severity Reaction Status Date / Time ciprofloxacin Allergy Severe tendonitis Verified 12/23/23 10:47 rupture Iodinated Contrast Media Allergy Severe HIVES Verified 12/23/23 10:47 [IODINATED CONTRAST- ORAL AND IV DYE] Review of Systems Review of Systems ROS Unobtainable: All systems reviewed & are unremarkable except as noted in HPI and below Patient History Medical History Recurrent UTI (urinary tract infection) Bladder calculus History of recurrent UTI (urinary tract infection) History of malignant neoplasm of prostate Right inguinal hernia History of malignant neoplasm of prostate Prostate cancer Elevated PSA Family history of prostate cancer BPH w urinary obs/LUTS GERD (gastroesophageal reflux disease) Basal cell carcinoma Arthritis Vision disorder Osteoarthritis (~1999) Seasonal allergies (~1959) Shoulder pain (~2016) Scoliosis (~1961) Osteopenia (~2009) Fractures Tinea pedis (~1957) Actinic keratosis (~1999) Measles Chicken pox Vocal cord paralysis (~1989) History of urinary frequency (~2004) BPH (benign prostatic hyperplasia) (~1989) Ulcerative colitis (~1997) Hemorrhoid Colon polyps (~2016) Hearing loss Ruptured, tendon, quadriceps Asthma (~2004) Skin cancer (~1994) Dysphagia History of esophageal reflux (~1997) History of sigmoidoscopy History of basal cell carcinoma (BCC) (05/09/17) Surgical History Hx of radical retropubic prostatectomy (11/15/22) History of transurethral resection of prostate Anesthesia Cataracts, bilateral (~1998) Clavicle fracture S/P TURP (status post transurethral resection of prostate) (~2015) History of esophagogastroduodenoscopy (EGD) History of colonoscopy (~2016) Family History Brother Heart disease Hyperlipidemia Cancer Brother Age: 95 Stroke Cancer Brother Age: 85 Stroke Cancer Child Age: 55 Heart disease Father Cancer Mother Parkinson's disease Grandfather Cancer Grandmother Heart disease Social History marital status: number of children: 3 household members: spouse occupational status: previously employed Smoking Status: Never smoker alcohol intake: current caffeine: No Smoking Status: Never smoker alcohol intake frequency: 0-2 drinks per day Substance Use Type: does not use Exam Narrative Exam Narrative: GENERAL: Alert and oriented x three, well-appearing male in no acute distress. HEENT: Head normocephalic, atraumatic, EOMI, pupils reactive, face symmetric, moist mucous membranes NECK: Supple, full range of motion CARDIOVASCULAR: Regular rate and rhythm without murmurs, rubs or gallops. No JVD. No edema. RESPIRATORY: Breath sounds equal bilaterally, no wheezes rales or rhonchi. ABDOMEN: Soft, nontender. Normoactive bowel sounds all 4 quadrants. No guarding or rebound, rigidity, no mass : No CVA tenderness EXTREMITIES: Normal range of motion, no clubbing or edema. Neurovascularly intact NEUROLOGICAL: Cranial nerves II through XII grossly intact. Moving all extremities SKIN: Warm, dry, no petechiae, no rashes or lesions. Initial Vital Signs Initial Vital Signs: Vital Signs Temperature 98.3 F 12/25/23 16:14 Pulse Rate 70 12/25/23 16:14 Respiratory Rate 18 12/25/23 16:14 Blood Pressure 149/87 H 12/25/23 16:14 Pulse Oximetry 97 12/25/23 16:14 Oxygen Delivery Method Room Air 12/25/23 16:14 Course Orders Ordered: ED Orders 12/25/23 19:05 Trop I [Troponin I] Stat Discontinued Medications Aspirin (Aspirin 81 Mg Chew Tab) 324 mg PO NOW ONE Stop: 12/25/23 16:23 Last Admin: 12/25/23 21:02 Dose: Not Given Documented By: MYRNA Vital Signs Vital signs: Vital Signs - 8 hr 12/25/23 21:23 12/25/23 21:30 12/25/23 21:30 Pulse Rate 50 L 62 Respiratory Rate 21 29 H Blood Pressure 186/90 H Pulse Oximetry 97 98 MDM - Arrhythmia/Palpitations Lab Data 12/25/23 16:30 12/25/23 16:30 Labs: Lab Results 12/25/23 12/25/23 Range/Units 16:30 19:05 WBC 9.1 (4.5-11.0) X10^3/uL RBC 4.63 (4.5-5.9) X10^6/uL Hgb 13.3 L (13.5-17.5) g/dL Hct 40.5 L (41-53) % MCV 87.5 (80-100) fL MCH 28.7 (26-34) PG MCHC 32.8 (30-36) % RDW 15.1 H (11.6-14.8) % Plt Count 172 (150-400) X10^3/uL Neut % (Auto) 63.5 (50-75) % Lymph % (Auto) 24.1 L (25-40) % [place] % (Auto) 9.5 (3-14) % Eos % (Auto) 2.0 (2-4) % Baso % (Auto) 0.9 (0-2) % Neut # (Auto) 5800 (4224-1222) /uL Lymph # (Auto) 2200 (6478-4590) /uL [place] # (Auto) 900 (0-900) /uL Eos # (Auto) 200 (0-450) /uL Baso # (Auto) 100 (0-100) /uL PT 12.4 (9.4-12.5) SECONDS INR 1.1 (0.9-1.3) APTT 37 H (25.1-36.5) SECONDS Sodium 139 (137-145) mmol/L Potassium 4.3 (3.4-5.1) mmol/L Chloride 106 (98-107) mmol/L Carbon Dioxide 27 (22-32) mmol/L BUN 30 H (9-20) mg/dL Creatinine 0.95 (0.66-1.25) mg/dL Estimated GFR > 60 (>60) mL/min BUN/Creatinine Ratio 31.6 H (6-22) Glucose 104 (80-110) mg/dL Calcium 8.8 (8.4-10.2) mg/dL Magnesium 2.0 (1.6-2.3) mg/dL Total Bilirubin 0.7 (0.2-1.3) mg/dL AST 27 (17-59) IU/L ALT 17 (<50) IU/L Alkaline Phosphatase 63 (38-126) U/L Total Creatine Kinase 97 (55-170) U/L Troponin I < 0.012 < 0.012 (0.01-0.034) ng/mL Total Protein 7.4 (6.3-8.2) g/dL Albumin 4.2 (3.5-5.0) g/dL Globulin 3.2 (1.7-4.1) g/dL Albumin/Globulin Ratio 1.3 (1.0-2.8) Lipase 103 (23-300) U/L Imaging Data Chest x-ray: Radiologist's Impresson: Renny Rojo??He/Him/His??83??M??1940 ? Allergy/Adv: ciprofloxacin, Iodinated Contrast Media (More??) Close Chest X-Ray (Signed) Aisha Mullen - 12/25/23 Abdomen Ultrasound (Signed) Ky Vences - 10/25/23 PFT Result 10/03/23 Chest X-Ray (Signed) Irvin Kern - 09/29/23 Cystogram (Signed) CallHarshad - 12/14/[address] (Signed) Call,Harshad - 12/14/22 Cystogram (Signed) Beltran Adams - 12/09/22 Percutaneous Drainage (Cancelled) Beltran Adams - 12/01/22 Cyst Aspiration Ultrasound (Signed) Beltran Adams - 12/01/22 Abdomen/Pelvis CT (Signed) Beltran Adams - 12/01/22 Cystogram (Signed) David Neal - 12/01/22 DI Image 03/18/22 Pelvis MRI (Signed) Nely Chavez - 03/08/22 Finger X-Ray (Signed) Cecilia Vega - 11/27/21 Telemetry Strips 03/10/21 Lumbar Spine MRI (Signed) Love Simeon - 07/08/20 Mammogram Diagnostic (Signed) David Neal - 04/22/20 Lumbar Spine MRI (Signed) Brian Alvarado - 09/03/19 Telemetry Strips 10/04/18 Vascular Ultrasound (Signed) Juancarlos Leiva - 04/06/18 Knee MRI (Signed) Love Simeon - 01/02/18 Knee MRI (Addendum) Love Simeon - 01/02/18 Knee X-Ray (Signed) Cecilia Vega - 01/01/18 Knee X-Ray (Signed) Cecilia Vega - 01/01/18 Launch?Image [address] [address] XRay Report Signed Patient: Renny Rojo MR#: [id number] : 1940 Acct:[id number] Age/Sex: 83 / M Date of Service: 12/25/23 Loc: ED Accession Number: [id number] Procedure: XR chest 1V Ordering Provider: Jairo Navarro MD PROCEDURE: XR CHEST 1V INDICATIONS: chest pain TECHNIQUE: One view of the chest was acquired. COMPARISON: [facility], , XR CHEST 2V, 09/29/2023, 11:00. FINDINGS: Surgical changes and devices: None. Lungs and pleura: Lungs are clear. No pleural effusions or pneumothorax. Mediastinum: Mediastinal contours appear normal. Heart size is normal. Bones and chest wall: No suspicious bony lesions. Overlying soft tissues appear unremarkable. IMPRESSION: No acute cardiopulmonary abnormality is seen. Approved by: Aisha Mullen M.D.,Ph.D. on 12/25/2023 at 16:24 ECG Data Attestation: I personally reviewed and interpreted this ECG as follows: Interpretation: Sinus rhythm first-degree AV block rate of 61 [place] 320 QRS of 104 QTC 457 care and appears to have some motion artifact in V3 no acute ST elevation. MDM Narrative Medical decision making narrative: 83-year-old male who had cardiac irregularity on EKG Tuesday. EKG was reviewed patient does not appear to be in AFib but he does have almost a bigeminal pattern to his QRS they are narrow with the 1st 1 has a P wave but the 2nd 1 does not but appears bigeminal and not irregularly irregular. There is no lengthening [place] interval or dropped beats that is appreciated. EKG today does not show AFib it does show first-degree AV block. Rate of 61 [place] 320, QRS of 140 QTC of 457. No ST changes were appreciated from the 24th today. His EKG from 2016 shows sinus arrhythmia. Labs show white count of 9.1 hemoglobin of 13 consistent with priors, platelets of 172 glucose of 104 creatinine 0.95 BUN of 30, sodium 139 potassium 4.3 chloride of 106 CO2 of 27 less than 0.012 troponin x2, chest x-ray is negative. Patient has never had chest pain he had some shortness of breath with the exertion but he describes it as his normal level of shortness of breath he was just alert that his fit bit told him he had AFib. Unclear if he is having true episodes of AFib or maybe some other electrical abnormality but does not appear to have any high-risk rhythm changes currently. He has not had any other high- risk factors and felt appropriate for discharge to follow up with Cardiology. Discharge Plan Departure Patient Disposition: Home Clinical Impression: Arrhythmia Activity Restrictions/Additional Instructions: Please follow up with Cardiology. If you have difficulty following up with them you can follow up with your primary care physician as well and they can help with your workup. Contact for Cardiology is included below. A copy of your EKG from today is included. Continue your home medications as prescribed. Please return for new dizziness, lightheadedness or passing out, new chest pain, shortness of breath, new swelling of extremities, palpitations or fast heart rate or other new or concerning changes. Prescriptions: No Action acetaminophen [Tylenol Extra Strength] 500 mg tablet 500 mg PO Q6H PRN (Reason: Pain) calcium carbonate-vitamin D3 [Caltrate with Vitamin D3] 600 mg(1,500mg) -800 unit tablet 2 tab PO DAILY montelukast 10 mg tablet 10 mg PO QDAY Qty: 90 2RF lovastatin 20 mg tablet 20 mg PO BEDTIME Qty: 90 2RF mesalamine [Lialda] 1.2 gram tablet,delayed release (DR/EC) 1.2 g PO BID Qty: 180 3RF omeprazole 20 mg capsule,delayed release(DR/EC) 20 mg PO DAILY Qty: 90 3RF valacyclovir 1 gram tablet 2,000 mg PO Q12H PRN (Reason: Cold Sores) 5 Days Qty: 20 1RF (DME) Pathway STM-10 Stimulator See Rx Instructions .Route .MEDSUPPLY Qty: 1 0RF Rx Instructions: use as directed budesonide-formoterol [Symbicort] 80-4.5 mcg/actuation HFA aerosol inhaler 1 - 2 inh inhalation BID Qty: 30.6 3RF fluticasone propionate 50 mcg/actuation spray,suspension 2 spray intranasal DAILY loratadine [Allergy Relief (loratadine)] 10 mg tablet 10 mg PO DAILY Referrals: Zoe Arteaga MD [Physician] - Amrit Loyd DO [Primary Care Provider] - Stand Alone Forms: Patient Portal/API
[2023-12-25 21:23] VITALS: PULSE 50; RESP 21; O2SAT 97
[2023-12-25 21:30] VITALS: BP 186/90; PULSE 62; RESP 29; O2SAT 98
== END 2023-12-25 21:57 | disposition home or self-care (01) ==
PROVIDERS: Emergency Medicine; Emergency Provider Emergency Medicine; Family Provider Student in an Organized Health Care Education/Training Program; PCP Family Medicine
DX: I49.9 Cardiac arrhythmia, unspecified (principal); R03.0 Elevated blood-pressure reading, without diagnosis of hypertension
CPT/HCPCS: 36415; 71045; 80053; 82550; 83690; 83735; 84484; 85025; 85610; 85730; 93005; 99284

== ENCOUNTER → 2024-01-04 09:48 | Outpatient (CLI) | payer OTHER, SELFPAY ==
[2022-12-01 05:34] VITALS: BMI 17.2
== END ==
LOC: CAR 09:49
PROVIDERS: Family Provider Student in an Organized Health Care Education/Training Program; PCP Family Medicine; Referring Provider Family Medicine; Visit Provider Family Medicine
DX: R00.2 Palpitations (principal)
CPT/HCPCS: 93246

== ENCOUNTER → 2024-01-30 17:20 | Outpatient (CLI) | payer OTHER, SELFPAY ==
[2022-12-01 05:34] VITALS: BMI 17.2
[2024-01-30 18:04] LABS: Cholesterol 185 mg/dL (140-199); HDL Cholesterol 66 mg/dL (40-60); LDL Cholesterol Calculated 101 mg/dL (<100); Triglycerides 90 mg/dL (35-150)
[2024-01-30 18:39] LABS: Thyroid Stimulating Hormone 1.51 uIU/mL (0.47-4.68)
== END ==
PROVIDERS: Family Provider Student in an Organized Health Care Education/Training Program; PCP Family Medicine; Referring Provider Internal Medicine Cardiovascular Disease; Visit Provider Internal Medicine Cardiovascular Disease
DX: E78.5 Hyperlipidemia, unspecified (principal); I48.0 Paroxysmal atrial fibrillation
CPT/HCPCS: 36415; 80061; 84443

== ENCOUNTER → 2024-02-14 07:10 | Outpatient (CLI) | payer OTHER, SELFPAY ==
[2022-12-01 05:34] VITALS: BMI 17.2
--- NOTE | 2024-02-17 21:55 | DI.NM.S_ITS ---
DATE OF SERVICE: 02/14/2024 PROCEDURE: Pharmacological perfusion study. INDICATIONS: Atrial fibrillation. RADIOPHARMACEUTICAL: 25.0 millicurie technetium-99m Myoview IV was injected at stress and 25.0 millicurie technetium-99m Myoview IV was injected at rest. CARDIAC STRESS: The patient underwent IV Lexiscan perfusion study under the supervision of an attending staff using standard IV Lexiscan as per protocol. Baseline rhythm was sinus. There was first-degree AV block. During stress, nonspecific ST-T changes seen. The patient has intermittent PVCs as well as PACs without any obvious AFib. The patient had minimal dyspnea. No chest discomfort. Remained hemodynamically stable. Resting blood pressure 140/84 mmHg. RAW DATA: There is increased subdiaphragmatic activity. GATED STUDY: Stress LV ejection fraction 71% without any obvious wall motion abnormalities. Resting end-diastolic volume 118 mL. TID ratio 0.97, which is within normal limits. Lung/heart ratio 0.47. Upper limit 0.45. MYOCARDIAL PERFUSION SCAN: Stress supine, resting supine, and stress prone images were compared to each other. Stress supine and resting supine images revealed mild to moderately decreased perfusion of inferior wall extending into the inferoapex, which got completely resolved during stress prone images suggestive of diaphragmatic tissue attenuation artifacts. No convincing ischemia infarction during stress prone images. CONCLUSION: This is a normal myocardial perfusion study with evidence of diaphragmatic tissue attenuation artifact, which got resolved during stress prone images. Stress prone images revealed normal myocardial perfusion. Baseline rhythm sinus with first-degree AV block. During stress, the patient has intermittent PVCs, PACs with no AFib. No chest pain. Minimal dyspnea during Lexiscan. LV ejection fraction 71%. Overall low-risk myocardial perfusion scan. Lung/heart ratio 0.47, which is mildly abnormal. Consider 2D echo to rule out valvular pathology or diastolic dysfunction. Renny Rojo - HINA/suze/AY doc#: [id number]/job#: [id number] dd: 02/17/2024 16:31:00 dt: 02/17/2024 21:07:00 DICTATING MD/COPIES TO: Chelo Short MD COPIES MNE: YVES;
== END ==
PROVIDERS: Family Provider Student in an Organized Health Care Education/Training Program; PCP Family Medicine; Referring Provider Internal Medicine Cardiovascular Disease; Visit Provider Internal Medicine Cardiovascular Disease
DX: I48.0 Paroxysmal atrial fibrillation (principal); R42 Dizziness and giddiness
CPT/HCPCS: 78452; 93017; A9502; J2785

== ENCOUNTER → 2024-02-21 10:53 | Outpatient (CLI) | payer OTHER, SELFPAY ==
[2022-12-01 05:34] VITALS: BMI 17.2
--- NOTE | 2024-02-21 10:54 | DI.ECHO.S_ITS ---
[facility] : : [address] : : [place] : : [id number] : : Phone: [phone] Echocardiogram Report + + :Name: SOY HALL Study Date: 02/21/2024 Height: 70 in : :[facility] ReadingLocation: Weight: 168 lb : : Gender: Male BSA: 1.9 m2 : :: 1940 Age: 83 yrs BP: 148/79 mmHg: :Reason For Study: ATRIAL FIBRILLATION : :Ordering Physician: SHAUNA, : :YUE Performed By: Gaston Whaley : :Referring: YUE VILLATORO : + + Interpretation Summary The patient was in atrial fibrillation with controlled ventricular rate during the exam. The left ventricle is normal in size and wall thickness. The left ventricular ejection fraction is normal. The ejection fraction is estimated to be 55-60%. The right ventricle is mild to moderately dilated. The right ventricular systolic function is normal. Mild MR There is mild tricuspid regurgitation. The right ventricular systolic pressure is estimated to be at least 33 mmHg based on an estimated right atrial pressure of 3 mm Hg. Procedure: A two-dimensional transthoracic echocardiogram with color flow and Doppler was performed. The study quality was technically adequate. There is no prior echocardiogram noted for this patient. The heart rate ranged between 55-70 bpm during the study. The patient was in atrial fibrillation with controlled ventricular rate during the exam. Left Ventricle: The left ventricle is normal in size and wall thickness. There is no thrombus. The ejection fraction is estimated to be 55-60%. The left ventricular ejection fraction is normal. There are no focal wall motion abnormalities. Diastolic function could not be accurately assessed due to atrial fibrillation. Right Ventricle: The right ventricle is mild to moderately dilated. A calcified moderator band is seen in the right ventricle. The right ventricular systolic function is normal. Atria: The left atrium is mildly dilated. The right atrium is mildly dilated. The interatrial septum grossly appears intact with no obvious evidence for an atrial septal defect. Mitral Valve: There is mild mitral annular calcification. There is no mitral valve stenosis. There is mild mitral regurgitation. Aortic Valve: The aortic valve is trileaflet. The aortic valve opens well. There is no aortic valve stenosis. No aortic regurgitation is present. Tricuspid Valve: Tricuspid leaflets are thickened. There is no tricuspid stenosis. There is mild tricuspid regurgitation. The right ventricular systolic pressure is estimated to be at least 33 mmHg based on an estimated right atrial pressure of 3 mm Hg. Pulmonic Valve: The pulmonic valve is not well visualized. There is no pulmonic valvular stenosis. There is no pulmonic valvular regurgitation. Great Vessels: The aortic root is mildly dilated. The ascending aorta is at the upper limits of normal in size. The IVC is of normal diameter and collapses greater than 50% with a sniff. This suggests a low right atrial pressure of 3 mm Hg. Pericardium/ Pleura There is no pericardial effusion. There is no pleural effusion. MMode/2D Measurements & Calculations LVIDd: 4.2 cm LVOT diam: 2.1 cm LVIDs: 2.9 cm Ao root diam: 3.9 cm FS: 31.0 % asc Aorta Diam: 3.8 cm IVSd: 0.85 cm LVPWd: 0.81 cm LV blake. diameter/BSA (cm/m^2): 2.2 LV sys. diameter/BSA (cm/m^2): 1.5 LA A2 area: 21.6 cm2 RA long axis: 5.9 cm LA A4 area: 20.8 cm2 RA area: 20.3 cm2 LA length (vol): 5.8 cm RA vol: 59.8 ml LA vol: 65.2 ml RA : 30.8 ml/m2 LA vol index: 33.6 ml/m2 IVC diam: 0.76 cm RVD1 (basal): 4.7 cm RVD2 (mid): 4.4 cm TAPSE: 2.9 cm Doppler Measurements & Calculations Ao V2 max: 134.0 cm/sec LVOT Max Carl: 113.4 cm/sec Ao V2 mean: 89.6 cm/sec LV V1 max P.5 mmHg Ao max P.6 mmHg LV V1 VTI: 24.0 cm Ao mean P.8 mmHg ALEJANDRA(I,D): 3.1 cm2 Ao V2 VTI: 27.5 cm ALEJANDRA(V,D): 3.0 cm2 sev ratio: 0.87 ALEJANDRA indexed to BSA (cm^2/m^2): 1.6 MV E max carl: 62.1 cm/sec TR max carl: 272.9 cm/sec MV A max carl: 42.9 cm/sec TR max P.0 mmHg MV E/A: 1.4 PA V2 max: 107.8 cm/sec Med Peak E' Carl: 9.0 cm/sec PA V2 mean: 69.7 cm/sec E/E' med: 6.9 PA mean P.3 mmHg Lat Peak E' Carl: 11.0 cm/sec LIBRADO pr(Accel): 50.5 mmHg E/E' lat: 5.6 E/e' average: 6.3 MV dec time: 0.19 sec SV(LVOT): 84.2 ml Reading Physician:05:28 PM
== END ==
PROVIDERS: Family Provider Student in an Organized Health Care Education/Training Program; PCP Family Medicine; Referring Provider Internal Medicine Cardiovascular Disease; Visit Provider Internal Medicine Cardiovascular Disease
DX: I77.810 Thoracic aortic ectasia (principal); I48.0 Paroxysmal atrial fibrillation; I08.1 Rheumatic disorders of both mitral and tricuspid valves; R42 Dizziness and giddiness
CPT/HCPCS: 93306